=== PATIENT | male | born 1940 | race Caucasian/White ===

== ENCOUNTER → 2017-06-22 | Outpatient (CLI) | payer MEDICARE ==
[~2017-06-22] MED LIST: DOBUTamine DRIP for NUC MED 500 MG in DEXTROSE/WATER 1 250ML.BAG IV ONE
--- NOTE | 2017-06-22 09:22 | XR ---
EXAMINATION TYPE: XR chest 2V DATE OF EXAM: 06/22/2017 COMPARISON: 06/12/2016 HISTORY: Chest pain and history of bypass TECHNIQUE: Frontal and lateral views of the chest are obtained. FINDINGS: Postsurgical changes are seen of the chest with mediastinal clips and intact midline hamilton otomy wires. No focal consolidation, pleural effusion, or pneumothorax. Cardiomediastinal silhouette is stable. Degenerative changes are also again appreciated of the thoracic spine with exaggerated tho racic kyphosis and no visualized compression fracture. Cholecystectomy clips are seen within the righ t upper quadrant on the lateral image as well as calcific atheromatous changes of the abdominal aorta . IMPRESSION: No acute cardiopulmonary process.
--- NOTE | 2017-06-25 17:57 | ECHOS ---
Referral Reason:I25.84 coronary atherosclerosis MEASUREMENTS -------- HEIGHT: 175.3 cm WEIGHT: 90.7 kg BP: 110/62 WallScoring: string WallScoring: string WallScoring: string WallScoring: string FINDINGS -------- The patient received intravenous dobutamine beginning at 10 mcg/kg/min, increasing to 20 mcg/kg/min and 30 mcg/kg/min in 3 minute stages plus 0 mg atropine. Max Heart Rate: 128 % of Max Predicted Heart Rate: 91% Rest Heart Rate: 84 Rest BP: 110/62 Max BP: 216/130 Mets Achieved: N/A The test was stopped because the target heart rate was achieved. Sinus rhythm. In response to stress, the ECG showed no diagnostic ST-T wave changes (see exercise report for details). LV size, wall thickness and systolic function are normal, with an EF of 60%. At recovery dobutamine stress there was appropriate augmentation of systolic function of all segments with decrease in cavity size. CONCLUSIONS -------- 1. Sinus rhythm. 2. In response to stress, the ECG showed no diagnostic ST-T wave changes (see exercise report for details). 3. LV size, wall thickness and systolic function are normal, with an EF of 60%. 4. At recovery dobutamine stress there was appropriate augmentation of systolic function of all segments with decrease in cavity size. 5. No 2D echocardiographic evidence of inducible ischemia to achieved workload. PIPELINES LABORER: Oren Jose RDCS
--- NOTE | 2017-06-26 07:38 | EST ---
Referral Reason:I25.84 coronary atherosclerosis MEASUREMENTS -------- HEIGHT: 175.3 cm WEIGHT: 90.7 kg BP: 110/62 FINDINGS -------- The patient received intravenous dobutamine beginning at 10 mcg/kg/min, increasing to 20 mcg/kg/min and 30 mcg/kg/min in 3 minute stages plus 0 mg atropine. Max Heart Rate: 128 % of Max Predicted Heart Rate: 91% Rest Heart Rate: 84 Rest BP: 110/62 Max BP: 216/130 Mets Achieved: N/A The test was stopped because the target heart rate was achieved. Sinus rhythm. In response to stress, the ECG showed no diagnostic ST-T wave changes (see exercise report for details). LV size, wall thickness and systolic function are normal, with an EF of 60%. At recovery dobutamine stress there was appropriate augmentation of systolic function of all segments with decrease in cavity size. CONCLUSIONS -------- 1. Sinus rhythm. 2. In response to stress, the ECG showed no diagnostic ST-T wave changes (see exercise report for details). 3. LV size, wall thickness and systolic function are normal, with an EF of 60%. 4. At recovery dobutamine stress there was appropriate augmentation of systolic function of all segments with decrease in cavity size. 5. No 2D echocardiographic evidence of inducible ischemia to achieved workload. MATTRESS RENOVATOR: Oren Jose RDCS MTDD
== END | disposition home or self-care (01) ==
LOC: RADNMMAIN 08:41
PROVIDERS: ATTEND Internal Medicine Geriatric Medicine
DX: R06.02 Shortness of breath (principal); I25.84 Coronary atherosclerosis due to calcified coronary lesion
CPT/HCPCS: 93017; 71020; C8928; J1250; Q9957; 93350

== ENCOUNTER → 2018-10-18 | Outpatient (CLI) | payer MEDICARE ==
--- NOTE | 2018-10-18 18:56 | ECHOF ---
Referral Reason:I35.0 Non-rheumatic aortic valve stenosis MEASUREMENTS -------- HEIGHT: 175.3 cm WEIGHT: 83.5 kg BP: IVSd: 1.4 cm (0.6 - 1.1) LVIDd: 3.0 cm (3.9 - 5.3) LVPWd: 1.4 cm (0.6 - 1.1) IVSs: 2.1 cm LVIDs: 1.8 cm LVPWs: 1.7 cm Ao Diam: 3.1 cm (2.0 - 3.7) AV Cusp: 2.0 cm (1.5 - 2.6) LA Diam: 2.2 cm (2.7 - 3.8) MV EXCURSION: 13.189 mm (> 18.000) MV EF SLOPE: 59 mm/s (70 - 150) EPSS: 1.9 cm MV E Robbi: 0.82 m/s MV DecT: 290 ms MV A Robbi: 0.94 m/s MV E/A Ratio: 0.87 RAP: 5.00 mmHg RVSP: 25.48 mmHg FINDINGS -------- Sinus rhythm. This was a technically good study. The left ventricular size is normal. There is moderate concentric left ventricular hypertrophy. O verall left ventricular systolic function is normal with, an EF between 55 - 60 %. The right ventricle is normal in size and function. The left atrial size is normal. The right atrium is normal in size. Aortic valve is trileaflet and is mildly thickened. There is no evidence of aortic stenosis. The mitral valve leaflets are mildly thickened. Mild mitral regurgitation is present. Mild tricuspid regurgitation present. Right ventricular systolic pressure is normal at < 35 mmHg. The right ventricular systolic pressure, as measured by Doppler, is 25.48mmHg. Trace/mild (physiologic) pulmonic regurgitation. The aortic root size is normal. Normal inferior vena cava with normal inspiratory collapse consistent with estimated right atrial pre ssure of 5 mmHg. There is no pericardial effusion. CONCLUSIONS -------- 1. Sinus rhythm. 2. This was a technically good study. 3. The left ventricular size is normal. 4. There is moderate concentric left ventricular hypertrophy. 5. Overall left ventricular systolic function is normal with, an EF between 55 - 60 %. 6. The left atrial size is normal. 7. Aortic valve is trileaflet and is mildly thickened. 8. The mitral valve leaflets are mildly thickened. 9. Mild mitral regurgitation is present. 10. Mild tricuspid regurgitation present. 11. Right ventricular systolic pressure is normal at < 35 mmHg. 12. Trace/mild (physiologic) pulmonic regurgitation. 13. The aortic root size is normal. 14. Normal inferior vena cava with normal inspiratory collapse consistent with estimated right atrial pressure of 5 mmHg. 15. There is no pericardial effusion. EQUAL OPPORTUNITY COUNSELOR: Agnes Villalta RDCS
== END | disposition home or self-care (01) ==
LOC: RADECHMAIN 12:53
PROVIDERS: ATTEND Internal Medicine Geriatric Medicine
DX: I08.1 Rheumatic disorders of both mitral and tricuspid valves (principal)
CPT/HCPCS: 93306

== ENCOUNTER → 2018-10-30 | Outpatient (CLI) | payer MEDICARE ==
--- NOTE | 2018-10-30 12:10 | FL ---
EXAMINATION TYPE: FL barium swallow w video DATE OF EXAM: 10/30/2018 MODIFIED SWALLOW / DEGLUTITION STUDY CLINICAL HISTORY: Coughing and burning chest pain at night. TECHNIQUE: Deglutition study is performed utilizing thin liquid barium, barium thick applesauce, and barium coated cracker. 32 seconds of fluoroscopy time was utilized with 0 images saved as the exam w as video recorded. COMPARISON: None. FINDINGS: The oral and pharyngeal phases show satisfactory initiation and propagation with all modali ties tested. Normal mastication is seen with solid modalities tested. There is no evidence of penet ration or aspiration with any modality tested. No significant pharyngeal residue was appreciated. IMPRESSION: Unremarkable deglutition study. Please refer to speech therapist notes for further detai ls if necessary.
== END ==
LOC: RADFLMAIN 10:43
PROVIDERS: ATTEND Internal Medicine Geriatric Medicine
DX: Q40.1 Congenital hiatus hernia (principal)
CPT/HCPCS: 74230

== ENCOUNTER 2018-12-05 11:05 | Day surgery (SDC) | payer MEDICARE ==
[2018-12-03 10:10] VITALS: BMI 27.4
[~2018-12-05 11:05] MED LIST changes: -DOBUTamine DRIP for NUC MED 500 MG in DEXTROSE/WATER 1 250ML.BAG IV ONE; +LACTATED RINGERS 1,000 ML IV SCH; +LIDOCAINE 1% 20 ML VIAL (10MG/ML) FOR IV START INTRADERMA PRN
[2018-12-05 11:30] LABS: Glucose,Whole Blood 152 mg/dL (75-99)
[2018-12-05 11:34] VITALS: TEMP 97.3
[2018-12-05] MEDS ORDERED: LIDOCAINE 1% INJ 10MG/ML (20 ML MDV) ONE (11:48)
[2018-12-05] MEDS ORDERED: PROPOFOL 10 MG/ML 20 ML VIAL IV ONE (11:48)
--- NOTE | 2018-12-05 12:16 | P.OP ---
Date of Procedure: 12/05/18 Preoperative Diagnosis: Screening Postoperative Diagnosis: Transverse Colon Polyp Procedure(s) Performed: Colonoscopy with snare polypectomy Surgeon: Cathleen Olson Pathology: other (Transverse colon polyp) Condition: stable Disposition: same day Indications for Procedure: 78-year-old male presents for a screening colonoscopy. Risks, benefits and alternatives were provided to the patient. The patient did provide consent prior to attending the endoscopy suite. Operative Findings: Transverse colon polyp Description of Procedure: The patient was brought into the endoscopy suite and placed in left lateral decubitus position. Adequate sedation was achieved using conscious sedation. A digital rectal exam was performed and mild internal hemorrhages were palpated. An endoscope was then placed in the rectum and advanced to the cecum as identified by landmarks including the appendiceal orifice and ileocecal valve. The prep was good. The colon scope was then slowly withdrawn, examining for any mucosal abnormalities. The cecum, ascending, transverse, descending and sigmoid colon were visualized adequately. There was a notable polyp in the transverse colon. Heated Snare polypectomy was used to remove this polyp in its entirety. Hemostasis was maintained. There is also notable diverticulosis within the descending and sigmoid colon. Retroflexion was performed in the rectum and internal hemorrhoids were visible. Excess air was removed and the colonoscope was withdrawn and the procedure terminated. The patient was then transferred to the postanesthesia recovery unit in stable condition. Repeat colonoscopy should be performed based on symptoms due to the patient's age.
[2018-12-05 12:42] VITALS: BP 144/85; PULSE 73; RESP 16
== END 2018-12-05 12:55 | disposition home or self-care (01) ==
LOC: ORWHC2ENDO 11:05
PROVIDERS: ATTEND Surgery
DX: Z12.11 Encounter for screening for malignant neoplasm of colon (principal); K63.5 Polyp of colon; K64.8 Other hemorrhoids; M19.90 Unspecified osteoarthritis, unspecified site; I25.10 Atherosclerotic heart disease of native coronary artery without angina pectoris; E11.9 Type 2 diabetes mellitus without complications; I10 Essential (primary) hypertension; E78.00 Pure hypercholesterolemia, unspecified; G47.30 Sleep apnea, unspecified; E78.5 Hyperlipidemia, unspecified; K21.9 Gastro-esophageal reflux disease without esophagitis; Z95.1 Presence of aortocoronary bypass graft; Z79.84 Long term (current) use of oral hypoglycemic drugs; Z79.1 Long term (current) use of non-steroidal anti-inflammatories (NSAID); Z79.82 Long term (current) use of aspirin; Z79.899 Other long term (current) drug therapy; Z90.79 Acquired absence of other genital organ(s); Z85.46 Personal history of malignant neoplasm of prostate; Z85.89 Personal history of malignant neoplasm of other organs and systems; Z85.828 Personal history of other malignant neoplasm of skin
CPT/HCPCS: 88305; 45385; J2001; J2704

== ENCOUNTER → 2019-08-15 | Outpatient (CLI) | payer MEDICARE ==
--- NOTE | 2019-08-15 12:31 | XR ---
EXAMINATION TYPE: XR shoulder complete LT DATE OF EXAM: 08/15/2019 COMPARISON: NONE HISTORY: Pain TECHNIQUE: Three views are submitted. FINDINGS: The osseous structures are intact. There is no acute fracture or dislocation. The AC joint is mildl y narrowed. No significant spur formation. IMPRESSION: 1. Mild AC joint arthropathy.
== END | disposition home or self-care (01) ==
LOC: RADXRMAIN 12:06
PROVIDERS: ATTEND Internal Medicine Geriatric Medicine
DX: M12.812 Other specific arthropathies, not elsewhere classified, left shoulder (principal)

== ENCOUNTER → 2020-03-31 | Outpatient (CLI) | payer MEDICARE ==
--- NOTE | 2020-03-31 15:50 | XR ---
EXAMINATION TYPE: XR lumbar spine 2 or 3V DATE OF EXAM: 03/31/2020 COMPARISON: None HISTORY: Back pain radiating to right hip TECHNIQUE: Three-view lumbar spine FINDINGS: There 5 lumbar-type vertebral bodies. Pedicles are intact. Disc space narrowing is present L4-5. Vacuum disc phenomenon is present L5-S1 L4-5 L3-4 and T12-L1. There is narrowing of the T12-L1 disc space. Note is made of vascular calcification within the aorta. IMPRESSION: 1. Degenerative disc changes and scoliosis.
== END | disposition home or self-care (01) ==
LOC: RADXRMAIN 14:37
PROVIDERS: ATTEND Internal Medicine Geriatric Medicine
DX: M51.36 Other intervertebral disc degeneration, lumbar region (principal); M41.86 Other forms of scoliosis, lumbar region
CPT/HCPCS: 72100

== ENCOUNTER → 2020-05-04 | Outpatient (CLI) | payer MEDICARE ==
--- NOTE | 2020-05-04 14:24 | MR ---
EXAMINATION TYPE: MR lumbar spine wo con DATE OF EXAM: 05/04/2020 COMPARISON: Plain film dated 03/31/2020 HISTORY: Spinal stenosis lumbar region TECHNIQUE: Multiplanar, multisequence images of the lumbar spine were acquired. T12-L1: Posterior extension endplate disc complex contacts the anterior thecal sac. No significant ce ntral stenosis or foraminal encroachment. Minimal retrolisthesis grade 1 T12-L1. L1-L2: Some loss of signal is consistent with disc desiccation. No herniation, protrusion or disc bu lging. No canal stenosis is present. Foramina are patent bilaterally. L2-L3: Mild loss of signal consistent with disc desiccation. No herniation, protrusion or disc bulgi ng. No canal stenosis is present. Foramina are patent bilaterally. L3-L4: Minimal posterior disc bulge causes only slight anterior mass effect on the thecal sac. No sig nificant foraminal encroachment or central stenosis. L4-L5: Posterior extension endplate disc complex causes some anterior mass effect on the thecal sac. Facet arthropathy with hypertrophy ligamentum flavum causes some posterior lateral mass effect on the thecal sac. Circumferential extension endplate disc complex results in some right-sided foraminal en croachment. L5-S1: Circumferential posterior broad-based disc bulge contacts anterior thecal sac, lateral extensi on endplate disc complex encroaches on the neural foramina greater on the left than on the right. The re is no significant central stenosis. Facet arthropathy changes are present. Hypertrophic facet reeves ges extending to the lateral recess greater on the left. Lumbar segments are intact. No paraspinal masses are identified. Conus medullaris has a normal appe arance. There is a S-shaped dressing lumbar scoliosis. Lumbar vertebral bodies show preserved height. There is multilevel spondylosis with endplate discogenic marrow signal change. Loss of disc height a nd signal is present in the interval vertebral levels especially L3-4, L4-5 and L5-S1, T12-L1 consist ent with disc desiccation and degenerative disc disease. Vacuum disc phenomenon present L3-4, L4-5, L 5-S1 and to lesser extent L1-2. 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 The abdominal aorta me asures approximately 3.4 cm in transverse dimension in the super renal location and tapers more dista lly. There is a left adrenal mass measuring 2 cm which is incompletely evaluated. IMPRESSION: Scoliosis, degenerative disc disease, facet arthropathy and foraminal encroachment. Left adrenal mass . Abdominal aortic aneurysm.
== END | disposition home or self-care (01) ==
LOC: RADMRIMAIN 08:20
PROVIDERS: ATTEND Internal Medicine Geriatric Medicine
DX: M51.37 Other intervertebral disc degeneration, lumbosacral region (principal); M47.816 Spondylosis without myelopathy or radiculopathy, lumbar region; M47.817 Spondylosis without myelopathy or radiculopathy, lumbosacral region; M41.86 Other forms of scoliosis, lumbar region
CPT/HCPCS: 72148

== ENCOUNTER → 2020-06-07 | Outpatient (CLI) | payer MEDICARE ==
--- NOTE | 2020-06-07 12:46 | ECHOF ---
Referral Reason:I34.0 Nonrheumatic mitral (valve) insufficiency MEASUREMENTS -------- HEIGHT: 175.3 cm WEIGHT: 88.0 kg BP: 131/67 RVIDd: 3.6 cm (< 3.3) IVSd: 1.3 cm (0.6 - 1.1) LVIDd: 3.4 cm (3.9 - 5.3) LVPWd: 1.4 cm (0.6 - 1.1) IVSs: 1.7 cm LVIDs: 2.6 cm LVPWs: 1.6 cm LA Diam: 3.2 cm (2.7 - 3.8) Ao Diam: 3.4 cm (2.0 - 3.7) AV Cusp: 2.2 cm (1.5 - 2.6) MV EXCURSION: 18.221 mm (> 18.000) MV EF SLOPE: 110 mm/s (70 - 150) EPSS: 0.6 cm MV E Robbi: 0.89 m/s MV DecT: 100 ms MV A Robbi: 1.05 m/s MV E/A Ratio: 0.84 RAP: 5.00 mmHg RVSP: 23.73 mmHg FINDINGS -------- Sinus rhythm. This was a technically adequate study. The left ventricular size is normal. There is moderate concentric left ventricular hypertrophy. O verall left ventricular systolic function is normal with, an EF between 60 - 65 %. The right ventricle is mildly enlarged. The left atrial size is normal. The right atrium is normal in size. Aortic valve is trileaflet and is mildly thickened. Mild mitral annular calcification present. Mild tricuspid regurgitation present. Right ventricular systolic pressure is normal at < 35 mmHg. Moderate pulmonic regurgitation. The aortic root size is normal. IVC Not well visulized. There is no pericardial effusion. CONCLUSIONS -------- 1. Sinus rhythm. 2. This was a technically adequate study. 3. The left ventricular size is normal. 4. There is moderate concentric left ventricular hypertrophy. 5. Overall left ventricular systolic function is normal with, an EF between 60 - 65 %. 6. The right ventricle is mildly enlarged. 7. The left atrial size is normal. 8. Aortic valve is trileaflet and is mildly thickened. 9. Mild mitral annular calcification present. 10. Mild tricuspid regurgitation present. 11. Moderate pulmonic regurgitation. 12. The aortic root size is normal. 13. There is no pericardial effusion. PLASTIC MIXER: Minerva Banegas RDCS
== END | disposition home or self-care (01) ==
LOC: RADECHMAIN 11:05
PROVIDERS: ATTEND Internal Medicine Geriatric Medicine
DX: I07.1 Rheumatic tricuspid insufficiency (principal); I37.1 Nonrheumatic pulmonary valve insufficiency
CPT/HCPCS: 93306

== ENCOUNTER → 2020-08-17 | Outpatient (CLI) | payer MEDICARE ==
[2020-08-18 12:09] LABS: HLA B27 NEGATIVE
== END | disposition home or self-care (01) ==
LOC: LABWHC1 14:58
PROVIDERS: ATTEND Internal Medicine Geriatric Medicine
DX: M35.3 Polymyalgia rheumatica (principal); I25.10 Atherosclerotic heart disease of native coronary artery without angina pectoris; E03.9 Hypothyroidism, unspecified; E11.65 Type 2 diabetes mellitus with hyperglycemia
CPT/HCPCS: 36415; 86812

== ENCOUNTER → 2020-11-04 | Outpatient (CLI) | payer MEDICARE ==
[~2020-11-04] MED LIST changes: -LACTATED RINGERS 1,000 ML IV SCH; -LIDOCAINE 1% 20 ML VIAL (10MG/ML) FOR IV START INTRADERMA PRN; +REGADENOSON 0.4 MG/5 ML SYRINGE IV ONE
--- NOTE | 2020-11-04 09:31 | ECHOF ---
Referral Reason:Unstable Angina I20.0... MEASUREMENTS -------- HEIGHT: 175.3 cm WEIGHT: 86.2 kg BP: RVIDd: 3.0 cm (< 3.3) IVSd: 0.9 cm (0.6 - 1.1) LVIDd: 3.2 cm (3.9 - 5.3) LVPWd: 0.9 cm (0.6 - 1.1) IVSs: 1.4 cm LVIDs: 2.1 cm LVPWs: 1.6 cm Ao Diam: 2.7 cm (2.0 - 3.7) AV Cusp: 1.9 cm (1.5 - 2.6) LA Diam: 2.0 cm (2.7 - 3.8) MV EXCURSION: 13.883 mm (> 18.000) MV EF SLOPE: 48 mm/s (70 - 150) EPSS: 0.5 cm MV E Robbi: 0.74 m/s MV DecT: 164 ms MV A Robbi: 1.03 m/s MV E/A Ratio: 0.72 RAP: 5.00 mmHg RVSP: 8.99 mmHg FINDINGS -------- This was a technically difficult study with suboptimal views. The left ventricular size is normal. Left ventricular wall thickness is normal. Overall left vent ricular systolic function is low-normal with, an EF between 50 - 55 %. There is paradoxical/dysyner gic septal motion consistent with post-operative status. The right ventricle is normal in size. The left atrial size is normal. The right atrial size is normal. The aortic valve is trileaflet and appears structurally normal. The mitral valve is normal. There is trace mitral regurgitation. The tricuspid valve appears structurally normal. Trace tricuspid regurgitation present. Right alfredito tricular systolic pressure is normal at < 35 mmHg. Trace/mild (physiologic) pulmonic regurgitation. The aortic root size is normal. IVC Not well visulized. There is no pericardial effusion. CONCLUSIONS -------- 1. The left ventricular size is normal. 2. Left ventricular wall thickness is normal. 3. Overall left ventricular systolic function is low-normal with, an EF between 50 - 55 %. 4. There is paradoxical/dysynergic septal motion consistent with post-operative status. 5. There is trace mitral regurgitation. 6. Trace tricuspid regurgitation present. 7. Trace/mild (physiologic) pulmonic regurgitation. 8. There is no pericardial effusion. MEDICAL DOSIMETRIST: Agnes Villalta RDCS
--- NOTE | 2020-11-04 10:03 | P.STRESS ---
- Stress Test Note Stress Test Results/Findings: Exam Performed: NM stress lexiscan cardiolite Exam Date: 11/04/20 Reason for Exam: SHORTNESS OF BREATH Height: 5 ft 9 in Weight: 86.4 kg Protocol: LEXISCAN Stage: N/A Duration of Exercise: 6 MINUTES Resting Heart Rate: 75 Resting Blood Pressure: 148/74 Maximum Achieved Heart Rate: 97 Maximum Achieved Blood Pressure: 148/74 85% PMHR: 117 100% PMHR: 138 METS: N/A Technologist Comment: Stress Test Results/Findings: At baseline EKG showed normal sinus rhythm, normal axis, no significant ST or T wave abnormalities. Patient recieved IV infusion of Lexiscan 0.4mg and at peak infusion EKG showed nonspecific 0.[address] depressions in 3 and aVF. Conclusions: 1. Normal EKG response to Lexiscan infusion 2. Nuclear imaging to be reported separately.
--- NOTE | 2020-11-04 10:37 | NM ---
EXAMINATION TYPE: NM stress lexiscan cardiolite DATE OF EXAM: 11/04/2020 COMPARISON: 04/26/2016 HISTORY: Chest pain TECHNIQUE: After the intravenous administration of 9.12 mCi Tc 99m Sestamibi - Cardiolite resting SP ECT images acquired 45 minutes post injection. The patient received 0.4mg Lexiscan, 26.9 mCi Tc 99m Sestamibi - Stress images obtained [address] injection FINDINGS: Review of stress and rest SPECT images demonstrates reduced uptake involving the inferior wall the my ocardium on both stress and rest images as well as the anterior septal portion could be artifactual. Gated analysis shows normal wall motion with an estimated left ventricular ejection fraction of 59 %. IMPRESSION: 1 no diagnostic evidence of stress-induced reversible ischemia. Fixed defects as discusse d above could be artifactual correlate with EKG.
== END | disposition home or self-care (01) ==
LOC: RADNMMAIN 07:49
PROVIDERS: ATTEND Internal Medicine Geriatric Medicine
DX: I37.1 Nonrheumatic pulmonary valve insufficiency (principal); I20.0 Unstable angina
CPT/HCPCS: 93017; 78452; C8929; A9500; J2785; Q9950; 93306

== ENCOUNTER 2020-11-28 16:46 | Observation (INO) | payer MEDICARE ==
[2020-11-28 17:39] LABS: Glucose,Whole Blood 206 mg/dL (75-99)
[2020-11-28 18:01] LABS: Anisocytosis Slight; Basophils # (A) 0.1 k/uL (0-0.2); Basophils % (A) 1 %; Eosinophils # (A) 0.4 k/uL (0-0.7); Eosinophils % (A) 6 %; HCT 33.3 % (39.0-53.0); HGB 9.9 gm/dL (13.0-17.5); Hypochromasia Marked; Lymphocytes # (A) 1.5 k/uL (1.0-4.8); Lymphocytes % (A) 23 %; MCH 22.2 pg (25.0-35.0); MCHC 29.7 g/dL (31.0-37.0); MCV 74.9 fL (80.0-100.0); Mean Platelet Volume 7.6; Microcytosis Slight; Monocytes # (A) 0.5 k/uL (0-1.0); Monocytes % (A) 8 %; Neutrophils # (A) 3.9 k/uL (1.3-7.7); Neutrophils % (A) 60 %; Platelet Count 329 k/uL (150-450); RBC 4.44 m/uL (4.30-5.90); RDW 16.2 % (11.5-15.5); WBC 6.5 k/uL (3.8-10.6)
[2020-11-28 18:07] LABS: Albumin 3.7 g/dL (3.5-5.0); Calcium 9.6 mg/dL (8.4-10.2); Magnesium 1.9 mg/dL (1.6-2.3); Potassium 4.1 mmol/L (3.5-5.1); Total Bilirubin 0.3 mg/dL (0.2-1.3); Total Protein 6.4 g/dL (6.3-8.2)
--- NOTE | 2020-11-28 18:11 | CT ---
EXAMINATION TYPE: CT brain wo con DATE OF EXAM: 11/28/2020 COMPARISON: None HISTORY: Leg weakness CT DLP: 1178.4 mGycm Automated exposure control for dose reduction was used. Exam performed without contrast. There is cerebral cortical atrophy. There is no mass effect nor midline shift. There is no sign of in tracranial hemorrhage. Calvarium is intact. The skull base is intact. IMPRESSION: Cerebral cortical atrophy. No acute intracranial abnormality.
--- NOTE | 2020-11-28 18:11 | ED ---
Weakness HPI - General Chief complaint: Weakness Stated complaint: Weak Source: patient Mode of arrival: ambulatory Limitations: no limitations - History of Present Illness Initial comments: 80-year-old male with past history of diabetes, hypertension, heart disease status post bypass presents emergency room with bilateral lower extremity weakness. Patient reports that he has had one year of bilateral lower extremity pain and has been following with Dr. Nunez. States he's had significant workup without a diagnosis. Normally ambulates unassisted. Patient states he will s top today and was attempting to get up out of bed. Reports that he couldn't stand up at bedside without any assistance. He did use a walker to ambulate to the bathroom. He reports that his symptoms did not get better over the course of today. He denies that he has any back or lower extremity pain. Has a bladder incontinence at baseline due to his history of prostate cancer however denies any new incontinence or retention. No fevers or chills. Patient denies any abdominal pain. No numbness or tingling in his lower trunk. No other alleviating, precipitating modifying factors - Related Data Home Medications Medication Instructions Recorded Confirmed Aspirin EC [Ecotrin Low Dose] 81 mg PO DAILY 12/03/18 11/28/20 Fluticasone Nasal [place] [Flonase 1 spray EA NOSTRIL DAILY PRN 12/03/18 11/28/20 Nasal [place]] Glimepiride [Amaryl] 4 mg PO BID 12/03/18 11/28/20 Metoprolol Tartrate [Lopressor] 25 mg PO HS 12/03/18 11/28/20 Mometasone/Formoterol [Dulera 200 2 puff INHALATION RT-HS PRN 12/03/18 11/28/20 Mcg-5 Mcg Inhaler] Tolterodine Tartrate [Detrol LA] 2 mg PO BID 12/03/18 11/28/20 lisinopriL [Prinivil] 5 mg PO DAILY 12/03/18 11/28/20 Albuterol Inhaler [Ventolin Hfa 2 puff INHALATION RT-QID PRN 11/28/20 11/28/20 Inhaler] Baclofen [Lioresal] 5 mg PO BID 11/28/20 11/28/20 Calcium Carbonate [Tums] 500 mg PO TID PRN 11/28/20 11/28/20 Celecoxib [CeleBREX] 200 mg PO DAILY PRN 11/28/20 11/28/20 Cyanocobalamin (Vitamin B-12) 1,000 mcg PO DAILY 11/28/20 11/28/20 [Vitamin B-12] Furosemide [Lasix] 40 mg PO DAILY 11/28/20 11/28/20 Insulin Degludec [Tresiba 30 units SQ DAILY 11/28/20 11/28/20 Flextouch U-200] Nitroglycerin Sl Tabs [Nitrostat] 0.4 mg SUBLINGUAL Q5M PRN 11/28/20 11/28/20 Omeprazole [PriLOSEC] 20 mg PO AC-BID PRN 11/28/20 11/28/20 Pantoprazole Sodium 40 mg PO BID 11/28/20 11/28/20 Rosuvastatin Calcium [Crestor] 10 mg PO HS 11/28/20 11/28/20 metFORMIN HCL 500 mg PO BID 11/28/20 11/28/20 Allergies Allergy/AdvReac Type Severity Reaction Status Date / Time No Known Allergies Allergy Verified 11/28/20 18:32 Review of Systems ROS Statement: Those systems with pertinent positive or pertinent negative responses have been documented in the HPI. ROS Other: All systems not noted in ROS Statement are negative. Past Medical History Past Medical History: Diabetes Mellitus, Hypertension, Myocardial Infarction (ID) History of Any Multi-Drug Resistant Organisms: None Reported Past Surgical History: Cholecystectomy, Coronary Bypass/CABG Additional Past Surgical History / Comment(s): rt leg tumor removed Past Psychological History: No Psychological Hx Reported Smoking Status: Former smoker Past Alcohol Use History: Occasional Past Drug Use History: None Reported General Exam Limitations: no limitations Course Vital Signs 11/28/20 16:50 Temperature 97.9 F Pulse Rate 74 Respiratory 18 Rate Blood Pressure 182/83 O2 Sat by Pulse 98 Oximetry EKG Findings - EKG Comments: EKG Findings:: EKG demonstrates normal sinus rhythm with a ventricular rate of 72. ME interval 98. QRS 104. QTc 427. No acute ST segment elevation or depressions concerning for ischemic changes Medical Decision Making - Medical Decision Making Upon arrival patient is placed into room 4. Thorough history and physical exam was performed. That is established. Laboratory studies were conducted. Patient went over for a CT of his lumbar spine as well as a CT of his brain. Results are reviewed. CT of the brain demonstrates remote cortical atrophy with no acute intracranial process. CT of the patient's lumbar spine demonstrates multilevel spondylitic changes. L4-5 bony spinal stenosis. The patient does not have any appreciable weakness in his lower extremities upon testing however when asked to stand up the patient does have difficulties placing weight on his lower extremities. states that she has no capability of taking care of the patient's. Because of this I did call discuss case with Dr. Pablo. Did agree to admit the patient. Requesting steroids, TSH, B12 levels. Consult be placed to Dr. Carpenter. This is discussed the patient who agreed to treatment plan. He is currently awaiting a bed on the floor - Lab Data Result diagrams: 11/28/20 17:46 11/28/20 17:46 Lab Results 11/28/20 11/28/20 11/28/20 Range/Units 17:38 17:46 17:46 WBC 6.5 (3.8-10.6) k/uL RBC 4.44 (4.30-5.90) m/uL Hgb 9.9 L (13.0-17.5) gm/dL Hct 33.3 L (39.0-53.0) % MCV 74.9 L (80.0-100.0) fL MCH 22.2 L (25.0-35.0) pg MCHC 29.7 L (31.0-37.0) g/dL RDW 16.2 H (11.5-15.5) % Plt Count 329 (150-450) k/uL MPV 7.6 Neutrophils % 60 % Lymphocytes % 23 % Monocytes % 8 % Eosinophils % 6 % Basophils % 1 % Neutrophils # 3.9 (1.3-7.7) k/uL Lymphocytes # 1.5 (1.0-4.8) k/uL Monocytes # 0.5 (0-1.0) k/uL Eosinophils # 0.4 (0-0.7) k/uL Basophils # 0.1 (0-0.2) k/uL Hypochromasia Marked Anisocytosis Slight Microcytosis Slight PT 10.0 (9.0-12.0) sec INR 0.9 (<1.2) APTT 21.1 L (22.0-30.0) sec Sodium (137-145) mmol/L Potassium (3.5-5.1) mmol/L Chloride (98-107) mmol/L Carbon Dioxide (22-30) mmol/L Anion Gap mmol/L BUN (9-20) mg/dL Creatinine (0.66-1.25) mg/dL Est GFR (CKD-EPI)AfAm (>60 ml/min/1.73 sqM) Est GFR (CKD-EPI)NonAf (>60 ml/min/1.73 sqM) Glucose (74-99) mg/dL POC Glucose (mg/dL) 206 H (75-99) mg/dL POC Glu [employer] ID Gordy, Ali Plasma Lactic Acid Oli (0.7-2.0) mmol/L Calcium (8.4-10.2) mg/dL Magnesium (1.6-2.3) mg/dL Total Bilirubin (0.2-1.3) mg/dL AST (17-59) U/L ALT (4-49) U/L Alkaline Phosphatase (38-126) U/L Creatine Kinase (55-170) U/L Troponin I (0.000-0.034) ng/mL Total Protein (6.3-8.2) g/dL Albumin (3.5-5.0) g/dL Urine Color Urine Appearance (Clear) Urine pH (5.0-8.0) Ur Specific [place] (1.001-1.035) Urine Protein (Negative) Urine Glucose (UA) (Negative) Urine Ketones (Negative) Urine Blood (Negative) Urine Nitrite (Negative) Urine Bilirubin (Negative) Urine Urobilinogen (<2.0) mg/dL Ur Leukocyte Esterase (Negative) 11/28/20 11/28/20 11/28/20 Range/Units 17:46 17:46 17:46 WBC (3.8-10.6) k/uL RBC (4.30-5.90) m/uL Hgb (13.0-17.5) gm/dL Hct (39.0-53.0) % MCV (80.0-100.0) fL MCH (25.0-35.0) pg MCHC (31.0-37.0) g/dL RDW (11.5-15.5) % Plt Count (150-450) k/uL MPV Neutrophils % % Lymphocytes % % Monocytes % % Eosinophils % % Basophils % % Neutrophils # (1.3-7.7) k/uL Lymphocytes # (1.0-4.8) k/uL Monocytes # (0-1.0) k/uL Eosinophils # (0-0.7) k/uL Basophils # (0-0.2) k/uL Hypochromasia Anisocytosis Microcytosis PT (9.0-12.0) sec INR (<1.2) APTT (22.0-30.0) sec Sodium 141 (137-145) mmol/L Potassium 4.1 (3.5-5.1) mmol/L Chloride 110 H (98-107) mmol/L Carbon Dioxide 24 (22-30) mmol/L Anion Gap 7 mmol/L BUN 22 H (9-20) mg/dL Creatinine 1.04 (0.66-1.25) mg/dL Est GFR (CKD-EPI)AfAm 77 (>60 ml/min/1.73 sqM) Est GFR (CKD-EPI)NonAf 67 (>60 ml/min/1.73 sqM) Glucose 214 H (74-99) mg/dL POC Glucose (mg/dL) (75-99) mg/dL POC Glu [employer] ID Plasma Lactic Acid Oli 1.3 (0.7-2.0) mmol/L Calcium 9.6 (8.4-10.2) mg/dL Magnesium 1.9 (1.6-2.3) mg/dL Total Bilirubin 0.3 (0.2-1.3) mg/dL AST 16 L (17-59) U/L ALT 10 (4-49) U/L Alkaline Phosphatase 75 (38-126) U/L Creatine Kinase 54 L (55-170) U/L Troponin I <0.012 (0.000-0.034) ng/mL Total Protein 6.4 (6.3-8.2) g/dL Albumin 3.7 (3.5-5.0) g/dL Urine Color Urine Appearance (Clear) Urine pH (5.0-8.0) Ur Specific [place] (1.001-1.035) Urine Protein (Negative) Urine Glucose (UA) (Negative) Urine Ketones (Negative) Urine Blood (Negative) Urine Nitrite (Negative) Urine Bilirubin (Negative) Urine Urobilinogen (<2.0) mg/dL Ur Leukocyte Esterase (Negative) 11/28/20 Range/Units 18:31 WBC (3.8-10.6) k/uL RBC (4.30-5.90) m/uL Hgb (13.0-17.5) gm/dL Hct (39.0-53.0) % MCV (80.0-100.0) fL MCH (25.0-35.0) pg MCHC (31.0-37.0) g/dL RDW (11.5-15.5) % Plt Count (150-450) k/uL MPV Neutrophils % % Lymphocytes % % Monocytes % % Eosinophils % % Basophils % % Neutrophils # (1.3-7.7) k/uL Lymphocytes # (1.0-4.8) k/uL Monocytes # (0-1.0) k/uL Eosinophils # (0-0.7) k/uL Basophils # (0-0.2) k/uL Hypochromasia Anisocytosis Microcytosis PT (9.0-12.0) sec INR (<1.2) APTT (22.0-30.0) sec Sodium (137-145) mmol/L Potassium (3.5-5.1) mmol/L Chloride (98-107) mmol/L Carbon Dioxide (22-30) mmol/L Anion Gap mmol/L BUN (9-20) mg/dL Creatinine (0.66-1.25) mg/dL Est GFR (CKD-EPI)AfAm (>60 ml/min/1.73 sqM) Est GFR (CKD-EPI)NonAf (>60 ml/min/1.73 sqM) Glucose (74-99) mg/dL POC Glucose (mg/dL) (75-99) mg/dL POC Glu [employer] ID Plasma Lactic Acid Oli (0.7-2.0) mmol/L Calcium (8.4-10.2) mg/dL Magnesium (1.6-2.3) mg/dL Total Bilirubin (0.2-1.3) mg/dL AST (17-59) U/L ALT (4-49) U/L Alkaline Phosphatase (38-126) U/L Creatine Kinase (55-170) U/L Troponin I (0.000-0.034) ng/mL Total Protein (6.3-8.2) g/dL Albumin (3.5-5.0) g/dL Urine Color Yellow Urine Appearance Clear (Clear) Urine pH 6.0 (5.0-8.0) Ur Specific [place] 1.026 (1.001-1.035) Urine Protein Negative (Negative) Urine Glucose (UA) 4+ H (Negative) Urine Ketones Negative (Negative) Urine Blood Negative (Negative) Urine Nitrite Negative (Negative) Urine Bilirubin Negative (Negative) Urine Urobilinogen <2.0 (<2.0) mg/dL Ur Leukocyte Esterase Negative (Negative) Disposition Clinical Impression: Lower extremity weakness, Inability to walk Disposition: ADMITTED IP TO THIS [facility] Condition: Stable Is patient prescribed a controlled substance at d/c from ED?: No Decision to Admit Reason: Admit from EC Decision Date: 11/28/20 Decision Time: 19:41
[2020-11-28 18:13] LABS: INR 0.9 (<1.2)
[2020-11-28 18:21] LABS: Partial Thromboplastin Time 21.1 sec (22.0-30.0)
--- NOTE | 2020-11-28 18:22 | CT ---
EXAMINATION TYPE: CT lumbar spine wo con DATE OF EXAM: 11/28/2020 COMPARISON: None HISTORY: Leg weakness CT DLP: 1263.6 mGycm Automated exposure control for dose reduction was used. The lumbar vertebra have fairly normal alignment. There is multilevel mild vacuum disc phenomenon. Th ere is no compression fracture. There is mild lumbar levoscoliosis. The posterior elements are intact . There is no compression fracture. There is no evidence of lumbar paraspinal mass. Abdominal aorta i s atheromatous. Sacroiliac joints are intact. There is ligamentum flavum thickening and minimal disc bulging with spinal stenosis at L4-5. IMPRESSION: Multilevel spondylotic changes. L4-5 bony spinal stenosis. No fracture.
[2020-11-28 18:36] LABS: Appearance,Urine Clear (Clear); Bilirubin,Urine Negative (Negative); Blood,Urine Negative (Negative); Color,Urine Yellow; Glucose,Urine (UA) 4+ (Negative); Ketones,Urine Negative (Negative); Leukocyte Esterase,Urine Negative (Negative); Nitrite,Urine Negative (Negative); Protein,Urine Negative (Negative); Specific Gravity,Urine 1.026 (1.001-1.035); Urobilinogen,Urine <2.0 mg/dL (<2.0)
[2020-11-28] MEDS ORDERED: NALOXONE 0.4 MG/ML 1 ML VIAL IV PRN (19:44)
[2020-11-28] MEDS: methylPREDNISolone SOD SUCCI 125 MG/2 ML VIAL IV SCH (22:33)
[2020-11-28] MEDS ORDERED: NITROGLYCERIN SL TABS 0.4 MG TAB SUBLINGUAL PRN (23:00)
[2020-11-28] MEDS ORDERED: ALBUTEROL HFA INHALER INHALATION PRN (23:00)
[2020-11-28] MEDS ORDERED: CALCIUM CARBONATE 500 MG CHEWABLE PO PRN (23:00)
[2020-11-28] MEDS: METOPROLOL TARTRATE 25 MG TAB PO SCH (23:50)
[2020-11-28] MEDS: PANTOPRAZOLE 40 MG TABLET PO SCH (23:50)
[2020-11-28] MEDS: BACLOFEN 10 MG TAB PO SCH (23:50)
[2020-11-28] MEDS: metFORMIN 500 MG TAB PO SCH (23:50)
[2020-11-28] MEDS: GLIMEPIRIDE 4 MG TAB PO SCH (23:50)
[2020-11-28 23:53] LABS: Glucose,Whole Blood 248 mg/dL (75-99)
[2020-11-29] MEDS: methylPREDNISolone SOD SUCCI 125 MG/2 ML VIAL IV SCH ×3 (04:00→19:20)
[2020-11-29 06:13] LABS: Anisocytosis Slight; Basophils % (A) 0 %; Eosinophils % (A) 0 %; HCT 35.3 % (39.0-53.0); HGB 11.1 gm/dL (13.0-17.5); Hypochromasia Marked; Lymphocytes # (A) 1.1 k/uL (1.0-4.8); Lymphocytes % (A) 13 %; MCH 23.6 pg (25.0-35.0); MCHC 31.4 g/dL (31.0-37.0); MCV 75.1 fL (80.0-100.0); Mean Platelet Volume 7.3; Microcytosis Slight; Monocytes # (A) 0.1 k/uL (0-1.0); Monocytes % (A) 2 %; Neutrophils # (A) 6.8 k/uL (1.3-7.7); Neutrophils % (A) 84 %; Platelet Count 330 k/uL (150-450); RDW 16.1 % (11.5-15.5); WBC 8.1 k/uL (3.8-10.6)
[2020-11-29 06:54] LABS: Glucose,Whole Blood 301 mg/dL (75-99)
[2020-11-29] MEDS: ASPIRIN 81 MG PO SCH (07:20)
[2020-11-29] MEDS: FUROSEMIDE 40 MG TAB PO SCH (07:21)
[2020-11-29] MEDS: PANTOPRAZOLE 40 MG TABLET PO SCH ×2 (07:21→19:21)
[2020-11-29] MEDS: lisinopriL 5 MG TAB PO SCH (07:21)
[2020-11-29] MEDS: GLIMEPIRIDE 4 MG TAB PO SCH ×2 (07:21→19:21)
[2020-11-29] MEDS: metFORMIN 500 MG TAB PO SCH ×2 (07:21→19:21)
[2020-11-29] MEDS: BACLOFEN 10 MG TAB PO SCH ×2 (07:21→19:21)
[2020-11-29] MEDS: CYANOCOBALAMIN 500 MCG TAB PO SCH (07:21)
[2020-11-29] MEDS: INSULIN ASPART (NovoLOG) 100 UNIT/ML VIAL SQ SCH ×4 (07:22→20:38)
[2020-11-29] MEDS: INSULIN DETEMIR (LEVEMIR) 100 UNIT/ML SYR SQ SCH (07:22)
[2020-11-29] MEDS ORDERED: FLUTICASONE 50MCG/SPRAY NASAL 16GM EA NOSTRIL PRN (09:00)
[2020-11-29] MEDS ORDERED: MELOXICAM 7.5 MG TAB PO PRN (09:00)
[2020-11-29] MEDS: IOPAMIDOL CONTRAST (ORAL USE) VIAL PO PRN ×2 (09:01→10:01)
[2020-11-29 09:13] LABS: African American GFR (CKD) 64.9 (60.0-200.0); Anion Gap 9.5 mmol/L (4.00-12.00); BUN/Creat Ratio 18.33 Ratio (12.00-20.00); Calcium 9.6 mg/dL (8.7-10.3); Carbon Dioxide 23.5 mmol/L (21.6-31.8); Potassium 4.8 mmol/L (3.5-5.5)
[2020-11-29 11:30] LABS: Glucose,Whole Blood 329 mg/dL (75-99)
--- NOTE | 2020-11-29 11:36 | CT ---
EXAMINATION TYPE: CT abdomen pelvis wo/w con DATE OF EXAM: 11/29/2020 COMPARISON: CT lumbar spine from yesterday HISTORY: Adrenal mass, recent abnormal CT CT DLP: 2405 mGycm, Automated Exposure Control for Dose Reduction was Utilized. CONTRAST: CT scan of the abdomen and pelvis is performed with oral and without and with IV Contrast, patient in jected with 100 mL of Isovue 300. Adrenal mass protocol. FINDINGS: LUNG BASES: Overlying sternal wires. LIVER/GB: With a cystectomy clips. PANCREAS: No significant abnormality is seen. SPLEEN: No significant abnormality is seen. ADRENALS: There is 1.7 x 1.6 cm left adrenal mass axial image 17 series 3, [place] units average 9 on noncontrast images with 1 minute postcontrast enhancement to 35 and and 15 minute washout to 16 H [place] units. Imaging characteristics consistent with benign lipid rich adenoma. There is 1.8 x 1. 5 cm right adrenal mass axial image 18. [place]oun[place] units average just over 10 on noncontrast images w ith enhancement up to 41 on 1 minute postcontrast images and washout to 16 knee 15 minute delayed pha se images. Findings consistent with benign lipid rich adenoma given greater than 50% washout. KIDNEYS: No renal stones or hydronephrosis. Symmetric cortical medullary uptake and excretion withou t concerning solid or cystic renal mass bilaterally. Small bladder diverticulum suspected axial image 76 posterior right aspect. BOWEL: Moderate size hiatal hernia. Oral contrast reaches level of cecum. No suspicious small or larg e bowel dilatation. Diverticulosis of the sigmoid colon is present and to lesser degree distal aspect of the left colon. No CT evidence for acute diverticulitis. PROSTATE/SEMINAL VESICLES: Prostate gland is surgically absent with bilateral pelvic calcifications. LYMPH NODES: No greater than 1cm abdominal or pelvic lymph nodes are appreciated. OSSEOUS STRUCTURES: Underlying scoliotic curvature with multilevel spurring. There is multilevel vacu um disc phenomenon in the mid to lower lumbar spine. Multilevel disc space narrowing and vacuum disc phenomenon in the mid to lower thoracic spine. OTHER: Moderate to severe calcified plaque of the aorta extends into branch vessels.. 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
--- NOTE | 2020-11-29 12:28 | P.CNOR ---
History of Present Illness - [facility] Consult date: 11/29/20 Requesting physician: Kitty Townsend Consult reason: other (Acute bilateral lower extremity weakness) History of present illness: Patient is a pleasant 80-year-old male who is seen and examined at the bedside for further evaluation for bilateral lower extremity weakness. Patient states yesterday morning he tried to get out of bed but had weakness with his legs bilaterally. He states he did not have the strength ambulate. He was brought to the emergency department for further evaluation. CT imaging was taken at that time. He also has a previous lumbar MRI from April 2021. He is a patient of Dr. Levi Nunez. Patient has been following with his primary care provider ov er the past year for further evaluation. Initially patient was experiencing generalized full body weakness. He did undergo extensive workup. Patient states over the past year he has had increased leg pain of the bilateral lower extremities over the entire leg during ambulation but has been able to ambulate without the assistance of a walker. He states yesterday he had more difficulty with ambulation. He states he has mild low back pain. He states over the past couple days he has not experienced any lower extremity pain just weakness. At the bedside he is able to get out of bed and is able to ambulate to the restroom with the assistance of a walker. He states prior to yesterday he was not using a walker to ambulate. He states he has been able to ambulate to the restroom 7 times since yesterday with the assistance of a walker. He states he was previously given a prescription for physical therapy but did not attend due to the Covid-19 pandemic. Patient denies any recent injuries. Patient's past medical history includes diabetes mellitus, hypertension, and history of myocardial infarction with coronary bypass. Medicine states they're planning for further evaluation of a left adrenal mass previously seen on lumbar MRI imaging. Past Medical History Past Medical History: Diabetes Mellitus, Hypertension, Myocardial Infarction ([place]) Additional Past Medical History / Comment(s): Prostate CA [address] Barlow for it, Skin CA 1983 Last Myocardial Infarction Date:: 10/22/84 History of Any Multi-Drug Resistant Organisms: None Reported Past Surgical History: Cholecystectomy, Coronary Bypass/CABG Additional Past Surgical History / Comment(s): rt leg tumor removed Past Psychological History: No Psychological Hx Reported Smoking Status: Former smoker Past Alcohol Use History: Occasional Past Drug Use History: None Reported Medications and Allergies Home Medications Medication Instructions Recorded Confirmed Type Aspirin EC [Ecotrin Low Dose] 81 mg PO DAILY 12/03/18 11/28/20 History Fluticasone Nasal [place] [Flonase 1 spray EA NOSTRIL DAILY PRN 12/03/18 11/28/20 History Nasal [place]] Glimepiride [Amaryl] 4 mg PO BID 12/03/18 11/28/20 History Metoprolol Tartrate [Lopressor] 25 mg PO HS 12/03/18 11/28/20 History Mometasone/Formoterol [Dulera 200 2 puff INHALATION RT-HS PRN 12/03/18 11/28/20 History Mcg-5 Mcg Inhaler] Tolterodine Tartrate [Detrol LA] 2 mg PO BID 12/03/18 11/28/20 History lisinopriL [Prinivil] 5 mg PO DAILY 12/03/18 11/28/20 History Albuterol Inhaler [Ventolin Hfa 2 puff INHALATION RT-QID PRN 11/28/20 11/28/20 History Inhaler] Baclofen [Lioresal] 5 mg PO BID 11/28/20 11/28/20 History Calcium Carbonate [Tums] 500 mg PO TID PRN 11/28/20 11/28/20 History Celecoxib [CeleBREX] 200 mg PO DAILY PRN 11/28/20 11/28/20 History Cyanocobalamin (Vitamin B-12) 1,000 mcg PO DAILY 11/28/20 11/28/20 History [Vitamin B-12] Furosemide [Lasix] 40 mg PO DAILY 11/28/20 11/28/20 History Insulin Degludec [Tresiba 30 units SQ DAILY 11/28/20 11/28/20 History Flextouch U-200] Nitroglycerin Sl Tabs [Nitrostat] 0.4 mg SUBLINGUAL Q5M PRN 11/28/20 11/28/20 History Omeprazole [PriLOSEC] 20 mg PO AC-BID PRN 11/28/20 11/28/20 History Pantoprazole Sodium 40 mg PO BID 11/28/20 11/28/20 History Rosuvastatin Calcium [Crestor] 10 mg PO HS 11/28/20 11/28/20 History metFORMIN HCL 500 mg PO BID 11/28/20 11/28/20 History Allergies Allergy/AdvReac Type Severity Reaction Status Date / Time No Known Allergies Allergy Verified 11/28/20 18:32 Physical Examination Physical exam: Patient is awake, alert, and oriented 3 Vital signs stable Good chest excursion with deep inspiration and expiration Examination of lumbar spine reveals skin is intact with no abrasions, lacerations, or bruises; no erythema, purulence or signs of infection Visible and palpable scoliosis of his thoracolumbar spine Dorsiflexion, plantarflexion, and extensor hallucis longus positive sustained bilaterally Patient is able to lift legs off the bed independently and perform active range of motion bilateral lower extremities without significant difficulty No lower extremity hyperreflexia bilaterally Straight leg test negative bilateral lower extremities Negative Lasegue's test bilaterally No signs or symptoms of DVT; no calf pain No pain with internal and external rotation of the hips bilaterally Neurovascularly intact Patient is able to ambulate to the restroom the assistance of a walker Patient is able to stand on toes and heels at the bedside Results Pertinent studies: CT of the lumbar spine taken on 11/28/2020: Overall alignment is fairly well maintained; L3-4, L4-5, and L5-S1 mild vacuum disc phenomenon; L3-4 and L4-5 asymmetric degenerative disc disease; no evidence of vertebral body compression fracture; mild lumbar scoliosis; multilevel spondylosis; L4-5 degenerative disc disease, facet arthrosis, and disc protrusion resulting in spinal stenosis MRI of the lumbar spine taken on 05/04/2020: L3-4 degenerative disc disease and mild facet arthropathy; L4-5 degenerative disc disease, disc desiccation, herniated nucleus pulposus, and facet arthropathy resulting in spinal canal stenosis and left neural foraminal stenosis; L5-S1 disc desiccation, left paracentral herniated nucleus pulposus and facet arthropathy resulting in left neural foraminal stenosis; degenerative scoliosis; left adrenal mass which is incompletely evaluated X-rays of lumbosacral spine taken on 03/31/2020: L3-4 significant asymmetric degenerative disc disease, L4-5 significant degenerative disc disease and slight lateral listhesis; L5-S1 significant degenerative disc disease; degenerative scoliosis; no evidence of vertebral body compression fracture - Labs Labs: Abnormal Lab Results - Last 24 Hours (Table) 11/28/20 11/28/20 11/28/20 Range/Units 17:38 17:46 17:46 Hgb 9.9 L (13.0-17.5) gm/dL Hct 33.3 L (39.0-53.0) % MCV 74.9 L (80.0-100.0) fL MCH 22.2 L (25.0-35.0) pg MCHC 29.7 L (31.0-37.0) g/dL RDW 16.2 H (11.5-15.5) % APTT 21.1 L (22.0-30.0) sec Chloride (98-107) mmol/L BUN (9-20) mg/dL Glucose (74-99) mg/dL POC Glucose (mg/dL) 206 H (75-99) mg/dL AST (17-59) U/L Creatine Kinase (55-170) U/L Urine Glucose (UA) (Negative) 11/28/20 11/28/20 11/28/20 Range/Units 17:46 18:31 23:49 Hgb (13.0-17.5) gm/dL Hct (39.0-53.0) % MCV (80.0-100.0) fL MCH (25.0-35.0) pg MCHC (31.0-37.0) g/dL RDW (11.5-15.5) % APTT (22.0-30.0) sec Chloride 110 H (98-107) mmol/L BUN 22 H (9-20) mg/dL Glucose 214 H (74-99) mg/dL POC Glucose (mg/dL) 248 H (75-99) mg/dL AST 16 L (17-59) U/L Creatine Kinase 54 L (55-170) U/L Urine Glucose (UA) 4+ H (Negative) 11/29/20 11/29/20 Range/Units 05:38 06:53 Hgb 11.1 L (13.0-17.5) gm/dL Hct 35.3 L (39.0-53.0) % MCV 75.1 L (80.0-100.0) fL MCH 23.6 L (25.0-35.0) pg MCHC (31.0-37.0) g/dL RDW 16.1 H (11.5-15.5) % APTT (22.0-30.0) sec Chloride (98-107) mmol/L BUN (9-20) mg/dL Glucose (74-99) mg/dL POC Glucose (mg/dL) 301 H (75-99) mg/dL AST (17-59) U/L Creatine Kinase (55-170) U/L Urine Glucose (UA) (Negative) H & H 11/28/20 11/29/20 Range/Units 17:46 05:38 Hgb 9.9 L 11.1 L (13.0-17.5) gm/dL Hct 33.3 L 35.3 L (39.0-53.0) % Coagulation 11/28/20 Range/Units 17:46 INR 0.9 (<1.2) Result Diagrams: 11/29/20 05:38 11/29/20 05:38 Assessment and Plan Assessment: Assessment: Acute bilateral lower extremity weakness Difficulty with ambulation Mild low back pain L4-5 spinal stenosis Scoliosis Lumbar degenerative disc disease Lumbar facet spondylosis Left adrenal mass Diabetes mellitus Hypertension History of myocardial infarction with coronary bypass (1) Difficulty in walking Current Visit: Yes Status: Acute Code(s): R26.2 - DIFFICULTY IN WALKING, NOT ELSEWHERE CLASSIFIED SNOMED Code(s): 352296172 (2) Spinal stenosis at L4-L5 level Current Visit: Yes Status: Acute Code(s): M48.061 - SPINAL STENOSIS, LUMBAR REGION WITHOUT NEUROGENIC SRAVAN SNOMED Code(s): 18126359 (3) Low back pain Current Visit: Yes Status: Acute Code(s): M54.5 - LOW BACK PAIN SNOMED Cod e(s): 335244549 (4) Neurogenic claudication due to lumbar spinal stenosis Current Visit: Yes Status: Acute Code(s): M48.062 - SPINAL STENOSIS, LUMBAR REGION WITH NEUROGENIC CLAUDICATION SNOMED Code(s): 334932759 (5) Lumbar degenerative disc disease Current Visit: Yes Status: Acute Code(s): M51.36 - OTHER INTERVERTEBRAL DISC DEGENERATION, LUMBAR REGION SNOMED Code(s): 48065458 (6) Lumbar disc herniation Current Visit: Yes Status: Acute Code(s): M51.26 - OTHER INTERVERTEBRAL DISC DISPLACEMENT, LUMBAR REGION SNOMED Code(s): 815787761 (7) Lumbar facet arthropathy Current Visit: Yes Status: Acute Code(s): M47.816 - SPONDYLOSIS W/O MYELOPATHY OR RADICULOPATHY, LUMBAR REGION SNOMED Code(s): 536025145 (8) Lumbar scoliosis Current Visit: Yes Status: Acute Code(s): M41.9 - SCOLIOSIS, UNSPECIFIED SNOMED Code(s): 369001899 (9) Left adrenal mass Current Visit: Yes Status: Acute Code(s): E27.8 - OTHER SPECIFIED DISORDERS OF ADRENAL GLAND SNOMED Code(s): 339257566 (10) Hypertension Current Visit: Yes Status: Acute Code(s): I10 - ESSENTIAL (PRIMARY) HYPERTENSION SNOMED Code(s): 82109980 (11) Diabetes mellitus Current Visit: Yes Status: Acute Code(s): E11.9 - TYPE 2 DIABETES MELLITUS WITHOUT COMPLICATIONS SNOMED Code(s): 13486486 (12) History of myocardial infarction Current Visit: Yes Status: Acute Code(s): I25.2 - OLD MYOCARDIAL INFARCTION SNOMED Code(s): 749281865 (13) History of coronary artery bypass graft Current Visit: Yes Status: Acute Code(s): Z95.1 - PRESENCE OF AORTOCORONARY BYPASS GRAFT SNOMED Code(s): 602388164 (14) Lower extremity weakness Current Visit: Yes Status: Acute Code(s): R29.898 - [facility] SYMPTOMS AND SIGNS INVOLVING THE MUSCULOSKELETAL SYSTEM SNOMED Code(s): 195711834 Plan: Plan: 1. Patient will be discussed in detail with Dr. Laz Rahman. Patient has also been discussed with his primary care provider, Dr. Levi Nunez. Imaging has been reviewed including lumbar CT and MRI imaging. Patient does have evidence of spinal stenosis at L4-5. He has been experiencing bilateral lower extremity pain during ambulation over the past year which he describes going down the entire bilateral lower extremities. He does not experience much pain at rest. He has some mild low back pain. He does not experience any specific weakness while lying down. Yesterday he had increased difficulty with ambulation in the morning and required a walker to aid in ambulation. Since his admission to the hospital he has been able to ambulate to the restroom multiple times independently with the assistance of a walker. Given the patient's acute onset weakness of approximately for one day and his ability to increase mobility and ambulation in the room along with his chronic degenerative changes, we would plan to have him work to conservative treatment prior to discussing further invasive treatment. Patient states he does not wish to have any surgical intervention at his lumbar spine. He would like to exhaust all conservative treatment options. He was previously given a prescription for physical therapy but did not work through therapy due to Covid -19 pandemic. He would be willing to work through more physical therapy. Medicine also states neurology has been consulted and they will discuss the possibility of further testing including t he possibility of EMG testing. Patient is also currently on Solu-Medrol 60 mg IV every 8 hours. We did discuss this medication may help improve his symptoms. He may continue his medication as prescribed and may be discontinued by medicine at their discretion. We did discuss that the patient is able to improve, he will be cleared for discharge home with plans to have him follow-up in the outpatient setting in approximately 2-3 weeks for further evaluation. Patient does feel this is a good plan of care. Time with Patient: Greater than 30 (Including obtaining history, physical examination, reviewing of imaging, and dictation.)
--- NOTE | 2020-11-29 15:44 | CONS ---
CONSULTATION PULMONARY/CRITICAL CARE CONSULTATION: DATE OF SERVICE: 11/29/2020 This is an 80-year-old male whom I am asked to see for shortness of breath. He apparently came into the hospital with weakness. The patient has a history of diabetes, hypertension, heart disease, status post bypass grafting, and lower extremity weakness. He has had this lower extremity weakness and pain for quite some time, being evaluated by Dr. Nunez. He states that he has been evaluated, and the etiology of the weakness and some of the numbness that he has experienced as well has not been figured out. Anyway, I was asked to see him because from time to time he developed shortness of breath. The shortness of breath if never at rest. It is always on exertion. He states he will climb up and down the stairs or he will do something outdoors and he becomes short of breath. He starts to "serrano and puff," as he says. Anyway, the patient does interestingly have a history of previous tobacco use. He smoked about 27 years at 1-1/2 packs a day. He quit when he was about 40 years of age. He worked also at [employer] for many years, and he worked at the [employer] as well. He has no known history of any lung disease, nor has he ever seen a lung doctor in the past. Currently he is not complaining of any shortness of breath. HOME MEDICATIONS: His home medications include aspirin, Flonase nasal spray, Amaryl, metoprolol, Dulera, Detrol LA, lisinopril, albuterol, baclofen, Tums, Celebrex, B12, Lasix, Tresiba, Nitrostat, Prilosec, Protonix, Crestor and metformin. ALLERGIES: DENIED. MEDICAL HISTORY: His medical history is positive for diabetes, hypertension, myocardial infarction, hyperlipidemia, gastroesophageal reflux disease, and possibly underlying COPD, although he has never had a pulmonary function test. SURGICAL HISTORY: His surgical history includes bypass grafting and cholecystectomy as well as a tumor removal on his right leg. SOCIAL HISTORY: Positive for previous tobacco use. Again, he smoked about 27 years or so. He smoked about a pack a day, maybe a pack and a half. He denies a prior diagnosis of chronic lung disease. He drinks alcohol occasionally. He denies any illicit drugs. FAMILY HISTORY: Noncontributory. I do notice that he is on some breathing medications given to him by his primary care provider. REVIEW OF SYSTEMS: CONSTITUTIONAL: Negative. NEUROLOGIC: Lower extremity weakness and numbness. HEENT: Negative. CARDIOVASCULAR: Negative. PULMONARY: Shortness of breath on exertion. GI: Negative. : Negative. RHEUMATOLOGIC: Negative. IMMUNOLOGIC: Negative. ENDOCRINOLOGIC: Negative. DERMATOLOGIC: Negative. PHYSICAL EXAMINATION: VITAL SIGNS: Current vital signs are reviewed. Temperature is 97.9, heart rate 69, respiratory rate 16, blood pressure 159/80, mean 106, room-air saturation 96%. GENERAL APPEARANCE: He appears in no acute distress. No conversational dyspnea, use of accessory muscles or audible wheezing. HEENT: Examination is grossly unremarkable. No supplemental oxygen. NECK: Supple. Full range of motion. No adenopathy. Neck veins are flat. CARDIOVASCULAR: Examination reveals regular rhythm and rate. S1, S2 normal. No S3, S4 or murmur. LUNGS: Lungs reveal clear breath sounds. No wheezes, rhonchi or crackles. There is no prolongation on forced maneuver. ABDOMEN: Soft. Bowel sounds are heard. EXTREMITIES: Intact. No cyanosis, clubbing or edema. SKIN: Without rash. NEUROLOGIC: Neurologic examination is nonfocal. LABORATORY DATA/IMAGING: Laboratory data include a white count 8.1, hemoglobin 11.1, hematocrit 35.3, platelet count 330,000. Sodium, potassium, chloride, CO2 all normal. Anion gap is normal. BUN and creatinine were normal. Urine was negative. TSH was normal. The patient had a brain CT that was showing cerebral cortical atrophy, but no acute intracranial abnormality. Lumbar CT was also done. It showed some multilevel spondylitic changes at L4, L5. No fracture noted. The patient also had a CT scan of the abdomen and pelvis which showed bilateral lipid-rich adrenal adenomas. EKG showed normal sinus rhythm. MEDICATIONS: Medications are reviewed. The patient is on albuterol inhaler, aspirin, baclofen, Tums, vitamin B12, Flonase nasal spray, Lasix, Amaryl, insulin, lisinopril, meloxicam, metformin, Solu-Medrol, metoprolol, Narcan, nitroglycerin and Protonix. ASSESSMENT: 1. Rule out underlying chronic obstructive pulmonary disease as an explanation for the patient's dyspnea on exertion. 2. History of diabetes mellitus. 3. History of hypertension. 4. History of hyperlipidemia. 5. Prior history of myocardial infarction. 6. Status post bypass grafting. 7. Gastroesophageal reflux disease. 8. 27 year history of tobacco use. PLAN: The patient will need to see me in the office post discharge. He will need a full 6- minute walk distance and a complete pulmonary function test. That way we will be able to determine whether or not there are any abnormalities explaining the patient's shortness of breath. The shortness of breath on exertion could in fact be lung disease and/or cardiac disease. It is not clear. Seeing him in the office and either ruling in or ruling out lung disease would be helpful in the evaluation. He said he would be willing to come see me in the office. No additional recommendations are made. Will follow as needed. JAYLENE / JOVANNY: [id number] / MTDD
--- NOTE | 2020-11-29 15:47 | P.HPIM ---
History of Present Illness H&P Date: 11/29/20 Chief Complaint: Leg weakness HISTORY OF PRESENT ILLNESS This is an 80-year-old male patient of Dr. Nunez with past medical history of hypertension, hyperlipidemia, diabetes mellitus type 2 insulin requiring, coronary artery disease with previous CABG, remote history of tobacco use, prostate cancer followed with Dr. Cabrera, chronic back pain. Patient was complaining of low back pain for most of last year. MRI of the lumbar spine completed April 2020 revealed scoliosis, degenerative disc disease, facet arthropathy and foraminal encroachment. Left adrenal mass. Abdominal aortic aneurysm measuring 3.4 cm. He was subsequently sent to Dr. Rahman for evaluation of the office. Patient has also had chest pain shortness of breath for the last 2 months and underwent stress test Lexiscan Cardiolite on November 04 which revealed no stress-induced reversible ischemia. There are fixed defects. He also had echocardiogram at that time which revealed EF of 60-65% with moderate concentric left ventricular hypertrophy, mild tricuspid regurgitation, moderate pulmonary regurgitation. Patient continued to have shortness of breath and was then set up with appointment with Dr. Quiroz in the office which is in the near future. Patient states that yesterday he woke up at 7 AM and went into the bathroom. He developed significant back pain and was unable to stand head hanging onto the bed and dress her to get to the bathroom. Patient was returning to bed and was in the doorway and his legs gave out on him. His was able to help him into bed. He laid there for a while and thought he would feel better if he had breakfast which he did. He also slept but by afternoon he could not stand. Patient came into [facility] emergency center for evaluation. He was afebrile, pulse ox 90% on room air. Blood pressure 182/83, heart rate 74. EKG was a sinus rhythm with no acute ST changes. Hemoglobin 9.9, WBC 6.5, platelet count 329. Sodium 141, potassium 4.1, chloride 110, CO2 24, BUN 22 and creatinine 1.04. Blood sugar 214. Lactic acid 1.9. Magnesium 1.9. Liver function tests normal. CK 54. Troponin negative. Urinalysis clear with nitrate and leukoesterase negative. CAT scan of the brain shows cerebral cortical atrophy. No acute intracranial abnormality. CAT scan of the lumbar spine revealed multilevel spondylitic changes L4-5 bony spinal stenosis. No fracture. Patient was admitted to the [facility]. Subsequent underwent a CAT scan of the abdomen and pelvis with contrast revealed confirmation of bilateral benign lipid rich adenomas. REVIEW OF SYSTEMS Constitutional: No fever, no chills, no night sweats. No weight change. No weakness, fatigue or lethargy. No daytime sleepiness. EENT: No headache. No blurred vision or double vision, no loss of vision. No loss of Hearing, no ringing in the ears, no dizziness. No nasal drainage or congestion. No epistaxis. No sore throat. Lungs: No shortness of breath, cough, no sputum production. No wheezing. Cardiovascular: No chest pain, no lower extremity edema. No palpitations. No paroxysmal nocturnal dyspnea. No orthopnea. No lightheadedness or dizziness. No syncopal episodes. Abdominal: No abdominal pain. No nausea, vomiting. No diarrhea. No constipation. No bloody or tarry stools.. No loss of appetite. Genitourinary: No dysuria, increased frequency, urgency. No urinary retention. Musculoskeletal: No myalgias. Ports bilateral lower extremity muscle weakness, reports gait dysfunction, no frequent falls. Reports lumbar back pain. No neck pain. Integumentary: No wounds, no lesions. No rash or pruritus. No unusual bruising. No change in hair or nails. Neurologic: No aphasia. No facial droop. No change in mentation. No head injury. No headache. No paralysis. No paresthesia. Psychiatric: No depression. No anxiety. No mood swings. Endocrine: No abnormal blood sugars. No weight change. No excessive sweating or thirst. No cold intolerance. SOCIAL HISTORY Patient was smoker of 3 packs per day for 20 years and quit in 1979. He drinks a beer occasionally. 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 He lives at home with his . FAMILY HISTORY Mom in her 70s from coronary artery disease. Father in his 70s from coronary artery disease and diabetes, occasions. Patient was an only child. He has 3 children with no major medical problems. PHYSICAL EXAMINATION Gen: This is an 80-year-old male. He is resting in bed and appears to be comfortable and in no acute distress. HEENT: Head is atraumatic, normocephalic. Pupils equal, round. Sclerae is anicteric. NECK: Supple. No JVD. No lymphadenopathy. No thyromegaly. LUNGS: Clear to auscultation. No wheezes or rhonchi. No intercostal retractions. HEART: Regular rate and rhythm. No murmur. ABDOMEN: Soft. Bowel sounds are present. No masses. No tenderness. EXTREMITIES: No pedal edema. No calf tenderness. NEUROLOGICAL: Patient is awake, alert and oriented x3. Cranial nerves 2 through 12 are grossly intact. ASSESSMENT AND PLAN 1. Acute bilateral lower extremity edema and difficulty with ambulation possibly secondary to L4 5 spinal stenosis. Orthopedic consult appreciated. Patient is to have follow-up in the office in 2-3 weeks and recommended o utpatient physical therapy treatment. Consult with neurology and patient may require EMG. Continue Solu-Medrol 60 mg IV every 8 hours, baclofen 5 mg twice daily. PT and OT evaluations. 2. Left adrenal gland mass. Benign finding on CAT scan. 3. Diabetes mellitus type 2, insulin requiring. Continue NovoLog scale before meals and at bedtime, Levemir 30 units daily, glimepiride 4 mg twice daily metformin 500 mg twice daily. 4. History of coronary artery disease with previous stenting. Continue aspirin, Crestor, Lopressor 25 mg at bedtime. 5. Remote history of tobacco use. 6. Gastroesophageal reflux disease and GI prophylaxis. Continue Protonix. 7. Hypertension. Continue lisinopril 5 mg daily, Lopressor. 8. Hyperlipidemia. Continue statin. 9. History of prostate cancer under the care of Dr. Cabrera. 10. DVT prophylaxis. Heparin subcu. Patient will be admitted to the hospital for a minimum of 2 night stay. DISCHARGE PLAN Home on Sunday. Impression and plan of care have been directed as dictated by the signing physician. Janae Boogie nurse practitioner acting as scribe for signing physician. Past Medical History Past Medical History: Diabetes Mellitus, Hypertension, Myocardial Infarction ([place]) Additional Past Medical History / Comment(s): Prostate CA [address] Barlow for it, Skin CA 1983 Last Myocardial Infarction Date:: 10/22/84 History of Any Multi-Drug Resistant Organisms: None Reported Past Surgical History: Cholecystectomy, Coronary Bypass/CABG Additional Past Surgical History / Comment(s): rt leg tumor removed Past Psychological History: No Psychological Hx Reported Smoking Status: Former smoker Past Alcohol Use History: Occasional Past Drug Use History: None Reported Medications and Allergies Home Medications Medication Instructions Recorded Confirmed Type Aspirin EC [Ecotrin Low Dose] 81 mg PO DAILY 12/03/18 11/28/20 History Fluticasone Nasal [place] [Flonase 1 spray EA NOSTRIL DAILY PRN 12/03/18 11/28/20 History Nasal [place]] Glimepiride [Amaryl] 4 mg PO BID 12/03/18 11/28/20 History Metoprolol Tartrate [Lopressor] 25 mg PO HS 12/03/18 11/28/20 History Mometasone/Formoterol [Dulera 200 2 puff INHALATION RT-HS PRN 12/03/18 11/28/20 History Mcg-5 Mcg Inhaler] Tolterodine Tartrate [Detrol LA] 2 mg PO BID 12/03/18 11/28/20 History lisinopriL [Prinivil] 5 mg PO DAILY 12/03/18 11/28/20 History Albuterol Inhaler [Ventolin Hfa 2 puff INHALATION RT-QID PRN 11/28/20 11/28/20 History Inhaler] Baclofen [Lioresal] 5 mg PO BID 11/28/20 11/28/20 History Calcium Carbonate [Tums] 500 mg PO TID PRN 11/28/20 11/28/20 History Celecoxib [CeleBREX] 200 mg PO DAILY PRN 11/28/20 11/28/20 History Cyanocobalamin (Vitamin B-12) 1,000 mcg PO DAILY 11/28/20 11/28/20 History [Vitamin B-12] Furosemide [Lasix] 40 mg PO DAILY 11/28/20 11/28/20 History Insulin Degludec [Tresiba 30 units SQ DAILY 11/28/20 11/28/20 History Flextouch U-200] Nitroglycerin Sl Tabs [Nitrostat] 0.4 mg SUBLINGUAL Q5M PRN 11/28/20 11/28/20 History Omeprazole [PriLOSEC] 20 mg PO AC-BID PRN 11/28/20 11/28/20 History Pantoprazole Sodium 40 mg PO BID 11/28/20 11/28/20 History Rosuvastatin Calcium [Crestor] 10 mg PO HS 11/28/20 11/28/20 History metFORMIN HCL 500 mg PO BID 11/28/20 11/28/20 History Allergies Allergy/AdvReac Type Severity Reaction Status Date / Time No Known Allergies Allergy Verified 11/28/20 18:32 Physical Exam Vitals: Vital Signs Temp Pulse Pulse Resp BP BP Pulse Ox 11/29/20 07:45 97.9 F 69 16 159/80 95 11/29/20 01:30 97.5 F L 17 159/70 96 11/28/20 20:59 97.6 F 72 18 175/74 96 11/28/20 20:40 97.5 F L 76 18 172/78 97 11/28/20 16:50 97.9 F 74 18 182/83 98 Intake and Output 11/28/20 11/29/20 11/29/20 22:59 06:59 14:59 Other: # Voids 1 Weight 86.183 kg Results CBC & Chem 7: 11/29/20 05:38 11/29/20 05:38 Labs: Abnormal Lab Results - Last 24 Hours (Table) 11/28/20 11/28/20 11/28/20 Range/Units 17:38 17:46 17:46 Hgb 9.9 L (13.0-17.5) gm/dL Hct 33.3 L (39.0-53.0) % MCV 74.9 L (80.0-100.0) fL MCH 22.2 L (25.0-35.0) pg MCHC 29.7 L (31.0-37.0) g/dL RDW 16.2 H (11.5-15.5) % APTT 21.1 L (22.0-30.0) sec Chloride (98-107) mmol/L BUN (9-20) mg/dL Glucose (74-99) mg/dL POC Glucose (mg/dL) 206 H (75-99) mg/dL AST (17-59) U/L Creatine Kinase (55-170) U/L Urine Glucose (UA) (Negative) 11/28/20 11/28/20 11/28/20 Range/Units 17:46 18:31 23:49 Hgb (13.0-17.5) gm/dL Hct (39.0-53.0) % MCV (80.0-100.0) fL MCH (25.0-35.0) pg MCHC (31.0-37.0) g/dL RDW (11.5-15.5) % APTT (22.0-30.0) sec Chloride 110 H (98-107) mmol/L BUN 22 H (9-20) mg/dL Glucose 214 H (74-99) mg/dL POC Glucose (mg/dL) 248 H (75-99) mg/dL AST 16 L (17-59) U/L Creatine Kinase 54 L (55-170) U/L Urine Glucose (UA) 4+ H (Negative) 11/29/20 11/29/20 Range/Units 05:38 06:53 Hgb 11.1 L (13.0-17.5) gm/dL Hct 35.3 L (39.0-53.0) % MCV 75.1 L (80.0-100.0) fL MCH 23.6 L (25.0-35.0) pg MCHC (31.0-37.0) g/dL RDW 16.1 H (11.5-15.5) % APTT (22.0-30.0) sec Chloride (98-107) mmol/L BUN (9-20) mg/dL Glucose (74-99) mg/dL POC Glucose (mg/dL) 301 H (75-99) mg/dL AST (17-59) U/L Creatine Kinase (55-170) U/L Urine Glucose (UA) (Negative) Thrombosis Risk Factor Assmnt - Choose All That Apply Any of the Below Risk Factors Present?: Yes Each Factor Represents 1 point: Obesity (BMI >25) Other Risk Factors: Yes Each Risk Factor Represents 3 Points: Age 75 years or older Other congenital or acquired thrombophilia - If yes, enter type in comment: No Thrombosis Risk Factor Assessment Total Risk Factor Score: 4 Thrombosis Risk Factor Assessment Level: Moderate Risk
[2020-11-29 17:28] LABS: Glucose,Whole Blood 335 mg/dL (75-99)
[2020-11-29] MEDS: METOPROLOL TARTRATE 25 MG TAB PO SCH (19:21)
--- NOTE | 2020-11-29 19:28 | XR ---
EXAMINATION TYPE: XR chest 2V DATE OF EXAM: 11/29/2020 COMPARISON: 06/22/2017. HISTORY: Shortness of breath. TECHNIQUE: Frontal and lateral views of the chest are obtained. FINDINGS: There is mild bibasilar streaky opacities. No pleural effusion, or pneumothorax seen. The cardiac silhouette size is mildly enlarged. Stable median sternotomy. The osseous structures are ot herwise intact. IMPRESSION: Mild bibasilar opacities, favor atelectasis.
[2020-11-29 20:28] LABS: Glucose,Whole Blood 424 mg/dL (75-99)
--- NOTE | 2020-11-29 23:27 | P.CNNES ---
History of Present Illness Consult date: 11/29/20 Requesting physician: Levi Nunez Reason for Consult: Spinal stenosis History of Present Illness: Patient is a 80-year-old male came to the hospital yesterday at 4:46 PM for bilateral leg pain and weakness. Patient has history of diabetes for last 5 years, which is not very well controlled. Patient states that in January 2020 he started noticing that he was staggering, could hardly walk in the hallway. He went to [place] on 01/18/2020 thinking warm weather will help, but while he was there, he continued to feel bouncing off the love therefore came back within a week. Patient states that when he takes garbage out, and comes back, he feels weakness in the legs, and also gets shortness of breath, almost like when he was having heart issues which required quadruple bypass surgery 5 years ago. Lately his both legs were hurting bad, starting from hips radiating down to the feet. Patient also has tingling sensation of bilateral feet since he was diagnosed with diabetes 5 years ago. It involves from toes up to the ankles bilaterally. Patient states that when he wakes up in the morning, has soreness in the back. He bought a new mattress but did not help. When he is walking, feels he has ran for a mile. Denies any bowel or bladder issues. Patient's vitals on arrival blood pressure 182/83, pulse rate [address] head showed cerebral cortical atrophy. No acute intracranial abnormality. EKG shows sinus rhythm, incomplete right bundle branch block. CT of the lumbar spine showed multilevel spondylotic change. L4 5 bony spinal stenosis. No fracture. CT of abdomen and pelvis showed confirmation of bilateral benign lipid Rich adenomas. Chest x-ray showed mild bibasilar opacities, fevers atelectasis. Blood workup shows normal WBC hemoglobin 11.1, platelets 3:30, normal Chem-7. Calcium 9.6. Last hemoglobin A1c 8.8 on 08/12/2020. B12 358, TSH is normal. Total cholesterol 154, LDL 72, HDL 44 and triglycerides 188. Serum protein electrophoresis showed no monoclonal parapro tein. BRITTANY negative, rheumatoid factor negative. Patient had an MRI of lumbar spine on 05/04/2020, which revealed scoliosis, degenerative disc disease, facet arthropathy and foraminal encroachment. On my review, there is at least moderate spinal stenosis at L4 5 level due to combination of thickened ligamentum flavum, epidural lipomatosis and facet arthropathy. Left adrenal mass. Abdominal aortic aneurysm. No significant spinal canal stenosis. Patient has been seen by orthopedic surgery, and patient is not a candidate for surgical treatment. Patient had requested maximal medical treatment. Physical therapy was recommended including outpatient EMG testing. Patient is currently on Solu-Medrol 60 mg IV every 8 hours. Since he arrived to the hospital, his leg pains have mostly resolved. He still has some soreness in the back. Patient has history of smoking 2 packs per day for 25 years, quit in 1979. Denies any alcohol. Review of Systems Patient is hard of hearing. Also complete his of some shortness of breath, heavy feeling but no chest pain. Denies abdominal pain nausea vomiting diarrhea. Denies any bowel or bladder control. Patient denies headache, double vision, loss of vision, hoarseness, sore throat or dysphagia. Patient is arthritis, low back pain. Some joint stiffness. All other review of systems unremarkable. Denies anxiety depression. Past Medical History Past Medical History: Diabetes Mellitus, Hypertension, Myocardial Infarction ([place]) Additional Past Medical History / Comment(s): Prostate CA [address] Barlow for it, Skin CA 1983 Last Myocardial Infarction Date:: 10/22/84 History of Any Multi-Drug Resistant Organisms: None Reported Past Surgical History: Cholecystectomy, Coronary Bypass/CABG Additional Past Surgical History / Comment(s): rt leg tumor removed Past Psychological History: No Psychological Hx Reported Smoking Status: Former smoker Past Alcohol Use History: Occasional Past Drug Use History: None Reported Medications and Allergies Home Medications Medication Instructions Recorded Confirmed Type Aspirin EC [Ecotrin Low Dose] 81 mg PO DAILY 12/03/18 11/28/20 History Fluticasone Nasal [place] [Flonase 1 spray EA NOSTRIL DAILY PRN 12/03/18 11/28/20 History Nasal [place]] Glimepiride [Amaryl] 4 mg PO BID 12/03/18 11/28/20 History Metoprolol Tartrate [Lopressor] 25 mg PO HS 12/03/18 11/28/20 History Mometasone/Formoterol [Dulera 200 2 puff INHALATION RT-HS PRN 12/03/18 11/28/20 History Mcg-5 Mcg Inhaler] Tolterodine Tartrate [Detrol LA] 2 mg PO BID 12/03/18 11/28/20 History lisinopriL [Prinivil] 5 mg PO DAILY 12/03/18 11/28/20 History Albuterol Inhaler [Ventolin Hfa 2 puff INHALATION RT-QID PRN 11/28/20 11/28/20 History Inhaler] Baclofen [Lioresal] 5 mg PO BID 11/28/20 11/28/20 History Calcium Carbonate [Tums] 500 mg PO TID PRN 11/28/20 11/28/20 History Celecoxib [CeleBREX] 200 mg PO DAILY PRN 11/28/20 11/28/20 History Cyanocobalamin (Vitamin B-12) 1,000 mcg PO DAILY 11/28/20 11/28/20 History [Vitamin B-12] Furosemide [Lasix] 40 mg PO DAILY 11/28/20 11/28/20 History Insulin Degludec [Tresiba 30 units SQ DAILY 11/28/20 11/28/20 History Flextouch U-200] Nitroglycerin Sl Tabs [Nitrostat] 0.4 mg SUBLINGUAL Q5M PRN 11/28/20 11/28/20 History Omeprazole [PriLOSEC] 20 mg PO AC-BID PRN 11/28/20 11/28/20 History Pantoprazole Sodium 40 mg PO BID 11/28/20 11/28/20 History Rosuvastatin Calcium [Crestor] 10 mg PO HS 11/28/20 11/28/20 History metFORMIN HCL 500 mg PO BID 11/28/20 11/28/20 History Dexamethasone [Decadron] 4 mg PO BID #15 tablet 11/30/20 Rx INSULIN ASPART (NovoLOG) [NovoLOG 0 unit SQ ACHS #1 vial 11/30/20 Rx (formulary)] Insulin Aspart [NovoLOG Flexpen] 5 units SQ AC-TID #1 pen 11/30/20 Rx Allergies Allergy/AdvReac Type Severity Reaction Status Date / Time No Known Allergies Allergy Verified 11/28/20 18:32 Physical Examination - Vital Signs Vital Signs: Vital Signs Temp Pulse Pulse Resp BP BP Pulse Ox 11/29/20 14:00 97.6 F 68 16 129/77 96 11/29/20 07:45 97.9 F 69 16 159/80 95 11/29/20 01:30 97.5 F L 17 159/70 96 11/28/20 20:59 97.6 F 72 18 175/74 96 11/28/20 20:40 97.5 F L 76 18 172/78 97 Intake and Output 11/29/20 11/29/20 11/29/20 06:59 14:59 22:59 Intake Total 236 Balance 236 Intake: Oral 236 Other: Voiding Method Toilet # Voids 1 5 On examination patient is an elderly male, very pleasant in no acute distress. Patient is alert awake oriented to time place and person. Speech and language functions are normal. Attention, concentration and fund of knowledge is adequate. On cranial nerve examination pupils are round and reacting to light, visual mckenna are full on confrontation, extraocular muscles are intact with no nystagmus. Face is symmetric, tongue protrudes to the midline. Palatal elevation and sensation normal, hearing is mildly decreased, shoulder shrug normal, facial sensation is normal. On muscle strength testing there is no pronator drift and the strength is completely normal in the arms and legs d istally and proximally. Complete normal strength in the lower limbs. Reflexes are 2 in the upper limbs, 2 at the knees, trace to absent in the ankles. Plantars are flat. Sensory touch is equal. No ataxia for [id number] testing, tone and bulk of muscles normal. Patient able able to get up by himself. He walks with a walker. On general examination there is no obvious bruit, S1 and S2 audible, abdomen soft nontender, chest is clear. Peripheral pulses present. No edema. Results - Laboratory Findings CBC and BMP: 11/29/20 05:38 11/29/20 05:38 Abnormal Lab Findings: Abnormal Labs 11/28/20 11/28/20 11/28/20 17:38 17:46 17:46 Hgb 9.9 L Hct 33.3 L MCV 74.9 L MCH 22.2 L MCHC 29.7 L RDW 16.2 H APTT 21.1 L Chloride BUN Est GFR (CKD-EPI)NonAf Glucose POC Glucose (mg/dL) 206 H AST Creatine Kinase Urine Glucose (UA) 11/28/20 11/28/20 11/28/20 17:46 18:31 23:49 Hgb Hct MCV MCH MCHC RDW APTT Chloride 110 H BUN 22 H Est GFR (CKD-EPI)NonAf Glucose 214 H POC Glucose (mg/dL) 248 H AST 16 L Creatine Kinase 54 L Urine Glucose (UA) 4+ H 11/29/20 11/29/20 11/29/20 05:38 05:38 06:53 Hgb 11.1 L Hct 35.3 L MCV 75.1 L MCH 23.6 L MCHC RDW 16.1 H APTT Chloride BUN Est GFR (CKD-EPI)NonAf 56.0 L Glucose 310 H POC Glucose (mg/dL) 301 H AST Creatine Kinase Urine Glucose (UA) 11/29/20 11/29/20 11:29 17:27 Hgb Hct MCV MCH MCHC RDW APTT Chloride BUN Est GFR (CKD-EPI)NonAf Glucose POC Glucose (mg/dL) 329 H 335 H AST Creatine Kinase Urine Glucose (UA) Assessment and Plan Assessment: * Bilateral leg pain, possible due to lumbar spinal stenosis, at least moderate degree at L4 5 level. * Possible underlying diabetic peripheral neuropathy. * Diabetes, poorly controlled with A1c 8.8 * Lumbar spondylosis * X tobacco use Plan: * Patient's symptoms have improved since being in the hospital, perhaps related to the use of corticosteroids. * Agree with starting physical therapy for lumbar spondylosis/moderate spinal stenosis. * Continue meloxicam 7.5 mg for spondylosis * Optimize control of diabetes to target A1c <7.0. * Suggest follow-up with neurologist as an outpatient for EMG and nerve conductions of bilateral lower extremities to evaluate for peripheral neuropathy, versus lumbar radiculopathy. * If neuropathic pain recurs, would recommend gabapentin. At present he has no pain. * Neurologically clear for discharge.
[2020-11-30 02:17] VITALS: RESP 16
[2020-11-30] MEDS: methylPREDNISolone SOD SUCCI 125 MG/2 ML VIAL IV SCH (03:02)
[2020-11-30 07:24] LABS: Glucose,Whole Blood 292 mg/dL (75-99)
[2020-11-30 07:47] VITALS: BP 145/73; PULSE 55; TEMP 97.4
[2020-11-30] MEDS ORDERED: methylPREDNISolone SOD SUCCI 40 MG/ML 1 ML VIAL IV SCH (08:00)
[2020-11-30] MEDS: INSULIN ASPART (NovoLOG) 100 UNIT/ML VIAL SQ SCH ×4 (08:16→11:55)
[2020-11-30] MEDS: INSULIN DETEMIR (LEVEMIR) 100 UNIT/ML SYR SQ SCH (08:17)
[2020-11-30] MEDS: ASPIRIN 81 MG PO SCH (08:18)
[2020-11-30] MEDS: metFORMIN 500 MG TAB PO SCH (08:18)
[2020-11-30] MEDS: lisinopriL 5 MG TAB PO SCH (08:18)
[2020-11-30] MEDS: BACLOFEN 10 MG TAB PO SCH (08:18)
[2020-11-30] MEDS: GLIMEPIRIDE 4 MG TAB PO SCH (08:18)
[2020-11-30] MEDS: FUROSEMIDE 40 MG TAB PO SCH (08:18)
[2020-11-30] MEDS: CYANOCOBALAMIN 500 MCG TAB PO SCH (08:19)
[2020-11-30] MEDS: PANTOPRAZOLE 40 MG TABLET PO SCH (08:19)
[2020-11-30] MEDS ORDERED: ENOXAPARIN 40 MG/0.4 ML SYRINGE SQ SCH (09:00)
[2020-11-30 11:29] LABS: Glucose,Whole Blood 325 mg/dL (75-99)
--- NOTE | 2020-11-30 14:14 | P.DS ---
Providers Date of admission: 11/28/20 19:44 Expected date of discharge: 11/30/20 Attending physician: Jocelyne Pablo Consults: 11/28/20 19:42 Consult Physician Stat Consulting Provider: Lexi Rahman Consult Reason/Comments: inability to ambulate Do you want consulting provider notified?: Yes 11/28/20 23:22 Consult Physician Routine Consulting Provider: Raymond Boyd Consult Reason/Comments: Spinal stenosis Do you want consulting provider notified?: Yes 11/29/20 08:47 Consult Physician Routine Consulting Provider: Ghazala Henderson Consult Reason/Comments: KIN,chronic, worse today, appt in office Do you want consulting provider notified?: Yes Primary care physician: [facility] Course: HISTORY OF PRESENT ILLNESS This is an 80-year-old male patient of Dr. Nunez with past medical history of hypertension, hyperlipidemia, diabetes mellitus type 2 insulin requiring, coronary artery disease with previous CABG, remote history of tobacco use, prostate cancer followed with Dr. Cabrera, chronic back pain. Patient was complaining of low back pain for most of last year. MRI of the lumbar spine completed April 2020 revealed scoliosis, degenerative disc disease, facet arthropathy and foraminal encroachment. Left adrenal mass. Abdominal aortic aneurysm measuring 3.4 cm. He was subsequently sent to Dr. Rahman for evaluation of the office. Patient has also had chest pain shortness of breath for the last 2 months and underwent stress test Lexiscan Cardiolite on November 04 which revealed no stress-induced reversible ischemia. There are fixed defects. He also had echocardiogram at that time which revealed EF of 60-65% with moderate concentric left ventricular hypertrophy, mild tricuspid regurgitation, moderate pulmonary regurgitation. Patient continued to have shortness of breath and was then set up with appointment with Dr. Quiroz in the office which is in the near future. Patient states that yesterday he woke up at 7 AM and went into the bathroom. He developed significant back pain and was unable to stand head hanging onto the bed and dress her to get to the bathroom. Patient was returning to bed and was in the doorway and his legs gave out on him. His was able to help him into bed. He laid there for a while and thought he would feel better if he had breakfast which he did. He also slept but by afternoon he could not stand. Patient came into [facility] emergency center for evaluation. He was afebrile, pulse ox 90% on room air. Blood pressure 182/83, heart rate 74. EKG was a sinus rhythm with no acute ST changes. Hemoglobin 9.9, WBC 6.5, platelet count 329. Sodium 141, potassium 4.1, chloride 110, CO2 24, BUN 22 and creatinine 1.04. Blood sugar 214. Lactic acid 1.9. Magnesium 1.9. Liver function tests normal. CK 54. Troponin negative. Urinalysis clear with nitrate and leukoesterase negative. CAT scan of the brain shows cerebral cortical atrophy. No acute intracranial abnormality. CAT scan of the lumbar spine revealed multilevel spondylitic changes L4-5 bony spinal stenosis. No fracture. Patient was admitted to the [facility] floor. Subsequent underwent a CAT scan of the abdomen and pelvis with contrast revealed confirmation of bilateral benign lipid rich adenomas. 11/30: Patient has been seen by neurology with recommendations for outpatient EMG which will be arranged. Patient is on high-dose Solu-Medrol and blood sugars have been elevated. This will be decreased and transitioned to oral dexamethasone for discharge. Patient has been seen by Dr. Boyd for possible COPD. Overall patient states he is feeling better and is ambulating is improved. He is afebrile, heart rate 55, blood pressure 145/73, pulse ox 97% on room air. Blood sugars are running in the 300s up to 424. Patient will be sent home with prescription for NovoLog scale while he is on steroids. Patient will be discharged home today in stable condition. ASSESSMENT AND PLAN 1. Acute bilateral lower extremity edema and difficulty with ambulation possibly secondary to L4 5 spinal stenosis. 2. Left adrenal gland mass, benign. 3. Diabetes mellitus type 2, insulin requiring. 4. History of coronary artery disease with previous stenting. 5. Remote history of tobacco use. 6. Gastroesophageal reflux disease. 7. Hypertension. 8. Hyperlipidemia. 9. History of prostate cancer under the care of Dr. Cabrera. DISCHARGE PLAN Home with [facility] care Impression and plan of care have been directed as dictated by the signing physician. Janae Boogie nurse practitioner acting as scribe for signing physician. Patient Condition at Discharge: Good Plan - Discharge Summary Discharge Rx Participant: No New Discharge Prescriptions: New INSULIN ASPART (NovoLOG) [NovoLOG (formulary)] 0 unit SQ ACHS #1 vial Insulin Aspart [NovoLOG Flexpen] 5 units SQ AC-TID #1 pen Dexamethasone [Decadron] 4 mg PO BID #15 tablet Continue Mometasone/Formoterol [Dulera 200 Mcg-5 Mcg Inhaler] 2 puff INHALATION RT-HS PRN PRN Reason: Shortness Of Breath Fluticasone Nasal Raeford [Flonase Nasal Raeford] 1 spray EA NOSTRIL DAILY PRN PRN Reason: Allergy Symptoms Aspirin EC [Ecotrin Low Dose] 81 mg PO DAILY Metoprolol Tartrate [Lopressor] 25 mg PO HS Tolterodine Tartrate [Detrol LA] 2 mg PO BID Glimepiride [Amaryl] 4 mg PO BID lisinopriL [Prinivil] 5 mg PO DAILY Baclofen [Lioresal] 5 mg PO BID Calcium Carbonate [Tums] 500 mg PO TID PRN PRN Reason: Gi Upset Celecoxib [CeleBREX] 200 mg PO DAILY PRN PRN Reason: Pain Cyanocobalamin (Vitamin B-12) [Vitamin B-12] 1,000 mcg PO DAILY Furosemide [Lasix] 40 mg PO DAILY metFORMIN HCL 500 mg PO BID Nitroglycerin Sl Tabs [Nitrostat] 0.4 mg SUBLINGUAL Q5M PRN PRN Reason: Chest Pain Pantoprazole Sodium 40 mg PO BID Omeprazole [PriLOSEC] 20 mg PO AC-BID PRN PRN Reason: Gi Upset Rosuvastatin Calcium [Crestor] 10 mg PO HS Albuterol Inhaler [Ventolin Hfa Inhaler] 2 puff INHALATION RT-QID PRN PRN Reason: Shortness Of Breath Insulin Degludec [Tresiba Flextouch U-200] 30 units SQ DAILY Discharge Medication List Aspirin EC [Ecotrin Low Dose] 81 mg PO DAILY 12/03/18 [History] Fluticasone Nasal Raeford [Flonase Nasal Raeford] 1 spray EA NOSTRIL DAILY PRN 12/03/18 [History] Glimepiride [Amaryl] 4 mg PO BID 12/03/18 [History] Metoprolol Tartrate [Lopressor] 25 mg PO HS 12/03/18 [History] Mometasone/Formoterol [Dulera 200 Mcg-5 Mcg Inhaler] 2 puff INHALATION RT-HS PRN 12/03/18 [History] Tolterodine Tartrate [Detrol LA] 2 mg PO BID 12/03/18 [History] lisinopriL [Prinivil] 5 mg PO DAILY 12/03/18 [History] Albuterol Inhaler [Ventolin Hfa Inhaler] 2 puff INHALATION RT-QID PRN 11/28/20 [History] Baclofen [Lioresal] 5 mg PO BID 11/28/20 [History] Calcium Carbonate [Tums] 500 mg PO TID PRN 11/28/20 [History] Celecoxib [CeleBREX] 200 mg PO DAILY PRN 11/28/20 [History] Cyanocobalamin (Vitamin B-12) [Vitamin B-12] 1,000 mcg PO DAILY 11/28/20 [History] Furosemide [Lasix] 40 mg PO DAILY 11/28/20 [History] Insulin Degludec [Tresiba Flextouch U-200] 30 units SQ DAILY 11/28/20 [History] Nitroglycerin Sl Tabs [Nitrostat] 0.4 mg SUBLINGUAL Q5M PRN 11/28/20 [History] Omeprazole [PriLOSEC] 20 mg PO AC-BID PRN 11/28/20 [History] Pantoprazole Sodium 40 mg PO BID 11/28/20 [History] Rosuvastatin Calcium [Crestor] 10 mg PO HS 11/28/20 [History] metFORMIN HCL 500 mg PO BID 11/28/20 [History] Dexamethasone [Decadron] 4 mg PO BID #15 tablet 11/30/20 [Rx] INSULIN ASPART (NovoLOG) [NovoLOG (formulary)] 0 unit SQ ACHS #1 vial 11/30/20 [Rx] Insulin Aspart [NovoLOG Flexpen] 5 units SQ AC-TID #1 pen 11/30/20 [Rx] Follow up Appointment(s)/Referral(s): Levi Nunez MD [Primary Care Provider] - 12/03/20 2:30 pm Jose Miguel Rasheed PAC [PHYSICIAN DAIRY AND FOOD LABORATORY ASSISTANT] - 12/24/20 8:00 am (The office will send out new patient paperwork in the mail before this appointment Please wear a face mask in the office Also please bring your photo ID and insurance card) Sudeep Boyd DO [Doctor of Osteopathic Medicine] - 01/03/21 10:30 am (pulmonary function testing ) [facility], [NON-STAFF] - 1-2 Days Elvis Lunsford DO [STAFF PHYSICIAN] - 1 Week (neurologist followup, for recommended EMG ) Patient Instructions/Handouts: Lumbar Spinal Stenosis (DC) Activity/Diet/Wound Care/Special Instructions: insulin SCALE activity as tolerated consistent carb diet Discharge Disposition: HOME WITH HOME HEALTH SERVICES
--- NOTE | 2020-11-30 15:02 | P.PN ---
Subjective Progress Note Date: 11/30/20 Principal diagnosis: Shortness of breath on exertion. 80-year-old male who I saw in consultation yesterday. The patient complained of shortness of breath on exertion. He has a history of diabetes, hypertension, heart disease, bypass grafting, and lower extremity weakness. His primary care physician is Dr. Nunez. The patient does have a history of tobacco use. He may have some underlying COPD. He smoked for 27 years at 1-1-1/2 packs a day. I told the patient that I would see him and follow up in my office. At that time, he will have a 6 minute walk distance, and a complete pulmonary function test. The patient is otherwise stable for discharge in my opinion. Again, the workup for shortness of breath on exertion can be done as an outpatient. I'm not sure if he is going to be discharged today. Clinically he stable. He was not requiring any oxygen therapy. He only gets short of breath on exertion. Objective - Vital Signs Vital signs: Vital Signs Temp 97.4 F L 11/30/20 07:44 Pulse 55 L 11/30/20 07:44 Resp 16 11/30/20 07:44 BP 145/73 11/30/20 07:44 Pulse Ox 97 11/30/20 07:44 Intake & Output 11/29/20 11/30/20 11/30/20 18:59 06:59 18:59 Intake Total 236 236 Balance 236 236 Intake: Oral 236 236 Other: Voiding Method Toilet Toilet # Voids 5 4 - Exam No acute distress, oriented 3. HEENT examination is grossly unremarkable. Mucous membranes are moist. No oral lesions. Neck supple. Full range of motion. No adenopathy thyromegaly or neck vein distention. Cardiovascular examination reveals regular rhythm rate. S1-S2 normal. No S3 or S4. No discernible murmur noted. Lungs reveal clear breath sounds. Her sounds are equal bilaterally. No adventitious lung sounds including wheezes rhonchi or crackles. Abdomen soft bowel sounds are heard. No masses or tenderness. Extremities are intact. No cyanosis clubbing or edema. Skin is without rash or lesion. Neurologic examination is brief but nonfocal. - Labs CBC & Chem 7: 11/29/20 05:38 11/29/20 05:38 Labs: Abnormal Lab Results - Last 24 Hours (Table) 11/29/20 11/29/20 11/30/20 Range/Units 17:27 20:24 07:22 POC Glucose (mg/dL) 335 H 424 H 292 H (75-99) mg/dL 11/30/20 Range/Units 11:28 POC Glucose (mg/dL) 325 H (75-99) mg/dL Assessment and Plan Assessment: Shortness of breath on exertion, which may relate to underlying COPD. History of previous chronic tobacco use. Diabetes mellitus. History of hypertension. History of hyperlipidemia. Prior history of myocardial infarction. History of CABG. Gastroesophageal reflux disease. Plan: Plan dated 11/30/2020. Currently, the patient's doing well. He only gets short of breath when he exerts himself. I explained to him that I would see him in the office post kathi morales. The patient will need a 6 minute walk distance, and also a pulmonary function test. This will determine whether or not the patient has any underlying COPD. Additional recommendations are forthcoming. Prognosis is good. He may be discharged home today. Time with Patient: Less than 30
== END 2020-11-30 13:14 | disposition home health service (06) ==
LOC: EC 16:46 → 5NMEDONC 19:44
PROVIDERS: ADMIT Family Medicine; ATTEND Family Medicine
DX: R60.0 Localized edema (principal); R53.1 Weakness; R26.2 Difficulty in walking, not elsewhere classified; R06.02 Shortness of breath; M47.896 Other spondylosis, lumbar region; M48.061 Spinal stenosis, lumbar region without neurogenic claudication; M51.36 Other intervertebral disc degeneration, lumbar region; M41.86 Other forms of scoliosis, lumbar region; M51.26 Other intervertebral disc displacement, lumbar region; D35.02 Benign neoplasm of left adrenal gland; D35.01 Benign neoplasm of right adrenal gland; E11.65 Type 2 diabetes mellitus with hyperglycemia; I25.10 Atherosclerotic heart disease of native coronary artery without angina pectoris; K21.9 Gastro-esophageal reflux disease without esophagitis; I10 Essential (primary) hypertension; E78.5 Hyperlipidemia, unspecified; M79.662 Pain in left lower leg; M79.661 Pain in right lower leg; R32 Unspecified urinary incontinence; G31.9 Degenerative disease of nervous system, unspecified; F02.80 Dementia in other diseases classified elsewhere, unspecified severity, without behavioral disturbance, psychotic disturbance, mood disturbance, and anxiety; E66.9 Obesity, unspecified; H91.90 Unspecified hearing loss, unspecified ear; R20.2 Paresthesia of skin; Z87.891 Personal history of nicotine dependence; Z85.46 Personal history of malignant neoplasm of prostate; Z79.82 Long term (current) use of aspirin; Z79.899 Other long term (current) drug therapy; Z79.4 Long term (current) use of insulin; I25.2 Old myocardial infarction; Z90.49 Acquired absence of other specified parts of digestive tract; Z95.1 Presence of aortocoronary bypass graft; Z86.018 Personal history of other benign neoplasm; Z98.890 Other specified postprocedural states; Z85.828 Personal history of other malignant neoplasm of skin; G89.29 Other chronic pain; Z79.1 Long term (current) use of non-steroidal anti-inflammatories (NSAID); Z68.28 Body mass index [BMI] 28.0-28.9, adult; Z82.49 Family history of ischemic heart disease and other diseases of the circulatory system; Z83.3 Family history of diabetes mellitus
CPT/HCPCS: 96376 ×2; 96374; 99285; 36415; 93005; 97530; 97162; 97166; 80053; 80048; 84443; 82607; 82550; 83605; 83735; 84484; 85025 ×2; 85610; 85730; 81003; 71046; 72131; 70450; 74178; G0378 ×3; J2920; J2930 ×3; Q9967

== ENCOUNTER → 2021-01-06 | Outpatient (CLI) | payer MEDICARE ==
--- NOTE | 2021-01-06 10:25 | CT ---
EXAMINATION TYPE: CT chest wo con DATE OF EXAM: 01/06/2021 COMPARISON: 11/29/2020 HISTORY: Pulmonary Fibrosis CT DLP: 940.4 mGycm. Automated Exposure Control for Dose Reduction was Utilized. TECHNIQUE: CT scan of the thorax is performed without IV contrast. FINDINGS: LUNGS: There is interlobular septal thickening involving the lungs compatible with chronic interstiti al pulmonary fibrosis. There is no evidence of consolidation or pleural effusion. No pneumothorax. Ce ntral and basilar bronchiectasis noted. There are multiple subpleural less than 5 mm nodules too smal l to characterize.. MEDIASTINUM: Lack of IV contrast is noted to limit evaluation for mediastinal and especially hilar ad enopathy. There are no definitive greater than 1 cm hilar or mediastinal lymph nodes. Coronary artery calcification noted.. OTHER: Sternotomy wires are seen and there is degenerative changes of the spine and evidence of previ ous cholecystectomy. Moderate-sized hiatal hernia.. Thyroid gland is heterogeneous with portion exten ds below the level of the clavicle and could be correlated with ultrasound. Findings suggestive of gy necomastia IMPRESSION: 1. Findings suggest mild to moderate pulmonary fibrosis with central and basilar bronchiectasis. 2. Correlate for COPD 3. Coronary artery atherosclerotic changes. 4 moderate sized hiatal hernia. 5. Approximately 1 cm bilateral adrenal nodules indeterminate but stable from previous CT scan 021
== END | disposition home or self-care (01) ==
LOC: RADCTMAIN 09:43
PROVIDERS: ATTEND Internal Medicine Critical Care Medicine
DX: I25.10 Atherosclerotic heart disease of native coronary artery without angina pectoris (principal)
CPT/HCPCS: 71250

== ENCOUNTER → 2021-01-26 | Outpatient (CLI) | payer MEDICARE ==
--- NOTE | 2021-01-26 15:24 | NM ---
EXAMINATION TYPE: NM bone scan whole body DATE OF EXAM: 01/26/2021 COMPARISON: CT lumbar spine 11/28/2020, CT abdomen pelvis 11/29/2020 HISTORY: Prostate carcinoma, C 61 Delayed whole-body scanning was performed following the injection of 21.6 mCi Tc 99m MDP. Images acq uired 3 hours post injection. FINDINGS: Soft tissue uptake is normal. Bandlike areas of uptake are present in the lower thoracic spine with c orresponding degenerative changes on CT, there is uptake in the lower lumbar spine which is thought l ikely to be due to degenerative changes, there is an underlying scoliotic curvature. Uptake in the ma xilla may be due to periodontal disease. Uptake within the feet, knees, hands, wrists, shoulders is t hought likely to be degenerative. Anterior rib uptake on the left at the sixth rib may be posttraumat ic. IMPRESSION: Findings may be due to degenerative disc disease, posttraumatic change of the anterior rib on the lef t. MRI could be . Erformed of the thoracic spine as indicated
== END | disposition home or self-care (01) ==
LOC: RADNMMAIN 11:19
PROVIDERS: ATTEND Urology
DX: C61 Malignant neoplasm of prostate (principal)
CPT/HCPCS: 78306; A9503

== ENCOUNTER 2021-03-23 12:13 | Day surgery (SDC) | payer MEDICARE ==
[2021-03-21 09:37] VITALS: BMI 28.0
[~2021-03-23 12:13] MED LIST changes: +LACTATED RINGERS 1,000 ML IV SCH; +LIDOCAINE 1% (10MG/ML) FOR IV START INTRADERMA PRN; -REGADENOSON 0.4 MG/5 ML SYRINGE IV ONE; +TETRACAINE 0.5% OPHTH (PF) DROPS 4 ML BTL OP PRN
[2021-03-23 12:58] VITALS: TEMP 979
[2021-03-23 13:07] LABS: Glucose,Whole Blood 119 mg/dL (75-99)
[2021-03-23] MEDS: CYCLOPENTOLATE 1% OPHTH SOLN 2 ML BTL OP PRN ×3 (13:07→13:18)
[2021-03-23] MEDS: PHENYLEPHRINE 2.5% OPHTH DRP 2ML OP PRN ×3 (13:10→13:21)
[2021-03-23] MEDS ORDERED: fentaNYL (PF) 50 MCG/ML 2 ML AMP ONE (13:50)
[2021-03-23] MEDS ORDERED: MIDAZOLAM 2 MG/2 ML VIAL ONE (13:50)
[2021-03-23] MEDS ORDERED: LIDOCAINE 1% (PF) 10MG/ML VIAL MISCELLANE ONE (13:55)
[2021-03-23] MEDS ORDERED: HYALURONATE SODIUM INTRAOCULAR 1 EACH SYRINGE (12MG/ML) INTRAOCULA ONE (13:55)
[2021-03-23] MEDS ORDERED: BALANCED SALT IRRIG SOLN COMB2 15 ML IRRIG.SOLN IRRIGATION ONE (13:55)
[2021-03-23] MEDS ORDERED: EPINEPHrine (PF) 0.3 ML in BALANCED SALT IRRIG SOLN COMB2 500 ML IRRIGATION ONE (14:08)
[2021-03-23] MEDS: MOXIFLOXACIN HCL 0.5% DROPS 3 ML BTL OP PRN ×2 (14:13→14:19)
[2021-03-23] MEDS: TIMOLOL 0.5% OPHTH DROPS 5 ML BTL OP PRN ×2 (14:13→14:19)
--- NOTE | 2021-03-23 14:21 | P.OP ---
Date of Procedure: 03/23/21 Preoperative Diagnosis: Ns & CS Postoperative Diagnosis: same Procedure(s) Performed: PIOL< OS Implants: [id number] 22.00 Anesthesia: MAC Surgeon: Dewayne Carl Pathology: none sent Condition: stable Disposition: same day Indications for Procedure: blurry vision Operative Findings: no complications
[2021-03-23 14:34] VITALS: RESP 16
[2021-03-23 15:08] VITALS: BP 125/75; PULSE 77
--- NOTE | 2021-03-23 21:05 | OP ---
OPERATIVE REPORT DATE OF SURGERY: 03/23/2021 PROCEDURE: Phacoemulsification of cataract and intraocular lens implant of the left eye. PREOPERATIVE DIAGNOSIS: Nuclear sclerosis, cortical sclerosis. POSTOPERATIVE DIAGNOSIS: Nuclear sclerosis, cortical sclerosis. ESTIMATED BLOOD LOSS: Zero. SPECIMEN TAKEN: None. NARRATIVE: After obtaining the appropriate consent, the patient was brought to the operating room, where the patient was placed under cardiac monitoring and prepped and draped in the usual sterile manner. At the 5 o'clock position a 15-degree super sharp blade was used to create a paracentesis followed by instillation of 1% Xylocaine MPF 50:50 mix with BSS into the anterior chamber. This was followed by Amvisc to stabilize the anterior chamber. At the 3 o'clock position a self-sealing corneal flap incision was created using 2.8 mm radha keratome. A cystotome was used to initiate a continuous tear capsulorrhexis which was completed with the Utrata forceps. A Binkhorst cannula was used to hydrodissect the lens nucleus followed by hydrodelineation. Phacoemulsification of the lens was performed utilizing phacochop in 13.09 seconds at 14% power. The remaining cortical material was removed using the irrigation aspiration mode followed by additional 1% Xylocaine MPF into the anterior chamber followed by viscoelastic to stabilize the capsular bag. A Bausch and Lomb MX60E 22.0 diopters posterior chamber lens was placed into the capsular bag without difficulty. The remaining viscoelastic material was removed from the anterior chamber with the irrigation/aspiration. Balanced salt solution was used to normalize the intraocular pressure. The incision was checked for watertight integrity. The patient then received two drops of 0.5% timolol followed by two drops Vigamox, was lightly patched and shielded in the usual manner. There were no complications from the procedure. The patient tolerated the procedure well and was returned to Recovery in good condition. MMODL / IJN: [id number] /
== END 2021-03-23 15:09 | disposition home or self-care (01) ==
LOC: OR 12:13
PROVIDERS: ATTEND Ophthalmology
DX: E11.36 Type 2 diabetes mellitus with diabetic cataract (principal); H25.13 Age-related nuclear cataract, bilateral; H00.023 Hordeolum internum right eye, unspecified eyelid; H00.026 Hordeolum internum left eye, unspecified eyelid; H52.223 Regular astigmatism, bilateral; H52.4 Presbyopia; H52.03 Hypermetropia, bilateral; I51.9 Heart disease, unspecified; I25.10 Atherosclerotic heart disease of native coronary artery without angina pectoris; I25.2 Old myocardial infarction; J44.9 Chronic obstructive pulmonary disease, unspecified; K21.9 Gastro-esophageal reflux disease without esophagitis; Z90.49 Acquired absence of other specified parts of digestive tract; Z95.1 Presence of aortocoronary bypass graft; Z80.8 Family history of malignant neoplasm of other organs or systems; Z85.46 Personal history of malignant neoplasm of prostate; J84.10 Pulmonary fibrosis, unspecified; Z79.1 Long term (current) use of non-steroidal anti-inflammatories (NSAID); Z79.82 Long term (current) use of aspirin; Z79.4 Long term (current) use of insulin; Z79.891 Long term (current) use of opiate analgesic; Z79.899 Other long term (current) drug therapy
CPT/HCPCS: 66984; C1780; J2250; J0171; J3010; J2001

== ENCOUNTER 2021-04-13 07:17 | Day surgery (SDC) | payer MEDICARE ==
[2021-04-12 11:33] VITALS: BMI 27.7
[~2021-04-13 07:17] MED LIST changes: +MOXIFLOXACIN HCL 0.5% DROPS 3 ML BTL OP PRN; +ONDANSETRON 4 MG/2 ML VIAL IVP PRN; +TIMOLOL 0.5% OPHTH DROPS 5 ML BTL OP PRN
[2021-04-13 08:11] VITALS: TEMP 97.3
[2021-04-13] MEDS: CYCLOPENTOLATE 1% OPHTH SOLN 2 ML BTL OP PRN ×3 (08:15→08:27)
[2021-04-13] MEDS: PHENYLEPHRINE 2.5% OPHTH DRP 2ML OP PRN ×3 (08:18→08:30)
[2021-04-13 08:28] LABS: Glucose,Whole Blood 181 mg/dL (75-99)
[2021-04-13] MEDS ORDERED: fentaNYL (PF) 50 MCG/ML 2 ML AMP ONE (08:40)
[2021-04-13] MEDS ORDERED: BALANCED SALT IRRIG SOLN COMB2 15 ML IRRIG.SOLN INTRAOCULA ONE (08:49)
[2021-04-13] MEDS ORDERED: LIDOCAINE 1% (PF) 10MG/ML VIAL SQ ONE (08:49)
[2021-04-13] MEDS ORDERED: HYALURONATE SODIUM INTRAOCULAR 1 EACH SYRINGE (12MG/ML) INTRAOCULA ONE (08:49)
[2021-04-13] MEDS ORDERED: EPINEPHrine (PF) 0.3 ML in BALANCED SALT IRRIG SOLN COMB2 500 ML IRRIGATION ONE (08:50)
--- NOTE | 2021-04-13 09:02 | P.OP ---
Date of Procedure: 04/13/21 Preoperative Diagnosis: NS & CS Postoperative Diagnosis: same Procedure(s) Performed: PIOL< OD Implants: MX60 22.50 Anesthesia: MAC Surgeon: Dewayne Carl Pathology: none sent Condition: stable Disposition: same day Indications for Procedure: blurry vision Operative Findings: no complications
[2021-04-13 09:11] VITALS: RESP 16
[2021-04-13 09:28] VITALS: BP 144/79; PULSE 63
--- NOTE | 2021-04-14 09:39 | OP ---
OPERATIVE REPORT DATE OF SURGERY: April 13, 2021. SURGEON: Dr. Dewayne Carl PREOPERATIVE DIAGNOSIS: Nuclear sclerosis and cortical sclerosis. POSTOPERATIVE DIAGNOSIS: Nuclear sclerosis and cortical sclerosis. OPERATION: Phacoemulsification of cataract and intraocular lens implant of the right eye. ESTIMATED BLOOD LOSS: Zero. SPECIMEN TAKEN: None. NARRATIVE: After obtaining the appropriate consent, the patient was brought to the operating room where the patient was placed under cardiac monitoring and prepped and draped in the usual sterile manner. At the 11 o'clock position a 15 degree super sharp blade was used to create a paracentesis followed by instillation of 1% Xylocaine MPF 50:50 mix with BSS into the anterior chamber. This was followed by Amvisc to stabilize the anterior chamber. At the 9 o'clock position a self-sealing corneal flap incision was created using 2.8 mm radha keratome. A cystotome was used to initiate a continuous tear capsulorrhexis which was completed with the Utrata forceps. A Binkhorst cannula was used to hydrodissect the lens nucleus followed by hydrodelineation. Phacoemulsification of the lens was performed utilizing phaco chop in 20.31 seconds at 12% power. The remaining cortical material was removed using the irrigation aspiration mode followed by additional 1% Xylocaine MPF into the anterior chamber followed by viscoelastic to stabilize the capsular bag. A Bausch and Lomb MX60E 22.5 diopters posterior chamber lens was placed into the capsular bag without difficulty. The remaining viscoelastic material was removed from the anterior chamber with the irrigation/aspiration. Balanced salt solution was used to normalize the intraocular pressure. The incision was checked for watertight integrity. The patient then received two drops of 0.5% timolol followed by two drops Vigamox, was lightly patched and shielded in the usual manner. There were no complications from the procedure. The patient tolerated the procedure well and was returned to recovery in good condition. MMODL / IJN: [id number] /
== END 2021-04-13 09:40 | disposition home or self-care (01) ==
LOC: OR 07:17
PROVIDERS: ATTEND Ophthalmology
DX: E11.36 Type 2 diabetes mellitus with diabetic cataract (principal); H25.11 Age-related nuclear cataract, right eye; H00.026 Hordeolum internum left eye, unspecified eyelid; H00.023 Hordeolum internum right eye, unspecified eyelid; H52.223 Regular astigmatism, bilateral; H52.4 Presbyopia; H52.03 Hypermetropia, bilateral; I51.9 Heart disease, unspecified; Z87.891 Personal history of nicotine dependence; Z98.42 Cataract extraction status, left eye; Z95.1 Presence of aortocoronary bypass graft; Z96.1 Presence of intraocular lens; Z90.79 Acquired absence of other genital organ(s); Z98.890 Other specified postprocedural states; Z80.42 Family history of malignant neoplasm of prostate; J84.10 Pulmonary fibrosis, unspecified; Z83.518 Family history of other specified eye disorder; Z82.61 Family history of arthritis; Z80.9 Family history of malignant neoplasm, unspecified; Z83.3 Family history of diabetes mellitus; Z82.49 Family history of ischemic heart disease and other diseases of the circulatory system; Z79.891 Long term (current) use of opiate analgesic; Z79.1 Long term (current) use of non-steroidal anti-inflammatories (NSAID); Z79.811 Long term (current) use of aromatase inhibitors; Z79.82 Long term (current) use of aspirin; Z79.4 Long term (current) use of insulin; Z79.899 Other long term (current) drug therapy
CPT/HCPCS: 66984; C1780; J0171; J3010; J2001

== ENCOUNTER → 2021-04-19 | Outpatient (CLI) | payer MEDICARE ==
[2021-04-19 21:48] LABS: Prostate Specific Antigen 0.2 ng/mL (0.0-6.5); Testosterone <7.00 ng/dL (86.98-780.10)
== END | disposition home or self-care (01) ==
LOC: LABWHC1 11:10
PROVIDERS: ATTEND Urology
DX: C61 Malignant neoplasm of prostate (principal)
CPT/HCPCS: 36415; 84153; 84403

== ENCOUNTER → 2021-06-24 | Outpatient (CLI) | payer MEDICARE ==
[2021-06-24 12:56] LABS: Calcium 10.3 mg/dL (8.4-10.2); Potassium 5.4 mmol/L (3.5-5.1)
--- NOTE | 2021-06-26 20:35 | CT ---
EXAMINATION TYPE: CT adrenal glands wo/w con DATE OF EXAM: 06/24/2021 COMPARISON: 11/29/2020 HISTORY: 81-year-old male E27.8, adrenal mass TECHNIQUE: Contiguous axial scanning of the abdomen and pelvis performed without and with IV Contr ast, patient injected with 80cc mL of Isovue 300. Long delayed images were also obtained per renal ma ss protocol. Coronal/sagittal reconstructions performed. CT DLP: 2646 mGycm Automated exposure control for dose reduction was used. FINDINGS: Heart upper limits of normal in size without pericardial effusion. Median sternotomy wires are presen t. Moderate bilateral gynecomastia. Mild aneurysm visualized ascending aorta at 4.0 cm. Dense mitral annular calcifications. Some paraseptal emphysema within the lower lungs. No pleural effusion. Moderate sized hiatal hernia involving approximately a third of the stomach. Liver normal size. A 9 mm hypodensity anterior left liver lobe minimally larger from prior still sugg estive of a benign cyst. Portal venous system is patent. No biliary ductal dilatation. Cholecystectomy clips. 1.6 cm hypodense lesion anterior upper pole right kidney, unchanged. There is intermediate attenuatio n suggesting a complicated cyst. Left kidney, spleen, and pancreas within normal limits. Right-sided adrenal nodule measuring 1.7 cm and on the left, 2 nodules measuring 2.0 cm and 1.1 cm. A ll of these nodules are stable in size and a noncontrast CT, show low attenuation less than 10 Hounsf ield units. No dilated small bowel, free fluid, or free air. No mesenteric or retroperitoneal lymphadenopathy. Moderate atherosclerotic calcifications abdominal aorta and common iliac arteries. Multiple moderate stool burden. Left-sided clonic diverticulosis, greatest in the sigmoid colon. No p ericolonic inflammatory change. Mild circumferential bladder wall thickening with some trabeculations along the left lateral wall not ed.. Numerous pelvic phlebolith. Some surgical material also suggested in the pelvis. No abnormal flu id collection the pelvis or pelvic lymphadenopathy. Severe atherosclerotic calcifications distal left [employer] and also severe at the right [employer] bifurcation. Bones: Moderate to advanced degenerative disc disease throughout the lumbar spine. Baastrup's disease . Grade 1 retrolisthesis T12-L1 and L1-L2. IMPRESSION: 1. REDEMONSTRATED BILATERAL LIPID RICH ADRENAL ADENOMAS, ONE ON THE RIGHT MEASURING 1.7 CM AND TWO ON THE LEFT MEASURING 2.0 CM AND 1.1 CM, UNCHANGED. 2. MODERATE-SIZED HIATAL HERNIA. 3. INCIDENTAL BENIGN 1.6 CM MILDLY COMPLICATED CYST ANTERIOR UPPER POLE RIGHT KIDNEY, ALSO STABLE. 4. LEFT-SIDED COLONIC DIVERTICULOSIS GREATEST IN THE SIGMOID COLON. 5. INCIDENTAL SEVERE ATHEROSCLEROTIC STENOSES AT THE LEFT GREATER THAN RIGHT DISTAL [employer]'S. CONSIDER V ASCULAR SURGERY EVALUATION.
== END | disposition home or self-care (01) ==
LOC: RADCTMAIN 12:19
PROVIDERS: ATTEND Internal Medicine
DX: D35.01 Benign neoplasm of right adrenal gland (principal); D35.02 Benign neoplasm of left adrenal gland; K44.9 Diaphragmatic hernia without obstruction or gangrene; N28.1 Cyst of kidney, acquired; K57.30 Diverticulosis of large intestine without perforation or abscess without bleeding; I70.203 Unspecified atherosclerosis of native arteries of extremities, bilateral legs
CPT/HCPCS: 80048; 36415; 74170; Q9967

== ENCOUNTER 2021-08-04 10:07 | Day surgery (SDC) | payer MEDICARE ==
[2021-08-02 09:08] VITALS: BMI 27.3
[~2021-08-04 10:07] MED LIST changes: +FAMOTIDINE 20 MG/2 ML VIAL IV PRN; -LIDOCAINE 1% (10MG/ML) FOR IV START INTRADERMA PRN; -MOXIFLOXACIN HCL 0.5% DROPS 3 ML BTL OP PRN; +ONDANSETRON 4 MG/2 ML VIAL IVP ONE; -TETRACAINE 0.5% OPHTH (PF) DROPS 4 ML BTL OP PRN; -TIMOLOL 0.5% OPHTH DROPS 5 ML BTL OP PRN; +fentaNYL (PF) 50 MCG/ML 2 ML AMP IV PRN
[2021-08-04 10:59] LABS: Glucose,Whole Blood 88 mg/dL (75-99)
[2021-08-04] MEDS ORDERED: LIDOCAINE 1% (10MG/ML) FOR IV START INTRADERMA ONE (10:59)
[2021-08-04] MEDS ORDERED: DEXAMETHASONE SOD PHOSPHATE 4 MG/ML 1 ML VIAL IV ONE (11:00)
[2021-08-04] MEDS ORDERED: ePHEDrine SULFATE/0.9% NACL/PF 50 MG/5 ML SYRINGE IV ONE (13:41)
[2021-08-04] MEDS ORDERED: LIDOCAINE 1% INJ 10MG/ML (20 ML MDV) ONE (13:41)
[2021-08-04] MEDS ORDERED: SUCCINYLCHOLINE CHLORIDE 100 MG/5 ML SYR IV ONE (13:41)
[2021-08-04] MEDS ORDERED: PHENYLEPHRINE-0.9% NACL SYG 1,000 MCG/10 ML SYRINGE ONE (13:41)
[2021-08-04] MEDS ORDERED: fentaNYL (PF) 50 MCG/ML 2 ML AMP ONE (13:41)
[2021-08-04] MEDS ORDERED: PROPOFOL 10 MG/ML 20 ML VIAL IV ONE (13:41)
[2021-08-04] MEDS ORDERED: BUPIVACAINE (PF) 0.5% 30 ML VIAL SQ ONE ×2 (14:20)
[2021-08-04] MEDS ORDERED: LIDOCAINE 2%-EPI 1:100,000 20 ML VIAL SQ ONE ×2 (14:20)
[2021-08-04] MEDS ORDERED: LACTATED RINGERS 1,000 ML IV ONE (16:00)
[2021-08-04] MEDS ORDERED: BACITRACIN ZINC 500 UNIT/GM OINT 28.4 GM TUBE TOPICAL ONE (16:20)
[2021-08-04] MEDS ORDERED: FERRIC SUBSULFATE (MONSELS) JAR TOPICAL ONE (16:20)
[2021-08-04 16:50] LABS: Glucose,Whole Blood 142 mg/dL (75-99)
[2021-08-04 16:57] VITALS: TEMP 96.9
[2021-08-04 17:31] VITALS: RESP 20
--- NOTE | 2021-08-04 18:33 | OP ---
OPERATIVE REPORT DATE OF SERVICE: 08/04/2021. SURGEON: Donte Lizarraga D.O. PREOPERATIVE DIAGNOSIS: 1. A 7 x 4 cm left chest lesion. 2. A 6 x 3 cm left cheek lesion. 3. A 3.1 x 2 cm right brow lesion. 4. A 1.6 x 1.6 cm right earlobe lesion. 5. A 2.6 x 1.6 cm right lower antihelix lesion. 6. A 1.6 cm right antihelix lesion upper. 7. A 2.1 cm right upper helix lesion. POSTOPERATIVE DIAGNOSIS: 1. A 7 x 4 cm left chest lesion. 2. A 6 x 3 cm left cheek lesion. 3. A 3.1 x 2 cm right brow lesion. 4. A 1.6 x 1.6 cm right earlobe lesion. 5. A 2.6 x 1.6 cm right lower antihelix lesion. 6. A 1.6 cm right antihelix lesion upper. 7. A 2.1 cm right upper helix lesion. OPERATIVE PROCEDURE: 1. Excision of a 7 x 4 cm left chest lesion with use of bilateral advancement flap closure and reconstruction with a secondary defect measuring 14 x 8 cm. 2. Excision of a 6 x 3 cm left cheek lesion with use of bilateral advancement flap closure with a secondary defect measuring 12 x 3 cm. 3. Excision of a right brow lesion measuring 3.1 x 2 cm with a secondary defect measuring 6.2 x 4 cm. 4. Excision of a 1.6 x 1.6 cm right earlobe lesion with a secondary defect measuring 3.2 x 3.2 cm. 5. Excision of a 2.6 x 1.6 cm right lower antihelix lesion with a secondary defect measuring 5.2 x 3.2 cm. 6. Shave excision of a right upper antihelix lesion measuring 1.6 cm. 7. Shave excision of a 2.1 cm right upper helix lesion. ANESTHESIA: General. BLOOD LOSS: Minimal. SPECIMENS REMOVED: As above. COMPLICATIONS: None. CONSENT: All risks, benefits, alternative therapies and complications were discussed. Consent was obtained. All questions were answered. OPERATIVE NOTE: This patient was taken to the operative room, placed in the supine position. A general inhalation anesthetic was administered to the patient by mask and subsequently intubated with a cuffed endotracheal tube by the Department of Anesthesia. With a functioning IV line in place, the patient was monitored throughout the entire case by the Department of Anesthesia, and frozen sections were performed on many of these lesions. The left chest lesion, after appropriate anesthetization, was excised. It measured 7 x 4 cm. We did extensive undermining in all directions, raised bilateral advancement flaps with a secondary defect measuring 14 x 8 cm. Rotated the flaps into position with removal of Gretta's triangles and closed this area deeply with the use of a 4-0 Monocryl, 3-0 PDS, and the skin was closed with a 4-0 Vicryl Rapide in a running locking fashion. The exact same procedure was performed on the left cheek lesion, which measured 6 x 3 cm. Advancement flaps were developed measuring 12 x 3 cm, closed in the same fashion, with wide undermining and the use of Monocryl PDS and 5-0 Vicryl Rapide. We did the same thing on the right brow lesion, which measures 3.1 x 2 cm. Secondary defect measured 6.2 x 4 cm. Bilateral advancement flap was rotated into position and again closed with 4-0 Monocryl and a 5-0 Vicryl Rapide. The right lower antihelix lesion was also removed in the same fashion, which measured 2.6 x 1.6 cm. Bilateral advancement flaps were developed with a secondary defect measuring 5.2 x 3.2 cm and closed in a similar fashion with rotational flap and wide undermining. Shave excisions were performed on the right upper antihelix lesion and right upper helix lesion. They were both done with shave excisions. The patient tolerated this well, and followup will be with me in the office in one week. The patient is to contact me if any problems should arise in the interim. MMODL / IJN: [id number] /
[2021-08-04 19:35] VITALS: BP 120/76; PULSE 72
== END 2021-08-04 19:00 | disposition home or self-care (01) ==
LOC: OR 10:07
PROVIDERS: ATTEND Otolaryngology
DX: C44.219 Basal cell carcinoma of skin of left ear and external auricular canal (principal); C44.319 Basal cell carcinoma of skin of other parts of face; C44.519 Basal cell carcinoma of skin of other part of trunk; K21.9 Gastro-esophageal reflux disease without esophagitis; M19.90 Unspecified osteoarthritis, unspecified site; E11.9 Type 2 diabetes mellitus without complications; I10 Essential (primary) hypertension; E78.00 Pure hypercholesterolemia, unspecified; L57.0 Actinic keratosis
CPT/HCPCS: 88305; 88331; 11606; 11646; J1100; J2405; J2001; J3010; J2370; J0330; J2704

== ENCOUNTER → 2022-06-22 | Outpatient (CLI) | payer MEDICARE ==
--- NOTE | 2022-06-22 14:15 | NM ---
EXAMINATION TYPE: NM bone scan whole body DATE OF EXAM: 06/22/2022 COMPARISON: Prior bone scan 01/26/2021 HISTORY: Prostate cancer Delayed whole-body scanning was performed following the injection of 24.4 mCi Tc 99m MDP. Images acq uired 3 hours post injection. FINDINGS: Exam shows a near stable appearance. Mild increased uptake noted along the right anterior fifth rib a ppears somewhat more well-defined, some mild uptake along the left anterior sixth rib shows a similar appearance, somewhat less conspicuous. Uptake within the spine, spinal curvature is stable. Soft tis jose uptake is within normal limits. Uptake noted within the feet, ankles, knees, hands and wrists, el bows, shoulders, sternoclavicular joints is likely degenerative IMPRESSION: Metastatic disease to bone is not felt likely to be present.
== END | disposition home or self-care (01) ==
LOC: RADNMMAIN 09:43
PROVIDERS: ATTEND Urology
DX: C61 Malignant neoplasm of prostate (principal)
CPT/HCPCS: 78306; A9503

== ENCOUNTER → 2022-11-08 | Outpatient (CLI) | payer MEDICARE ==
[2022-11-08 23:39] LABS: HCT 36.9 % (39.6-50.0); HGB 11.2 g/dL (13.0-17.0); MCH 22.3 pg (27.0-32.0); MCHC 30.4 g/dL (32.0-37.0); MCV 73.4 fL (80.0-97.0); Mean Platelet Volume 9.5 fL (9.5-12.2); NRBC Per 100 WBC 0 /100 WBCS (0.0-0.0); Platelet Count 438 X 10*3/uL (140-440); RBC 5.03 X 10*6/uL (4.40-5.60); RDW 22.2 % (11.5-14.5); WBC 10.26 X 10*3/uL (4.50-10.00)
[2022-11-09 03:13] LABS: Chloride 105 mmol/L (96-109); Glucose 135 mg/dL (70-110); Potassium 4.4 mmol/L (3.5-5.5); Sodium 141 mmol/L (135-145)
[2022-11-09 03:14] LABS: ALT 13 U/L (10-49); AST 14 U/L (14-35); African American GFR (CKD) 53.1 (60.0-200.0); Albumin 4.2 g/dL (3.8-4.9); Albumin/Globulin Ratio 1.75 (1.60-3.17); Alkaline Phosphatase 87 U/L (41-126); BUN/Creat Ratio 20.36 Ratio (12.00-20.00); Blood Urea Nitrogen 28.5 mg/dL (9.0-27.0); Globulin 2.4 g/dL (1.6-3.3); Non-African American GFR(CKD) 45.8 (60.0-200.0); Total Bilirubin <0.15 mg/dL (0.30-1.20); Total Protein 6.6 g/dL (6.2-8.2)
== END | disposition home or self-care (01) ==
LOC: LABWHC1 16:20
PROVIDERS: ATTEND Internal Medicine Interventional Cardiology
DX: R06.02 Shortness of breath (principal); R00.0 Tachycardia, unspecified
CPT/HCPCS: 36415; 80053; 83880; 84443; 85027

== ENCOUNTER → 2023-03-01 | Outpatient (CLI) | payer MEDICARE ==
[2023-03-02 01:14] LABS: Testosterone <2.50 ng/mL (86.98-780.10)
== END | disposition home or self-care (01) ==
LOC: LABWHC1 12:02
PROVIDERS: ATTEND Urology
DX: C61 Malignant neoplasm of prostate (principal)
CPT/HCPCS: 36415; 84153; 84403

== ENCOUNTER 2023-03-05 15:17 | Observation (INO) | payer MEDICARE ==
--- NOTE | 2023-03-05 15:37 | ED ---
Chest Pain HPI <Neil York - Last Filed: 03/05/23 15:37> - History of Present Illness MD Complaint: chest pain Onset/Timin -: week(s) <Rozina Valiente - Last Filed: 03/06/23 02:06> - General Chief Complaint: Chest Pain Stated Complaint: Chest Pain/sob Time Seen by Provider: 03/05/23 15:37 - History of Present Illness Initial Comments: patient is an 82-year-old male presenting with chief complaint of chest pain. Pain has been worsening for the last 3 weeks. He does admit to shortness of b reath and cough, pain is worse with coughing. (Neil York) When I went to evaluate the patient, he states that he had problems with coughing for 1-2 months prior to developing this chest pain. States that it started out as left sided and is now a substernal sharp pain. The pain is worse when he coughs. Denies any increase in coughing or chest pain when lying down v ersus sitting up. He does have a substantial cardiac history including a CABG several years ago. He reports mild associated shortness of breath. Denies any leg swelling. Denies any fevers, chills, sore throat, palpitations, abdominal pain, nausea, vomiting, diarrhea, back pain, or headaches. (Rozina Valiente) - Related Data Home Medications Medication Instructions Recorded Confirmed Aspirin EC [Ecotrin Low Dose] 81 mg PO DAILY 12/03/18 03/05/23 Metoprolol Tartrate [Lopressor] 25 mg PO HS 12/03/18 03/05/23 lisinopriL [Prinivil] 5 mg PO DAILY 12/03/18 03/05/23 Baclofen [Lioresal] 5 mg PO BID PRN 11/28/20 03/05/23 Celecoxib [CeleBREX] 200 mg PO DAILY PRN 11/28/20 03/05/23 Furosemide [Lasix] 40 mg PO DAILY 11/28/20 03/05/23 Nitroglycerin Sl Tabs [Nitrostat] 0.4 mg SUBLINGUAL Q5M PRN 11/28/20 03/05/23 Pantoprazole Sodium 40 mg PO BID 11/28/20 03/05/23 Rosuvastatin Calcium [Crestor] 10 mg PO DAILY 11/28/20 03/05/23 Umeclidinium Brm/Vilanterol Tr 1 puff INHALATION RT-DAILY 03/21/21 03/05/23 [Anoro Ellipta 62.5-25 Mcg INH] Glimepiride [Amaryl] 2 mg PO DIRECTED PRN 08/02/21 03/05/23 Albuterol Inhaler [Ventolin Hfa 1 - 2 puff INHALATION RT-Q6H PRN 03/05/23 03/05/23 Inhaler] Dapagliflozin Propanediol [Farxiga] 10 mg PO DAILY 03/05/23 03/05/23 Insulin Degludec [Tresiba 45 units SQ DIRECTED 03/05/23 03/05/23 Flextouch U-200 Pen] Isosorbide Mononitrate ER [Imdur] 30 mg PO DAILY 03/05/23 03/05/23 Loperamide [Imodium] 2 mg PO QID PRN 03/05/23 03/05/23 Multivitamins, Thera [Multivitamin 1 tab PO DAILY 03/05/23 03/05/23 (formulary)] cilostazoL [Pletal] 100 mg PO BID 03/05/23 03/05/23 Allergies Allergy/AdvReac Type Severity Reaction Status Date / Time No Known Allergies Allergy Verified 03/05/23 21:16 Review of Systems ROS Other: All systems not noted in ROS Statement are negative. <Neil York - Last Filed: 03/05/23 15:37> ROS Other: All systems not noted in ROS Statement are negative. <Rozina Valiente - Last Filed: 03/06/23 02:06> ROS Statement: Those systems with pertinent positive or pertinent negative responses have been documented in the HPI. Past Medical History Past Medical History: Coronary Artery Disease (CAD), Cancer, Diabetes Mellitus, GERD/Reflux, Hypertension, Myocardial Infarction ([place]) Additional Past Medical History / Comment(s): Prostate CA [address] Cabrera for it, Skin CA 1983. lung problems r/t asbestos and smoking wears Oxygen 2L NC @ hs. lower back pain Last Myocardial Infarction Date:: unknown History of Any Multi-Drug Resistant Organisms: None Reported Past Surgical History: Cholecystectomy, Coronary Bypass/CABG, Prostate Surgery Additional Past Surgical History / Comment(s): rt leg-tumor removed Past Anesthesia/Blood Transfusion Reactions: No Reported Reaction Past Alcohol Use History: Occasional Additional Past Alcohol Use History / Comment(s): quit 1979 - Past Family History Mother Family Medical History: No Reported History <Neil York - Last Filed: 03/05/23 15:37> General Exam <Neil York - Last Filed: 03/05/23 15:37> Limitations: no limitations General appearance: alert, in no apparent distress Head exam: Present: atraumatic, normocephalic, normal inspection Respiratory exam: Present: decreased breath sounds, prolonged expiratory. Absent: respiratory distress, wheezes, rales, rhonchi, stridor Cardiovascular Exam: Present: regular rate, normal rhythm, normal heart sounds. Absent: systolic murmur, diastolic murmur, rubs, gallop, clicks Neurological exam: Present: alert, oriented X3, CN II-XII intact Psychiatric exam: Present: normal affect, normal mood Skin exam: Present: warm, dry, intact, normal color. Absent: rash <Rozina Valiente - Last Filed: 03/06/23 02:06> - General Exam Comments Initial Comments: Visual Physical Exam Vital signs reviewed General: Well-appearing, nontoxic, no acute distress. Head: Normocephalic, atraumatic Eyes: PERRLA, EOMI ENT: Airway patent Chest: Nonlabored breathing Skin: No visual rash, normal skin tone Neuro: Alert and oriented 3 Musculoskeletal: No gross abnormalities (Neil York) Course Vital Signs 03/05/23 03/05/23 03/05/23 15:35 19:05 19:10 Temperature 97.7 F Pulse Rate 98 109 H Respiratory 18 24 24 Rate Blood Pressure 125/71 O2 Sat by Pulse 94 L Oximetry 03/05/23 03/05/23 03/05/23 19:20 19:30 19:40 Temperature Pulse Rate 108 H 113 H Respiratory 29 H 24 25 H Rate Blood Pressure O2 Sat by Pulse Oximetry 03/05/23 03/05/23 03/05/23 19:52 20:00 20:10 Temperature Pulse Rate 114 H 120 H 112 H Respiratory 25 H 20 19 Rate Blood Pressure O2 Sat by Pulse Oximetry 03/05/23 03/05/23 03/05/23 20:20 20:30 20:40 Temperature Pulse Rate 115 H 115 H 116 H Respiratory 30 H 31 H 32 H Rate Blood Pressure 130/84 130/84 127/75 O2 Sat by Pulse Oximetry 03/05/23 03/05/23 03/05/23 20:50 21:00 21:10 Temperature Pulse Rate 114 H 117 H Respiratory 31 H 51 H Rate Blood Pressure 127/75 127/75 127/75 O2 Sat by Pulse 89 L Oximetry 03/05/23 03/05/23 03/05/23 21:20 21:30 21:40 Temperature Pulse Rate 115 H 112 H 112 H Respiratory 19 27 H 28 H Rate Blood Pressure 127/75 127/75 O2 Sat by Pulse Oximetry 03/05/23 03/05/23 03/05/23 21:50 22:00 22:10 Temperature Pulse Rate 110 H 109 H 105 H Respiratory 20 19 26 H Rate Blood Pressure 130/77 O2 Sat by Pulse 91 L Oximetry 03/05/23 03/05/23 03/06/23 22:20 22:30 00:05 Temperature 97.7 F Pulse Rate 104 H 103 H 64 Respiratory 19 21 17 Rate Blood Pressure 130/77 130/77 124/64 O2 Sat by Pulse 91 L 90 L 91 L Oximetry Chest Pain MDM <Rozina Valiente - Last Filed: 03/06/23 02:06> - MDM This is an 82-year-old male who presents to the emergency department for chest pain. Was pt. sent in by a medical professional or institution? @ -No Did you speak to anyone other than the patient for history? @ -No Did you review nursing and triage notes? @ -Yes, and I agree, it is accurate with regards to the patient's symptoms. Were old charts reviewed? @ -No Differential Diagnosis? @ -Differential Chest Pain: Stable Angina, Unstable Angina, STEMI, NSTEMI Aortic Dissection, Pneumothorax, Musculoskeletal, Esophageal Spasm GERD, Cholecystitis, Pancreatitis, Zoster, this is not meant to be an all-inclusive list. EKG interpreted by me (3pts min.)? @ -Sinus rhythm. Ventricular rate 97 bpm, HI interval 199 ms, QRS duration 88 ms, QTC 378 ms. X-rays interpreted by me (1pt min.)? @ -Chest x-ray obtained, my interpretation identifies no localized consolidations or infiltrates. What testing was considered but not performed? (CT, X-rays, U/S, labs)? Why? @ -None What meds were considered but not given? Why? @ -None Did you discuss the management of the patient with other professionals? @ -Yes, Phi Palomino with [facility], who accepts the patient for admission. Did you reconcile home meds? @ -No Was smoking cessation discussed for >3mins.? @ -No Was critical care preformed (if so, how long)? @ -No Were there social determinants of health that impacted care today? How? (Homelessness, low income, unemployed, alcoholism, drug addiction, transportation, low edu. Level, literacy, decrease access to med. care, correction, rehab)? @ -No Was there de-escalation of care discussed even if they declined? (Discuss DNR or withdrawal of care, Hospice)? @ -No What co-morbidities impacted this encounter? (DM, HTN, Smoking, COPD, CAD, Cancer, CVA, Hep., AIDS, mental health diagnosis, sleep apnea, morbid obesity)? @ -CAD, DM, morbid obesity, HTN. Was patient admitted / discharged? @ -Admitted. Lab work obtained revealing leukocytosis and elevated inflammatory markers. Chest x-ray reveals no acute process. Discussed with the patient that we do not have a clear cause for his symptoms at this time. We discussed admission versus discharge home. Given his risk factors and the duration of symptoms, patient requests admission. Heart score is 5. Patient admitted to medicine for chest pain and evaluation by cardiology. Serial troponins ordered as well. He was given Tessalon Perles and Mucinex for his cough. Undiagnosed new problem with uncertain prognosis? @ -None Drug Therapy requiring intensive monitoring for toxicity (Heparin, Nitro, Insulin, Cardizem)? @ -None Were any procedures done? @ -None Diagnosis/symptom? @ -Chest pain, cough Acute, or Chronic, or Acute on Chronic? @ -Acute Uncomplicated (without systemic symptoms) or Complicated (systemic symptoms)? @ -Complicated Side effects of treatment? @ -None Exacerbation, Progression, or Severe Exacerbation] @ -Not applicable Poses a threat to life or bodily function? @ -Yes Diagnosis/symptom? @ -CAD Acute, or Chronic, or Acute on Chronic? @ -Chronic Uncomplicated (without systemic symptoms) or Complicated (systemic symptoms)? @ -Uncomplicated Side effects of treatment? @ -None Exacerbation, Progression, or Severe Exacerbation] @ -Unclear Poses a threat to life or bodily function? @ -Yes This case was discussed in detail with the attending ED physician, Dr. Caruso. Presentation, findings, and treatment plan discussed in detail as well. (Rozina Valiente) Disposition <Neil York - Last Filed: 03/05/23 15:37> <Rozina Valiente - Last Filed: 03/06/23 02:06> Clinical Impression: Chest pain, CAD (coronary artery disease), Cough Disposition: ADMITTED IP TO THIS HOSP
[2023-03-05 16:32] LABS: Anisocytosis Slight; Basophils % (A) 0 %; Eosinophils # (A) 0.2 k/uL (0-0.7); Eosinophils % (A) 2 %; HCT 36.6 % (39.0-53.0); HGB 11.5 gm/dL (13.0-17.5); Hypochromasia Slight; Lymphocytes # (A) 1.6 k/uL (1.0-4.8); Lymphocytes % (A) 13 %; MCH 23.4 pg (25.0-35.0); MCHC 31.4 g/dL (31.0-37.0); MCV 74.4 fL (80.0-100.0); Mean Platelet Volume 6.7; Microcytosis Moderate; Monocytes # (A) 0.7 k/uL (0-1.0); Monocytes % (A) 5 %; Neutrophils # (A) 9.5 k/uL (1.3-7.7); Neutrophils % (A) 77 %; Platelet Count 538 k/uL (150-450); RBC 4.92 m/uL (4.30-5.90); RDW 18.6 % (11.5-15.5); WBC 12.3 k/uL (3.8-10.6)
--- NOTE | 2023-03-05 16:53 | XR ---
EXAMINATION TYPE: XR chest 2V DATE OF EXAM: 03/05/2023 4:45 PM COMPARISON: Chest radiographs from 11/29/2020 CT chest 01/06/2021 TECHNIQUE: XR chest 2V Frontal and lateral views of the chest. CLINICAL INDICATION:Male, 82 years old with history of Chest Pain; FINDINGS: Lungs/Pleura: Both apices are obscured by the patient's head which limits evaluation. There is no alexa dence of pleural effusion, focal consolidation, or pneumothorax. Chronic interstitial parenchymal ch anges consistent with known pulmonary fibrosis. Pulmonary vascularity: Unremarkable. Heart/mediastinum: Cardiomediastinal silhouette is enlarged and stable. Atherosclerotic calcificatio ns are seen in the aorta. Musculoskeletal: Multiple level degenerative disc disease changes seen throughout the spine. No acute osseous abnormality. IMPRESSION: Chronic changes without evidence for acute process.
[2023-03-05 16:58] LABS: Albumin 3.9 g/dL (3.5-5.0); Calcium 9.6 mg/dL (8.4-10.2); Magnesium 2.5 mg/dL (1.6-2.3); Potassium 4.2 mmol/L (3.5-5.1); Total Bilirubin 0.5 mg/dL (0.2-1.3); Total Protein 7.1 g/dL (6.3-8.2)
[2023-03-05 16:59] LABS: Partial Thromboplastin Time 22.2 sec (22.0-30.0); Prothrombin Time 10.5 sec (9.0-12.0)
[2023-03-05] MEDS ORDERED: BENZONATATE 100 MG CAP PO STA (19:31)
[2023-03-05] MEDS ORDERED: guaiFENesin 600 MG TABLET.ER PO ONE (19:31)
[2023-03-05] MEDS ORDERED: KETOROLAC 15 MG/ML 1 ML VIAL IVP STA (19:45)
[2023-03-05] MEDS ORDERED: ONDANSETRON 4 MG/2 ML VIAL IVP PRN (20:14)
[2023-03-05] MEDS ORDERED: ACETAMINOPHEN TAB 325 MG TAB PO PRN (20:14)
[2023-03-05] MEDS ORDERED: NALOXONE 0.4 MG/ML 1 ML VIAL IV PRN (20:14)
[2023-03-06 00:09] LABS: Glucose,Whole Blood 250 mg/dL (70-110)
[2023-03-06] MEDS: HYDROcodone/APAP 5-325MG 1 EACH TAB PO PRN ×2 (08:48→15:32)
[2023-03-06] MEDS ORDERED: BACLOFEN 10 MG TAB PO PRN (09:43)
[2023-03-06] MEDS ORDERED: DEXTROSE 50% SYRINGE 50 ML IVP PRN ×2 (09:45)
[2023-03-06 10:12] LABS: Glucose,Whole Blood 277 mg/dL (70-110)
[2023-03-06 12:03] LABS: Glucose,Whole Blood 199 mg/dL (70-110)
--- NOTE | 2023-03-06 12:48 | P.HPIM ---
History of Present Illness H&P Date: 03/06/23 History of present illness patient is a 82-year-old gentleman with past medical history significant for hypertension, coronary disease, COPD the ER because of chest pain and shortness of breath. Patient stated that he has been having chest pain for the last 3 weeks, it is intermittent, started as left-sided but now substernal in location, no aggravating or relieving factors associated with this chest pain, states he does get short of breath. Patient also had been having cough for the last couple of months. Patient stated that 3 months ago he got over some viral infection and ever since that he has been having shortness of breath and cough. Denies any fever or chills. Because of chest pain, patient came to the ER of [facility] Initial workup done in the ER showed white count of 8.3, hemoglobin 11.5, platelet count 538, sodium was 9, potassium 4.2, BUN 28, creatinine 1.15 Chest x-ray showed chronic changes without evidence of any acute process REVIEW OF SYSTEMS: CONSTITUTIONAL: No fever, no malaise, no fatigue. HEENT: No recent visual problems or hearing problems. Denied any sore throat. CARDIOVASCULAR: No orthopnea, PND, no palpitations, no syncope. PULMONARY: No hemoptysis. GASTROINTESTINAL: No diarrhea, no nausea, no vomiting, no abdominal pain. NEUROLOGICAL: No headaches, no weakness, no numbness. HEMATOLOGICAL: Denies any bleeding or petechiae. GENITOURINARY: Denies any burning micturition, frequency, or urgency. MUSCULOSKELETAL/RHEUMATOLOGICAL: Denies any joint pain, swelling, or any muscle pain. ENDOCRINE: Denies any polyuria or polydipsia. The rest of the 14-point review of systems is negative. PHYSICAL EXAMINATION: GENERAL: The patient is alert and oriented x3, not in any acute distress. Well developed, well nourished. HEENT: Pupils are round and equally reacting to light. EOMI. No scleral icterus. No conjunctival pallor. Normocephalic, atraumatic. No pharyngeal erythema. No thyromegaly. CARDIOVASCULAR: S1 and S2 present. No murmurs, rubs, or gallops. PULMONARY: Chest is clear to auscultation, no wheezing or crackles. ABDOMEN: Soft, nontender, nondistended, normoactive bowel sounds. No palpable organomegaly. MUSCULOSKELETAL: No joint swelling or deformity. EXTREMITIES: No cyanosis, clubbing, or pedal edema. NEUROLOGICAL: Gross neurological examination did not reveal any focal deficits. SKIN: No rashes. Assessment and plan Chest pain COPD Hypertension Insulin-dependent diabetes mellitus Plan; Monitor CBC Monitor CMP Continue telemetry monitoring Trend troponins. Ordered d-dimer, d-dimer elevated at 4.85, ordred CT angios chest with contrast to rule out PE Ordered ultrasound of lower extremities Consult cardiology Hold oral hypoglycemics Start Lantus 10 units twice a day and sliding scale insulin. Resume home meds DVT prophylaxis: Past Medical History Past Medical History: Coronary Artery Disease (CAD), Cancer, Diabetes Mellitus, GERD/Reflux, Hypertension, Myocardial Infarction ([place]) Additional Past Medical History / Comment(s): Prostate CA [address] Cabrera for it, Skin CA 1983. lung problems r/t asbestos and smoking wears Oxygen 2L NC @ hs. lower back pain Last Myocardial Infarction Date:: unknown History of Any Multi-Drug Resistant Organisms: None Reported Past Surgical History: Cholecystectomy, Coronary Bypass/CABG, Prostate Surgery Additional Past Surgical History / Comment(s): rt leg-tumor removed Past Anesthesia/Blood Transfusion Reactions: No Reported Reaction Past Alcohol Use History: Occasional Additional Past Alcohol Use History / Comment(s): quit 1979 - Past Family History Mother Family Medical History: No Reported History Medications and Allergies Home Medications Medication Instructions Recorded Confirmed Type Aspirin EC [Ecotrin Low Dose] 81 mg PO DAILY 12/03/18 03/05/23 History Metoprolol Tartrate [Lopressor] 25 mg PO HS 12/03/18 03/05/23 History lisinopriL [Prinivil] 5 mg PO DAILY 12/03/18 03/05/23 History Baclofen [Lioresal] 5 mg PO BID PRN 11/28/20 03/05/23 History Celecoxib [CeleBREX] 200 mg PO DAILY PRN 11/28/20 03/05/23 History Furosemide [Lasix] 40 mg PO DAILY 11/28/20 03/05/23 History Nitroglycerin Sl Tabs [Nitrostat] 0.4 mg SUBLINGUAL Q5M PRN 11/28/20 03/05/23 History Pantoprazole Sodium 40 mg PO BID 11/28/20 03/05/23 History Rosuvastatin Calcium [Crestor] 10 mg PO DAILY 11/28/20 03/05/23 History Umeclidinium Brm/Vilanterol Tr 1 puff INHALATION RT-DAILY 03/21/21 03/05/23 History [Anoro Ellipta 62.5-25 Mcg INH] Glimepiride [Amaryl] 2 mg PO DAILY PRN 08/02/21 03/06/23 History Albuterol Inhaler [Ventolin Hfa 1 - 2 puff INHALATION RT-Q6H PRN 03/05/23 03/05/23 History Inhaler] Dapagliflozin Propanediol [Farxiga] 10 mg PO DAILY 03/05/23 03/05/23 History Insulin Degludec [Tresiba 45 units SQ DAILY 03/05/23 03/06/23 History Flextouch U-200 Pen] Isosorbide Mononitrate ER [Imdur] 30 mg PO DAILY 03/05/23 03/05/23 History Loperamide [Imodium] 2 mg PO QID PRN 03/05/23 03/05/23 History Multivitamins, Thera [Multivitamin 1 tab PO DAILY 03/05/23 03/05/23 History (formulary)] cilostazoL [Pletal] 100 mg PO BID 03/05/23 03/05/23 History Allergies Allergy/AdvReac Type Severity Reaction Status Date / Time No Known Allergies Allergy Verified 03/05/23 21:16 Physical Exam Vitals: Vital Signs Temp Pulse Resp BP Pulse Ox 03/06/23 08:47 101 H 18 149/79 94 L 03/06/23 06:00 87 17 132/70 91 L 03/06/23 04:00 98.8 F 82 16 149/79 93 L 03/06/23 00:05 97.7 F 64 17 124/64 91 L 03/05/23 22:30 103 H 21 130/77 90 L 03/05/23 22:20 104 H 19 130/77 91 L 03/05/23 22:10 105 H 26 H 130/77 91 L 03/05/23 22:00 109 H 19 03/05/23 21:50 110 H 20 03/05/23 21:40 112 H 28 H 03/05/23 21:30 112 H 27 H 127/75 03/05/23 21:20 115 H 19 127/75 03/05/23 21:10 117 H 51 H 127/75 03/05/23 21:00 127/75 03/05/23 20:50 114 H 31 H 127/75 89 L 03/05/23 20:40 116 H 32 H 127/75 03/05/23 20:30 115 H 31 H 130/84 03/05/23 20:20 115 H 30 H 130/84 03/05/23 20:10 112 H 19 03/05/23 20:00 120 H 20 03/05/23 19:52 114 H 25 H 03/05/23 19:40 113 H 25 H 03/05/23 19:30 108 H 24 03/05/23 19:20 29 H 03/05/23 19:10 109 H 24 03/05/23 19:05 24 03/05/23 15:35 97.7 F 98 18 125/71 94 L Intake and Output 03/05/23 03/06/23 03/06/23 22:59 06:59 14:59 Output Total 150 Balance -150 Output: Urine 150 Other: Weight 81.647 kg Results CBC & Chem 7: 03/05/23 16:05 03/05/23 16:05 Labs: Abnormal Lab Results - Last 24 Hours (Table) 03/05/23 03/05/23 03/05/23 Range/Units 16:05 16:05 20:10 WBC 12.3 H (3.8-10.6) k/uL Hgb 11.5 L (13.0-17.5) gm/dL Hct 36.6 L (39.0-53.0) % MCV 74.4 L (80.0-100.0) fL MCH 23.4 L (25.0-35.0) pg RDW 18.6 H (11.5-15.5) % Plt Count 538 H (150-450) k/uL Neutrophils # 9.5 H (1.3-7.7) k/uL BUN 28 H (9-20) mg/dL Glucose 135 H (74-99) mg/dL POC Glucose (mg/dL) (70-110) mg/dL Magnesium 2.5 H (1.6-2.3) mg/dL Alkaline Phosphatase 131 H (38-126) U/L C-Reactive Protein 7.7 H (<1.0) mg/dL Procalcitonin (0.02-0.09) ng/mL 03/05/23 03/06/23 Range/Units 20:10 00:03 WBC (3.8-10.6) k/uL Hgb (13.0-17.5) gm/dL Hct (39.0-53.0) % MCV (80.0-100.0) fL MCH (25.0-35.0) pg RDW (11.5-15.5) % Plt Count (150-450) k/uL Neutrophils # (1.3-7.7) k/uL BUN (9-20) mg/dL Glucose (74-99) mg/dL POC Glucose (mg/dL) 250 H (70-110) mg/dL Magnesium (1.6-2.3) mg/dL Alkaline Phosphatase (38-126) U/L C-Reactive Protein (<1.0) mg/dL Procalcitonin 0.13 H (0.02-0.09) ng/mL
--- NOTE | 2023-03-06 14:47 | US ---
EXAMINATION TYPE: US venous doppler duplex LE BI DATE OF EXAM: 03/06/2023 2:00 PM COMPARISON: NONE CLINICAL INDICATION: Male, 82 years old with history of Elevated d-dimer, swelling of feet; Elevated d dimer. SIDE PERFORMED: Bilateral TECHNIQUE: The lower extremity deep venous system is examined utilizing real time linear array sonog radhika with graded compression, doppler sonography and color-flow sonography. VESSELS IMAGED: Common Femoral Vein Deep Femoral Vein Greater Saphenous Vein * Femoral Vein Popliteal Vein Small Saphenous Vein * Proximal Calf Veins (* superficial vessels) Right Leg: Negative for DVT Left Leg: Negative for DVT Grayscale, color doppler, spectral doppler imaging performed of the deep veins of the bilateral lower extremities. There is normal flow, compressibility, vascular waveforms. IMPRESSION: No ultrasound evidence for acute DVT in either lower extremity.
--- NOTE | 2023-03-06 15:00 | CT ---
CT CHEST FOR PULMONARY EMBOLISM. EXAMINATION TYPE: CT chest angio for PE DATE OF EXAM: 03/06/2023 INDICATION: chest pain and SOB CT DLP: 457.6 mGycm, Automated exposure control for dose reduction was used. CONTRAST: Patient injected with 60 mL of Isovue 370. COMPARISON: None TECHNIQUE: CT of the chest is performed on a spiral scan at 2 mm thick sections. Study is performed with intravenous contrast timed for evaluation for pulmonary embolism. This will limit additional po rtions of the evaluation. 3-D MIP images reconstructed by the technologist are reviewed on the compu ter in the coronal and sagittal planes. FINDINGS: No persistent filling defects are evident to suggest an acute pulmonary embolism. No mediastinal or hilar adenopathy enlarged by CT criteria is evident. Some shotty lymphadenopathy w ithin the mediastinum is present. The ascending aorta diameter at the level of the main pulmonary art krista is 3.7 cm. The main pulmonary artery diameter at the bifurcation is 3.4 cm. Coronary artery calc ifications present. There is a 5.1 x 4.2 cm mass adjacent to the posterior aortic arch. Workup for neoplasm is recommende d. Limited CT section through the upper abdomen. Some minimal ascites may be adjacent to the liver. Ther e is diffuse thickening of the bilateral adrenal glands measuring 2.3 cm on the right and 2.2 cm on t he left. Moderate-sized hiatal hernia is present. IMPRESSIONS: 1. No acute pulmonary emboli. 2. Posterior left aortic arch level mass. Workup for neoplasm is recommended. 3. Thickening of the bilateral adrenal glands metastases are not excluded. 4. Minimal ascites suspected adjacent to the liver. A Yellow level critical message alert has been initiated for Bryce Segundo MD via the [employer] Critical Results System on 03/06/2023 2:58 PM. This message alert has been sent to Bryce Segundo MD via the preferences provided by the clinician for the receipt of Radiology Critical Findings. Message ID [id number].
[2023-03-06 15:17] LABS: Glucose,Whole Blood 285 mg/dL (70-110)
[2023-03-06] MEDS: INSULIN ASPART (NovoLOG) 100 UNIT/ML VIAL SQ SCH ×3 (15:19→20:44)
[2023-03-06 16:08] LABS: Glucose,Whole Blood 289 mg/dL (70-110)
[2023-03-06] MEDS: PANTOPRAZOLE 40 MG TABLET PO SCH (18:42)
[2023-03-06 20:02] LABS: Glucose,Whole Blood 201 mg/dL (70-110)
[2023-03-06] MEDS: cilostazoL 100 MG TAB PO SCH (20:44)
[2023-03-06] MEDS: INSULIN DETEMIR (LEVEMIR) 100 UNIT/ML SYR SQ SCH (20:44)
[2023-03-06] MEDS: METOPROLOL TARTRATE 25 MG TAB PO SCH (20:44)
--- NOTE | 2023-03-06 23:28 | CONS ---
CONSULTATION CHIEF COMPLAINT: Chest pain. HISTORY OF PRESENT ILLNESS: Antonio is an 82-year-old gentleman with history of coronary artery disease status post CABG, hypertension, diabetes, dyslipidemia, who presented to hospital complaining of chest pain. His chest discomfort is sharp, precordial, mild to moderate intensity, primarily comes on with cough. It gets worse with cough and movement and the patient has been having progressively worsening cough for the last 1-2 months which he caught following the respiratory illness that he had. His chest discomfort clearly seems musculoskeletal. EKG revealed sinus rhythm with evidence of prior inferior wall myocardial infarction and nonspecific ST-T wave changes. Three sets of troponins have been done and they are unremarkable. Hemoglobin is 11.5, creatinine is 1.15. I will obtain a 2D echo and when patient is stable from a medical standpoint, may be discharged home. He will follow up with Dr. Jimenez who sees him regularly in the office and if necessary we may consider doing a Lexiscan. PAST MEDICAL HISTORY: Significant for wai-ahbdvad-vrkslzxud diabetes, hypertension, diabetes, dyslipidemia, coronary artery disease status post CABG in the 80s. MEDICATIONS: 1. Amaryl. 2. Imodium. 3. Imdur. 4. Lopressor. 5. Prinivil. 6. Pletal. 7. Lasix. 8. Farxiga. 9. Aspirin. 10.Crestor. ALLERGIES: No known drug allergies. FAMILY HISTORY: Negative for premature coronary artery disease. SOCIAL HISTORY: Negative for smoking, EtOH abuse, or drug abuse. REVIEW OF SYSTEMS: HEENT: Unremarkable. CARDIAC: As described above. RESPIRATORY: As described above. GI: Negative. GENITOURINARY: Negative. ALLERGY/IMMUNOLOGY: Negative. SKIN: Negative. MUSCULOSKELETAL: Negative. ENDOCRINE: Negative. DERM: Negative. CONSTITUTIONAL: Negative. ONCOLOGICAL: Negative. Rest of the system review is not relevant. PHYSICAL EXAMINATION: GENERAL: Comfortable at rest. VITAL SIGNS: Stable. NECK: There is no jugular venous distention. Carotid upstroke is diminished. There is no bruit. CHEST: Reveals good air entry bilaterally. HEART: Reveals first and second heart sounds, ejection systolic murmur in the aortic area. ABDOMEN: Soft. EXTREMITIES: Did not reveal any edema. Peripheral pulses are felt. LABORATORY DATA: As described above. ASSESSMENT: 1. Precordial chest pain. 2. CAD status post CABG. 3. Hypertension. 4. Diabetes. 5. Dyslipidemia. PLAN: The patient's chest discomfort is musculoskeletal. WA is ruled out. Please obtain an echocardiogram and when stable discharge him home and arrange followup with Cardiology. JAYLENE / JOVANNY: [phone] /
[2023-03-07 06:02] LABS: Glucose,Whole Blood 145 mg/dL (70-110)
[2023-03-07] MEDS: INSULIN ASPART (NovoLOG) 100 UNIT/ML VIAL SQ SCH ×4 (06:14→20:30)
[2023-03-07] MEDS: PANTOPRAZOLE 40 MG TABLET PO SCH ×2 (06:22→18:09)
[2023-03-07] MEDS: INSULIN DETEMIR (LEVEMIR) 100 UNIT/ML SYR SQ SCH (06:22)
[2023-03-07] MEDS: cilostazoL 100 MG TAB PO SCH ×2 (08:19→20:30)
[2023-03-07] MEDS: ASPIRIN 81 MG PO SCH (08:19)
[2023-03-07] MEDS: lisinopriL 5 MG TAB PO SCH (08:19)
[2023-03-07] MEDS: ISOSORBIDE MONONITRATE ER 30 MG TAB.ER.24H PO SCH (08:19)
[2023-03-07] MEDS: ATORVASTATIN 20 MG TAB PO SCH (08:19)
[2023-03-07] MEDS: FORMOTEROL FUMARATE 20 MCG/2 ML NEBU INHALATION SCH ×2 (09:16→18:33)
[2023-03-07] MEDS: IPRATROPIUM 0.5 MG/2.5 ML NEBU INHALATION SCH ×4 (09:16→18:33)
--- NOTE | 2023-03-07 09:50 | P.PN ---
Subjective Progress Note Date: 03/07/23 History of present illness: This is an 82-year-old male with past medical history of coronary artery disease status post CABG, hypertension, diabetes, dyslipidemia. Patient presented with chest pain that was sharp, precordial mild to moderate intensity and primarily comes with coughing. Pain is worse with cough and movement and gradually worsening after the last one to 2 months where he recently had a viral illness with RSV. EKG was a sinus rhythm with prior inferior wall myocardial infarction and nonspecific ST changes. Troponins were unremarkable. Patient normally follows with Dr. Jimenez. Patient is seen today in follow-up. Echocardiogram reveals normal LV systolic function, mild mitral and tricuspid regurgitation. CAT scan unfortunately revealed a mass adjacent to the posterior aortic arch and consults are in for cardiothoracic surgery and oncology. Physical examination: Gen: This is an 82-year-old male. He is resting in bed appears to be comfortable and in no acute distress VS: reviewed HEENT: Head is atraumatic, normocephalic. Pupils equal, round. Sclerae is anicteric. LUNGS: Clear to auscultation. No wheezes or rhonchi. No intercostal retractions. HEART: First and second heart sounds, ejection systolic murmur in the aortic area. EXTREMITIES: No pedal edema. No calf tenderness. NEUROLOGICAL: Patient is awake, alert and oriented x3. Assessment: Precordial chest pain, acute coronary syndrome ruled out most likely musculoskeletal from coughing Coronary artery disease status post CABG Hypertension Dyslipidemia Diabetes 5.1 x 4.2 cm mass adjacent to the posterior aortic arch. Plan: Patient is cleared for discharge from cardiology may follow up with Dr. Jimenez in 1-2 weeks. Nurse practitioner note has been reviewed, I agree with documented findings and plan of care. Patient was seen and examined. Objective - Vital Signs Vital signs: Vital Signs Temp 99.1 F 03/07/23 07:05 Pulse 108 H 03/07/23 07:05 Resp 16 03/07/23 07:05 BP 117/77 03/07/23 07:05 Pulse Ox 93 L 03/07/23 07:05 FiO2 Intake & Output 03/06/23 03/07/23 03/07/23 18:59 06:59 18:59 Intake Total 76 Output Total 900 700 Balance -824 -700 Weight 81.647 kg Intake: Oral 76 Output: Urine 900 700 Other: Voiding Method External Catheter External Catheter # Bowel Movements 0 - Labs CBC & Chem 7: 03/05/23 16:05 03/07/23 12:48 Labs: Abnormal Lab Results - Last 24 Hours (Table) 03/06/23 03/06/23 03/06/23 Range/Units 09:53 10:10 12:01 D-Dimer 4.85 H (<0.60) mg/L FEU POC Glucose (mg/dL) 277 H 199 H (70-110) mg/dL 03/06/23 03/06/23 03/06/23 Range/Units 15:15 16:06 20:00 D-Dimer (<0.60) mg/L FEU POC Glucose (mg/dL) 285 H 289 H 201 H (70-110) mg/dL 03/07/23 Range/Units 06:01 D-Dimer (<0.60) mg/L FEU POC Glucose (mg/dL) 145 H (70-110) mg/dL
--- NOTE | 2023-03-07 10:49 | P.GSCN ---
History of Present Illness Consult date: 03/07/23 Reason for Consult: Left upper lobe lung mass on computed tomography scan Requesting physician: Lisa Ellington History of present illness: This is an 82-year-old gentleman who follows outpatient with Dr. Nunez for [facility]. He is a previous medical history of coronary artery disease with previous myocardial infarction status post CABG in the , hypertension, diabetes, previous tobacco dependence, COPD with bedtime home oxygen use, asbestosis exposure, and prostate cancer in 2019. The patient has reported intermittent chest pain for the last 3 months made worse with coughing. It was bad enough that he reported to the emergency room [facility] for evaluation and treatment. He was worked up by cardiology and found to have no acute coronary syndrome as his EKG demonstrated no ischemic changes and his troponins were negative. To rule out pulmonary embolism A CTA of the chest was completed which did not result in pulmonary embolism, however there was found to be a left upper lobe lung mass with possible mediastinal invasion and mediastinal adenopathy which was read by radiology as posterior left aortic arch level mass. Due to this finding consultation was placed oncology as well as cardiothoracic surgery. Review of Systems Review of systems was completed and was negative except as noted - Cardiovascular Reports chest pain - Respiratory Reports cough Past Medical History Past Medical History: Coronary Artery Disease (CAD), Cancer, Diabetes Mellitus, GERD/Reflux, Hypertension, Myocardial Infarction ([place]) Additional Past Medical History / Comment(s): Prostate CA [address] Cabrera for it, Skin CA 1983. lung problems r/t asbestos and smoking wears Oxygen 2L NC @ hs. lower back pain Last Myocardial Infarction Date:: unknown History of Any Multi-Drug Resistant Organisms: None Reported Past Surgical History: Cholecystectomy, Coronary Bypass/CABG, Prostate Surgery Additional Past Surgical History / Comment(s): rt leg-tumor removed Past Anesthesia/Blood Transfusion Reactions: No Reported Reaction Past Psychological History: No Psychological Hx Reported Smoking Status: Former smoker Past Alcohol Use History: Occasional Additional Past Alcohol Use History / Comment(s): quit 1979 Past Drug Use History: None Reported - Past Family History Mother Family Medical History: No Reported History Medications and Allergies Home Medications Medication Instructions Recorded Confirmed Type Aspirin EC [Ecotrin Low Dose] 81 mg PO DAILY 12/03/18 03/05/23 History Metoprolol Tartrate [Lopressor] 25 mg PO HS 12/03/18 03/05/23 History lisinopriL [Prinivil] 5 mg PO DAILY 12/03/18 03/05/23 History Baclofen [Lioresal] 5 mg PO BID PRN 11/28/20 03/05/23 History Furosemide [Lasix] 40 mg PO DAILY 11/28/20 03/05/23 History Nitroglycerin Sl Tabs [Nitrostat] 0.4 mg SUBLINGUAL Q5M PRN 11/28/20 03/05/23 History Pantoprazole Sodium 40 mg PO BID 11/28/20 03/05/23 History Rosuvastatin Calcium [Crestor] 10 mg PO DAILY 11/28/20 03/05/23 History Umeclidinium Brm/Vilanterol Tr 1 puff INHALATION RT-DAILY 03/21/21 03/05/23 History [Anoro Ellipta 62.5-25 Mcg INH] Glimepiride [Amaryl] 2 mg PO DAILY PRN 08/02/21 03/06/23 History Albuterol Inhaler [Ventolin Hfa 1 - 2 puff INHALATION RT-Q6H PRN 03/05/23 03/05/23 History Inhaler] Dapagliflozin Propanediol [Farxiga] 10 mg PO DAILY 03/05/23 03/05/23 History Insulin Degludec [Tresiba 45 units SQ DAILY 03/05/23 03/06/23 History Flextouch U-200 Pen] Isosorbide Mononitrate ER [Imdur] 30 mg PO DAILY 03/05/23 03/05/23 History Loperamide [Imodium] 2 mg PO QID PRN 03/05/23 03/05/23 History Multivitamins, Thera [Multivitamin 1 tab PO DAILY 03/05/23 03/05/23 History (formulary)] cilostazoL [Pletal] 100 mg PO BID 03/05/23 03/05/23 History Acetaminophen Tab [Tylenol] 650 mg PO Q6HR PRN tab 03/07/23 Rx Amoxic-Pot Clav 500-125 mg 1 each PO BID 5 Days #9 tab 03/07/23 Rx [Augmentin 500-125 mg] Allergies Allergy/AdvReac Type Severity Reaction Status Date / Time No Known Allergies Allergy Verified 03/05/23 21:16 Surgical - Exam Vital Signs Temp Pulse Resp BP Pulse Ox 97.7 F 98 18 125/71 94 L 03/05/23 15:35 03/05/23 15:35 03/05/23 15:35 03/05/23 15:35 03/05/23 15:35 CONSTITUTIONAL: Awake and alert, appears comfortable, cooperative, well- developed, well-nourished, no pain, no acute distress EYES: Pupils equal, round, reactive to light, normal ocular movement ENT: Moist mucous membranes without oral lesions present NECK: No masses, no bruits, trachea midline RESPIRATORY: Lungs sounds clear to auscultation bilaterally. Respirations even, nonlabored. Currently on room air with oxygen saturation 93%. Strong cough CARDIOVASCULAR: S1, S2 present. Regular rate and rhythm, sinus rhythm on telemetry. Sternum stable. Palpable peripheral pulses bilaterally. No edema present. No calf pain or tenderness noted. GASTROINTESTINAL: Abdomen soft, nontender, nondistended without masses or organomegaly noted. There is no rebound or guarding present. Active bowel sounds present 4 quadrants. GENITOURINARY: Deferred INTEGUMENTARY: Skin is warm and dry with evidence of good perfusion. NEUROLOGIC: Cranial nerves II through XII intact, normal coordination, no obvious motor or sensory deficits, speech is normal MUSKULOSKELETAL: Able to move all extremities, strength equal bilaterally, normal posture PSYCHIATRIC: Alert and oriented to person place and time, appropriate affect, intact judgment and insight Results - Labs 03/05/23 16:05 03/07/23 12:48 Abnormal Lab Results - Last 24 Hours (Table) 03/06/23 03/06/23 03/06/23 Range/Units 09:53 12:01 15:15 D-Dimer 4.85 H (<0.60) mg/L FEU POC Glucose (mg/dL) 199 H 285 H (70-110) mg/dL 03/06/23 03/06/23 03/07/23 Range/Units 16:06 20:00 06:01 D-Dimer (<0.60) mg/L FEU POC Glucose (mg/dL) 289 H 201 H 145 H (70-110) mg/dL - Imaging Chest x-ray: report reviewed, image reviewed CT scan - chest: report reviewed, image reviewed EKG: image reviewed Assessment and Plan Assessment: Left upper lobe lung mass with possible mediastinal invasion, mediastinal adenopathy on CTA of the chest Chest pain due to coughing History of coronary artery disease with previous myocardial infarction status post CABG in the 1980s Hypertension Diabetes Previous tobacco dependence COPD with bedtime home oxygen use Asbestosis exposure Prostate cancer in 2020 Plan: The patient was seen and examined at the bedside with Dr. Spangler. Chart/diagnostics reviewed. The CAT scan was reviewed with Dr. Fenton, Dr. Spangler, and Dr. Quiroz. All are in agreement that this patient has a left upper lobe mass with mediastinal adenopathy, not surgically resectable. The patient will need outpatient PET scan and follow-up with pulmonology for EBUS. Findings on the CT scan as well as our recommendations were discussed with the patient by Dr. Spangler. Patient cleared for discharge from our standpoint. This was discussed with primary team. Please call us with any further questions. I have personally seen and examined the patient, performed the documentation and the assessment and plan as written. Number of minutes spent on the visit: 30. ARI Dawkins I have personally seen and examined, agree with assessment and plan as dictated by the nurse practitioner. Number of minutes spent on the visit: 45. Aniket Fenton MD
[2023-03-07] MEDS: AMOXIC-POT CLAV 500-125 MG 1 EACH TAB PO SCH ×2 (11:33→20:31)
[2023-03-07 12:10] LABS: Glucose,Whole Blood 405 mg/dL (70-110)
[2023-03-07] MEDS ORDERED: IOPAMIDOL CONTRAST (ORAL USE) VIAL PO PRN (12:48)
[2023-03-07] MEDS ORDERED: INSULIN DETEMIR (LEVEMIR) 100 UNIT/ML SYR SQ ONE (13:00)
[2023-03-07 13:08] LABS: ALT 13 U/L (4-49); AST 23 U/L (17-59); African American GFR (CKD) 81 (>60 ml/min/1.73 sqM); Albumin 3.4 g/dL (3.5-5.0); Albumin/Globulin Ratio 1.1; Alkaline Phosphatase 124 U/L (38-126); Anion Gap 7 mmol/L; Blood Urea Nitrogen 25 mg/dL (9-20); Calcium 9.4 mg/dL (8.4-10.2); Carbon Dioxide 26 mmol/L (22-30); Chloride 105 mmol/L (98-107); Glucose 141 mg/dL (74-99); Non-African American GFR(CKD) 70 (>60 ml/min/1.73 sqM); Potassium 4.9 mmol/L (3.5-5.1); Sodium 138 mmol/L (137-145); Total Bilirubin 0.5 mg/dL (0.2-1.3); Total Protein 6.4 g/dL (6.3-8.2)
[2023-03-07 14:47] LABS: Glucose,Whole Blood 237 mg/dL (70-110)
--- NOTE | 2023-03-07 15:22 | P.CONS ---
History of Present Illness - Reason for Consult Consult date: 03/07/23 aortic mass Requesting physician: Lisa Ellington - Chief Complaint chest pain and SOB - History of Present Illness Patient is a 82-year-old male with past medical history significant for hypertension, CAD, and COPD. Patient presented to the ER c/o chest pain and shortness of breath that has been persisting over the last 3 weeks. Pt states pain is left sided. No aggravating or relieving factors associated with this chest pain, but reports mild associated SOB. He also reports a cough for the last couple of months. Denies any fever or chills. Patient denies any s ignificant unintentional weight loss. Denies dysphagia and hoarse voice. He reports a history of prostate cancer 20 years ago that is in remission. Patient was a former smoker but quit 40 years ago. He reports exposure to his asbestos in the past. Chest x-ray showed chronic changes without evidence for acute process. CTA chest revealed no acute pulmonary embolism. Posterior left aortic arch level mass measuring 5.1 x 4.2 cm. Thickening of the bilateral adrenal glands metastases are not excluded. Minimal ascites suspected adjacent to the liver. Review of Systems 10 point ROS is negative except as stated in the HPI Past Medical History Past Medical History: Coronary Artery Disease (CAD), Cancer, Diabetes Mellitus, GERD/Reflux, Hypertension, Myocardial Infarction ([place]) Additional Past Medical History / Comment(s): Prostate CA [address] Cabrera for it, Skin CA 1983. lung problems r/t asbestos and smoking wears Oxygen 2L NC @ hs. lower back pain Last Myocardial Infarction Date:: unknown History of Any Multi-Drug Resistant Organisms: None Reported Past Surgical History: Cholecystectomy, Coronary Bypass/CABG, Prostate Surgery Additional Past Surgical History / Comment(s): rt leg-tumor removed Past Anesthesia/Blood Transfusion Reactions: No Reported Reaction Past Psychological History: No Psychological Hx Reported Smoking Status: Former smoker Past Alcohol Use History: Occasional Additional Past Alcohol Use History / Comment(s): quit 1979 Past Drug Use History: None Reported - Past Family History Mother Family Medical History: No Reported History Medications and Allergies Home Medications Medication Instructions Recorded Confirmed Type Aspirin EC [Ecotrin Low Dose] 81 mg PO DAILY 12/03/18 03/05/23 History Metoprolol Tartrate [Lopressor] 25 mg PO HS 12/03/18 03/05/23 History lisinopriL [Prinivil] 5 mg PO DAILY 12/03/18 03/05/23 History Baclofen [Lioresal] 5 mg PO BID PRN 11/28/20 03/05/23 History Furosemide [Lasix] 40 mg PO DAILY 11/28/20 03/05/23 History Nitroglycerin Sl Tabs [Nitrostat] 0.4 mg SUBLINGUAL Q5M PRN 11/28/20 03/05/23 History Pantoprazole Sodium 40 mg PO BID 11/28/20 03/05/23 History Rosuvastatin Calcium [Crestor] 10 mg PO DAILY 11/28/20 03/05/23 History Umeclidinium Brm/Vilanterol Tr 1 puff INHALATION RT-DAILY 03/21/21 03/05/23 History [Anoro Ellipta 62.5-25 Mcg INH] Glimepiride [Amaryl] 2 mg PO DAILY PRN 08/02/21 03/06/23 History Albuterol Inhaler [Ventolin Hfa 1 - 2 puff INHALATION RT-Q6H PRN 03/05/23 03/05/23 History Inhaler] Dapagliflozin Propanediol [Farxiga] 10 mg PO DAILY 03/05/23 03/05/23 History Insulin Degludec [Tresiba 45 units SQ DAILY 03/05/23 03/06/23 History Flextouch U-200 Pen] Isosorbide Mononitrate ER [Imdur] 30 mg PO DAILY 03/05/23 03/05/23 History Loperamide [Imodium] 2 mg PO QID PRN 03/05/23 03/05/23 History Multivitamins, Thera [Multivitamin 1 tab PO DAILY 03/05/23 03/05/23 History (formulary)] cilostazoL [Pletal] 100 mg PO BID 03/05/23 03/05/23 History Acetaminophen Tab [Tylenol] 650 mg PO Q6HR PRN tab 03/07/23 Rx Amoxic-Pot Clav 500-125 mg 1 each PO BID 5 Days #9 tab 03/07/23 Rx [Augmentin 500-125 mg] Allergies Allergy/AdvReac Type Severity Reaction Status Date / Time No Known Allergies Allergy Verified 03/05/23 21:16 Physical Exam Vitals: Vital Signs Temp Pulse Pulse Resp BP BP Pulse Ox 03/07/23 12:43 116 H 03/07/23 12:32 120 H 03/07/23 09:46 112 H 03/07/23 09:31 112 H 03/07/23 09:30 112 H 03/07/23 09:16 116 H 03/07/23 07:05 99.1 F 108 H 16 117/77 93 L 03/07/23 01:55 99.8 F H 101 H 18 119/74 92 L 03/06/23 18:57 98.7 F 72 16 148/75 94 L 03/06/23 15:20 90 18 148/80 94 L Intake and Output 03/06/23 03/07/23 03/07/23 22:59 06:59 14:59 Intake Total 76 240 Output Total 500 700 Balance -424 -700 240 Intake: Oral 76 240 Output: Urine 500 700 Other: Voiding Method External Catheter External Catheter External Catheter # Bowel Movements 0 Weight 81.647 kg - Constitutional General appearance: average body habitus, no acute distress - EENT Eyes: anicteric sclerae, EOMI ENT: hearing grossly normal - Neck Neck: no lymphadenopathy - Respiratory Respiratory: bilateral: CTA - Cardiovascular Rhythm: regular Heart sounds: normal: S1, S2 Abnormal Heart Sounds: no systolic murmur, no diastolic murmur, no rub, no S3 Gallop, no S4 Gallop, no click, no other - Gastrointestinal General gastrointestinal: soft, no tenderness - Integumentary Integumentary: normal - Neurologic Neurologic: CNII-XII intact - Musculoskeletal Musculoskeletal: strength equal bilaterally - Psychiatric Psychiatric: A&O x's 3, appropriate affect, intact judgment & insight Results CBC & Chem 7: 03/05/23 16:05 03/07/23 12:48 Labs: Abnormal Lab Results - Last 24 Hours (Table) 03/06/23 03/06/23 03/06/23 Range/Units 15:15 16:06 20:00 BUN (9-20) mg/dL Glucose (74-99) mg/dL POC Glucose (mg/dL) 285 H 289 H 201 H (70-110) mg/dL Hemoglobin A1c (0.0-6.0) % Albumin (3.5-5.0) g/dL 03/07/23 03/07/23 03/07/23 Range/Units 06:01 06:17 12:09 BUN (9-20) mg/dL Glucose (74-99) mg/dL POC Glucose (mg/dL) 145 H 405 H (70-110) mg/dL Hemoglobin A1c 8.6 H (0.0-6.0) % Albumin (3.5-5.0) g/dL 03/07/23 03/07/23 Range/Units 12:48 14:45 BUN 25 H (9-20) mg/dL Glucose 141 H (74-99) mg/dL POC Glucose (mg/dL) 237 H (70-110) mg/dL Hemoglobin A1c (0.0-6.0) % Albumin 3.4 L (3.5-5.0) g/dL Chest x-ray: report reviewed CT scan - chest: report reviewed Assessment and Plan (1) Mass of aorta Current Visit: Yes Status: Acute Code(s): I77.89 - OTHER SPECIFIED DISORDERS OF ARTERIES AND ARTERIOLES SNOMED Code(s): 226489556 Plan: Aortic mass/ r/o malignancy: -CTA chest revealed no acute pulmonary embolism. Posterior left aortic arch level mass measuring 5.1 x 4.2 cm. Thickening of the bilateral adrenal glands metastases are not excluded. Minimal ascites suspected adjacent to the liver. -Pulmonology consulted for evaluation for biopsy. Ok to schedule biopsy outpatient. Awaiting recommendations -CT abd/pelvis ordered for staging, however, pt is requesting to do scan outpatient and wants to be discharged. Spoke with RN, pt has f/u with pulmonology next week. Will schedule PET scan outpatient and have clinic f/u once biopsy/imaging is obtained. Will call patient with f/u and appt times. Pt is agreeable with POC Patient is cleared from hem/onc standpoint, once cleared by IM and other consulted medical specialties attests: I have performed H&P and developed impression and plan of care for patient, discussed with dictator. I agree with dictated note, documented as a scribe
[2023-03-07 17:44] LABS: Glucose,Whole Blood 129 mg/dL (70-110)
--- NOTE | 2023-03-07 18:10 | CA ---
Transthoracic Echo Report Name: Antonio Charles Age: 82 Gender: M : 1940 Exam Date: 03/07/2023 13:15 Exam Location: [facility] Ht (in): 69 Wt (lb): 178 Ordering Physician: Janae Boogie Attending/Referring Phys: [id number], Keagan [employer] Worker Leonardo Velásquez RDCS Procedure CPT: Indications: LVF Technical Quality: Technically difficult study Contrast 1: Lumason Total Dose (mL): 4 Contrast 2: Total Dose (mL): MEASUREMENTS (Male / Female) Normal Values 2D ECHO LV Diastolic Diameter PLAX 6.0 cm 4.2 - 5.9 / 3.9 - 5.3 cm LV Systolic Diameter PLAX 3.8 cm LV Fractional Shortening PLAX 36.4 % IVS Diastolic Thickness 0.9 cm 0.6 - 1.0 / 0.6 - 0.9 cm IVS Systolic Thickness 1.6 cm LVPW Diastolic Thickness 1.2 cm 0.6 - 1.0 / 0.6 - 0.9 cm LVPW Systolic Thickness 1.7 cm LV Relative Wall Thickness 0.3 RV Internal Dim ED PLAX 2.2 cm LVOT Diameter 2.2 cm LA Systolic Diameter LX 3.7 cm 3.0 - 4.0 / 2.7 - 3.8 cm LV Diastolic Volume MOD BP 67.0 cm??? 67 - 155 / 56 - 104 cm??? LV Systolic Volume MOD BP 22.9 cm??? 22 - 58 / 19 - 49 cm??? LV Ejection Fraction MOD BP 65.9 % >= 55 % LV Stroke Volume MOD BP 44.1 cm??? LV Diastolic Volume MOD 4C 49.9 cm??? LV Systolic Volume MOD 4C 17.9 cm??? LV Ejection Fraction MOD 4C 64.1 % LV Stroke Volume MOD 4C 32.0 cm??? LV Diastolic Length 4C 6.6 cm LV Systolic Length 4C 6.2 cm LV Diastolic Volume MOD 2C 62.0 cm??? LV Systolic Volume MOD 2C 19.1 cm??? LV Ejection Fraction MOD 2C 69.2 % LV Stroke Volume MOD 2C 42.9 cm??? LV Diastolic Length 2C 6.9 cm LV Systolic Length 2C 5.3 cm Ascending Aorta Diameter 3.3 cm M-MODE Aortic Root Diameter MM 3.5 cm LA Systolic Diameter MM 4.0 cm LA Ao Ratio MM 1.1 MV E Point Septal Separation 1.4 cm AV Cusp Separation MM 1.2 cm DOPPLER AV Peak Velocity 173.1 cm/s AV Peak Gradient 12.0 mmHg MV Deceleration Carson 1015.5 cm/s??? MR Peak Velocity 319.0 cm/s MR Peak Gradient 40.7 mmHg Mitral E Point Velocity 103.2 cm/s Mitral A Point Velocity 41.9 cm/s Mitral E to A Ratio 2.5 MV Deceleration Time 101.6 ms MV E' Velocity 7.4 cm/s Mitral E to MV E' Ratio 14.0 TR Peak Velocity 241.3 cm/s TR Peak Gradient 23.3 mmHg Right Ventricular Systolic Press 33.3 mmHg PV Peak Velocity 109.4 cm/s PV Peak Gradient 4.8 mmHg FINDINGS Left Ventricle Left ventricular ejection fraction is estimated at 50-55 %. Moderate concentric left ventricular hypertrophy. Grade 2 diastolic dysfunction. Hyperdynamic left ventricular systolic function. Right Ventricle Right Atrium Normal right atrial size. Left Atrium Normal left atrial size. Mitral Valve Mitral valve thickened. Trace to mild mitral regurgitation. Aortic Valve Trileaflet aortic valve. Tricuspid Valve [id number] tricuspid regurgitation. Pulmonic Valve Pulmonic valve not well visualized. Pericardium Normal pericardium. No pericardial effusion. Aorta Mild aortic dilatation at the level of the sinuses of valsalva (root). CONCLUSIONS Normal LV systolic function Mild mitral and tricuspid regurgitation Previewed by: Dr. Haroldo Singh MD (Electronically Signed) Final Date: 07 March 2023 18:09
--- NOTE | 2023-03-07 20:14 | P.CNPUL ---
History of Present Illness Consult date: 03/07/23 Reason for consult: lung mass History of present illness: 82-year-old male patient, known history of COPD, ex-smoker, along with previous history of asbestos exposure, presented to the emergency department because of shortness of breath and episodic chest pain. The pain was on the left side of the chest without any known aggravating or relieving factors. The patient shortness of breath was mild. He had a chronic cough. No fever. No chills. No hemoptysis. social symptoms. no weight loss. he is former smoker and quit smoking 40 years ago. his chest x-ray showed no acute abnormalities. a ct antigram of the chest was done and there was a 5.1 x 4.2 cm mass in the left upper lobe posterior today left aortic arch with some limited lymphadenopathy within the mediastinum and lymph nodes are essentially small nonpathologic. The findings are highly suspicious for neoplasm. There was also diffuse thickening of the bilateral adrenal glands measuring up to 2.3 cm on the right and 2. on the left with a moderate-sized hiatal hernia. Minimal ascites adjacent to the liver was also suspected. In terms of blood work, the white cell count is at 12.3 with a hemoglobin of 11.5 and a platelet count of 74. Sodium was 139, BUN was 28 with a creatinine of 1.1, bicarb is 22, troponin was negative, BNP level was 99. LFTs are normal. Covid 19 testing, influenza screen and RSV screen were negative. Echocardiogram was done and the patient has normal left ventricular ejection fraction of 50-55%. The patient has moderate degree of left ventricular hypertrophy. The patient has grade 2 diastolic heart failure. Review of Systems CONSTITUTIONAL: No fever, no malaise, no fatigue. HEENT: No recent visual problems or hearing problems. Denied any sore throat. CARDIOVASCULAR: No orthopnea, PND, no palpitations, no syncope. PULMONARY: No hemoptysis. GASTROINTESTINAL: No diarrhea, no nausea, no vomiting, no abdominal pain. NEUROLOGICAL: No headaches, no weakness, no numbness. HEMATOLOGICAL: Denies any bleeding or petechiae. GENITOURINARY: Denies any burning micturition, frequency, or urgency. MUSCULOSKELETAL/RHEUMATOLOGICAL: Denies any joint pain, swelling, or any muscle pain. ENDOCRINE: Denies any polyuria or polydipsia. Past Medical History Past Medical History: Coronary Artery Disease (CAD), Cancer, Diabetes Mellitus, GERD/Reflux, Hypertension, Myocardial Infarction (MO) Additional Past Medical History / Comment(s): Prostate CA [address] Cabrera for it, Skin CA 1983. lung problems r/t asbestos and smoking wears Oxygen 2L NC @ hs. lower back pain Last Myocardial Infarction Date:: unknown History of Any Multi-Drug Resistant Organisms: None Reported Past Surgical History: Cholecystectomy, Coronary Bypass/CABG, Prostate Surgery Additional Past Surgical History / Comment(s): rt leg-tumor removed Past Anesthesia/Blood Transfusion Reactions: No Reported Reaction Past Psychological History: No Psychological Hx Reported Smoking Status: Former smoker Past Alcohol Use History: Occasional Additional Past Alcohol Use History / Comment(s): quit 1979 Past Drug Use History: None Reported - Past Family History Mother Family Medical History: No Reported History Medications and Allergies Home Medications Medication Instructions Recorded Confirmed Type Aspirin EC [Ecotrin Low Dose] 81 mg PO DAILY 12/03/18 03/05/23 History Metoprolol Tartrate [Lopressor] 25 mg PO HS 12/03/18 03/05/23 History lisinopriL [Prinivil] 5 mg PO DAILY 12/03/18 03/05/23 History Baclofen [Lioresal] 5 mg PO BID PRN 11/28/20 03/05/23 History Furosemide [Lasix] 40 mg PO DAILY 11/28/20 03/05/23 History Nitroglycerin Sl Tabs [Nitrostat] 0.4 mg SUBLINGUAL Q5M PRN 11/28/20 03/05/23 History Pantoprazole Sodium 40 mg PO BID 11/28/20 03/05/23 History Rosuvastatin Calcium [Crestor] 10 mg PO DAILY 11/28/20 03/05/23 History Umeclidinium Brm/Vilanterol Tr 1 puff INHALATION RT-DAILY 03/21/21 03/05/23 History [Anoro Ellipta 62.5-25 Mcg INH] Glimepiride [Amaryl] 2 mg PO DAILY PRN 08/02/21 03/06/23 History Albuterol Inhaler [Ventolin Hfa 1 - 2 puff INHALATION RT-Q6H PRN 03/05/23 03/05/23 History Inhaler] Dapagliflozin Propanediol [Farxiga] 10 mg PO DAILY 03/05/23 03/05/23 History Insulin Degludec [Tresiba 45 units SQ DAILY 03/05/23 03/06/23 History Flextouch U-200 Pen] Isosorbide Mononitrate ER [Imdur] 30 mg PO DAILY 03/05/23 03/05/23 History Loperamide [Imodium] 2 mg PO QID PRN 03/05/23 03/05/23 History Multivitamins, Thera [Multivitamin 1 tab PO DAILY 03/05/23 03/05/23 History (formulary)] cilostazoL [Pletal] 100 mg PO BID 03/05/23 03/05/23 History Acetaminophen Tab [Tylenol] 650 mg PO Q6HR PRN tab 03/07/23 Rx Amoxic-Pot Clav 500-125 mg 1 each PO BID 5 Days #9 tab 03/07/23 Rx [Augmentin 500-125 mg] Allergies Allergy/AdvReac Type Severity Reaction Status Date / Time No Known Allergies Allergy Verified 03/05/23 21:16 Physical Exam Vitals: Vital Signs Temp Pulse Pulse Resp BP Pulse Ox 03/07/23 18:59 116 H 03/07/23 18:45 116 H 03/07/23 18:44 116 H 03/07/23 18:35 120 H 03/07/23 15:55 112 H 03/07/23 15:44 112 H 03/07/23 15:00 97.6 F 119 H 16 102/63 96 03/07/23 14:00 116 H 03/07/23 12:43 116 H 03/07/23 12:32 120 H 03/07/23 09:46 112 H 03/07/23 09:31 112 H 03/07/23 09:30 112 H 03/07/23 09:16 116 H 03/07/23 07:05 99.1 F 108 H 16 117/77 93 L 03/07/23 01:55 99.8 F H 101 H 18 119/74 92 L Intake and Output 03/07/23 03/07/23 03/07/23 06:59 14:59 22:59 Intake Total 358 240 Output Total 700 Balance -700 358 240 Intake: Oral 358 240 Output: Urine 700 Other: Voiding Method External Catheter Toilet # Voids 2 Results - Laboratory Findings CBC and BMP: 03/05/23 16:05 03/07/23 12:48 PT/INR, D-dimer PT 10.5 sec (9.0-12.0) 03/05/23 16:05 INR 1.0 (<1.2) 03/05/23 16:05 D-Dimer 4.85 mg/L FEU (<0.60) H 03/06/23 09:53 Abnormal lab findings: Abnormal Labs 03/05/23 03/05/23 03/05/23 16:05 16:05 20:10 WBC 12.3 H Hgb 11.5 L Hct 36.6 L MCV 74.4 L MCH 23.4 L RDW 18.6 H Plt Count 538 H Neutrophils # 9.5 H D-Dimer BUN 28 H Glucose 135 H POC Glucose (mg/dL) Hemoglobin A1c Magnesium 2.5 H Alkaline Phosphatase 131 H C-Reactive Protein 7.7 H Albumin Procalcitonin 03/05/23 03/06/23 03/06/23 20:10 00:03 09:53 WBC Hgb Hct MCV MCH RDW Plt Count Neutrophils # D-Dimer 4.85 H BUN Glucose POC Glucose (mg/dL) 250 H Hemoglobin A1c Magnesium Alkaline Phosphatase C-Reactive Protein Albumin Procalcitonin 0.13 H 03/06/23 03/06/23 03/06/23 10:10 12:01 15:15 WBC Hgb Hct MCV MCH RDW Plt Count Neutrophils # D-Dimer BUN Glucose POC Glucose (mg/dL) 277 H 199 H 285 H Hemoglobin A1c Magnesium Alkaline Phosphatase C-Reactive Protein Albumin Procalcitonin 03/06/23 03/06/23 03/07/23 16:06 20:00 06:01 WBC Hgb Hct MCV MCH RDW Plt Count Neutrophils # D-Dimer BUN Glucose POC Glucose (mg/dL) 289 H 201 H 145 H Hemoglobin A1c Magnesium Alkaline Phosphatase C-Reactive Protein Albumin Procalcitonin 03/07/23 03/07/23 03/07/23 06:17 12:09 12:48 WBC Hgb Hct MCV MCH RDW Plt Count Neutrophils # D-Dimer BUN 25 H Glucose 141 H POC Glucose (mg/dL) 405 H Hemoglobin A1c 8.6 H Magnesium Alkaline Phosphatase C-Reactive Protein Albumin 3.4 L Procalcitonin 03/07/23 03/07/23 14:45 17:42 WBC Hgb Hct MCV MCH RDW Plt Count Neutrophils # D-Dimer BUN Glucose POC Glucose (mg/dL) 237 H 129 H Hemoglobin A1c Magnesium Alkaline Phosphatase C-Reactive Protein Albumin Procalcitonin Assessment and Plan Plan: Left upper lobe mass, measuring 5.1 x 4.2 cm, adjacent to the posterior aortic arch, and new finding compared to the previous CAT scan from 2020. Findings are suspicious for malignancy. No significant hilar or mediastinal lymphadenopathy although there is some shotty lymph nodes within the mediastinum. There is also some bilateral adrenal gland diffuse thickening without any localized mass. COPD, maintain on Anoro Ellipta on outpatient basis, based on FEV1 is 72% of predicted, diffusion capacity is 27% of predicted Chronic hypoxic respiratory failure and the patient wears oxygen 2 L/m nasal cannula Coronary artery disease with previous MO Previous coronary artery bypass surgery History of prostate cancer diagnosed in 2019 and the patient has undergone prostatectomy Diabetes mellitus type 2, maintain on a combination of Tresiba, farxiga and Amaryl on outpatient basis Hypertension History of skin cancer, 1984 History of asbestos exposure. History of chronic back pain Ex-smoker quit more than 40 years ago Plan Cardiology evaluation regarding the chest pain. I will suggest pain is not related to the lung mass. Awaiting final recommendation from cardiology. The pain itself may be atypical in nature. Nevertheless the patient is known to have CAD and previous bypass surgery. Regarding her left upper lobe mass, this needs to be further worked up on outpatient basis. Will need a outpatient PET/CT to assess the metabolic activity of the left upper lobe mass with a high suspicion for underlying malignancy Will need an outpatient updated PFT The patient subsequently may need bronchoscopy and endobronchial ultrasound to evaluate the mediastinum Various other consultants are also involved in the case including medical oncology and cardiothoracic surgery. We'll continue to follow make further recommendations. Most of the workup can be done outpatient basis.
[2023-03-07 20:29] LABS: Glucose,Whole Blood 283 mg/dL (70-110)
[2023-03-07] MEDS: METOPROLOL TARTRATE 25 MG TAB PO SCH (20:30)
--- NOTE | 2023-03-07 20:55 | P.PN ---
Subjective This is a pleasant 82 years old male with multiple medical problems presents with chest pain, cardiac workup showing elevated d-dimer however CT of the chest was negative for pulmonary embolism at the same time showing left upper lung mass abutting the aortic arch measuring 5.14.2 cm also patient has bilateral thickened 100 mg 2.3 cm on the right and 2.2 cm on the left, these lesions are suspicious for malignancy, patient informed about these tumors and masses and the need to exclude malignancy and he verbalized understanding and acceptance however he wants to pursue workup as an outpatient and also per recommendation of consult once. Patient has history of smoking for 12 years but quit in 1979. Patient reports chest pain with coughing only, etc. once bothering him and request for cough medicine which is a provided. Patient was evaluated by CONSULT IS OCCLUDING CARDIOLOGY, ONCOLOGY, PULMONARY AND CARDIOTHORACIC SURGERY CONSULTANTS CLEARED THE PATIENT FOR DISCHARGE WITH RECOMMENDATION FOR OUTPATIENT WORKUP INCLUDING PET/CAT SCAN AND PULMONARY FUNCTION TEST WITH POSSIBLE BRONCHOSCOPY. PATIENT INFORMED AND AGREED HOWEVER HIS SUGAR WAS CONTROLLED MORE THAN 400 AND HE WAS TAKEN 14TH OF LEVEMIR AT HOME COMPARED TO 20 UNITS STARTED TO THE HOSPITAL. ALSO PATIENT HAS UNCONTROLLED TACHYCARDIA WITH HER TODAY 124 EVERY GOING TO MONITOR HIM FOR 24 HOURS AND IF HE REMAINS STABLE PATIENT MAY BE DISCHARGED IN 24-48 HOURS WITH RECOMMENDATION FOR OUTPATIENT WORKUP Patient also started on Augmentin for possible pulmonary function and pneumonia since he has mild leukocytosis of 12.3, mild fever of 99.8 and with respiratory symptoms Objective - Vital Signs Vital signs: Vital Signs Temp 99.1 F 03/07/23 07:05 Pulse 116 H 03/07/23 12:43 Resp 16 03/07/23 07:05 BP 117/77 03/07/23 07:05 Pulse Ox 93 L 03/07/23 07:05 FiO2 Intake & Output 03/06/23 03/07/23 03/07/23 18:59 06:59 18:59 Intake Total 76 240 Output Total 900 700 Balance -824 -700 240 Weight 81.647 kg Intake: Oral 76 240 Output: Urine 900 700 Other: Voiding Method External Catheter External Catheter External Catheter # Bowel Movements 0 - Exam GENERAL: The patient is alert and oriented x3, not in any acute distress. Well developed, well nourished. HEENT: Pupils are round and equally reacting to light. EOMI. No scleral icterus. No conjunctival pallor. Normocephalic, atraumatic. No pharyngeal erythema. No thyromegaly. CARDIOVASCULAR: S1 and S2 present. No murmurs, rubs, or gallops. PULMONARY: Chest is clear to auscultation, no wheezing or crackles. ABDOMEN: Soft, nontender, nondistended, normoactive bowel sounds. No palpable organomegaly. MUSCULOSKELETAL: No joint swelling or deformity. EXTREMITIES: No cyanosis, clubbing, or pedal edema. NEUROLOGICAL: Gross neurological examination did not reveal any focal deficits. SKIN: No rashes. no petechiae. - Labs CBC & Chem 7: 03/05/23 16:05 03/07/23 12:48 Labs: Abnormal Lab Results - Last 24 Hours (Table) 03/06/23 03/06/23 03/07/23 Range/Units 16:06 20:00 06:01 BUN (9-20) mg/dL Glucose (74-99) mg/dL POC Glucose (mg/dL) 289 H 201 H 145 H (70-110) mg/dL Hemoglobin A1c (0.0-6.0) % Albumin (3.5-5.0) g/dL 03/07/23 03/07/23 03/07/23 Range/Units 06:17 12:09 12:48 BUN 25 H (9-20) mg/dL Glucose 141 H (74-99) mg/dL POC Glucose (mg/dL) 405 H (70-110) mg/dL Hemoglobin A1c 8.6 H (0.0-6.0) % Albumin 3.4 L (3.5-5.0) g/dL 03/07/23 Range/Units 14:45 BUN (9-20) mg/dL Glucose (74-99) mg/dL POC Glucose (mg/dL) 237 H (70-110) mg/dL Hemoglobin A1c (0.0-6.0) % Albumin (3.5-5.0) g/dL Assessment and Plan Assessment: 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, cannot rule out malignancy Bilateral adrenal thickening 2.3 cm on the right and 2.2 cm on the left Possible acute tracheobronchitis versus early pneumonia with mild sepsis with mild leukocytosis and fever Diabetes mellitus with hyperglycemia Coronary artery disease status post CABG Hypertension Dyslipidemia Plan: Continue with Augmentin continue with Levemir 40 units and increased NovoLog 10 units with meals CONSULTANTS HAVE SEEN AND CLEARED THE PATIENT FOR DISCHARGE INCLUDING PULMONARY, CARDIOLOGY, CARDIOTHORACIC SURGEONS ONCOLOGY Patient wants to spend the night in the hospital discharge in the morning Central Robitussin DM Patient is aware about his lung mass and bilateral adrenal mass and possibility for malignancy and the need for outpatient follow-up Labs and medication were reviewed.. Continue same treatment. Continue with symptomatic treatment. Resume home medication. Monitor labs and vitals. DVT and GI prophylaxis. Further recommendations as per clinical course of the patient DVT prophylaxis: Subcutaneous heparin GI Prophylaxis: Ppi Prognosis is guarded
[2023-03-07] MEDS: guaiFENesin-DM 100-10MG/5ML 10 ML CUP PO SCH (21:19)
[2023-03-07] MEDS: HEPARIN SODIUM,PORCINE/PF 5,000 UNIT/0.5 ML SYRINGE SQ SCH (21:19)
[2023-03-08] MEDS: guaiFENesin-DM 100-10MG/5ML 10 ML CUP PO SCH ×2 (02:53→08:37)
[2023-03-08 06:02] LABS: Glucose,Whole Blood 128 mg/dL (70-110)
[2023-03-08] MEDS: INSULIN ASPART (NovoLOG) 100 UNIT/ML VIAL SQ SCH (06:02)
[2023-03-08] MEDS: PANTOPRAZOLE 40 MG TABLET PO SCH (06:18)
[2023-03-08 06:39] VITALS: BP 105/67; RESP 20; TEMP 98.9
[2023-03-08] MEDS ORDERED: INSULIN DETEMIR (LEVEMIR) 100 UNIT/ML SYR SQ SCH (07:00)
[2023-03-08] MEDS: IPRATROPIUM 0.5 MG/2.5 ML NEBU INHALATION SCH (08:33)
[2023-03-08] MEDS: FORMOTEROL FUMARATE 20 MCG/2 ML NEBU INHALATION SCH (08:33)
[2023-03-08] MEDS: HEPARIN SODIUM,PORCINE/PF 5,000 UNIT/0.5 ML SYRINGE SQ SCH (08:36)
[2023-03-08] MEDS: ISOSORBIDE MONONITRATE ER 30 MG TAB.ER.24H PO SCH (08:37)
[2023-03-08] MEDS: cilostazoL 100 MG TAB PO SCH (08:37)
[2023-03-08] MEDS: ASPIRIN 81 MG PO SCH (08:37)
[2023-03-08] MEDS: lisinopriL 5 MG TAB PO SCH (08:37)
[2023-03-08] MEDS: ATORVASTATIN 20 MG TAB PO SCH (08:37)
[2023-03-08 08:53] VITALS: PULSE 116
[2023-03-08] MEDS: AMOXIC-POT CLAV 500-125 MG 1 EACH TAB PO SCH (10:36)
[2023-03-08] MEDS ORDERED: INSULIN DETEMIR (LEVEMIR) 100 UNIT/ML SYR SQ ONE (12:47)
--- NOTE | 2023-03-08 13:11 | P.PN ---
Subjective Progress Note Date: 03/08/23 History of present illness: This is an 82-year-old male with past medical history of coronary artery disease status post CABG, hypertension, diabetes, dyslipidemia. Patient presented with chest pain that was sharp, precordial mild to moderate intensity and primarily comes with coughing. Pain is worse with cough and movement and gradually worsening after the last one to 2 months where he recently had a viral illness with RSV. EKG was a sinus rhythm with prior inferior wall myocardial infarction and nonspecific ST changes. Troponins were unremarkable. Patient normally follows with Dr. Jimenez. Patient is seen today in follow-up. Echocardiogram pending. CAT scan unfortunately revealed a mass adjacent to the posterior aortic arch and consults are in for cardiothoracic surgery and oncology. 03/08 Patient is seen today in follow-up. Echocardiogram results reviewed with the patient. Echocardiogram revealed normal LV systolic function. Mild mitral and tricuspid regurgitation. Physical examination: Gen: This is an 82-year-old male. He is resting in bed appears to be comfortable and in no acute distress VS: reviewed HEENT: Head is atraumatic, normocephalic. Pupils equal, round. Sclerae is anicteric. LUNGS: Clear to auscultation. No wheezes or rhonchi. No intercostal retrac tions. HEART: First and second heart sounds, ejection systolic murmur in the aortic area. EXTREMITIES: No pedal edema. NEUROLOGICAL: Patient is awake, alert and oriented x3. Assessment: Precordial chest pain, acute coronary syndrome ruled out most likely musculoskeletal from coughing Coronary artery disease status post CABG Hypertension Dyslipidemia Diabetes 5.1 x 4.2 cm mass adjacent to the posterior aortic arch. Plan: Patient is cleared for discharge from cardiology may follow up with Dr. Jimenez in 1-2 weeks. Nurse practitioner note has been reviewed, I agree with documented findings and plan of care. Patient was seen and examined. Objective - Vital Signs Vital signs: Vital Signs Temp 98.9 F 03/08/23 06:38 Pulse 116 H 03/08/23 09:00 Resp 20 03/08/23 06:38 BP 105/67 03/08/23 06:38 Pulse Ox 94 L 03/08/23 02:21 FiO2 Intake & Output 03/07/23 03/08/23 03/08/23 18:59 06:59 18:59 Intake Total 598 Balance 598 Intake: Oral 598 Other: Voiding Method Toilet Toilet # Voids 2 2 - Labs CBC & Chem 7: 03/05/23 16:05 03/07/23 12:48 Labs: Abnormal Lab Results - Last 24 Hours (Table) 03/07/23 03/07/23 03/07/23 Range/Units 12:48 14:45 17:42 BUN 25 H (9-20) mg/dL Glucose 141 H (74-99) mg/dL POC Glucose (mg/dL) 237 H 129 H (70-110) mg/dL Albumin 3.4 L (3.5-5.0) g/dL 03/07/23 03/08/23 Range/Units 20:28 06:01 BUN (9-20) mg/dL Glucose (74-99) mg/dL POC Glucose (mg/dL) 283 H 128 H (70-110) mg/dL Albumin (3.5-5.0) g/dL
--- NOTE | 2023-03-09 07:04 | P.DS ---
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 Do you want consulting provider notified?: Yes 03/06/23 15:04 Consult Physician Routine Consulting Provider: Raymond Marrero Consult Reason/Comments: aortic arch mass r/o neoplasm Do you want consulting provider notified?: Yes 03/07/23 10:35 Consult Physician Routine Consulting Provider: Marie Quiroz Consult Reason/Comments: lung mass Do you want consulting provider notified?: Yes Primary care physician: [facility] Course: Diagnoses: 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, cannot rule out malignancy Bilateral adrenal thickening 2.3 cm on the right and 2.2 cm on the left Possible acute tracheobronchitis versus early pneumonia with mild sepsis with mild leukocytosis and fever Diabetes mellitus with hyperglycemia Coronary artery disease status post CABG Hypertension Dyslipidemia Hospital course: This is a pleasant 82 years old male with multiple medical problems presents with chest pain, cardiac workup showing elevated d-dimer however CT of the chest was negative for pulmonary embolism at the same time showing left upper lung mass abutting the aortic arch measuring 5.14.2 cm also patient has bilateral thickened 100 mg 2.3 cm on the right and 2.2 cm on the left, these lesions are suspicious for malignancy, patient informed about these tumors and masses and the need to exclude malignancy and he verbalized understanding and acceptance however he wants to pursue workup as an outpatient and also per recommendation of consultants. Patient has history of smoking for 12 years but quit in 1979. Patient reports chest pain with coughing only,which bothering him , it is improved with cough medicine which is a provided. and symptomatic treatment. Patient had marked leukocytosis 12.3 k and mild fever of 99.8 and he was placed on Augmentin. Patient was evaluated by CONSULT IS OCCLUDING CARDIOLOGY, ONCOLOGY, PULMONARY AND CARDIOTHORACIC SURGERY CONSULTANTS CLEARED THE PATIENT FOR DISCHARGE WITH RECOMMENDATION FOR OUTPATIENT WORKUP INCLUDING PET/CAT SCAN AND PULMONARY FUNCTION TEST WITH POSSIBLE BRONCHOSCOPY. PATIENT INFORMED AND AGREED HOWEVER HIS SUGAR also is better controlled now. Patient today was sitting in chair and was asking to be discharged since his heart cleared him. Patient feels better and he denies dyspnea or chest pain. Coughing is better. No more fever. He is saturating well on room air, he is saturating 94% on room air. Is markedly obstructed mostly secondary to his infection. Patient is aware about lung mass and Bilateral adrenal thickening and swelling and is willing to follow up as an outpatient. Patient also was aware about the risk of malignancy. Problems and management plan were discussed with the patient and he verbalized understanding and acceptance. Family was at bedside. Patient was found stable and can be discharged home in guarded prognosis however he needs follow-up as an outpatient. Patient was instructed to follow up with PCP Dr. Nunez within one week and patient agrees with the appointments made for him on 03/12 Patient also aware about his appointment with it solutions sales consultant Dr. Boyd on 03/[address] Jimenez on 03/16. Also patient was instructed to follow up with oncologist Dr. Braga in 1-2 weeks after discharge and he agrees to call and make his own appointment Physical exam Gen: patient is a AAOx3, no distress CVS: S1-S2, RRR, no murmur Lungs: B/L CTA, no wheezing Abdomen: soft, no distention, no tenderness, positive bowel sounds Extremity: no leg edema or induration Time spent more than 35 minutes Plan - Discharge Summary Discharge Rx Participant: No New Discharge Prescriptions: New Acetaminophen Tab [Tylenol] 650 mg PO Q6HR PRN tab PRN Reason: Mild Pain Or Fever > 100.5 Amoxic-Pot Clav 500-125 mg [Augmentin 500-125 mg] 1 each PO BID 5 Days #9 tab Continue Aspirin EC [Ecotrin Low Dose] 81 mg PO DAILY Metoprolol Tartrate [Lopressor] 25 mg PO HS lisinopriL [Prinivil] 5 mg PO DAILY Baclofen [Lioresal] 5 mg PO BID PRN PRN Reason: Muscle Pain Furosemide [Lasix] 40 mg PO DAILY Nitroglycerin Sl Tabs [Nitrostat] 0.4 mg SUBLINGUAL Q5M PRN PRN Reason: Chest Pain Pantoprazole Sodium 40 mg PO BID Rosuvastatin Calcium [Crestor] 10 mg PO DAILY Albuterol Inhaler [Ventolin Hfa Inhaler] 1 - 2 puff INHALATION RT-Q6H PRN PRN Reason: Shortness Of Breath cilostazoL [Pletal] 100 mg PO BID Insulin Degludec [Tresiba Flextouch U-200 Pen] 45 units SQ DAILY Isosorbide Mononitrate ER [Imdur] 30 mg PO DAILY Loperamide [Imodium] 2 mg PO QID PRN PRN Reason: Diarrhea Umeclidinium Brm/Vilanterol Tr [Anoro Ellipta 62.5-25 Mcg INH] 1 puff INHALATION RT-DAILY Glimepiride [Amaryl] 2 mg PO DAILY PRN PRN Reason: Blood Sugar - High Multivitamins, Thera [Multivitamin (formulary)] 1 tab PO DAILY Dapagliflozin Propanediol [Farxiga] 10 mg PO DAILY Discontinued Celecoxib [CeleBREX] 200 mg PO DAILY PRN PRN Reason: Pain Discharge Medication List Aspirin EC [Ecotrin Low Dose] 81 mg PO DAILY 12/03/18 [History] Metoprolol Tartrate [Lopressor] 25 mg PO HS 12/03/18 [History] lisinopriL [Prinivil] 5 mg PO DAILY 12/03/18 [History] Baclofen [Lioresal] 5 mg PO BID PRN 11/28/20 [History] Furosemide [Lasix] 40 mg PO DAILY 11/28/20 [History] Nitroglycerin Sl Tabs [Nitrostat] 0.4 mg SUBLINGUAL Q5M PRN 11/28/20 [History] Pantoprazole Sodium 40 mg PO BID 11/28/20 [History] Rosuvastatin Calcium [Crestor] 10 mg PO DAILY 11/28/20 [History] Umeclidinium Brm/Vilanterol Tr [Anoro Ellipta 62.5-25 Mcg INH] 1 puff INHALATION RT-DAILY 03/21/21 [History] Glimepiride [Amaryl] 2 mg PO DAILY PRN 08/02/21 [History] Albuterol Inhaler [Ventolin Hfa Inhaler] 1 - 2 puff INHALATION RT-Q6H PRN 03/05/23 [History] Dapagliflozin Propanediol [Farxiga] 10 mg PO DAILY 03/05/23 [History] Insulin Degludec [Tresiba Flextouch U-200 Pen] 45 units SQ DAILY 03/05/23 [History] Isosorbide Mononitrate ER [Imdur] 30 mg PO DAILY 03/05/23 [History] Loperamide [Imodium] 2 mg PO QID PRN 03/05/23 [History] Multivitamins, Thera [Multivitamin (formulary)] 1 tab PO DAILY 03/05/23 [History ] cilostazoL [Pletal] 100 mg PO BID 03/05/23 [History] Acetaminophen Tab [Tylenol] 650 mg PO Q6HR PRN tab 03/07/23 [Rx] Amoxic-Pot Clav 500-125 mg [Augmentin 500-125 mg] 1 each PO BID 5 Days #9 tab 0 03/07/23 [Rx] Follow up Appointment(s)/Referral(s): Luca Turner MD [STAFF PHYSICIAN] - 1 Week (Office will call patient to schedule an appointment.) Mila Jimenez MD [Family Provider] - 03/16/23 3:15 pm (Keep previous appointment made for March 16 @ 3:15pm) Levi Nunez MD [Primary Care Provider] - 03/12/23 9:30 am () Sudeep Boyd DO [Doctor of Osteopathic Medicine] - 03/12/23 1:30 pm Patient Instructions/Handouts: Chest Pain (DC) Activity/Diet/Wound Care/Special Instructions: Heart healthy diet activity is restricted till you see your doctor Check your glucose 4 times a day before each meal and at bedtime, keep the results in a log book and bring it to your doctor on your appointment date If you have glucose less than 70 or more than 400 and call 911 and come to emergency room Discharge Disposition: HOME SELF-CARE
== END 2023-03-08 11:28 | disposition home or self-care (01) ==
LOC: EC 15:17 → 6NMEDSUR 22:40 → OBSVTOIN 03-07 15:25 → INTOOBSV 03-07 15:25 → UNDODISIN 03-08 11:28
PROVIDERS: ADMIT Hospitalist; ATTEND Hospitalist
DX: R07.89 Other chest pain (principal); I11.0 Hypertensive heart disease with heart failure; I25.10 Atherosclerotic heart disease of native coronary artery without angina pectoris; R91.8 Other nonspecific abnormal finding of lung field; K21.9 Gastro-esophageal reflux disease without esophagitis; I70.0 Atherosclerosis of aorta; I77.89 Other specified disorders of arteries and arterioles; I25.2 Old myocardial infarction; J84.10 Pulmonary fibrosis, unspecified; K44.9 Diaphragmatic hernia without obstruction or gangrene; M54.9 Dorsalgia, unspecified; G89.29 Other chronic pain; I50.30 Unspecified diastolic (congestive) heart failure; E11.65 Type 2 diabetes mellitus with hyperglycemia; E78.5 Hyperlipidemia, unspecified; J96.11 Chronic respiratory failure with hypoxia; I08.1 Rheumatic disorders of both mitral and tricuspid valves; Z95.1 Presence of aortocoronary bypass graft; Z79.82 Long term (current) use of aspirin; Z79.899 Other long term (current) drug therapy; Z99.81 Dependence on supplemental oxygen; Z85.46 Personal history of malignant neoplasm of prostate; Z85.828 Personal history of other malignant neoplasm of skin; Z90.49 Acquired absence of other specified parts of digestive tract; Z79.4 Long term (current) use of insulin; Z87.891 Personal history of nicotine dependence; Z77.090 Contact with and (suspected) exposure to asbestos; Z20.822 Contact with and (suspected) exposure to COVID-19
CPT/HCPCS: 96372 ×2; 96374; 99285; 36415; 94640 ×4; 93005; 85379; 83880; 80053 ×2; 83605; 83735; 84484; 85025; 85610; 85730; 86140; 83036; 84145; 87636; 71046; 93970; 71275; G0378 ×4; C8929; J1885; Q9950; Q9967; J1644 ×2; 93306

== ENCOUNTER 2023-03-15 10:33 | Inpatient (IN) | payer MEDICARE ==
[2023-03-15] MEDS ORDERED: SODIUM CHLORIDE 0.9% 500 ML 500 ML IV ONE (10:54)
[2023-03-15] MEDS ORDERED: IPRATROPIUM-ALBUTEROL 3 ML NEB INHALATION STA (11:10)
[2023-03-15] MEDS ORDERED: ALBUTEROL NEBULIZED 2.5 MG/3 ML INHALATION STA (11:10)
--- NOTE | 2023-03-15 11:35 | ED ---
General Adult HPI - General Chief complaint: Altered Mental Status Stated complaint: Altered Mental Status Time Seen by Provider: 03/15/23 10:35 Source: EMS, RN notes reviewed, old records reviewed Mode of arrival: EMS Limitations: altered mental status - History of Present Illness Initial comments: 83-year-old presents with altered mental status. Patient was recently discharged from the hospital. 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 He was started on Xanax and Danube during this admission. He has had increased lethargy, poor appetite and increased confusion. His states he has been sleeping a lot. No vomiting. No fever. No focal numbness or weakness. He has persistent chest discomfort which was present on previous admission and is unchanged. - Related Data Home Medications Medication Instructions Recorded Confirmed Aspirin EC [Ecotrin Low Dose] 81 mg PO DAILY 12/03/18 03/15/23 Metoprolol Tartrate [Lopressor] 25 mg PO HS 12/03/18 03/15/23 lisinopriL [Prinivil] 5 mg PO DAILY 12/03/18 03/15/23 Baclofen [Lioresal] 5 mg PO BID PRN 11/28/20 03/15/23 Furosemide [Lasix] 40 mg PO DAILY 11/28/20 03/15/23 Nitroglycerin Sl Tabs [Nitrostat] 0.4 mg SUBLINGUAL Q5M PRN 11/28/20 03/15/23 Pantoprazole Sodium 40 mg PO BID 11/28/20 03/15/23 Rosuvastatin Calcium [Crestor] 10 mg PO DAILY 11/28/20 03/15/23 Umeclidinium Brm/Vilanterol Tr 1 puff INHALATION RT-DAILY 03/21/21 03/15/23 [Anoro Ellipta 62.5-25 Mcg INH] Glimepiride [Amaryl] 4 mg PO DAILY 08/02/21 03/15/23 Albuterol Inhaler [Ventolin Hfa 1 - 2 puff INHALATION RT-Q6H PRN 03/05/23 03/15/23 Inhaler] Dapagliflozin Propanediol [Farxiga] 10 mg PO DAILY 03/05/23 03/15/23 Insulin Degludec [Tresiba 45 units SQ DAILY 03/05/23 03/15/23 Flextouch U-200 Pen] Isosorbide Mononitrate ER [Imdur] 30 mg PO DAILY 03/05/23 03/15/23 Loperamide [Imodium] 2 mg PO QID PRN 03/05/23 03/15/23 Multivitamins, Thera [Multivitamin 1 tab PO DAILY 03/05/23 03/15/23 (formulary)] cilostazoL [Pletal] 100 mg PO BID 03/05/23 03/15/23 ALPRAZolam [Xanax] 0.5 mg PO BID 03/15/23 03/15/23 Glimepiride [Amaryl] 2 mg PO HS 03/15/23 03/15/23 HYDROcodone/APAP 7.5-325MG [Danube 1 tab PO Q6HR PRN 03/15/23 03/15/23 7.5-325] Naloxone HCl [Narcan] 4 mg NASAL DIRECTED PRN 03/15/23 03/15/23 predniSONE See Taper PO DIRECTED 03/15/23 03/15/23 Previous Rx's Medication Instructions Recorded Acetaminophen Tab [Tylenol] 650 mg PO Q6HR PRN tab 03/07/23 Allergies Allergy/AdvReac Type Severity Reaction Status Date / Time No Known Allergies Allergy Verified 03/15/23 11:02 Review of Systems ROS Statement: Those systems with pertinent positive or pertinent negative responses have been documented in the HPI. ROS Other: All systems not noted in ROS Statement are negative. Past Medical History Past Medical History: Coronary Artery Disease (CAD), Cancer, Diabetes Mellitus, GERD/Reflux, Hypertension, Myocardial Infarction (AK) Additional Past Medical History / Comment(s): Prostate CA [address] Cabrera for it, Skin CA 1983. lung problems r/t asbestos and smoking wears Oxygen 2L NC @ hs. lower back pain Last Myocardial Infarction Date:: unknown History of Any Multi-Drug Resistant Organisms: None Reported Past Surgical History: Cholecystectomy, Coronary Bypass/CABG, Prostate Surgery Additional Past Surgical History / Comment(s): rt leg-tumor removed Past Anesthesia/Blood Transfusion Reactions: No Reported Reaction Past Psychological History: No Psychological Hx Reported Smoking Status: Former smoker Past Alcohol Use History: Occasional Past Drug Use History: None Reported - Past Family History Mother Family Medical History: No Reported History General Exam Limitations: altered mental status General appearance: in no apparent distress, lethargic Head exam: Present: atraumatic, normocephalic Eye exam: Present: normal appearance, PERRL Neck exam: Present: normal inspection Respiratory exam: Present: wheezes, decreased breath sounds. Absent: respiratory distress Cardiovascular Exam: Present: regular rate, normal rhythm GI/Abdominal exam: Present: soft. Absent: distended, tenderness Extremities exam: Present: normal inspection Neurological exam: Present: alert, CN II-XII intact. Absent: oriented X3, motor sensory deficit Psychiatric exam: Present: normal affect, normal mood Skin exam: Present: warm, dry, intact. Absent: cyanosis, diaphoretic Course Vital Signs 03/15/23 03/15/23 03/15/23 10:35 10:53 11:43 Temperature 98.4 F Pulse Rate 85 100 101 H Respiratory 18 18 Rate Blood Pressure 111/58 O2 Sat by Pulse 92 L Oximetry 03/15/23 03/15/23 03/15/23 11:51 12:15 12:45 Temperature Pulse Rate 103 H 109 H 110 H Respiratory 18 16 Rate Blood Pressure 93/60 116/72 O2 Sat by Pulse 91 L 96 Oximetry EKG Findings - EKG Comments: EKG Findings:: Sinus tachycardia rate of 100, MN interval 172, QRS duration 107, QTC [address] segment elevation Medical Decision Making - Medical Decision Making Was pt. sent in by a medical professional or institution (RODRICK Almanzar, STOCK SPECULATOR, urgent care, hospital, or halfway...) When possible be specific @ -No Did you speak to anyone other than the patient for history (EMS, parent, family, police, friend...)? What history was obtained from this source @ -Patient's and daughter Did you review nursing and triage notes (agree or disagree)? Why? @ -I reviewed and agree with nursing and triage notes Were old charts reviewed (outside hosp., previous admission, EMS record, old EKG, old radiological studies, urgent care reports/EKG's, halfway records)? Report findings @ -No old charts were reviewed Differential Diagnosis (chest pain, altered mental status, abdominal pain women, abdominal pain men, vaginal bleeding, weakness, fever, dyspnea, syncope, headache, dizziness, GI bleed, back pain, seizure, CVA, palpatations, mental health, musculoskeletal)? @ -Differential Altered Mental Status: Hypoglycemia, DKA, hypercapnia, ETOH, overdose, CO poisoning, trauma, myxedema coma, HTN encephalopathy, infection, encephalitis, psychosis, intercranial hemorrhage, hepatic encephalopathy, meningitis, CVA, this is not meant to be an all-inclusive list EKG interpreted by me (3pts min.). @ -As above X-rays interpreted by me (1pt min.). @ -Chest x-ray performed, negative for acute process CT interpreted by me (1pt min.). @ -None done U/S interpreted by me (1pt. min.). @ -None done What testing was considered but not performed or refused? (CT, X-rays, U/S, labs)? Why? @ -None What meds were considered but not given or refused? Why? @ -None Did you discuss the management of the patient with other professionals (professionals i.e. , PA, STOCK SPECULATOR, lab, RT, psych nurse, social work administrator, teacher elementary school, teacher, bank compliance officer, major case detective)? Give summary @ -Dr Sheet Was smoking cessation discussed for >3mins.? @ -No Was critical care preformed (if so, how long)? @ -No Were there social determinants of health that impacted care today? How? (Homelessness, low income, unemployed, alcoholism, drug addiction, transportation, low edu. Level, literacy, decrease access to med. care, halfway, rehab)? @ -No Was there de-escalation of care discussed even if they declined (Discuss DNR or withdrawal of care, Hospice)? DNR status @ -No What co-morbidities impacted this encounter? (DM, HTN, Smoking, COPD, CAD, Cancer, CVA, ARF, Chemo, Hep., AIDS, mental health diagnosis, sleep apnea, morbid obesity)? @ -DM, mediastinal mass Was patient admitted / discharged? Hospital course, mention meds given and route, prescriptions, significant lab abnormalities, going to OR and other pertinent info. @ -83-year-old male with increased lethargy and confusion likely medication effect. Patient is sleeping more than usual and is able to be aroused and will answer simple questions. He has a nonfocal neurologic exam. Vital signs are stable. He has a mild anemia, normal white blood cell count, normal venous blood gas. He will require an observation period to allow these medications to leave his system and to be reevaluated. He does require some supplemental oxygen which I suspect is predominantly from poor respiratory effort his oxygen saturation is maintained on nasal cannula. Undiagnosed new problem with uncertain prognosis? @ -No Drug Therapy requiring intensive monitoring for toxicity (Heparin, Nitro, Insulin, Cardizem)? @ -No Were any procedures done? @ -No Diagnosis/symptom? @Lethargy, hypoxia secondary to medication effect Acute, or Chronic, or Acute on Chronic? @Acute Uncomplicated (without systemic symptoms) or Complicated (systemic symptoms)? @Complicated Side effects of treatment? @ -No Exacerbation, Progression, or Severe Exacerbation? @ -No Poses a threat to life or bodily function? How? (Chest pain, [place], [place], pneumonia, PE, COPD, DKA, ARF, appy, cholecystitis, CVA, Diverticulitis, Homicidal, Suicidal, threat to staff... and all critical care pts) @ -No - Lab Data Result diagrams: 03/15/23 11:08 03/15/23 11:08 Lab Results 03/15/23 03/15/23 03/15/23 Range/Units 11:08 11:08 11:08 WBC 10.2 (3.8-10.6) k/uL RBC 4.36 (4.30-5.90) m/uL Hgb 10.0 L D (13.0-17.5) gm/dL Hct 32.9 L (39.0-53.0) % MCV 75.3 L (80.0-100.0) fL MCH 22.8 L (25.0-35.0) pg MCHC 30.3 L (31.0-37.0) g/dL RDW 18.9 H (11.5-15.5) % Plt Count 519 H (150-450) k/uL MPV 7.1 Neutrophils % 88 % Lymphocytes % 7 % Monocytes % 4 % Eosinophils % 0 % Basophils % 0 % Neutrophils # 9.1 H (1.3-7.7) k/uL Lymphocytes # 0.7 L (1.0-4.8) k/uL Monocytes # 0.4 (0-1.0) k/uL Eosinophils # 0.0 (0-0.7) k/uL Basophils # 0.0 (0-0.2) k/uL Hypochromasia Moderate Anisocytosis Slight Microcytosis Moderate PT 10.4 (9.0-12.0) sec INR 1.0 (<1.2) APTT 22.6 (22.0-30.0) sec VBG pH (7.31-7.41) VBG pCO2 (37-51) mmHg VBG HCO3 (24-28) mmol/L Sodium (137-145) mmol/L Potassium (3.5-5.1) mmol/L Chloride (98-107) mmol/L Carbon Dioxide (22-30) mmol/L Anion Gap mmol/L BUN (9-20) mg/dL Creatinine (0.66-1.25) mg/dL Est GFR (CKD-EPI)AfAm (>60 ml/min/1.73 sqM) Est GFR (CKD-EPI)NonAf (>60 ml/min/1.73 sqM) Glucose (74-99) mg/dL POC Glucose (mg/dL) (70-110) mg/dL POC Glu Paleologist ID Calcium (8.4-10.2) mg/dL Total Bilirubin (0.2-1.3) mg/dL AST (17-59) U/L ALT (4-49) U/L Alkaline Phosphatase (38-126) U/L Total Protein (6.3-8.2) g/dL Albumin (3.5-5.0) g/dL Urine Color Light Yellow Urine Appearance Clear (Clear) Urine pH 5.0 (5.0-8.0) Ur Specific [place] 1.017 (1.001-1.035) Urine Protein Negative (Negative) Urine Glucose (UA) 4+ H (Negative) Urine Ketones Negative (Negative) Urine Blood Negative (Negative) Urine Nitrite Negative (Negative) Urine Bilirubin Negative (Negative) Urine Urobilinogen <2.0 (<2.0) mg/dL Ur Leukocyte Esterase Negative (Negative) 03/15/23 03/15/23 03/15/23 Range/Units 11:08 11:08 12:22 WBC (3.8-10.6) k/uL RBC (4.30-5.90) m/uL Hgb (13.0-17.5) gm/dL Hct (39.0-53.0) % MCV (80.0-100.0) fL MCH (25.0-35.0) pg MCHC (31.0-37.0) g/dL RDW (11.5-15.5) % Plt Count (150-450) k/uL MPV Neutrophils % % Lymphocytes % % Monocytes % % Eosinophils % % Basophils % % Neutrophils # (1.3-7.7) k/uL Lymphocytes # (1.0-4.8) k/uL Monocytes # (0-1.0) k/uL Eosinophils # (0-0.7) k/uL Basophils # (0-0.2) k/uL Hypochromasia Anisocytosis Microcytosis PT (9.0-12.0) sec INR (<1.2) APTT (22.0-30.0) sec VBG pH 7.33 (7.31-7.41) VBG pCO2 48 (37-51) mmHg VBG HCO3 25 (24-28) mmol/L Sodium 135 L (137-145) mmol/L Potassium 5.1 (3.5-5.1) mmol/L Chloride 101 (98-107) mmol/L Carbon Dioxide 23 (22-30) mmol/L Anion Gap 11 mmol/L BUN 43 H (9-20) mg/dL Creatinine 1.14 (0.66-1.25) mg/dL Est GFR (CKD-EPI)AfAm 68 (>60 ml/min/1.73 sqM) Est GFR (CKD-EPI)NonAf 59 (>60 ml/min/1.73 sqM) Glucose 333 H (74-99) mg/dL POC Glucose (mg/dL) 383 H (70-110) mg/dL POC Glu Paleologist ID Deidra, Viviane Calcium 9.2 (8.4-10.2) mg/dL Total Bilirubin 0.5 (0.2-1.3) mg/dL AST 19 (17-59) U/L ALT 18 (4-49) U/L Alkaline Phosphatase 156 H (38-126) U/L Total Protein 5.9 L (6.3-8.2) g/dL Albumin 3.3 L (3.5-5.0) g/dL Urine Color Urine Appearance (Clear) Urine pH (5.0-8.0) Ur Specific [place] (1.001-1.035) Urine Protein (Negative) Urine Glucose (UA) (Negative) Urine Ketones (Negative) Urine Blood (Negative) Urine Nitrite (Negative) Urine Bilirubin (Negative) Urine Urobilinogen (<2.0) mg/dL Ur Leukocyte Esterase (Negative) Disposition Clinical Impression: Diabetes mellitus, Altered mental status Disposition: ADMITTED IP TO THIS HOSP Condition: Stable Is patient prescribed a controlled substance at d/c from ED?: No Referrals: Levi Nunez MD [Primary Care Provider] - 1-2 days Time of Disposition: 13:17
--- NOTE | 2023-03-15 11:46 | XR ---
EXAMINATION TYPE: XR chest 2V DATE OF EXAM: 03/15/2023 COMPARISON: 03/05/2023 HISTORY: Shortness of breath TECHNIQUE: Frontal and lateral views of the chest are obtained. FINDINGS: Scattered senescent parenchymal changes noted. Hyperinflation compatible with COPD. No evidence for infiltrate. No evidence for atelectasis. Heart size is stable. Mediastinal structures are stable and grossly unremarkable. No evidence for hilar prominence. Degenerative changes dorsal spine. IMPRESSION: 1. No evidence for acute pulmonary disease.
[2023-03-15 11:49] LABS: Anisocytosis Slight; Basophils % (A) 0 %; Eosinophils % (A) 0 %; HCT 32.9 % (39.0-53.0); Hypochromasia Moderate; Lymphocytes # (A) 0.7 k/uL (1.0-4.8); Lymphocytes % (A) 7 %; MCH 22.8 pg (25.0-35.0); MCHC 30.3 g/dL (31.0-37.0); MCV 75.3 fL (80.0-100.0); Mean Platelet Volume 7.1; Microcytosis Moderate; Monocytes # (A) 0.4 k/uL (0-1.0); Monocytes % (A) 4 %; Neutrophils # (A) 9.1 k/uL (1.3-7.7); Neutrophils % (A) 88 %; Platelet Count 519 k/uL (150-450); RBC 4.36 m/uL (4.30-5.90); RDW 18.9 % (11.5-15.5); WBC 10.2 k/uL (3.8-10.6)
[2023-03-15 12:13] LABS: Partial Thromboplastin Time 22.6 sec (22.0-30.0); Prothrombin Time 10.4 sec (9.0-12.0)
[2023-03-15 12:15] LABS: Albumin 3.3 g/dL (3.5-5.0); Calcium 9.2 mg/dL (8.4-10.2); Potassium 5.1 mmol/L (3.5-5.1); Total Bilirubin 0.5 mg/dL (0.2-1.3); Total Protein 5.9 g/dL (6.3-8.2)
[2023-03-15 12:20] LABS: VBG PH 7.33 (7.31-7.41)
[2023-03-15 12:24] LABS: Glucose,Whole Blood 383 mg/dL (70-110)
[2023-03-15 12:46] LABS: Appearance,Urine Clear (Clear); Bilirubin,Urine Negative (Negative); Blood,Urine Negative (Negative); Color,Urine Light Yellow; Glucose,Urine (UA) 4+ (Negative); Ketones,Urine Negative (Negative); Leukocyte Esterase,Urine Negative (Negative); Nitrite,Urine Negative (Negative); Protein,Urine Negative (Negative); Specific Gravity,Urine 1.017 (1.001-1.035); Urobilinogen,Urine <2.0 mg/dL (<2.0)
[2023-03-15] MEDS ORDERED: KETOROLAC 15 MG/ML 1 ML VIAL IVP STA (12:51)
[2023-03-15] MEDS: SODIUM CHLORIDE 0.9% 1,000 ML IV SCH (12:57)
[2023-03-15] MEDS ORDERED: NALOXONE 0.4 MG/ML 1 ML VIAL IV PRN (13:02)
[2023-03-15 13:13] LABS: Amphetamine Screen,Urine Not Detected (NotDetected); Barbiturate Screen,Urine Not Detected (NotDetected); Benzodiazepines Screen,Urine Detected (NotDetected); Cocaine Screen,Urine Not Detected (NotDetected); Methadone Screen, Urine Not Detected (NotDetected); Opiate Screen,Urine Detected (NotDetected); Oxycodone Screen, Urine Not Detected (NotDetected); Phencyclidine Screen,Urine Not Detected (NotDetected); Tricyclic Antidepressant,Urine Not Detected (NotDetected); Urn Cannabinoid Scrn Not Detected (NotDetected)
[2023-03-15 16:30] LABS: Glucose,Whole Blood 407 mg/dL (70-110)
[2023-03-15] MEDS: ACETAMINOPHEN TAB 325 MG TAB PO PRN (17:06)
[2023-03-15] MEDS ORDERED: LOPERAMIDE 2 MG CAP PO PRN (17:13)
[2023-03-15] MEDS ORDERED: NON FORMULARY DRUG (Naloxone Hcl [Narcan] 4 MG Each) NASAL PRN (17:13)
[2023-03-15] MEDS ORDERED: BACLOFEN 10 MG TAB PO PRN (17:13)
[2023-03-15] MEDS ORDERED: NITROGLYCERIN SL TABS 0.4 MG TAB SUBLINGUAL PRN (17:13)
[2023-03-15] MEDS ORDERED: HYDROcodone/APAP 7.5-325MG 1 EACH TAB PO PRN (17:13)
[2023-03-15] MEDS ORDERED: IPRATROPIUM-ALBUTEROL 3 ML NEB INHALATION PRN (17:15)
[2023-03-15] MEDS ORDERED: DEXTROSE 50% SYRINGE 50 ML IVP PRN ×2 (17:16)
[2023-03-15] MEDS ORDERED: INSULIN ASPART (NovoLOG) 100 UNIT/ML VIAL SQ ONE (17:45)
[2023-03-15] MEDS: PANTOPRAZOLE 40 MG TABLET PO SCH (17:50)
[2023-03-15] MEDS: methylPREDNISolone SOD SUCCI 125 MG/2 ML VIAL IV SCH (17:50)
[2023-03-15] MEDS: INSULIN ASPART (NovoLOG) 100 UNIT/ML VIAL SQ SCH ×2 (17:51→21:58)
[2023-03-15] MEDS: INSULIN DETEMIR (LEVEMIR) 100 UNIT/ML SYR SQ SCH (17:52)
[2023-03-15] MEDS: FUROSEMIDE 40 MG TAB PO SCH (17:54)
[2023-03-15] MEDS: IPRATROPIUM-ALBUTEROL 3 ML NEB INHALATION SCH (19:47)
[2023-03-15 21:06] LABS: Glucose,Whole Blood 432 mg/dL (70-110)
[2023-03-15] MEDS: GLIMEPIRIDE 2 MG TAB PO SCH (21:58)
[2023-03-15] MEDS: cilostazoL 100 MG TAB PO SCH (21:58)
[2023-03-15] MEDS: METOPROLOL TARTRATE 25 MG TAB PO SCH (21:58)
[2023-03-15] MEDS: ALPRAZolam 0.5 MG TAB PO SCH (21:58)
[2023-03-16] MEDS: methylPREDNISolone SOD SUCCI 125 MG/2 ML VIAL IV SCH ×4 (00:21→18:57)
--- NOTE | 2023-03-16 03:28 | HP ---
HISTORY AND PHYSICAL CHIEF COMPLAINT: Change in mental status. HISTORY OF PRESENT ILLNESS: This is an 83-year-old gentleman with a past medical history of multiple medical problems including CAD, diabetes mellitus type 2, being followed by Dr. Nunez as an outpatient, was recently admitted with left upper lung mass and associated tracheobronchitis. Outpatient workup with PET scan and other followup is being arranged at this time. Currently, the patient was found to have hypoxia. The patient is also noted to have hyperglycemia with sugars in 300 and the patient was taken to [facility] for further evaluation and treatment. The patient also had some confusion. Apparently, the patient is also taking Xanax also. There is no history of any fever, rigors, or chills. The patient also had some abnormal movements of both hands once according to the family. PAST MEDICAL HISTORY: History of recent mass lesion, prostate cancer, diabetes mellitus type 2. Rest of the history and rest of the chart are also reviewed. HOME MEDICATIONS: Reviewed include Prinivil. Doses and rest of medications reviewed. ALLERGIES: None. FAMILY HISTORY: No history of heart disease or strokes in the family. SOCIAL HISTORY: Occasional alcohol intake. Previous history of smoking. REVIEW OF SYSTEMS: A 14-point review is negative except as mentioned earlier. PHYSICAL EXAMINATION: VITAL SIGNS: Pulse is 101, blood pressure 130/60, respirations 16, temperature 97.5. HEENT: Conjunctivae normal. NECK: No jugular venous distention. CARDIOVASCULAR: S1, S2 muffled. RESPIRATIONS: Breath sounds diminished at the bases. A few scattered rhonchi. ABDOMEN: Soft, nontender. LEGS: No edema. No swelling. NERVOUS SYSTEM: No focal deficits. SKIN: No ulcer, rash, bleeding. JOINTS: No active deforming arthropathy. LABORATORY DATA: Labs are noted. ASSESSMENT: 1. Change in mental status, multifactorial. 2. Chronic obstructive pulmonary disease acute exacerbation with acute hypoxic respiratory hypoxia. 3. Possible acute transient ischemic attack. 4. History of coronary artery disease. 5. Diabetes mellitus, type 2. 6. Hypertension. 7. History of prostate cancer. RECOMMENDATIONS: This is an 83-year-old gentleman who presented with multiple complex medical issues, we will monitor the patient closely. I would recommend intensive bronchodilator treatment, Pulmonary consultation. We also recommend a Neurology consultation to rule out the possibility of acute stroke. Otherwise, home medications will be continued once they are reconciled and repeat labs. Prognosis guarded because of multiple complex medical issues and further recommendations to follow. See orders for details. I would also recommend a full neurovascular workup as well. For the diabetes, I will start some insulin. I would increase the dose of insulin and then continue to monitor. Further recommendations to follow. MMELIOTL / JASMINN: [id number] /
--- NOTE | 2023-03-16 06:26 | US ---
EXAMINATION TYPE: US carotid duplex BILAT DATE OF EXAM: 03/15/2023 COMPARISON: NONE CLINICAL INDICATION: Male, 83 years old with history of stroke; stroke TECHNIQUE: Carotid duplex ultrasound examination. Indirect Doppler criteria was utilized. FINDINGS: EXAM MEASUREMENTS: RIGHT: Peak Systolic Velocity (PSV) cm/sec ----- Right CCA: 45.0 ----- Right ICA: 64.5 ----- Right ECA: 80.1 ICA/CCA ratio: 1.4 RIGHT: End Diastole cm/sec ----- Right CCA: 8.7 ----- Right ICA: 14.7 ----- Right ECA: 0.0 LEFT: Peak Systolic Velocity (PSV) cm/sec ----- Left CCA: 61.5 ----- Left ICA: 87.9 ----- Left ECA: 81.4 ICA/CCA ratio: 1.4 LEFT: End Diastole cm/sec ----- Left CCA: 4.3 ----- Left ICA: 19.3 ----- Left ECA: 0.0 VERTEBRALS (direction of flow): Right Vertebral: Antegrade Left Vertebral: Antegrade Rhythm: Normal [employer] NOTES: Plaque seen in bilateral bulbs. Moderate amount of plaque seen in left mid/distal CCA, bulb, and prox ICA IMPRESSION: No hemodynamically significant stenosis in either internal carotid artery Criteria for Assigning % of Stenosis / Diameter reduction (Estimation based on the indirect measurements of the internal carotid artery velocities (ICA PSV). 1. Normal (no stenosis)=ICA PSV < 125 cm/s: ratio < 2.0: ICA EDV<40 cm/s. 2. Less than 50% stenosis=ICA PSV < 125 cm/s: ratio < 2.0: ICA EDV<40 cm/s. 3. 50 to 69% stenosis=ICA PSV of 125 to 230 cm/s: ration 2.0 ? 4.0: ICA EDV 40-100 cm/s. 4. Greater than 70% stenosis to near occlusion= ICA PSV > 230 cm/s: ratio > 4.0: ICA EDV > 100 cm/s. 5. Near occlusion= ICA PSV velocities may be low or undetectable: variable ratio and ICA EDV. 6. Total occlusion=unable to detect flow.
[2023-03-16] MEDS: SODIUM CHLORIDE 0.9% 1,000 ML IV SCH ×2 (06:33→12:48)
[2023-03-16 07:46] LABS: Glucose,Whole Blood 196 mg/dL (70-110)
[2023-03-16] MEDS: MULTIVITAMINS, THERA 1 EACH TAB PO SCH (08:38)
[2023-03-16] MEDS: GLIMEPIRIDE 4 MG TAB PO SCH (08:38)
[2023-03-16] MEDS: FUROSEMIDE 40 MG TAB PO SCH (08:38)
[2023-03-16] MEDS: ASPIRIN 81 MG PO SCH (08:38)
[2023-03-16] MEDS: ISOSORBIDE MONONITRATE ER 30 MG TAB.ER.24H PO SCH (08:38)
[2023-03-16] MEDS: ALPRAZolam 0.5 MG TAB PO SCH ×2 (08:38→21:46)
[2023-03-16] MEDS: ATORVASTATIN 20 MG TAB PO SCH (08:38)
[2023-03-16] MEDS: DAPAGLIFLOZIN PROPANEDIOL 10 MG TABLET PO SCH (08:39)
[2023-03-16] MEDS: INSULIN DETEMIR (LEVEMIR) 100 UNIT/ML SYR SQ SCH ×2 (08:39→21:46)
[2023-03-16] MEDS: cilostazoL 100 MG TAB PO SCH ×2 (08:39→21:47)
[2023-03-16] MEDS: INSULIN ASPART (NovoLOG) 100 UNIT/ML VIAL SQ SCH ×4 (08:43→21:46)
[2023-03-16] MEDS: lisinopriL 5 MG TAB PO SCH (08:43)
[2023-03-16] MEDS: PANTOPRAZOLE 40 MG TABLET PO SCH ×2 (08:43→17:48)
[2023-03-16] MEDS: IPRATROPIUM-ALBUTEROL 3 ML NEB INHALATION SCH ×4 (09:27→20:03)
--- NOTE | 2023-03-16 10:58 | P.CNNES ---
History of Present Illness Consult date: 03/16/23 Requesting physician: Bryce Segundo Reason for Consult: change in mentation History of Present Illness: This is an 83-year-old gentleman with history of mediastinal mass is currently undergoing outpatient workup, COPD, asbestos exposure, diabetes mellitus remote tobacco use who presented emergency department because altered mental status. Some of the history is obtained from medical record since patient was is unable to provide that. Currently patient states that he's doing well and denies of any headache any nausea any vomiting. He feels like he is having generalized weakness. Denies any numbness or visual disturbance. But is seems the records the ED noted the patient the was started on Xanax and [place] and has been having increased lethargy and poor appetite and increased confusion and has a been sleeping a lot that was noted by the . Patient states that he has chronic lower back pain and he uses a walker at home. I personally reviewed Dr. Quiroz's note on 03/07/2023 and he mentions that the patient has left upper lobe mass measuring 5.14.2 cm adjacent to the posterior aortic arch and that's a new finding compared to the previous CAT scan from 2020. And is felt suspicious for malignancy. There is also some bilateral adrenal gland diffuse thickening without any localized mass. Some of the workup during his hospital visit consisted of: Initial pulse ox is 92% on 3 L of nasal cannula and it went down to 91%. She is afebrile. Patient's hemoglobin is 10.0 MCV is 75.3 platelets 519. Glucose is 333, sodium is 135 otherwise the calcium before meals ALTs within normal limits. Urine drug screen is positive for benzo and opiates. Carotid duplex was reported as no hemodynamic significant stenosis in either internal carotid artery. Review of Systems Review of system: The 12 point system was reviewed and apparent positive and negative per HPI. Past Medical History Past Medical History: Coronary Artery Disease (CAD), Cancer, Diabetes Mellitus, GERD/Reflux, Hypertension, Myocardial Infarction (LA) Additional Past Medical History / Comment(s): Prostate CA [address] Cabrera for it, Skin CA 1983. lung problems r/t asbestos and smoking wears Oxygen 2L NC @ hs. lower back pain Last Myocardial Infarction Date:: unknown History of Any Multi-Drug Resistant Organisms: None Reported Past Surgical History: Cholecystectomy, Coronary Bypass/CABG, Prostate Surgery Additional Past Surgical History / Comment(s): rt leg-tumor removed Past Anesthesia/Blood Transfusion Reactions: No Reported Reaction Past Psychological History: No Psychological Hx Reported Smoking Status: Former smoker Past Alcohol Use History: Occasional Additional Past Alcohol Use History / Comment(s): quit 1979 Past Drug Use History: None Reported - Past Family History Mother Family Medical History: No Reported History Medications and Allergies Home Medications Medication Instructions Recorded Confirmed Type Aspirin EC [Ecotrin Low Dose] 81 mg PO DAILY 12/03/18 03/15/23 History Metoprolol Tartrate [Lopressor] 25 mg PO HS 12/03/18 03/15/23 History lisinopriL [Prinivil] 5 mg PO DAILY 12/03/18 03/15/23 History Baclofen [Lioresal] 5 mg PO BID PRN 11/28/20 03/15/23 History Furosemide [Lasix] 40 mg PO DAILY 11/28/20 03/15/23 History Nitroglycerin Sl Tabs [Nitrostat] 0.4 mg SUBLINGUAL Q5M PRN 11/28/20 03/15/23 History Pantoprazole Sodium 40 mg PO BID 11/28/20 03/15/23 History Rosuvastatin Calcium [Crestor] 10 mg PO DAILY 11/28/20 03/15/23 History Umeclidinium Brm/Vilanterol Tr 1 puff INHALATION RT-DAILY 03/21/21 03/15/23 History [Anoro Ellipta 62.5-25 Mcg INH] Glimepiride [Amaryl] 4 mg PO DAILY 08/02/21 03/15/23 History Albuterol Inhaler [Ventolin Hfa 1 - 2 puff INHALATION RT-Q6H PRN 03/05/23 03/15/23 History Inhaler] Dapagliflozin Propanediol [Farxiga] 10 mg PO DAILY 03/05/23 03/15/23 History Insulin Degludec [Tresiba 45 units SQ DAILY 03/05/23 03/15/23 History Flextouch U-200 Pen] Isosorbide Mononitrate ER [Imdur] 30 mg PO DAILY 03/05/23 03/15/23 History Loperamide [Imodium] 2 mg PO QID PRN 03/05/23 03/15/23 History Multivitamins, Thera [Multivitamin 1 tab PO DAILY 03/05/23 03/15/23 History (formulary)] cilostazoL [Pletal] 100 mg PO BID 03/05/23 03/15/23 History Acetaminophen Tab [Tylenol] 650 mg PO Q6HR PRN tab 03/07/23 03/15/23 Rx ALPRAZolam [Xanax] 0.5 mg PO BID 03/15/23 03/15/23 History Glimepiride [Amaryl] 2 mg PO HS 03/15/23 03/15/23 History HYDROcodone/APAP 7.5-325MG [[place] 1 tab PO Q6HR PRN 03/15/23 03/15/23 History 7.5-325] Naloxone HCl [Narcan] 4 mg NASAL DIRECTED PRN 03/15/23 03/15/23 History predniSONE See Taper PO DIRECTED 03/15/23 03/15/23 History Allergies Allergy/AdvReac Type Severity Reaction Status Date / Time No Known Allergies Allergy Verified 03/15/23 11:02 Physical Examination - Vital Signs Vital Signs: Vital Signs Temp Pulse Pulse Resp BP BP Pulse Ox 03/16/23 09:40 100 03/16/23 09:28 97 93 L 03/16/23 09:27 16 03/16/23 07:40 97.4 F L 87 16 136/76 93 L 03/16/23 03:02 97.4 F L 73 18 133/71 96 03/15/23 20:00 97.9 F 100 64 18 107/56 96 03/15/23 19:49 101 H 03/15/23 16:13 97.5 F L 101 H 16 113/68 94 L 03/15/23 15:53 102 H 18 93/60 94 L 03/15/23 15:00 69 18 92/53 98 03/15/23 14:00 102 H 18 99/69 98 03/15/23 12:45 110 H 16 116/72 96 03/15/23 12:15 109 H 18 93/60 91 L 03/15/23 11:51 103 H 03/15/23 11:43 101 H 03/15/23 10:53 100 18 92 L Intake and Output 03/15/23 03/16/23 03/16/23 22:59 06:59 14:59 Intake Total 118 118 Output Total 600 800 Balance -482 -800 118 Intake: Oral 118 118 Output: Urine 600 800 Other: Voiding Method External Catheter External Catheter Weight 79.379 kg GENERAL: The patient is lying in bed and is not in acute distress. CHEST: The heart rate is regular rate rhythm. No murmurs to auscultation. LUNG: Clear to auscultation bilaterally no wheezing noted throughout. Not labored breathing. ABDOMEN/GI: Bowel sounds present in all 4 quadrants. No tenderness to palpation throughout. NEUROLOGICAL: Higher mental function: The patient is awake, alert, oriented to self, place. He correctly stated current month but stated the year is 2031. Patient is able to name objects (watch and pen). Patient is following simple commands. No aphasia and no neglect. Cranial nerves: The pupils are round, equal and reactive to light. Visual mckenna are full to confrontation throughout. Extraocular movement is intact no nystagmus is noted. Facial sensation is normal to touch throughout. The facial strength is normal throughout. Hearing is moderately decreased bilaterally to hand rub. Tongue is midline and moved [id number] without any difficulty. No dysarthria is noted. Shoulder shrug is normal bilaterally. Motor: The strength is 5 over 5 throughout uppers. Lowers limited since had chronic low back pain but was able to lift above gravity and appears 3-4. Normal tone and bulk. Cerebellum: Normal finger to nose bilaterally. Sensation: Sensation is normal to touch throughout. Reflexes (right/left): 2+ in uppers while lowers are 1+. Plantars are mute bilaterally. Results - Laboratory Findings CBC and BMP: 03/15/23 11:08 03/15/23 11:08 Abnormal Lab Findings: Abnormal Labs 03/15/23 03/15/23 03/15/23 11:08 11:08 11:08 Hgb 10.0 L D Hct 32.9 L MCV 75.3 L MCH 22.8 L MCHC 30.3 L RDW 18.9 H Plt Count 519 H Neutrophils # 9.1 H Lymphocytes # 0.7 L D-Dimer Sodium 135 L BUN 43 H Glucose 333 H POC Glucose (mg/dL) Alkaline Phosphatase 156 H Total Protein 5.9 L Albumin 3.3 L Urine Glucose (UA) 4+ H Urine Opiates Screen Detected H U Benzodiazepines Scrn Detected H 03/15/23 03/15/23 03/15/23 12:22 16:27 17:57 Hgb Hct MCV MCH MCHC RDW Plt Count Neutrophils # Lymphocytes # D-Dimer 3.29 H Sodium BUN Glucose POC Glucose (mg/dL) 383 H 407 H Alkaline Phosphatase Total Protein Albumin Urine Glucose (UA) Urine Opiates Screen U Benzodiazepines Scrn 03/15/23 03/16/23 21:02 07:45 Hgb Hct MCV MCH MCHC RDW Plt Count Neutrophils # Lymphocytes # D-Dimer Sodium BUN Glucose POC Glucose (mg/dL) 432 H 196 H Alkaline Phosphatase Total Protein Albumin Urine Glucose (UA) Urine Opiates Screen U Benzodiazepines Scrn Assessment and Plan Assessment: This is an 83-year-old gentleman with history of newly diagnosed left upper lobe mass who presented because of altered mental status, fatigue and generalized weakness. Seems that the patient was started on Xanax and [place] recently. Altered mental status seems due to multifactorial: Predominantly medication effect ([place] and Xanax (both started new and Baclofen especially in elderly patient), hypoxic encephalopathy, uncontrolled diabetes. Rule out brain mets. Newly Diagnosis left upper lung mass Diabetes mellitus. His latest hemoglobin A1c is 8.6 and that was on in 03/07/2023 Chronic hypoxic respiratory failure on home oxygen History of coronary artery disease with previous LA Chronic lower back pain History of asbestos exposure History of skin cancer History of coronary artery disease status post bypass surgery History of COPD Remote ex-smoker Plan: I ordered MRI of the brain with and without to rule out any brain metastases Ordered routine EEG to rule out any seizures or discharges. Ordered vitamin B12, folate, TSH level. Recommend if possible avoiding Xanax and opiates since there are both newly started and can be the culprit of patient's confusion. Pulmonary team is on board Oncology team is on board We'll defer the rest of the medical management to primary team The plan was discussed with the patient and his nurse. Thank you for the consultation Time with Patient: Greater than 30
[2023-03-16 11:04] LABS: Basophils # (A) 0 X 10*3/uL (0.00-0.10); Basophils % (A) 0 %; Eosinophils # (A) 0.01 X 10*3/uL (0.04-0.35); Eosinophils % (A) 0.1 %; HCT 33.2 % (39.6-50.0); HGB 9.6 g/dL (13.0-17.0); Immature Grans, Automated 0.8 %; Lymphocytes # (A) 0.94 X 10*3/uL (0.90-5.00); Lymphocytes % (A) 7.9 %; MCH 22.9 pg (27.0-32.0); MCHC 28.9 g/dL (32.0-37.0); Mean Platelet Volume 9.5 fL (9.5-12.2); Monocytes # (A) 0.29 X 10*3/uL (0.20-1.00); Monocytes % (A) 2.5 %; NRBC Per 100 WBC 0.3 /100 WBCS (0.0-0.0); Neutrophils % (A) 88.7 %; Platelet Count 491 X 10*3/uL (140-440); WBC 11.83 X 10*3/uL (4.50-10.00)
--- NOTE | 2023-03-16 11:27 | P.PN ---
Subjective Progress Note Date: 03/16/23 This is a very pleasant 83-year-old male patient with a known history of hyperlipidemia, diabetes mellitus, gastroesophageal reflux disease, hypertension, spinal stenosis, prostate cancer, chronic obstructive pulmonary disease, former smoker. He was also recently found to have a large 5 x 4 cm mass in the left upper lobe with mediastinal invasion. He is to be scheduled for a PET scan. He follows with Dr. Boyd in our office. He was seen earlier this week and treated for COPD exacerbation. He was brought into the emergency room yesterday with altered mental status, lethargy, poor appetite and in creasing confusion. His has stated he was sleeping quite a bit. He was recently started on Xanax and [place] during his previous hospitalization here earlier this month. He also had complaints of shortness of breath, cough and congestion. Chest x-ray reveals no acute pulmonary process. Carotid Dopplers revealed no hemodynamically significant stenosis bilaterally. White count 11.8. Hemoglobin 9.6. Platelets 491. D-dimer 3.29. Glucose 201. Sodium 135. Potassium 5.1. Bicarb 23. BUN 43. Creatinine 1.14. Urine drug screen was positive for opiates and benzodiazepines. He is seen today in consultation on the regular medical floor. He is sitting up in bed. Awake and alert. Oriented 3. Maintaining O2 saturations in the 90s on 5 L/m per nasal cannula. He is afebrile. Hemodynamically stable. He's been initiated on DuoNeb inhalations Pulmicort and Perforomist inhalations, IV Solu-Medrol. Normal saline at 75 ML's per hour. MRI of the brain and EEG are pending. Objective - Vital Signs Vital signs: Vital Signs Temp 97.4 F L 03/16/23 07:40 Pulse 100 03/16/23 09:40 Resp 16 03/16/23 09:27 BP 136/76 03/16/23 07:40 Pulse Ox 93 L 03/16/23 09:28 FiO2 Intake & Output 03/15/23 03/16/23 03/16/23 18:59 06:59 18:59 Intake Total 118 118 Output Total 1400 Balance 118 -1400 118 Weight 79.379 kg Intake: Oral 118 118 Output: Urine 1400 Other: Voiding Method External Catheter External Catheter - Exam GENERAL EXAM: Alert, pleasant 83-year-old gentleman, on 5 L nasal cannula, fairly comfortable in no apparent distress. HEAD: Normocephalic. EYES: Normal reaction of pupils, equal size. NOSE: Clear with pink turbinates. THROAT: No erythema or exudates. NECK: No masses, no JVD. CHEST: No chest wall deformity. LUNGS: Equal air entry with bilateral end expiratory wheeze, few scattered rhonchi. CVS: S1 and S2 normal with no audible murmur, regular rhythm. ABDOMEN: No hepatosplenomegaly, normal bowel sounds, no guarding or rigidity. SPINE: No scoliosis or deformity SKIN: No rashes CENTRAL NERVOUS SYSTEM: No focal deficits, tone is normal in all 4 extremities. EXTREMITIES: There is no peripheral edema. No clubbing, no cyanosis. Peripheral pulses are intact. - Labs CBC & Chem 7: 03/16/23 05:53 03/15/23 11:08 Labs: Abnormal Lab Results - Last 24 Hours (Table) 03/15/23 03/15/23 03/15/23 Range/Units 11:08 11:08 11:08 WBC (4.50-10.00) X 10*3/uL RBC (4.40-5.60) X 10*6/uL Hgb 10.0 L D (13.0-17.5) gm/dL Hct 32.9 L (39.0-53.0) % MCV 75.3 L (80.0-100.0) fL MCH 22.8 L (25.0-35.0) pg MCHC 30.3 L (31.0-37.0) g/dL RDW 18.9 H (11.5-15.5) % Plt Count 519 H (150-450) k/uL Absolute Nucleated RBC (0.00-0.00) X 10*3/uL Immature Gran # (0.00-0.04) X 10*3/uL Neutrophils # 9.1 H (1.3-7.7) k/uL Lymphocytes # 0.7 L (1.0-4.8) k/uL Eosinophils # (0.04-0.35) X 10*3/uL NRBC/100 WBC Diff (0.0-0.0) /100 WBCS D-Dimer (<0.60) mg/L FEU Sodium 135 L (137-145) mmol/L BUN 43 H (9-20) mg/dL Glucose 333 H (74-99) mg/dL POC Glucose (mg/dL) (70-110) mg/dL Alkaline Phosphatase 156 H (38-126) U/L Total Protein 5.9 L (6.3-8.2) g/dL Albumin 3.3 L (3.5-5.0) g/dL Urine Glucose (UA) 4+ H (Negative) Urine Opiates Screen Detected H (NotDetected) U Benzodiazepines Scrn Detected H (NotDetected) 03/15/23 03/15/23 03/15/23 Range/Units 12:22 16:27 17:57 WBC (4.50-10.00) X 10*3/uL RBC (4.40-5.60) X 10*6/uL Hgb (13.0-17.5) gm/dL Hct (39.0-53.0) % MCV (80.0-100.0) fL MCH (25.0-35.0) pg MCHC (31.0-37.0) g/dL RDW (11.5-15.5) % Plt Count (150-450) k/uL Absolute Nucleated RBC (0.00-0.00) X 10*3/uL Immature Gran # (0.00-0.04) X 10*3/uL Neutrophils # (1.3-7.7) k/uL Lymphocytes # (1.0-4.8) k/uL Eosinophils # (0.04-0.35) X 10*3/uL NRBC/100 WBC Diff (0.0-0.0) /100 WBCS D-Dimer 3.29 H (<0.60) mg/L FEU Sodium (137-145) mmol/L BUN (9-20) mg/dL Glucose (74-99) mg/dL POC Glucose (mg/dL) 383 H 407 H (70-110) mg/dL Alkaline Phosphatase (38-126) U/L Total Protein (6.3-8.2) g/dL Albumin (3.5-5.0) g/dL Urine Glucose (UA) (Negative) Urine Opiates Screen (NotDetected) U Benzodiazepines Scrn (NotDetected) 03/15/23 03/16/2323 Range/Units 21:02 05:53 07:45 WBC 11.83 H (4.50-10.00) X 10*3/uL RBC 4.20 L (4.40-5.60) X 10*6/uL Hgb 9.6 L (13.0-17.5) gm/dL Hct 33.2 L (39.0-53.0) % MCV 79.0 L (80.0-100.0) fL MCH 22.9 L (25.0-35.0) pg MCHC 28.9 L (31.0-37.0) g/dL RDW 21.0 H (11.5-15.5) % Plt Count 491 H (150-450) k/uL Absolute Nucleated RBC 0.03 H (0.00-0.00) X 10*3/uL Immature Gran # 0.09 H (0.00-0.04) X 10*3/uL Neutrophils # 10.50 H (1.3-7.7) k/uL Lymphocytes # (1.0-4.8) k/uL Eosinophils # 0.01 L (0.04-0.35) X 10*3/uL NRBC/100 WBC Diff 0.3 H (0.0-0.0) /100 WBCS D-Dimer (<0.60) mg/L FEU Sodium (137-145) mmol/L BUN (9-20) mg/dL Glucose (74-99) mg/dL POC Glucose (mg/dL) 432 H 196 H (70-110) mg/dL Alkaline Phosphatase (38-126) U/L Total Protein (6.3-8.2) g/dL Albumin (3.5-5.0) g/dL Urine Glucose (UA) (Negative) Urine Opiates Screen (NotDetected) U Benzodiazepines Scrn (NotDetected) Assessment and Plan Assessment: Altered mental status of unclear etiology. Possible opiate, benzodiazepine effect which were recently prescribed for the patient. Rule out metastatic disease. MRI of the brain and EEG are pending Recent diagnosis with a large left upper lobe lung mass, measuring 5 x 4 cm, with mediastinal invasion. Scheduled for an outpatient PET scan 03/23/2023 Acute exacerbation of chronic obstructive pulmonary disease. FEV1 value 1.27 L which is 50% of predicted Former smoker Hypertension Gastroesophageal reflux disease Hyperlipidemia Diabetes mellitus, type II History of prostate cancer Plan: The patient was seen and evaluated Chest x-ray, labs and medications reviewed MRI of the brain has been ordered EEG is pending Initiated and DuoNeb inhalations, Pulmicort and Perforomist inhalations Initiated on IV Solu-Medrol Pro calcitonin pending Outpatient PET scan 03/23/2023 We will continue to follow and make further recommendations based on his clinical status I have personally seen and examined the patient, performed the documentation and the assessment and plan as written. Number of minutes spent on the visit: 20.
[2023-03-16 12:07] LABS: African American GFR (CKD) 59.3 (60.0-200.0); Anion Gap 13.4 mmol/L (10.00-18.00); BUN/Creat Ratio 31.81 Ratio (12.00-20.00); Blood Urea Nitrogen 40.4 mg/dL (9.0-27.0); Calcium 9.4 mg/dL (8.7-10.3); Carbon Dioxide 21.5 mmol/L (20.0-27.5); Non-African American GFR(CKD) 51.2 (60.0-200.0)
[2023-03-16 12:09] LABS: Glucose,Whole Blood 301 mg/dL (70-110)
--- NOTE | 2023-03-16 12:40 | CT ---
EXAMINATION TYPE: CT angio chest DATE OF EXAM: 03/16/2023 COMPARISON: 01/06/2021 HISTORY: 83-year-old male shortness of breath, elevated d-dimer. TECHNIQUE: Contiguous axial scanning of the chest performed with IV Contrast, patient injected with 1 20 mL of Isovue 370. Coronal/sagittal MIP reconstructions performed. The patient had to be reinjected due to initial suboptimal enhancement. CT DLP: 756.30 mGycm Automated exposure control for dose reduction was used. FINDINGS: Median sternotomy wires are present with post-CABG changes. Heart borderline enlarged without pericardial effusion. Dense mitral annular calcifications. Ectatic aortic root at 3.6 cm. 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 Ectatic upper descending thoracic aorta 3.5 cm. Scattered mild atherosclerotic calcifications. Variant direct takeoff of the left vertebral artery directly from the aortic arch. After the second injection, there is satisfactory enhancement of the pulmonary arterial system. 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 Diffuse breathing motion artifact. No definite pulmonary embolus. New lower left paratracheal node measuring 1.1 cm. New left hilar nodes measuring up to 1.7 cm. There is contiguous abnormal opacity medial left upper lobe extending from the hilum measuring 4.7 x 4.1 c m. There is collapse of the basilar segments of the left lower lobe. Some patchy and nodular density posterior right upper lobe, axial and 33 is nonspecific and should be reassessed at follow-up. Prominent dependent atelectasis. Underlying emphysematous change and scatte red interstitial scarring. Redemonstrated moderate to large hiatal hernia involving a third to half of the stomach in the lower chest. Adjacent lower and periaortic nodes measuring up to 1.8 cm. Bilateral adrenal nodules measuring up to 2.9 cm concerning for possible collision lesions as smaller nodules were present on 06/24/2021. Hypodense splenic lesion measuring 2.3 cm appears new from 06/24/2021. Mild perihepatic ascites causes some scalloping of the right hepatic dome liver contour possibly refl ecting complicated ascites fluid. Cholecystectomy clips. A couple hypodensities left liver lobe measu ring up to 1.3 cm are nonspecific but favored to represent cysts. Cholecystectomy clips. Bones: Moderate to advanced degenerative disc disease at the lower lumbar spine. There is a lytic lesion involving the posterior T6 vertebral body IMPRESSION: 1. RECOMMEND MONITORING THE PATIENT'S KIDNEY FUNCTION. THE PATIENT HAD TO BE INJECTED WITH IV CONTRAS T TWICE DUE TO INITIAL SUBOPTIMAL ENHANCEMENT. 2. NO DEFINITE PULMONARY EMBOLISM allowing for mild motion artifact. 3. Metastatic disease: * Medial left upper lobe mass extending from the left suprahilar region measuring up to 4.7 cm. * Left hilar adenopathy. 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 * Suspect complicated perihepatic ascites given scalloping of the liver contour. * A couple large lower right paraesophageal lymph nodes could be reactive or could represent additio nal metastatic disease. * Lytic osseous metastasis posterior T6 vertebral body. * Suspect a splenic metastatic lesion as well. 4. Moderate-sized hiatal hernia redemonstrated.
[2023-03-16] MEDS: ACETAMINOPHEN TAB 325 MG TAB PO PRN (17:00)
[2023-03-16 17:22] LABS: Glucose,Whole Blood 447 mg/dL (70-110)
[2023-03-16] MEDS ORDERED: DEXTROSE 50% SYRINGE 50 ML IVP PRN ×2 (18:05)
--- NOTE | 2023-03-16 18:23 | P.CONS ---
History of Present Illness - Reason for Consult Consult date: 03/16/23 aortic mass Requesting physician: Bryce Segundo - Chief Complaint altered mental status - History of Present Illness Patient is a 82-year-old male with past medical history significant for hypertension, CAD, and COPD. Patient is new to us, and were consulted during his admission last week for posterior left aortic arch level mass measuring 5.1 x 4.2 cm, and thickening of the bilateral adrenal glands metastases are not excluded. Pt was evaluated by pulmonology for biopsy, and was scheduled outpatient for further evaluation. Patient had follow-up with Dr. Boyd, and biopsy is planned after PET/CT on 03/24. Patient has follow-up scheduled with Dr. Boyd on 03/26. And follow-up with Dr. Turner on 04/02 to discuss path findings and treatment options. patient presented to the emergency room with complaints of chest pain, confusion generalized weakness and feeling shaky. Of note patient was taking Xanax and [place] at home, however, states that she does not believe patient was taking any extra of the medication other than as prescribed. Patient reports feeling improved today. Denies chest pain shortness of breath and dizziness. Denies abdominal pain, blood in stool, melena, nausea, vomiting, and diarrhea. Patient is alert and oriented x 4 and is answering questions appropriately. Chest x-ray showed no evidence for acute pulmonary disease. Carotid doppler showed no significant stenosis in either internal carotid artery. CTA chest revealed no definite pulmonary embolism. 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 Suspected complicated perihepatic ascites giving scalloping of the liver contour, couple large lower right paraesophageal lymph nodes could be reactive or could represent additional metastatic disease. 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 Neuro consulted, EEG planned for today. Hemoglobin 10, hematocrit 32.9, MCV 75, platelets 519,000. Review of Systems 10 point ROS is negative except as stated in the HPI Past Medical History Past Medical History: Coronary Artery Disease (CAD), Cancer, Diabetes Mellitus, GERD/Reflux, Hypertension, Myocardial Infarction ([place]) Additional Past Medical History / Comment(s): Prostate CA [address] Carbera for it, Skin CA 1983. lung problems r/t asbestos and smoking wears Oxygen 2L NC @ hs. lower back pain Last Myocardial Infarction Date:: unknown History of Any Multi-Drug Resistant Organisms: None Reported Past Surgical History: Cholecystectomy, Coronary Bypass/CABG, Prostate Surgery Additional Past Surgical History / Comment(s): rt leg-tumor removed Past Anesthesia/Blood Transfusion Reactions: No Reported Reaction Past Psychological History: No Psychological Hx Reported Smoking Status: Former smoker Past Alcohol Use History: Occasional Additional Past Alcohol Use History / Comment(s): quit 1979 Past Drug Use History: None Reported - Past Family History Mother Family Medical History: No Reported History Medications and Allergies Home Medications Medication Instructions Recorded Confirmed Type Aspirin EC [Ecotrin Low Dose] 81 mg PO DAILY 12/03/18 03/15/23 History Metoprolol Tartrate [Lopressor] 25 mg PO HS 12/03/18 03/15/23 History lisinopriL [Prinivil] 5 mg PO DAILY 12/03/18 03/15/23 History Baclofen [Lioresal] 5 mg PO BID PRN 11/28/20 03/15/23 History Furosemide [Lasix] 40 mg PO DAILY 11/28/20 03/15/23 History Nitroglycerin Sl Tabs [Nitrostat] 0.4 mg SUBLINGUAL Q5M PRN 11/28/20 03/15/23 History Pantoprazole Sodium 40 mg PO BID 11/28/20 03/15/23 History Rosuvastatin Calcium [Crestor] 10 mg PO DAILY 11/28/20 03/15/23 History Umeclidinium Brm/Vilanterol Tr 1 puff INHALATION RT-DAILY 03/21/21 03/15/23 History [Anoro Ellipta 62.5-25 Mcg INH] Glimepiride [Amaryl] 4 mg PO DAILY 08/02/21 03/15/23 History Albuterol Inhaler [Ventolin Hfa 1 - 2 puff INHALATION RT-Q6H PRN 03/05/23 03/15/23 History Inhaler] Dapagliflozin Propanediol [Farxiga] 10 mg PO DAILY 03/05/23 03/15/23 History Insulin Degludec [Tresiba 45 units SQ DAILY 03/05/23 03/15/23 History Flextouch U-200 Pen] Isosorbide Mononitrate ER [Imdur] 30 mg PO DAILY 03/05/23 03/15/23 History Loperamide [Imodium] 2 mg PO QID PRN 03/05/23 03/15/23 History Multivitamins, Thera [Multivitamin 1 tab PO DAILY 03/05/23 03/15/23 History (formulary)] cilostazoL [Pletal] 100 mg PO BID 03/05/23 03/15/23 History Acetaminophen Tab [Tylenol] 650 mg PO Q6HR PRN tab 03/07/23 03/15/23 Rx ALPRAZolam [Xanax] 0.5 mg PO BID 03/15/23 03/15/23 History Glimepiride [Amaryl] 2 mg PO HS 03/15/23 03/15/23 History HYDROcodone/APAP 7.5-325MG [[place] 1 tab PO Q6HR PRN 03/15/23 03/15/23 History 7.5-325] Naloxone HCl [Narcan] 4 mg NASAL DIRECTED PRN 03/15/23 03/15/23 History predniSONE See Taper PO DIRECTED 03/15/23 03/15/23 History Allergies Allergy/AdvReac Type Severity Reaction Status Date / Time No Known Allergies Allergy Verified 03/15/23 11:02 Physical Exam Vitals: Vital Signs Temp Pulse Pulse Resp BP BP Pulse Ox 03/16/23 09:40 100 03/16/23 09:28 97 93 L 03/16/23 09:27 16 03/16/23 07:40 97.4 F L 87 16 136/76 93 L 03/16/23 03:02 97.4 F L 73 18 133/71 96 03/15/23 20:00 97.9 F 100 64 18 107/56 96 03/15/23 19:49 101 H 03/15/23 16:13 97.5 F L 101 H 16 113/68 94 L 03/15/23 15:53 102 H 18 93/60 94 L 03/15/23 15:00 69 18 92/53 98 03/15/23 14:00 102 H 18 99/69 98 03/15/23 12:45 110 H 16 116/72 96 03/15/23 12:15 109 H 18 93/60 91 L 03/15/23 11:51 103 H 03/15/23 11:43 101 H 03/15/23 10:53 100 18 92 L 03/15/23 10:35 98.4 F 85 18 111/58 Intake and Output 03/15/23 03/16/23 03/16/23 22:59 06:59 14:59 Intake Total 118 118 Output Total 600 800 Balance -482 -800 118 Intake: Oral 118 118 Output: Urine 600 800 Other: Voiding Method External Catheter External Catheter Weight 79.379 kg - Constitutional General appearance: average body habitus, no acute distress - EENT Eyes: anicteric sclerae, EOMI ENT: hearing grossly normal - Respiratory breathing mildly labored Respiratory: bilateral: CTA - Cardiovascular tachycardia Rhythm: regular Heart sounds: normal: S1, S2 Abnormal Heart Sounds: no systolic murmur, no diastolic murmur, no rub, no S3 Gallop, no S4 Gallop, no click, no other - Gastrointestinal General gastrointestinal: soft, no tenderness - Integumentary Integumentary: pale - Neurologic grossly intact - Musculoskeletal Musculoskeletal: generalized weakness - Psychiatric Psychiatric: A&O x's 3, appropriate affect, intact judgment & insight Results CBC & Chem 7: 03/16/23 05:53 03/16/23 05:53 Labs: Abnormal Lab Results - Last 24 Hours (Table) 03/15/23 03/15/23 03/15/23 Range/Units 11:08 11:08 11:08 Hgb 10.0 L D (13.0-17.5) gm/dL Hct 32.9 L (39.0-53.0) % MCV 75.3 L (80.0-100.0) fL MCH 22.8 L (25.0-35.0) pg MCHC 30.3 L (31.0-37.0) g/dL RDW 18.9 H (11.5-15.5) % Plt Count 519 H (150-450) k/uL Neutrophils # 9.1 H (1.3-7.7) k/uL Lymphocytes # 0.7 L (1.0-4.8) k/uL D-Dimer (<0.60) mg/L FEU Sodium 135 L (137-145) mmol/L BUN 43 H (9-20) mg/dL Glucose 333 H (74-99) mg/dL POC Glucose (mg/dL) (70-110) mg/dL Alkaline Phosphatase 156 H (38-126) U/L Total Protein 5.9 L (6.3-8.2) g/dL Albumin 3.3 L (3.5-5.0) g/dL Urine Glucose (UA) 4+ H (Negative) Urine Opiates Screen Detected H (NotDetected) U Benzodiazepines Scrn Detected H (NotDetected) 03/15/23 03/15/23 03/15/23 Range/Units 12:22 16:27 17:57 Hgb (13.0-17.5) gm/dL Hct (39.0-53.0) % MCV (80.0-100.0) fL MCH (25.0-35.0) pg MCHC (31.0-37.0) g/dL RDW (11.5-15.5) % Plt Count (150-450) k/uL Neutrophils # (1.3-7.7) k/uL Lymphocytes # (1.0-4.8) k/uL D-Dimer 3.29 H (<0.60) mg/L FEU Sodium (137-145) mmol/L BUN (9-20) mg/dL Glucose (74-99) mg/dL POC Glucose (mg/dL) 383 H 407 H (70-110) mg/dL Alkaline Phosphatase (38-126) U/L Total Protein (6.3-8.2) g/dL Albumin (3.5-5.0) g/dL Urine Glucose (UA) (Negative) Urine Opiates Screen (NotDetected) U Benzodiazepines Scrn (NotDetected) 03/15/23 03/16/23 Range/Units 21:02 07:45 Hgb (13.0-17.5) gm/dL Hct (39.0-53.0) % MCV (80.0-100.0) fL MCH (25.0-35.0) pg MCHC (31.0-37.0) g/dL RDW (11.5-15.5) % Plt Count (150-450) k/uL Neutrophils # (1.3-7.7) k/uL Lymphocytes # (1.0-4.8) k/uL D-Dimer (<0.60) mg/L FEU Sodium (137-145) mmol/L BUN (9-20) mg/dL Glucose (74-99) mg/dL POC Glucose (mg/dL) 432 H 196 H (70-110) mg/dL Alkaline Phosphatase (38-126) U/L Total Protein (6.3-8.2) g/dL Albumin (3.5-5.0) g/dL Urine Glucose (UA) (Negative) Urine Opiates Screen (NotDetected) U Benzodiazepines Scrn (NotDetected) Comments: carotid ultrasound reviewed Chest x-ray: report reviewed CT scan - chest: report reviewed Assessment and Plan (1) Mass of aorta Current Visit: Yes Status: Acute Priority: Medium Code(s): I77.89 - OTHER SPECIFIED DISORDERS OF ARTERIES AND ARTERIOLES SNOMED Code(s): 203650188 Plan: Aortic mass/ r/o malignancy: -CTA chest from previous admission revealed posterior left aortic arch level mass measuring 5.1 x 4.2 cm. Thickening of the bilateral adrenal glands metastases are not excluded, at which time we were consulted. He is being evaluated by pulmonology outpatient. Once patient receives PET scan on 03/24, he will undergo biopsy with Dr. Boyd, with follow-up with Dr. Turner on 04/02 to discuss path findings and treatment options. -Repeat CTA revealed no definite pulmonary embolism. 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 Suspected complicated perihepatic ascites giving scalloping of the liver contour, couple large lower right paraesophageal lymph nodes could be reactive or could represent additional metastatic disease. 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 -Will continue workup in the outpatient setting Anemia: -Hemoglobin 10, hematocrit 32.9, MCV 75, platelets 519,000, consistent with microcytic hypochromic anemia. After trending labs patient has been noted to have hemoglobin that typically runs in the 11 range -Patient denies blood in stool or melena. -Anemia workup ordered -Will continue to monitor counts. Please transfuse for hemoglobin less than 7 or if symptomatic Confusion: -Neuro consulted, EEG planned for today -Carotid doppler showed no significant stenosis in either internal carotid artery -Defer management to IM/neuro team attests: I have performed H&P and developed impression and plan of care for patient, discussed with dictator. I reviewed dictated note, documented as a scribe
[2023-03-16] MEDS: BUDESONIDE 1 MG/2 ML NEBU INHALATION SCH (20:03)
[2023-03-16] MEDS: FORMOTEROL FUMARATE 20 MCG/2 ML NEBU INHALATION SCH (20:04)
[2023-03-16 20:55] LABS: Glucose,Whole Blood 392 mg/dL (70-110)
[2023-03-16] MEDS: METOPROLOL TARTRATE 25 MG TAB PO SCH (21:47)
[2023-03-16] MEDS: GLIMEPIRIDE 2 MG TAB PO SCH (21:47)
[2023-03-17] MEDS: methylPREDNISolone SOD SUCCI 125 MG/2 ML VIAL IV SCH ×5 (00:41→23:52)
--- NOTE | 2023-03-17 01:25 | EEG ---
ELECTROENCEPHALOGRAM REPORT CLINICAL HISTORY: This is an 83-year-old gentleman who presented because of altered mental status. The video EEG is obtained to evaluate for seizure epileptiform activity. RELEVANT MEDICATIONS: Xanax, Standard and baclofen. EEG TYPE: A routine 21 channel EEG is performed with video using the 10/20 electrode placement system. DESCRIPTION: Wakefulness is only obtained. During awake state, the posterior-dominant rhythm consists of low to moderate voltage of 7 to 7.5 hertz activity that is well modulated, well sustained. There is no physiological sleep architecture. There is no focal slowing. Interictal and ictal is none. ACTIVATION PROCEDURE: Photic stimulation did not evoke a posterior driving response. There is no abnormality during the photic stimulation. Hyperventilation is not performed. CLINICAL INTERPRETATION: This is an abnormal routine EEG. The background slowing is suggestive of mild encephalopathy and one of the possibility, is due to medication effect. Otherwise, there is no focal slowing, epileptiform discharge or seizure on the EEG. Clinical correlation is recommended. MMGILA / JASMINN: [id number] / SRI
[2023-03-17 02:52] LABS: % Iron Saturation 8.3 (15.00-50.00)
[2023-03-17 06:20] LABS: Glucose,Whole Blood 97 mg/dL (70-110)
[2023-03-17] MEDS: PANTOPRAZOLE 40 MG TABLET PO SCH ×2 (06:33→18:18)
[2023-03-17] MEDS: GLIMEPIRIDE 4 MG TAB PO SCH (06:33)
[2023-03-17] MEDS: INSULIN DETEMIR (LEVEMIR) 100 UNIT/ML SYR SQ SCH ×2 (06:34→21:54)
[2023-03-17] MEDS: INSULIN ASPART (NovoLOG) 100 UNIT/ML VIAL SQ SCH ×7 (06:35→21:54)
[2023-03-17] MEDS: SODIUM CHLORIDE 0.9% 1,000 ML IV SCH ×2 (06:36→18:22)
--- NOTE | 2023-03-17 07:28 | PN ---
PROGRESS NOTE DATE OF SERVICE: 03/16/2023 SUBJECTIVE: This is an 83-year-old gentleman, who was admitted with change in mental status and multiple medical problems including uncontrolled diabetes mellitus, possibly medication effect. EEG is being planned by Neurology. D-dimer is elevated at 3.54 and carotid Doppler showed no hemodynamically significant stenosis PAST MEDICAL HISTORY: Reviewed. REVIEW OF SYSTEMS: A 14-point review is negative as mentioned earlier. MEDICATIONS: Current medications reviewed include DuoNeb. Doses and rest of the medications noted. OBJECTIVE: VITAL SIGNS: Pulse is 87, blood pressure 130/70, and respirations 16. HEENT: Conjunctivae are normal. NECK: . RESPIRATIONS: Bilateral scattered rhonchi and crackles. ABDOMEN: Soft and nontender. LEGS: diffusely weak. LABORATORY DATA: Reviewed. ASSESSMENT: 1. Change in mental status, multifactorial. 2. Chronic obstructive pulmonary disease acute exacerbation with acute hypoxic respiratory failure with hypoxia. 3. Possible acute transient ischemic attack. 4. Elevated D-dimer, rule out pulmonary embolism. 5. History of coronary artery disease. 6. Diabetes mellitus, type 2. 7. Hypertension. 8. History of prostate cancer. RECOMMENDATIONS: Recommend to continue current medications, symptomatic treatment. Otherwise, CT angio and EEG. Follow closely with Neurology. Follow closely with Pulmonary. Monitor blood sugars closely. Increase the dose of Lantus empirically to 40 b.i.d. and continue to monitor. The sugars seems to be improving significantly at this time and further recommendations to follow. MMELIOTL / IJN: [id number] /
[2023-03-17] MEDS: DAPAGLIFLOZIN PROPANEDIOL 10 MG TABLET PO SCH (08:12)
[2023-03-17] MEDS: FUROSEMIDE 40 MG TAB PO SCH (08:12)
[2023-03-17] MEDS: cilostazoL 100 MG TAB PO SCH ×2 (08:12→21:55)
[2023-03-17] MEDS: ASPIRIN 81 MG PO SCH (08:12)
[2023-03-17] MEDS: lisinopriL 5 MG TAB PO SCH (08:12)
[2023-03-17] MEDS: MULTIVITAMINS, THERA 1 EACH TAB PO SCH (08:12)
[2023-03-17] MEDS: ISOSORBIDE MONONITRATE ER 30 MG TAB.ER.24H PO SCH (08:12)
[2023-03-17] MEDS: ALPRAZolam 0.5 MG TAB PO SCH ×2 (08:12→21:55)
[2023-03-17] MEDS: ATORVASTATIN 20 MG TAB PO SCH (08:13)
[2023-03-17] MEDS: IPRATROPIUM-ALBUTEROL 3 ML NEB INHALATION SCH ×4 (08:56→21:00)
[2023-03-17] MEDS: BUDESONIDE 1 MG/2 ML NEBU INHALATION SCH ×2 (08:56→21:00)
[2023-03-17] MEDS: FORMOTEROL FUMARATE 20 MCG/2 ML NEBU INHALATION SCH ×2 (09:11→20:59)
[2023-03-17 10:28] LABS: Anisocytosis Slight; Basophils % (A) 0 %; Eosinophils % (A) 0 %; HCT 33.8 % (39.0-53.0); HGB 9.8 gm/dL (13.0-17.5); Hypochromasia Marked; Lymphocytes # (A) 0.9 k/uL (1.0-4.8); Lymphocytes % (A) 5 %; MCH 22.4 pg (25.0-35.0); MCHC 29.1 g/dL (31.0-37.0); MCV 77.2 fL (80.0-100.0); Mean Platelet Volume 7.1; Microcytosis Slight; Monocytes # (A) 0.6 k/uL (0-1.0); Monocytes % (A) 3 %; Neutrophils # (A) 16.5 k/uL (1.3-7.7); Neutrophils % (A) 91 %; Platelet Count 471 k/uL (150-450); RBC 4.37 m/uL (4.30-5.90); RDW 19.2 % (11.5-15.5); WBC 18.2 k/uL (3.8-10.6)
[2023-03-17 10:40] LABS: ALT 16 U/L (4-49); AST 23 U/L (17-59); African American GFR (CKD) 87 (>60 ml/min/1.73 sqM); Albumin/Globulin Ratio 1.2; Alkaline Phosphatase 140 U/L (38-126); Anion Gap 10 mmol/L; Blood Urea Nitrogen 32 mg/dL (9-20); Carbon Dioxide 21 mmol/L (22-30); Chloride 106 mmol/L (98-107); Globulin 2.6 g/dL; Glucose 151 mg/dL (74-99); Non-African American GFR(CKD) 75 (>60 ml/min/1.73 sqM); Potassium 4.5 mmol/L (3.5-5.1); Sodium 137 mmol/L (137-145); Total Bilirubin 0.2 mg/dL (0.2-1.3); Total Protein 5.6 g/dL (6.3-8.2)
--- NOTE | 2023-03-17 11:27 | P.PN ---
Subjective Progress Note Date: 03/17/23 This is a very pleasant 83-year-old male patient with a known history of hyperlipidemia, diabetes mellitus, gastroesophageal reflux disease, hypertension, spinal stenosis, prostate cancer, chronic obstructive pulmonary disease, former smoker. He was also recently found to have a large 5 x 4 cm mass in the left upper lobe with mediastinal invasion. He is to be scheduled for a PET scan. He follows with Dr. Boyd in our office. He was seen earlier this week and treated for COPD exacerbation. He was brought into the emergency room yesterday with altered mental status, lethargy, poor appetite and in creasing confusion. His has stated he was sleeping quite a bit. He was recently started on Xanax and [place] during his previous hospitalization here earlier this month. He also had complaints of shortness of breath, cough and congestion. Chest x-ray reveals no acute pulmonary process. Carotid Dopplers revealed no hemodynamically significant stenosis bilaterally. White count 11.8. Hemoglobin 9.6. Platelets 491. D-dimer 3.29. Glucose 201. Sodium 135. Potassium 5.1. Bicarb 23. BUN 43. Creatinine 1.14. Urine drug screen was positive for opiates and benzodiazepines. He is seen today in consultation on the regular medical floor. He is sitting up in bed. Awake and alert. Oriented 3. Maintaining O2 saturations in the 90s on 5 L/m per nasal cannula. He is afebrile. Hemodynamically stable. He's been initiated on DuoNeb inhalations Pulmicort and Perforomist inhalations, IV Solu-Medrol. Normal saline at 75 ML's per hour. MRI of the brain and EEG are pending. The patient is seen today 03/17/2023 in follow-up on the regular medical floor. He is currently resting comfortably in bed. Requiring 5 L nasal cannula currently to maintain O2 saturations in the 90s. He is still somewhat bronchospastic and wheezing. CT angiogram ruled out pulmonary embolism. Again evidence of metastatic disease with the medial left upper lobe mass extending from the left suprahilar region measuring up to 4.7 cm. Left hilar adenopathy. 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 Suspect complicated. Hepatic ascites. Large lower right paraesophageal lymph nodes could be reactive or represent additional metastatic disease. There is lytic osseous metastasis posterior T6 vertebral body. Suspected splenic metastatic lesion as well. Moderate size hiatal hernia redemonstrated. EEG revealed mild encephalopathy possibly secondary to medication effect. No focal slowing, epileptiform discharge or seizure. MRI of the brain is pending. White count 18.2. Hemoglobin 9.8. Platelets 471. Sodium 137. Potassium 4.5. Bicarb 21. BUN 32. Creatinine 0.93. He is continued on DuoNeb inhalations, Pulmicort and Perforomist inhalations, IV Solu- Medrol. Normal saline at 75 ML's per hour. Objective - Vital Signs Vital signs: Vital Signs Temp 97.5 F L 03/17/23 08:00 Pulse 114 H 03/17/23 09:19 Resp 20 03/17/23 08:00 BP 142/78 03/17/23 08:00 Pulse Ox 95 03/17/23 08:00 FiO2 Intake & Output 03/16/23 03/17/23 03/17/23 18:59 06:59 18:59 Intake Total 358 118 Output Total 1100 1200 Balance -742 -1200 118 Intake: Oral 358 118 Output: Urine 1100 1200 Other: Voiding Method External Catheter External Catheter - Exam GENERAL EXAM: Alert, pleasant 83-year-old gentleman, on 5 L nasal cannula, fairly comfortable in no apparent distress. HEAD: Normocephalic. EYES: Normal reaction of pupils, equal size. NOSE: Clear with pink turbinates. THROAT: No erythema or exudates. NECK: No masses, no JVD. CHEST: No chest wall deformity. LUNGS: Equal air entry with bilateral end expiratory wheeze, few scattered rhonchi. CVS: S1 and S2 normal with no audible murmur, regular rhythm. ABDOMEN: No hepatosplenomegaly, normal bowel sounds, no guarding or rigidity. SPINE: No scoliosis or deformity SKIN: No rashes CENTRAL NERVOUS SYSTEM: No focal deficits, tone is normal in all 4 extremities. EXTREMITIES: There is no peripheral edema. No clubbing, no cyanosis. Peripheral pulses are intact. - Labs CBC & Chem 7: 03/17/23 09:24 03/17/23 09:24 Labs: Abnormal Lab Results - Last 24 Hours (Table) 03/16/23 03/16/23 03/16/23 Range/Units 05:53 05:53 12:03 WBC (3.8-10.6) k/uL Hgb (13.0-17.5) gm/dL Hct (39.0-53.0) % MCV (80.0-100.0) fL MCH (25.0-35.0) pg MCHC (31.0-37.0) g/dL RDW (11.5-15.5) % Plt Count (150-450) k/uL Neutrophils # (1.3-7.7) k/uL Lymphocytes # (1.0-4.8) k/uL Carbon Dioxide (22-30) mmol/L BUN 40.4 H (9.0-27.0) mg/dL Est GFR (CKD-EPI)AfAm 59.3 L (60.0-200.0) Est GFR (CKD-EPI)NonAf 51.2 L (60.0-200.0) BUN/Creatinine Ratio 31.81 H (12.00-20.00) Ratio Glucose 183 H (70-110) mg/dL POC Glucose (mg/dL) (70-110) mg/dL Hemoglobin A1c 8.6 H (0.0-6.0) % Iron (65-175) ug/dL % Saturation (15.00-50.00) Alkaline Phosphatase (38-126) U/L Total Protein (6.3-8.2) g/dL Albumin (3.5-5.0) g/dL Vitamin B12 1526.0 H (200.0-944.0) pg/mL Procalcitonin (0.02-0.09) ng/mL TSH 0.292 L (0.350-5.500) uIU/mL 03/16/23 03/16/23 03/16/23 Range/Units 12:03 12:08 13:22 WBC (3.8-10.6) k/uL Hgb (13.0-17.5) gm/dL Hct (39.0-53.0) % MCV (80.0-100.0) fL MCH (25.0-35.0) pg MCHC (31.0-37.0) g/dL RDW (11.5-15.5) % Plt Count (150-450) k/uL Neutrophils # (1.3-7.7) k/uL Lymphocytes # (1.0-4.8) k/uL Carbon Dioxide (22-30) mmol/L BUN (9.0-27.0) mg/dL Est GFR (CKD-EPI)AfAm (60.0-200.0) Est GFR (CKD-EPI)NonAf (60.0-200.0) BUN/Creatinine Ratio (12.00-20.00) Ratio Glucose (70-110) mg/dL POC Glucose (mg/dL) 301 H (70-110) mg/dL Hemoglobin A1c (0.0-6.0) % Iron 28 L (65-175) ug/dL % Saturation 8.30 L (15.00-50.00) Alkaline Phosphatase (38-126) U/L Total Protein (6.3-8.2) g/dL Albumin (3.5-5.0) g/dL Vitamin B12 (200.0-944.0) pg/mL Procalcitonin 0.10 H (0.02-0.09) ng/mL TSH (0.350-5.500) uIU/mL 03/16/23 03/16/23 03/17/23 Range/Units 17:21 20:54 09:24 WBC 18.2 H (3.8-10.6) k/uL Hgb 9.8 L (13.0-17.5) gm/dL Hct 33.8 L (39.0-53.0) % MCV 77.2 L (80.0-100.0) fL MCH 22.4 L (25.0-35.0) pg MCHC 29.1 L (31.0-37.0) g/dL RDW 19.2 H (11.5-15.5) % Plt Count 471 H (150-450) k/uL Neutrophils # 16.5 H (1.3-7.7) k/uL Lymphocytes # 0.9 L (1.0-4.8) k/uL Carbon Dioxide (22-30) mmol/L BUN (9.0-27.0) mg/dL Est GFR (CKD-EPI)AfAm (60.0-200.0) Est GFR (CKD-EPI)NonAf (60.0-200.0) BUN/Creatinine Ratio (12.00-20.00) Ratio Glucose (70-110) mg/dL POC Glucose (mg/dL) 447 H 392 H (70-110) mg/dL Hemoglobin A1c (0.0-6.0) % Iron (65-175) ug/dL % Saturation (15.00-50.00) Alkaline Phosphatase (38-126) U/L Total Protein (6.3-8.2) g/dL Albumin (3.5-5.0) g/dL Vitamin B12 (200.0-944.0) pg/mL Procalcitonin (0.02-0.09) ng/mL TSH (0.350-5.500) uIU/mL 03/17/23 Range/Units 09:24 WBC (3.8-10.6) k/uL Hgb (13.0-17.5) gm/dL Hct (39.0-53.0) % MCV (80.0-100.0) fL MCH (25.0-35.0) pg MCHC (31.0-37.0) g/dL RDW (11.5-15.5) % Plt Count (150-450) k/uL Neutrophils # (1.3-7.7) k/uL Lymphocytes # (1.0-4.8) k/uL Carbon Dioxide 21 L (22-30) mmol/L BUN 32 H (9.0-27.0) mg/dL Est GFR (CKD-EPI)AfAm (60.0-200.0) Est GFR (CKD-EPI)NonAf (60.0-200.0) BUN/Creatinine Ratio (12.00-20.00) Ratio Glucose 151 H (70-110) mg/dL POC Glucose (mg/dL) (70-110) mg/dL Hemoglobin A1c (0.0-6.0) % Iron (65-175) ug/dL % Saturation (15.00-50.00) Alkaline Phosphatase 140 H (38-126) U/L Total Protein 5.6 L (6.3-8.2) g/dL Albumin 3.0 L (3.5-5.0) g/dL Vitamin B12 (200.0-944.0) pg/mL Procalcitonin (0.02-0.09) ng/mL TSH (0.350-5.500) uIU/mL Assessment and Plan Assessment: Altered mental status of unclear etiology. Possible opiate, benzodiazepine effect which were recently prescribed for the patient. Rule out metastatic disease. MRI of the brain pending. EEG revealed mild encephalopathy possibly medication effect. No seizure activity. The patient is awake and alert today. Recent diagnosis with a large left upper lobe lung mass, measuring 5 x 4 cm, with mediastinal invasion. Scheduled for an outpatient PET scan 03/23/2023. CT angiogram ruled out pulmonary embolism. Again evidence of metastatic disease with the medial left upper lobe mass extending from the left suprahilar region measuring up to 4.7 cm. Left hilar adenopathy. 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 Suspect complicated perihepatic ascites. Large lower right paraesophageal lymph nodes could be reactive or represent additional metastatic disease. There is lytic osseous metastasis posterior T6 vertebral body. Suspected splenic meta static lesion as well. Acute exacerbation of chronic obstructive pulmonary disease. FEV1 value 1.27 L which is 50% of predicted Moderate size hiatal hernia Former smoker Hypertension Gastroesophageal reflux disease Hyperlipidemia Diabetes mellitus, type II History of prostate cancer Plan: The patient was seen and evaluated CAT scan, EEG, labs and medications reviewed MRI of the brain pending CAT scan reveals significant metastatic disease Continue DuoNeb inhalations, Pulmicort and Perforomist inhalations Continue IV Solu-Medrol Pro calcitonin 0.11, initiated doxycycline Titrate the FiO2 as tolerated Overall prognosis is guarded We will continue to follow I have personally seen and examined the patient, performed the documentation and the assessment and plan as written. Number of minutes spent on the visit: 10.
[2023-03-17 13:10] LABS: Glucose,Whole Blood 236 mg/dL (70-110)
--- NOTE | 2023-03-17 15:04 | MR ---
EXAMINATION TYPE: MR brain wo/w con DATE OF EXAM: 03/17/2023 1:55 PM CLINICAL INDICATION:Male, 83 years old with history of confusion. has lung mass. r/o mets; Lung ca, confusion COMPARISON: None TECHNIQUE: Multi planar, multi sequence imaging was performed through the brain including: T1, T2, In version recovery, susceptibility weighted imaging and gradient echo imaging and Diffusion weighted im aging. The patient was then given intravenous contrast and multi planar, T1 fat-saturation images wer e obtained. IV Contrast: 7.5 cc Gadavist FINDINGS: Generalized Atrophy with proportional dilation to the ventricular system. The alvarado-white junctions, v entricular system, basal cisterns appear unremarkable. Diffusion-weighted imaging shows no evidence o f restricted diffusion to suggest acute/subacute infarct. Intracranial arterial flow voids are mainta ined. Midline structures show no abnormality. Scattered foci of high T2 signal intensity are seen wit hin the periventricular white matter. The susceptibility weighted images do not reveal any evidence f or micro-hemorrhage. After administration of gadolinium, no abnormal enhancement is seen. The bone marrow signal is within normal limits. Paranasal sinuses and mastoid air cells: No significant paranasal sinus disease. Visualized orbits: Bilateral aphakia IMPRESSION: 1. No evidence of intracranial mass, acute/subacute infarct, or abnormal enhancement. 2. Nonspecific white matter changes, likely related to small vessel ischemic disease 3. Generalized atrophy changes with proportional dilation of ventricular system.
[2023-03-17 18:01] LABS: Glucose,Whole Blood 262 mg/dL (70-110)
[2023-03-17] MEDS: METOPROLOL TARTRATE 25 MG TAB PO SCH (21:55)
[2023-03-17] MEDS: GLIMEPIRIDE 2 MG TAB PO SCH (21:55)
[2023-03-17] MEDS: DOXYCYCLINE 100 MG CAP PO SCH (21:55)
[2023-03-17 21:56] LABS: Glucose,Whole Blood 200 mg/dL (70-110)
--- NOTE | 2023-03-17 22:34 | P.PN ---
Subjective This is a pleasant 82 years old male with multiple medical problems presents with chest pain, was recently discharged from is a known case of lung mass with bilateral adrenal gland thickening. Also was diagnosed with pneumonia and discharged on antibiotics and Taper steroids. Presents with altered mental status thought secondary to L4 using of his NX unremarkable. 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 MRI of the brain is negative for metastatic disease, EEG is not showing any epileptiform discharge. Neurologically looks stable Also has been treated for acute COPD exacerbation with some withdrawal 60 mg, doxycycline and normal saline Today patient is back to his basic mentation, family at bedside, he was eating his lunch with good appetite and he is mildly tachypneic at rest on the significant coughing, no chest pain. No abdominal pain and diarrhea organomegaly complaints. No fever. Workup showing hemoglobin A1c 8.6, glucose is elevated therefore will increase his NovoLog 8 units up to 11 units with meals. Potential stone in 0.10. Patient also with low TSH and normal T4. He has leukocytosis as well as on steroids. Hemoglobin 9.8. Was 11.5 last admission. Platelet count elevated. Creatinine back to normal. Patient is still tachycardic and EKG showing sinus tachycardia Patient currently kept on IV Solu-Medrol 60 mg, doxycycline and normal saline 75 mL/h Objective - Vital Signs Vital signs: Vital Signs Temp 97.5 F L 03/17/23 08:00 Pulse 114 H 03/17/23 09:19 Resp 20 03/17/23 08:00 BP 142/78 03/17/23 08:00 Pulse Ox 95 03/17/23 08:00 FiO2 Intake & Output 03/16/23 03/17/23 03/17/23 18:59 06:59 18:59 Intake Total 358 118 Output Total 1100 1200 Balance -742 -1200 118 Intake: Oral 358 118 Output: Urine 1100 1200 Other: Voiding Method External Catheter External Catheter - Exam -GENERAL: The patient is alert and oriented x3, not in any acute distress. Obese HEENT: Pupils are round and equally reacting to light. EOMI. No scleral icterus. No conjunctival pallor. Normocephalic, atraumatic. No pharyngeal erythema. No thyromegaly. CARDIOVASCULAR: S1 and S2 present. No murmurs, rubs, or gallops. -PULMONARY: Chest is clear to auscultation, scattered wheezing. no crackles. ABDOMEN: Soft, nontender, nondistended, normoactive bowel sounds. No palpable organomegaly. MUSCULOSKELETAL: No joint swelling or deformity. EXTREMITIES: No cyanosis, clubbing, or pedal edema. NEUROLOGICAL: Gross neurological examination did not reveal any focal deficits. SKIN: No rashes. no petechiae. - Labs CBC & Chem 7: 03/17/23 09:24 03/17/23 09:24 Labs: Abnormal Lab Results - Last 24 Hours (Table) 03/16/23 03/16/23 03/16/23 Range/Units 12:03 12:03 13:22 WBC (3.8-10.6) k/uL Hgb (13.0-17.5) gm/dL Hct (39.0-53.0) % MCV (80.0-100.0) fL MCH (25.0-35.0) pg MCHC (31.0-37.0) g/dL RDW (11.5-15.5) % Plt Count (150-450) k/uL Neutrophils # (1.3-7.7) k/uL Lymphocytes # (1.0-4.8) k/uL Carbon Dioxide (22-30) mmol/L BUN (9-20) mg/dL Glucose (74-99) mg/dL POC Glucose (mg/dL) (70-110) mg/dL Iron 28 L (65-175) ug/dL % Saturation 8.30 L (15.00-50.00) Alkaline Phosphatase (38-126) U/L Total Protein (6.3-8.2) g/dL Albumin (3.5-5.0) g/dL Vitamin B12 1526.0 H (200.0-944.0) pg/mL Procalcitonin 0.10 H (0.02-0.09) ng/mL TSH 0.292 L (0.350-5.500) uIU/mL 03/16/23 03/16/23 03/17/23 Range/Units 17:21 20:54 09:24 WBC 18.2 H (3.8-10.6) k/uL Hgb 9.8 L (13.0-17.5) gm/dL Hct 33.8 L (39.0-53.0) % MCV 77.2 L (80.0-100.0) fL MCH 22.4 L (25.0-35.0) pg MCHC 29.1 L (31.0-37.0) g/dL RDW 19.2 H (11.5-15.5) % Plt Count 471 H (150-450) k/uL Neutrophils # 16.5 H (1.3-7.7) k/uL Lymphocytes # 0.9 L (1.0-4.8) k/uL Carbon Dioxide (22-30) mmol/L BUN (9-20) mg/dL Glucose (74-99) mg/dL POC Glucose (mg/dL) 447 H 392 H (70-110) mg/dL Iron (65-175) ug/dL % Saturation (15.00-50.00) Alkaline Phosphatase (38-126) U/L Total Protein (6.3-8.2) g/dL Albumin (3.5-5.0) g/dL Vitamin B12 (200.0-944.0) pg/mL Procalcitonin (0.02-0.09) ng/mL TSH (0.350-5.500) uIU/mL 03/17/23 Range/Units 09:24 WBC (3.8-10.6) k/uL Hgb (13.0-17.5) gm/dL Hct (39.0-53.0) % MCV (80.0-100.0) fL MCH (25.0-35.0) pg MCHC (31.0-37.0) g/dL RDW (11.5-15.5) % Plt Count (150-450) k/uL Neutrophils # (1.3-7.7) k/uL Lymphocytes # (1.0-4.8) k/uL Carbon Dioxide 21 L (22-30) mmol/L BUN 32 H (9-20) mg/dL Glucose 151 H (74-99) mg/dL POC Glucose (mg/dL) (70-110) mg/dL Iron (65-175) ug/dL % Saturation (15.00-50.00) Alkaline Phosphatase 140 H (38-126) U/L Total Protein 5.6 L (6.3-8.2) g/dL Albumin 3.0 L (3.5-5.0) g/dL Vitamin B12 (200.0-944.0) pg/mL Procalcitonin (0.02-0.09) ng/mL TSH (0.350-5.500) uIU/mL Assessment and Plan Assessment: 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, and on this CAT scan 4.7 cm, suspicious for malignancy. 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 Resolved and patient is back to baseline Diabetes mellitus with hyperglycemia Coronary artery disease status post CABG Hypertension Dyslipidemia Plan: Continue with IV Solu-Medrol 60 mg and doxycycline Continue with normal saline 75 mm/h MRI and EEG of the brain were unremarkable for explanation for the patient's presentation. Case discussed with the neurology service. Patient is neurologically stable. Pulmonary team followed closely. Patient aware about his lung mass and the need for work up as an outpatient Labs and medication were reviewed.. Continue same treatment. Continue with symptomatic treatment. Resume home medication. Monitor labs and vitals. DVT and GI prophylaxis. Further recommendations as per clinical course of the patient GI Prophylaxis: Ppi Prognosis is guarded
[2023-03-18 06:13] LABS: Glucose,Whole Blood 98 mg/dL (70-110)
[2023-03-18] MEDS: INSULIN ASPART (NovoLOG) 100 UNIT/ML VIAL SQ SCH ×7 (06:16→21:13)
[2023-03-18] MEDS: methylPREDNISolone SOD SUCCI 125 MG/2 ML VIAL IV SCH ×3 (06:28→18:05)
[2023-03-18] MEDS: ATORVASTATIN 20 MG TAB PO SCH (07:38)
[2023-03-18] MEDS: ALPRAZolam 0.5 MG TAB PO SCH ×2 (07:38→21:13)
[2023-03-18] MEDS: DOXYCYCLINE 100 MG CAP PO SCH ×2 (07:38→21:14)
[2023-03-18] MEDS: MULTIVITAMINS, THERA 1 EACH TAB PO SCH (07:38)
[2023-03-18] MEDS: ACETAMINOPHEN TAB 325 MG TAB PO PRN (07:38)
[2023-03-18] MEDS: lisinopriL 5 MG TAB PO SCH (07:38)
[2023-03-18] MEDS: ISOSORBIDE MONONITRATE ER 30 MG TAB.ER.24H PO SCH (07:38)
[2023-03-18] MEDS: cilostazoL 100 MG TAB PO SCH ×2 (07:39→21:14)
[2023-03-18] MEDS: FUROSEMIDE 40 MG TAB PO SCH (07:39)
[2023-03-18] MEDS: PANTOPRAZOLE 40 MG TABLET PO SCH ×2 (07:39→18:06)
[2023-03-18] MEDS: ASPIRIN 81 MG PO SCH (07:39)
[2023-03-18] MEDS: INSULIN DETEMIR (LEVEMIR) 100 UNIT/ML SYR SQ SCH ×2 (08:40→21:13)
[2023-03-18] MEDS: DAPAGLIFLOZIN PROPANEDIOL 10 MG TABLET PO SCH (08:41)
[2023-03-18] MEDS: GLIMEPIRIDE 4 MG TAB PO SCH (08:41)
[2023-03-18] MEDS: SODIUM CHLORIDE 0.9% 1,000 ML IV SCH ×3 (08:42→21:49)
[2023-03-18] MEDS: IPRATROPIUM-ALBUTEROL 3 ML NEB INHALATION SCH ×4 (09:20→20:24)
[2023-03-18] MEDS: FORMOTEROL FUMARATE 20 MCG/2 ML NEBU INHALATION SCH ×2 (09:20→20:24)
[2023-03-18] MEDS: BUDESONIDE 1 MG/2 ML NEBU INHALATION SCH ×2 (09:20→20:24)
--- NOTE | 2023-03-18 10:27 | P.PN ---
Subjective Progress Note Date: 03/18/23 This is a very pleasant 83-year-old male patient with a known history of hyperlipidemia, diabetes mellitus, gastroesophageal reflux disease, hypertension, spinal stenosis, prostate cancer, chronic obstructive pulmonary disease, former smoker. He was also recently found to have a large 5 x 4 cm mass in the left upper lobe with mediastinal invasion. He is to be scheduled for a PET scan. He follows with Dr. Boyd in our office. He was seen earlier this week and treated for COPD exacerbation. He was brought into the emergency room yesterday with altered mental status, lethargy, poor appetite and in creasing confusion. His has stated he was sleeping quite a bit. He was recently started on Xanax and [place] during his previous hospitalization here earlier this month. He also had complaints of shortness of breath, cough and congestion. Chest x-ray reveals no acute pulmonary process. Carotid Dopplers revealed no hemodynamically significant stenosis bilaterally. White count 11.8. Hemoglobin 9.6. Platelets 491. D-dimer 3.29. Glucose 201. Sodium 135. Potassium 5.1. Bicarb 23. BUN 43. Creatinine 1.14. Urine drug screen was positive for opiates and benzodiazepines. He is seen today in consultation on the regular medical floor. He is sitting up in bed. Awake and alert. Oriented 3. Maintaining O2 saturations in the 90s on 5 L/m per nasal cannula. He is afebrile. Hemodynamically stable. He's been initiated on DuoNeb inhalations Pulmicort and Perforomist inhalations, IV Solu-Medrol. Normal saline at 75 ML's per hour. MRI of the brain and EEG are pending. The patient is seen today 03/17/2023 in follow-up on the regular medical floor. He is currently resting comfortably in bed. Requiring 5 L nasal cannula currently to maintain O2 saturations in the 90s. He is still somewhat bronchospastic and wheezing. CT angiogram ruled out pulmonary embolism. Again evidence of metastatic disease with the medial left upper lobe mass extending from the left suprahilar region measuring up to 4.7 cm. Left hilar adenopathy. 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 Suspect complicated. Hepatic ascites. Large lower right paraesophageal lymph nodes could be reactive or represent additional metastatic disease. There is lytic osseous metastasis posterior T6 vertebral body. Suspected splenic metastatic lesion as well. Moderate size hiatal hernia redemonstrated. EEG revealed mild encephalopathy possibly secondary to medication effect. No focal slowing, epileptiform discharge or seizure. MRI of the brain is pending. White count 18.2. Hemoglobin 9.8. Platelets 471. Sodium 137. Potassium 4.5. Bicarb 21. BUN 32. Creatinine 0.93. He is continued on DuoNeb inhalations, Pulmicort and Perforomist inhalations, IV Solu- Medrol. Normal saline at 75 ML's per hour. The patient is seen today 03/18/2023 in follow-up on the regular medical floor. He is currently sitting up in a chair at the bedside. More awake and alert today. Oriented. MRI of the brain revealed no evidence of metastasis. He is still dyspneic with conversation. Dyspneic with minimal exertion. Still is some bilateral wheezing. Blood culture pending. Blood sugar 98. He is continued on DuoNeb inhalations, Pulmicort and Perforomist inhalations, IV Solu- Medrol. Her antibiotics in the form of doxycycline. Normal saline at 75 ML's per hour. Objective - Vital Signs Vital signs: Vital Signs Temp 98.1 F 03/18/23 08:00 Pulse 108 H 03/18/23 09:37 Resp 16 03/18/23 08:00 BP 129/78 03/18/23 08:00 Pulse Ox 95 03/18/23 09:20 FiO2 Intake & Output 03/17/23 03/18/23 03/18/23 18:59 06:59 18:59 Intake Total 476 118 Output Total 1050 450 Balance -574 -332 Intake: Oral 476 118 Output: Urine 1050 450 Other: Voiding Method External Catheter External Catheter Urinal # Bowel Movements 1 - Exam GENERAL EXAM: Alert, pleasant 83-year-old gentleman, up in a chair, on 5 L nasal cannula, fairly comfortable in no apparent distress. HEAD: Normocephalic. EYES: Normal reaction of pupils, equal size. NOSE: Clear with pink turbinates. THROAT: No erythema or exudates. NECK: No masses, no JVD. CHEST: No chest wall deformity. LUNGS: Equal air entry with bilateral end expiratory wheeze, few scattered rhonchi. CVS: S1 and S2 normal with no audible murmur, regular rhythm. ABDOMEN: No hepatosplenomegaly, normal bowel sounds, no guarding or rigidity. SPINE: No scoliosis or deformity SKIN: No rashes CENTRAL NERVOUS SYSTEM: No focal deficits, tone is normal in all 4 extremities. EXTREMITIES: There is no peripheral edema. No clubbing, no cyanosis. Peripheral pulses are intact. - Labs CBC & Chem 7: 03/17/23 09:24 03/17/23 09:24 Labs: Abnormal Lab Results - Last 24 Hours (Table) 03/17/23 03/17/23 03/17/23 Range/Units 09:24 09:24 13:09 WBC 18.2 H (3.8-10.6) k/uL Hgb 9.8 L (13.0-17.5) gm/dL Hct 33.8 L (39.0-53.0) % MCV 77.2 L (80.0-100.0) fL MCH 22.4 L (25.0-35.0) pg MCHC 29.1 L (31.0-37.0) g/dL RDW 19.2 H (11.5-15.5) % Plt Count 471 H (150-450) k/uL Neutrophils # 16.5 H (1.3-7.7) k/uL Lymphocytes # 0.9 L (1.0-4.8) k/uL Carbon Dioxide 21 L (22-30) mmol/L BUN 32 H (9-20) mg/dL Glucose 151 H (74-99) mg/dL POC Glucose (mg/dL) 236 H (70-110) mg/dL Alkaline Phosphatase 140 H (38-126) U/L Total Protein 5.6 L (6.3-8.2) g/dL Albumin 3.0 L (3.5-5.0) g/dL 03/17/23 03/17/23 Range/Units 17:59 21:51 WBC (3.8-10.6) k/uL Hgb (13.0-17.5) gm/dL Hct (39.0-53.0) % MCV (80.0-100.0) fL MCH (25.0-35.0) pg MCHC (31.0-37.0) g/dL RDW (11.5-15.5) % Plt Count (150-450) k/uL Neutrophils # (1.3-7.7) k/uL Lymphocytes # (1.0-4.8) k/uL Carbon Dioxide (22-30) mmol/L BUN (9-20) mg/dL Glucose (74-99) mg/dL POC Glucose (mg/dL) 262 H 200 H (70-110) mg/dL Alkaline Phosphatase (38-126) U/L Total Protein (6.3-8.2) g/dL Albumin (3.5-5.0) g/dL Microbiology - Last 24 Hours (Table) 03/16/23 12:10 Blood Culture - Preliminary Blood Assessment and Plan Assessment: Altered mental status of unclear etiology. Possible opiate, benzodiazepine effect which were recently prescribed for the patient. MRI of the brain revealed no evidence of metastasis. EEG revealed mild encephalopathy possibly medication effect. No seizure activity. The patient is awake and alert today. Sitting up in a chair. Oriented Recent diagnosis with a large left upper lobe lung mass, measuring 5 x 4 cm, with mediastinal invasion. Scheduled for an outpatient PET scan 03/23/2023. CT angiogram ruled out pulmonary embolism. Again evidence of metastatic disease with the medial left upper lobe mass extending from the left suprahilar region measuring up to 4.7 cm. Left hilar adenopathy. 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 Suspect complicated perihepatic ascites. Large lower right paraesophageal lymph nodes could be reactive or represent additional metastatic disease. There is lytic osseous metastasis posterior T6 vertebral body. Suspected splenic metastatic lesion as well. Acute exacerbation of chronic obstructive pulmonary disease. FEV1 value 1.27 L which is 50% of predicted Moderate size hiatal hernia Former smoker Hypertension Gastroesophageal reflux disease Hyperlipidemia Diabetes mellitus, type II History of prostate cancer Plan: The patient was seen and evaluated MRI of the brain, labs and medications reviewed No brain metastasis CAT scan of the chest reveals significant metastatic disease Continue DuoNeb inhalations, Pulmicort and Perforomist inhalations Continue IV Solu-Medrol, doxycycline Titrate the FiO2 as tolerated Overall prognosis is guarded We'll decide if any biopsies this admission Scheduled for outpatient PET scan on 03/23/2023 We will continue to follow I have personally seen and examined the patient, performed the documentation and the assessment and plan as written. Number of minutes spent on the visit: 10.
--- NOTE | 2023-03-18 12:08 | P.PN ---
Subjective Progress Note Date: 03/18/23 The patient is seen as a follow-up and he was sitting in a recliner chair and he feels he is doing well. Denies of any new neurological issues. Objective - Vital Signs Vital signs: Vital Signs Temp 98.1 F 03/18/23 08:00 Pulse 108 H 03/18/23 09:37 Resp 16 03/18/23 08:00 BP 129/78 03/18/23 08:00 Pulse Ox 95 03/18/23 09:20 FiO2 Intake & Output 03/17/23 03/18/23 03/18/23 18:59 06:59 18:59 Intake Total 476 118 Output Total 1050 450 Balance -574 -332 Intake: Oral 476 118 Output: Urine 1050 450 Other: Voiding Method External Catheter External Catheter Urinal # Bowel Movements 1 - Exam GENERAL: The patient is sitting in a recliner chair and is not in acute distress. NEUROLOGICAL: Higher mental function: The patient is awake, alert, oriented to self, place and time. Patient is able to name objects (watch and pen). Patient is following simple commands. No aphasia and no neglect. Cranial nerves: The pupils are round, equal and reactive to light. Visual mckenna are full to confrontation throughout. Extraocular movement is intact no nystagmus is noted. Facial sensation is normal to touch throughout. The facial strength is normal throughout. Hearing is moderately decreased bilaterally to hand rub. Tongue is midline and moved [id number] without any difficulty. No dysarthria is noted. Shoulder shrug is normal bilaterally. Motor: The strength is 5 over 5 throughout uppers. Lowers limited since had chronic low back pain but was able to lift above gravity and appears 3-4. Normal tone and bulk. Cerebellum: Normal finger to nose bilaterally. Sensation: Sensation is normal to touch throughout. Reflexes (right/left): 2+ in uppers while lowers are 1+. Plantars are mute bilaterally. Some of the workup during his hospital visit consisted of: Patient's hemoglobin is 10.0 MCV is 75.3 platelets 519. Glucose is 333, sodium is 135 otherwise the calcium before meals ALTs within normal limits. Vitamin B 12: 1526 Serum folate is 23.80 TSH is 0.292 while the free T4 is 1.10 Hemoglobin A1c is 8.6 Urine drug screen is positive for benzo and opiates. Carotid duplex was reported as no hemodynamic significant stenosis in either internal carotid artery. MRI the brain is reported as no evidence of intracranial mass, acute/subacute infarct or abnormal enhancement. Nonspecific white matter changes likely related to small vessel ischemic disease. Generalized atrophy changes with proportional dilation of ventricle system. I personally reviewed the MRI and agree with the report. Routine EEGs abnormal. The back also suggestive of mild encephalopathy and one of the possibilities due to medication effect. Otherwise there is no focal slowing, epileptiform discharges or seizure on the EEG. - Labs CBC & Chem 7: 03/17/23 09:24 03/17/23 09:24 Labs: Abnormal Lab Results - Last 24 Hours (Table) 03/17/23 03/17/23 03/17/23 Range/Units 13:09 17:59 21:51 POC Glucose (mg/dL) 236 H 262 H 200 H (70-110) mg/dL Microbiology - Last 24 Hours (Table) 03/16/23 12:10 Blood Culture - Preliminary Blood Assessment and Plan Assessment: This is an 83-year-old gentleman with history of newly diagnosed left upper lobe mass who presented because of altered mental status, fatigue and generalized weakness. Seems that the patient was started on Xanax and [place] recently. Altered mental status seems due to multifactorial: Predominantly medication effect ([place] and Xanax (both started new and Baclofen especially in elderly patient), hypoxic encephalopathy, uncontrolled diabetes--mentation improved. MRI Brain is negative for mass or acute/subacute stroke. Newly Diagnosis left upper lung mass Diabetes mellitus. His latest hemoglobin A1c is 8.6 and that was on in 03/07/2023 Chronic hypoxic respiratory failure on home oxygen History of coronary artery disease with previous [place] Chronic lower back pain History of asbestos exposure History of skin cancer History of coronary artery disease status post bypass surgery History of COPD Remote ex-smoker Plan: Recommend if possible avoiding Xanax and opiates since there are both newly started and can be the culprit of patient's confusion. Pulmonary team is on board Oncology team is on board We'll defer the rest of the medical management to primary team The plan was discussed with the patient and his nurse. Neurology will sign off. Please reconsult, if any further concerns. Time with Patient: Less than 30
[2023-03-18 12:25] LABS: Glucose,Whole Blood 301 mg/dL (70-110)
[2023-03-18] MEDS: METOPROLOL TARTRATE 25 MG TAB PO SCH ×2 (13:54→21:14)
[2023-03-18 17:25] LABS: Glucose,Whole Blood 266 mg/dL (70-110)
[2023-03-18] MEDS: BENZONATATE 100 MG CAP PO PRN ×2 (18:06→21:15)
[2023-03-18 20:52] LABS: Glucose,Whole Blood 273 mg/dL (70-110)
[2023-03-18] MEDS: GLIMEPIRIDE 2 MG TAB PO SCH (21:14)
--- NOTE | 2023-03-18 21:33 | P.PN ---
Subjective This is a pleasant 82 years old male with multiple medical problems presents with chest pain, was recently discharged from is a known case of lung mass with bilateral adrenal gland thickening. Also was diagnosed with pneumonia and discharged on antibiotics and Taper steroids. Presents with altered mental status thought secondary to L4 using of his NX unremarkable. 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 MRI of the brain is negative for metastatic disease, EEG is not showing any epileptiform discharge. Neurologically looks stable Also has been treated for acute COPD exacerbation with some withdrawal 60 mg, doxycycline and normal saline Today patient is back to his basic mentation, family at bedside, he was eating his lunch with good appetite and he is mildly tachypneic at rest on the significant coughing, no chest pain. No abdominal pain and diarrhea organomegaly complaints. No fever. Workup showing hemoglobin A1c 8.6, glucose is elevated therefore will increase his NovoLog 8 units up to 11 units with meals. Potential stone in 0.10. Patient also with low TSH and normal T4. He has leukocytosis as well as on steroids. Hemoglobin 9.8. Was 11.5 last admission. Platelet count elevated. Creatinine back to normal. Patient is still tachycardic and EKG showing sinus tachycardia Patient currently kept on IV Solu-Medrol 60 mg, doxycycline and normal saline 75 mL/h 03/18/2023 patient overall clinically doing well, he has good appetite and eating well. No significant dyspnea at rest mildly tachypneic. No chest pain He is saturating 90-94% on room air but he is mildly tachycardic 105-120, EKG showing sinus tachycardia, telemetry show short run of nonsustained V. tach, metoprolol 25 mg at bedtime increased to twice a day and we consulted cardiology service as well Ketamine is on Solu-Medrol and doxycycline, normal saline 75 mL/h lower to 50 mL/h Plan for him to undergo PET scan as an outpatient and then possible bronchoscopy for diagnostic purposes. MRI of the brain is negative for metastatic disease. EEG is unremarkable for epileptiform discharge, neurology service signed off. Possible discharge in 24-48 hours Objective - Vital Signs Vital signs: Vital Signs Temp 98.1 F 03/18/23 08:00 Pulse 108 H 03/18/23 09:37 Resp 16 04/30/23 08:00 BP 129/78 03/18/23 08:00 Pulse Ox 95 03/18/23 09:20 FiO2 Intake & Output 03/17/23 03/18/23 03/18/23 18:59 06:59 18:59 Intake Total 476 118 Output Total 1050 450 Balance -574 -332 Intake: Oral 476 118 Output: Urine 1050 450 Other: Voiding Method External Catheter External Catheter Urinal # Bowel Movements 1 - Exam -GENERAL: The patient is alert and oriented x3, not in any acute distress. Obese HEENT: Pupils are round and equally reacting to light. EOMI. No scleral icterus. No conjunctival pallor. Normocephalic, atraumatic. No pharyngeal erythema. No thyromegaly. CARDIOVASCULAR: S1 and S2 present. No murmurs, rubs, or gallops. -PULMONARY: Chest is clear to auscultation, scattered wheezing. no crackles. ABDOMEN: Soft, nontender, nondistended, normoactive bowel sounds. No palpable organomegaly. MUSCULOSKELETAL: No joint swelling or deformity. EXTREMITIES: No cyanosis, clubbing, or pedal edema. NEUROLOGICAL: Gross neurological examination did not reveal any focal deficits. SKIN: No rashes. no petechiae. 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 Resolved and patient is back to baseline Diabetes mellitus with hyperglycemia Coronary artery disease status post CABG Hypertension Dyslipidemia Plan: Continue with IV Solu-Medrol 60 mg and doxycycline Continue with normal saline 50 mm/h Increase metoprolol 25 mg 2 twice a day. I'll consult cardiology MRI and EEG of the brain were unremarkable for explanation for the patient's presentation. Neurology service signed off Pulmonary team followed closely. Patient aware about his lung mass and the need for work up as an outpatient Labs and medication were reviewed.. Continue same treatment. Continue with symptomatic treatment. Resume home medication. Monitor labs and vitals. DVT and GI prophylaxis. Further recommendations as per clinical course of the patient GI Prophylaxis: Ppi Prognosis is guarded
[2023-03-19] MEDS: methylPREDNISolone SOD SUCCI 125 MG/2 ML VIAL IV SCH ×3 (00:26→12:22)
[2023-03-19] MEDS: PANTOPRAZOLE 40 MG TABLET PO SCH ×2 (06:37→17:53)
[2023-03-19 07:17] LABS: Glucose,Whole Blood 73 mg/dL (70-110)
[2023-03-19] MEDS: INSULIN ASPART (NovoLOG) 100 UNIT/ML VIAL SQ SCH ×7 (08:15→20:29)
[2023-03-19] MEDS: FORMOTEROL FUMARATE 20 MCG/2 ML NEBU INHALATION SCH ×2 (09:07→18:52)
[2023-03-19] MEDS: BUDESONIDE 1 MG/2 ML NEBU INHALATION SCH ×2 (09:07→18:53)
[2023-03-19] MEDS: IPRATROPIUM-ALBUTEROL 3 ML NEB INHALATION SCH ×4 (09:08→18:51)
[2023-03-19 09:22] LABS: Basophils # (A) 0.01 X 10*3/uL (0.00-0.10); Basophils % (A) 0.1 %; Eosinophils # (A) 0 X 10*3/uL (0.04-0.35); Eosinophils % (A) 0 %; HCT 31.2 % (39.6-50.0); HGB 9.4 g/dL (13.0-17.0); Immature Grans, Automated 0.8 %; Lymphocytes % (A) 6.3 %; MCH 22.9 pg (27.0-32.0); MCHC 30.1 g/dL (32.0-37.0); MCV 76.1 fL (80.0-97.0); Mean Platelet Volume 8.9 fL (9.5-12.2); Monocytes # (A) 0.72 X 10*3/uL (0.20-1.00); Monocytes % (A) 4.5 %; NRBC Per 100 WBC 0.3 /100 WBCS (0.0-0.0); Neutrophils # (A) 14.04 X 10*3/uL (1.80-7.70); Neutrophils % (A) 88.3 %; Platelet Count 453 X 10*3/uL (140-440); RDW 20.7 % (11.5-14.5)
[2023-03-19 09:28] LABS: Magnesium 2.2 mg/dL (1.5-2.4)
[2023-03-19] MEDS: GLIMEPIRIDE 4 MG TAB PO SCH (09:29)
[2023-03-19] MEDS: DOXYCYCLINE 100 MG CAP PO SCH ×2 (09:30→20:23)
[2023-03-19] MEDS: ASPIRIN 81 MG PO SCH (09:30)
[2023-03-19] MEDS: DAPAGLIFLOZIN PROPANEDIOL 10 MG TABLET PO SCH (09:30)
[2023-03-19] MEDS: FUROSEMIDE 40 MG TAB PO SCH (09:30)
[2023-03-19] MEDS: cilostazoL 100 MG TAB PO SCH ×2 (09:30→20:22)
[2023-03-19] MEDS: METOPROLOL TARTRATE 25 MG TAB PO SCH (09:30)
[2023-03-19] MEDS: ALPRAZolam 0.5 MG TAB PO SCH ×2 (09:30→20:23)
[2023-03-19] MEDS: MULTIVITAMINS, THERA 1 EACH TAB PO SCH (09:30)
[2023-03-19] MEDS: ATORVASTATIN 20 MG TAB PO SCH (09:30)
[2023-03-19 09:31] LABS: African American GFR (CKD) 89.9 (60.0-200.0); Anion Gap 8.5 mmol/L (10.00-18.00); BUN/Creat Ratio 40.22 Ratio (12.00-20.00); Blood Urea Nitrogen 36.2 mg/dL (9.0-27.0); Calcium 9.1 mg/dL (8.7-10.3); Carbon Dioxide 24.5 mmol/L (20.0-27.5); Non-African American GFR(CKD) 77.6 (60.0-200.0); Potassium 4.5 mmol/L (3.5-5.5)
[2023-03-19] MEDS: ISOSORBIDE MONONITRATE ER 30 MG TAB.ER.24H PO SCH (09:44)
--- NOTE | 2023-03-19 10:13 | P.CRDCN ---
History of Present Illness Consult date: 03/19/23 Requesting physician: Ron E Sheet Reason for Consult (text): nonsustained vtach Chief complaint: AMS History of present illness: This is a pleasant 83-year-old gentleman with a history of CAD, prior CABG, hypertension, prostate cancer in 2019 and history of skin cancer. Was recently admitted with complaints of chest discomfort. Workup found a new left upper lobe mass and there's plans for outpatient PET scan as well as possible navigational proctoscopy. He presented this admission with altered mental status felt to be related to narcotics and benzodiazepines he was discharged home on. We were asked to see the patient in consultation for nonsustained ventricular tachycardia. On 03/18/2023 at around 3:30 am he had a 12 beat run of NSVT. He denies any symptoms at the time and feels he was likely sleeping. Labs on 03/17/2023 showed a normal potassium. He complains of chest discomfort with coughing but otherwise feeling fairly well. He is anxious to be discharged. Primary has increased his metoprolol tartrate from 25 mg daily to 25 mg by mouth twice a day. Labs are pending. Past Medical History Past Medical History: Coronary Artery Disease (CAD), Cancer, Diabetes Mellitus, GERD/Reflux, Hypertension, Myocardial Infarction (SC) Additional Past Medical History / Comment(s): Prostate CA [address] Cabrera for it, Skin CA 1983. lung problems r/t asbestos and smoking wears Oxygen 2L NC @ hs. lower back pain Last Myocardial Infarction Date:: unknown History of Any Multi-Drug Resistant Organisms: None Reported Past Surgical History: Cholecystectomy, Coronary Bypass/CABG, Prostate Surgery Additional Past Surgical History / Comment(s): rt leg-tumor removed Past Anesthesia/Blood Transfusion Reactions: No Reported Reaction Past Psychological History: No Psychological Hx Reported Smoking Status: Former smoker Past Alcohol Use History: Occasional Additional Past Alcohol Use History / Comment(s): quit 1979 Past Drug Use History: None Reported - Past Family History Mother Family Medical History: No Reported History Medications and Allergies Home Medications Medication Instructions Recorded Confirmed Type Aspirin EC [Ecotrin Low Dose] 81 mg PO DAILY 12/03/18 03/15/23 History Metoprolol Tartrate [Lopressor] 25 mg PO HS 12/03/18 03/15/23 History lisinopriL [Prinivil] 5 mg PO DAILY 12/03/18 03/15/23 History Baclofen [Lioresal] 5 mg PO BID PRN 11/28/20 03/15/23 History Furosemide [Lasix] 40 mg PO DAILY 11/28/20 03/15/23 History Nitroglycerin Sl Tabs [Nitrostat] 0.4 mg SUBLINGUAL Q5M PRN 11/28/20 03/15/23 History Pantoprazole Sodium 40 mg PO BID 11/28/20 03/15/23 History Rosuvastatin Calcium [Crestor] 10 mg PO DAILY 11/28/20 03/15/23 History Umeclidinium Brm/Vilanterol Tr 1 puff INHALATION RT-DAILY 03/21/21 03/15/23 Hi story [Anoro Ellipta 62.5-25 Mcg INH] Glimepiride [Amaryl] 4 mg PO DAILY 08/02/21 03/15/23 History Albuterol Inhaler [Ventolin Hfa 1 - 2 puff INHALATION RT-Q6H PRN 03/05/23 03/15/23 History Inhaler] Dapagliflozin Propanediol [Farxiga] 10 mg PO DAILY 03/05/23 03/15/23 History Insulin Degludec [Tresiba 45 units SQ DAILY 03/05/23 03/15/23 History Flextouch U-200 Pen] Isosorbide Mononitrate ER [Imdur] 30 mg PO DAILY 03/05/23 03/15/23 History Loperamide [Imodium] 2 mg PO QID PRN 03/05/23 03/15/23 History Multivitamins, Thera [Multivitamin 1 tab PO DAILY 03/05/23 03/15/23 History (formulary)] cilostazoL [Pletal] 100 mg PO BID 03/05/23 03/15/23 History Acetaminophen Tab [Tylenol] 650 mg PO Q6HR PRN tab 03/07/23 03/15/23 Rx ALPRAZolam [Xanax] 0.5 mg PO BID 03/15/23 03/15/23 History Glimepiride [Amaryl] 2 mg PO HS 03/15/23 03/15/23 History HYDROcodone/APAP 7.5-325MG [[place] 1 tab PO Q6HR PRN 03/15/23 03/15/23 History 7.5-325] Naloxone HCl [Narcan] 4 mg NASAL DIRECTED PRN 03/15/23 03/15/23 History predniSONE See Taper PO DIRECTED 03/15/23 03/15/23 History Allergies Allergy/AdvReac Type Severity Reaction Status Date / Time No Known Allergies Allergy Verified 03/15/23 11:02 Physical Exam Vitals: Vital Signs Temp Pulse Pulse Pulse Resp BP BP 03/19/23 09:32 112 H 03/19/23 09:18 112 H 03/19/23 09:08 110 H 03/19/23 07:56 97.7 F 96 22 157/82 03/19/23 02:48 98.3 F 76 17 129/62 03/18/23 20:49 106 H 03/18/23 20:34 104 H 03/18/23 20:33 104 H 03/18/23 20:24 100 03/18/23 19:33 97.5 F L 75 18 113/73 03/18/23 16:25 104 H 03/18/23 16:14 108 H 03/18/23 14:00 97.4 F L 110 H 16 107/63 03/18/23 12:43 128 H 03/18/23 12:32 128 H Pulse Ox 03/19/23 09:32 03/19/23 09:18 03/19/23 09:08 94 L 03/19/23 07:56 98 03/19/23 02:48 96 03/18/23 20:49 03/18/23 20:34 03/18/23 20:33 03/18/23 20:24 03/18/23 19:33 95 03/18/23 16:25 03/18/23 16:14 03/18/23 14:00 96 03/18/23 12:43 03/18/23 12:32 Intake and Output 03/18/23 03/19/23 03/19/23 22:59 06:59 14:59 Intake Total 118 Output Total 300 Balance -182 Intake: Oral 118 Output: Urine 300 Other: Voiding Method Urinal # Voids 2 2 # Bowel Movements 1 PHYSICAL EXAMINATION: This is a 83-year-old woman in no apparent distress at the time of my examination. HEENT: Head is atraumatic, normocephalic. Pupils are equal, round. Sclerae anicteric. Conjunctivae are clear. Mucous membranes of the mouth are moist. Neck is supple. There is no elevated jugular venous pressure. No carotid bruit is heard. CHEST EXAMINATION: Lungs reveal expiratory wheezing throughout. No rales or rhonchi. Respirations even and nonlabored. HEART EXAMINATION: Heart regular, positive S1 and S2. No S3. No S4. No clicks, rubs or murmurs. ABDOMEN: Soft, nontender. Bowel sounds are heard. No organomegaly noted. EXTREMITIES: 2+ peripheral pulses with evidence of trace lower extremity edema and no calf tenderness noted. NEUROLOGIC EXAMINATION: Patient is awake, alert and oriented x3. Results 03/19/23 05:54 03/19/23 05:54 CBC 03/19/23 Range/Units 05:54 WBC 15.90 H (4.50-10.00) X 10*3/uL RBC 4.10 L (4.40-5.60) X 10*6/uL Hgb 9.4 L (13.0-17.0) g/dL Hct 31.2 L (39.6-50.0) % Plt Count 453 H (140-440) X 10*3/uL Comprehensive Metabolic Panel 03/19/23 Range/Units 05:54 Sodium 143 (135-145) mmol/L Potassium 4.5 (3.5-5.5) mmol/L Chloride 110 H (96-109) mmol/L Carbon Dioxide 24.5 (20.0-27.5) mmol/L BUN 36.2 H (9.0-27.0) mg/dL Creatinine 0.9 (0.6-1.5) mg/dL Glucose 60 L (70-110) mg/dL Calcium 9.1 (8.7-10.3) mg/dL Current Medications Generic Name Dose Route Start Last Admin Trade Name Freq PRN Reason Stop Dose Admin Acetaminophen 650 mg 03/15/23 13:02 03/18/23 07:38 Acetaminophen Tab 325 Mg Tab PO 650 mg Q6HR PRN Administration Mild Pain or Fever > 100.5 Hydrocodone Bitart/Acetaminophen 1 each 03/15/23 17:13 03/16/23 12:52 Hydrocodone/Apap 7.5-325mg 1 Each Tab PO 1 each Q6HR PRN Administration Pain Albuterol/Ipratropium 3 ml 03/15/23 20:00 03/19/23 09:08 Ipratropium-Albuterol 3 Ml Neb INHALATION 3 ml RT-QID BERTHA Administration Albuterol/Ipratropium 3 ml 03/15/23 17:15 Ipratropium-Albuterol 3 Ml Neb INHALATION RT-QID PRN Shortness Of Breath Or Wheezing Alprazolam 0.5 mg 03/15/23 21:00 03/19/23 09:30 Alprazolam 0.5 Mg Tab PO 0.5 mg BID BERTHA Administration Aspirin 81 mg 03/16/23 09:00 03/19/23 09:30 Aspirin 81 Mg PO 81 mg DAILY BERTHA Administration Atorvastatin Calcium 20 mg 03/16/23 09:00 03/19/23 09:30 Atorvastatin 20 Mg Tab PO 20 mg DAILY BERTHA Administration Baclofen 5 mg 03/15/23 17:13 Baclofen 10 Mg Tab PO BID PRN Muscle Pain Benzonatate 200 mg 03/18/23 15:30 03/18/23 21:15 Benzonatate 100 Mg Cap PO 200 mg TID PRN Administration Cough Budesonide 1 mg 03/16/23 20:00 03/19/23 09:07 Budesonide 1 Mg/2 Ml Nebu INHALATION 1 mg RT-BID BERTHA Administration Cilostazol 100 mg 03/15/23 21:00 03/19/23 09:30 Cilostazol 100 Mg Tab PO 100 mg BID BERTHA Administration Dapagliflozin 10 mg 03/16/23 09:00 03/19/23 09:30 Dapagliflozin Propanediol 10 Mg Tablet PO 10 mg DAILY BERTHA Administration Dextrose/Water 25 ml 03/16/23 18:05 Dextrose 50% Syringe 50 Ml IVP PER PROTOCOL PRN Hypoglycemia Protocol Dextrose/Water 50 ml 03/16/23 18:05 Dextrose 50% Syringe 50 Ml IVP PER PROTOCOL PRN Hypoglycemia Protocol Doxycycline Monohydrate 100 mg 03/17/23 21:00 03/19/23 09:30 Doxycycline 100 Mg Cap PO 100 mg BID BERTHA Administration Protocol Formoterol Fumarate 20 mcg 03/16/23 20:00 03/19/23 09:07 Formoterol Fumarate 20 Mcg/2 Ml Nebu INHALATION 20 mcg RT-BID BERTHA Administration Furosemide 40 mg 03/15/23 17:15 03/19/23 09:30 Furosemide 40 Mg Tab PO 40 mg DAILY BERTHA Administration Glimepiride 4 mg 03/16/23 07:30 03/19/23 09:29 Glimepiride 4 Mg Tab PO 4 mg [id number]-[id number] BERTHA Administration Glimepiride 2 mg 03/15/23 21:00 03/18/23 21:14 Glimepiride 2 Mg Tab PO 2 mg HS BERTHA Administration Sodium Chloride 1,000 mls @ 50 mls/hr 03/15/23 13:00 03/18/23 21:49 Saline 0.9% IV 50 mls/hr .Q20H BERTHA Administration Insulin Aspart 0 unit 03/15/23 17:30 03/19/23 08:15 Insulin Aspart (Novolog) 100 Unit/Ml Vial SQ Not Given ACHS [facility] Protocol Insulin Aspart 11 unit 03/18/23 07:30 03/19/23 09:28 Insulin Aspart (Novolog) 100 Unit/Ml Vial SQ Not Given AC-TID [facility] Insulin Detemir 45 unit 03/19/23 09:00 Insulin Detemir (Levemir) 100 Unit/Ml Syr SQ DAILY [facility] Isosorbide Mononitrate 30 mg 03/16/23 09:00 03/19/23 09:44 Isosorbide Mononitrate Er 30 Mg Tab.Er.24h PO 30 mg DAILY BERTHA Administration Lisinopril 2.5 mg 03/19/23 09:00 03/19/23 09:30 Lisinopril 2.5 Mg Tab PO 2.5 mg DAILY BERTHA Administration Loperamide HCl 2 mg 03/15/23 17:13 Loperamide 2 Mg Cap PO QID PRN Diarrhea Methylprednisolone Sodium Succinate 60 mg 03/15/23 18:00 03/19/23 06:37 Methylprednisolone Sod Succi 125 Mg/2 Ml Vial IV 60 mg Q6HR BERTHA Administration Metoprolol Tartrate 25 mg 03/18/23 14:00 03/19/23 09:30 Metoprolol Tartrate 25 Mg Tab PO 25 mg BID BERTHA Administration Multivitamins 1 each 03/16/23 09:00 03/19/23 09:30 Multivitamins, Thera 1 Each Tab PO 1 each DAILY BERTHA Administration Naloxone HCl 0.2 mg 03/15/23 13:02 Naloxone 0.4 Mg/Ml 1 Ml Vial IV Q2M PRN Opioid Reversal Nitroglycerin 0.4 mg 03/15/23 17:13 Nitroglycerin Sl Tabs 0.4 Mg Tab SUBLINGUAL Q5M PRN Chest Pain Pantoprazole Sodium 40 mg 03/15/23 17:30 03/19/23 06:37 Pantoprazole 40 Mg Tablet PO 40 mg AC-BID BERTHA Administration Intake and Output 03/18/23 03/19/23 03/19/23 22:59 06:59 14:59 Intake Total 118 Output Total 300 Balance -182 Intake: Oral 118 Output: Urine 300 Other: Voiding Method Urinal # Voids 2 2 # Bowel Movements 1 03/19/23 05:54 03/19/23 05:54 Assessment and Plan Assessment: #1 nonsustained ventricular tachycardia #2 altered mental status, possibly related to opiate and benzodiazepine, improved #3 recent diagnosis of large left upper lung mass and inked further workup #4 COPD exacerbation #5 CAD with prior CABG #6 retention Plan: From cardiology's perspective we will review labs when available including electrolytes, magnesium. No need to repeat echocardiogram as one done last admission showed low normal LV systolic function with an ejection fraction of 50-55% mild to moderate MR. We will increase metoprolol to 50 mg by mouth twice a day and decrease lisinopril. Continue to follow the patient provide further recommendations accordingly. [facility] [employer] note has been reviewed, I agree with a documented findings and plan of care. Patient was seen and examined.
[2023-03-19] MEDS: INSULIN DETEMIR (LEVEMIR) 100 UNIT/ML SYR SQ SCH (10:28)
[2023-03-19 10:55] LABS: Glucose,Whole Blood 245 mg/dL (70-110)
[2023-03-19] MEDS ORDERED: INSULIN DETEMIR (LEVEMIR) 100 UNIT/ML SYR SQ ONE (12:00)
[2023-03-19 12:18] LABS: Glucose,Whole Blood 206 mg/dL (70-110)
--- NOTE | 2023-03-19 14:42 | P.PN ---
Subjective Progress Note Date: 03/19/23 This is a very pleasant 83-year-old male patient with a known history of hyperlipidemia, diabetes mellitus, gastroesophageal reflux disease, hypertension, spinal stenosis, prostate cancer, chronic obstructive pulmonary disease, former smoker. He was also recently found to have a large 5 x 4 cm mass in the left upper lobe with mediastinal invasion. He is to be scheduled for a PET scan. He follows with Dr. Boyd in our office. He was seen earlier this week and treated for COPD exacerbation. He was brought into the emergency room yesterday with altered mental status, lethargy, poor appetite and in creasing confusion. His has stated he was sleeping quite a bit. He was recently started on Xanax and [place] during his previous hospitalization here earlier this month. He also had complaints of shortness of breath, cough and congestion. Chest x-ray reveals no acute pulmonary process. Carotid Dopplers revealed no hemodynamically significant stenosis bilaterally. White count 11.8. Hemoglobin 9.6. Platelets 491. D-dimer 3.29. Glucose 201. Sodium 135. Potassium 5.1. Bicarb 23. BUN 43. Creatinine 1.14. Urine drug screen was positive for opiates and benzodiazepines. He is seen today in consultation on the regular medical floor. He is sitting up in bed. Awake and alert. Oriented 3. Maintaining O2 saturations in the 90s on 5 L/m per nasal cannula. He is afebrile. Hemodynamically stable. He's been initiated on DuoNeb inhalations Pulmicort and Perforomist inhalations, IV Solu-Medrol. Normal saline at 75 ML's per hour. MRI of the brain and EEG are pending. The patient is seen today 03/17/2023 in follow-up on the regular medical floor. He is currently resting comfortably in bed. Requiring 5 L nasal cannula currently to maintain O2 saturations in the 90s. He is still somewhat bronchospastic and wheezing. CT angiogram ruled out pulmonary embolism. Again evidence of metastatic disease with the medial left upper lobe mass extending from the left suprahilar region measuring up to 4.7 cm. Left hilar adenopathy. 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 Suspect complicated. Hepatic ascites. Large lower right paraesophageal lymph nodes could be reactive or represent additional metastatic disease. There is lytic osseous metastasis posterior T6 vertebral body. Suspected splenic metastatic lesion as well. Moderate size hiatal hernia redemonstrated. EEG revealed mild encephalopathy possibly secondary to medication effect. No focal slowing, epileptiform discharge or seizure. MRI of the brain is pending. White count 18.2. Hemoglobin 9.8. Platelets 471. Sodium 137. Potassium 4.5. Bicarb 21. BUN 32. Creatinine 0.93. He is continued on DuoNeb inhalations, Pulmicort and Perforomist inhalations, IV Solu- Medrol. Normal saline at 75 ML's per hour. The patient is seen today 03/18/2023 in follow-up on the regular medical floor. He is currently sitting up in a chair at the bedside. More awake and alert today. Oriented. MRI of the brain revealed no evidence of metastasis. He is still dyspneic with conversation. Dyspneic with minimal exertion. Still is some bilateral wheezing. Blood culture pending. Blood sugar 98. He is continued on DuoNeb inhalations, Pulmicort and Perforomist inhalations, IV Solu- Medrol. Her antibiotics in the form of doxycycline. Normal saline at 75 ML's per hour. The patient is seen today 03/19/2023 in follow-up on the regular medical floor. He is resting comfortably in bed. Awake and alert in no acute distress. Still with a loose cough. Some scattered rhonchi. Sputum culture pending. Blood culture pending. White count 15.9. Hemoglobin 9.4. Platelets 453. Sodium 143. Potassium 4.5. Bicarb 25. BUN 36. Creatinine 0.9. He is continued on Pulmicort and Perforomist inhalations, DuoNeb inhalations, IV Solu-Medrol. E mpiric antibacterial form of doxycycline. Objective - Vital Signs Vital signs: Vital Signs Temp 97.7 F 03/19/23 07:56 Pulse 104 H 03/19/23 12:52 Resp 22 03/19/23 07:56 BP 157/82 03/19/23 07:56 Pulse Ox 94 L 03/19/23 09:08 FiO2 Intake & Output 03/18/23 03/19/23 03/19/23 18:59 06:59 18:59 Intake Total 476 Output Total 750 Balance -274 Intake: Oral 476 Output: Urine 750 Other: Voiding Method Urinal Urinal Urinal # Voids 2 2 # Bowel Movements 1 - Exam GENERAL EXAM: Alert, 83-year-old gentleman, up in a chair, on 5 L nasal cannula, fairly comfortable in no apparent distress. HEAD: Normocephalic. EYES: Normal reaction of pupils, equal size. NOSE: Clear with pink turbinates. THROAT: No erythema or exudates. NECK: No masses, no JVD. CHEST: No chest wall deformity. LUNGS: Equal air entry with bilateral end expiratory wheeze, few scattered rhonchi. CVS: S1 and S2 normal with no audible murmur, regular rhythm. ABDOMEN: No hepatosplenomegaly, normal bowel sounds, no guarding or rigidity. SPINE: No scoliosis or deformity SKIN: No rashes CENTRAL NERVOUS SYSTEM: No focal deficits, tone is normal in all 4 extremities. EXTREMITIES: There is no peripheral edema. No clubbing, no cyanosis. Peripheral pulses are intact. - Labs CBC & Chem 7: 03/19/23 05:54 03/19/23 05:54 Labs: Abnormal Lab Results - Last 24 Hours (Table) 03/18/23 03/18/23 03/19/23 Range/Units 17:23 20:51 05:54 WBC 15.90 H (4.50-10.00) X 10*3/uL RBC 4.10 L (4.40-5.60) X 10*6/uL Hgb 9.4 L (13.0-17.0) g/dL Hct 31.2 L (39.6-50.0) % MCV 76.1 L (80.0-97.0) fL MCH 22.9 L (27.0-32.0) pg MCHC 30.1 L (32.0-37.0) g/dL RDW 20.7 H (11.5-14.5) % Plt Count 453 H (140-440) X 10*3/uL MPV 8.9 L (9.5-12.2) fL Absolute Nucleated RBC 0.04 H (0.00-0.00) X 10*3/uL Immature Gran # 0.13 H (0.00-0.04) X 10*3/uL Neutrophils # 14.04 H (1.80-7.70) X 10*3/uL Eosinophils # 0 L (0.04-0.35) X 10*3/uL NRBC/100 WBC Diff 0.3 H (0.0-0.0) /100 WBCS Chloride (96-109) mmol/L Anion Gap (10.00-18.00) mmol/L BUN (9.0-27.0) mg/dL BUN/Creatinine Ratio (12.00-20.00) Ratio Glucose (70-110) mg/dL POC Glucose (mg/dL) 266 H 273 H (70-110) mg/dL 03/19/23 03/19/23 03/19/23 Range/Units 05:54 10:52 12:14 WBC (4.50-10.00) X 10*3/uL RBC (4.40-5.60) X 10*6/uL Hgb (13.0-17.0) g/dL Hct (39.6-50.0) % MCV (80.0-97.0) fL MCH (27.0-32.0) pg MCHC (32.0-37.0) g/dL RDW (11.5-14.5) % Plt Count (140-440) X 10*3/uL MPV (9.5-12.2) fL Absolute Nucleated RBC (0.00-0.00) X 10*3/uL Immature Gran # (0.00-0.04) X 10*3/uL Neutrophils # (1.80-7.70) X 10*3/uL Eosinophils # (0.04-0.35) X 10*3/uL NRBC/100 WBC Diff (0.0-0.0) /100 WBCS Chloride 110 H (96-109) mmol/L Anion Gap 8.50 L (10.00-18.00) mmol/L BUN 36.2 H (9.0-27.0) mg/dL BUN/Creatinine Ratio 40.22 H (12.00-20.00) Ratio Glucose 60 L (70-110) mg/dL POC Glucose (mg/dL) 245 H 206 H (70-110) mg/dL Microbiology - Last 24 Hours (Table) 03/18/23 13:00 Gram Stain - Preliminary Sputum Sputum Culture - Preliminary 03/16/23 12:10 Blood Culture - Preliminary Blood Assessment and Plan Assessment: Altered mental status of unclear etiology. Possible opiate, benzodiazepine e ffect which were recently prescribed for the patient. MRI of the brain revealed no evidence of metastasis. EEG revealed mild encephalopathy possibly medication effect. No seizure activity. The patient is awake and alert today. Oriented Recent diagnosis with a large left upper lobe lung mass, measuring 5 x 4 cm, with mediastinal invasion. Scheduled for an outpatient PET scan 03/23/2023. CT angiogram ruled out pulmonary embolism. Again evidence of metastatic disease with the medial left upper lobe mass extending from the left suprahilar region measuring up to 4.7 cm. Left hilar adenopathy. 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 Suspect complicated perihepatic ascites. Large lower right paraesophageal lymph nodes could be reactive or represent additional metastatic disease. There is lytic osseous metastasis posterior T6 vertebral body. Suspected splenic metastatic lesion as well. Acute exacerbation of chronic obstructive pulmonary disease. FEV1 value 1.27 L which is 50% of predicted Moderate size hiatal hernia Former smoker Hypertension Gastroesophageal reflux disease Hyperlipidemia Diabetes mellitus, type II History of prostate cancer Plan: The patient was seen and evaluated Labs and medications reviewed Continue DuoNeb inhalations, Pulmicort and Perforomist inhalations Continue IV Solu-Medrol, doxycycline Titrate the FiO2 as tolerated Overall prognosis is guarded No plans for biopsies this admission Will need outpatient PET scan May need subacute rehabilitation Prognosis is guarded We will continue to follow I have personally seen and examined the patient, performed the documentation and the assessment and plan as written. Number of minutes spent on the visit: 10.
[2023-03-19] MEDS ORDERED: METOPROLOL TARTRATE 25 MG TAB PO STA (14:51)
[2023-03-19 17:28] LABS: Glucose,Whole Blood 341 mg/dL (70-110)
[2023-03-19] MEDS: SODIUM CHLORIDE 0.9% 1,000 ML IV SCH (17:53)
[2023-03-19] MEDS: GLIMEPIRIDE 2 MG TAB PO SCH (20:23)
[2023-03-19] MEDS: METOPROLOL TARTRATE 50 MG TAB PO SCH (20:23)
[2023-03-19 20:27] LABS: Glucose,Whole Blood 290 mg/dL (70-110)
[2023-03-19] MEDS: BENZONATATE 100 MG CAP PO PRN (20:30)
--- NOTE | 2023-03-19 21:16 | P.PN ---
Subjective This is a pleasant 82 years old male with multiple medical problems presents with chest pain, was recently discharged from is a known case of lung mass with bilateral adrenal gland thickening. Also was diagnosed with pneumonia and discharged on antibiotics and Taper steroids. Presents with altered mental status thought secondary to L4 using of his NX unremarkable. 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 MRI of the brain is negative for metastatic disease, EEG is not showing any epileptiform discharge. Neurologically looks stable Also has been treated for acute COPD exacerbation with some withdrawal 60 mg, doxycycline and normal saline Today patient is back to his basic mentation, family at bedside, he was eating his lunch with good appetite and he is mildly tachypneic at rest on the significant coughing, no chest pain. No abdominal pain and diarrhea organomegaly complaints. No fever. Workup showing hemoglobin A1c 8.6, glucose is elevated therefore will increase his NovoLog 8 units up to 11 units with meals. Potential stone in 0.10. Patient also with low TSH and normal T4. He has leukocytosis as well as on steroids. Hemoglobin 9.8. Was 11.5 last admission. Platelet count elevated. Creatinine back to normal. Patient is still tachycardic and EKG showing sinus tachycardia Patient currently kept on IV Solu-Medrol 60 mg, doxycycline and normal saline 75 mL/h 03/18/2023 patient overall clinically doing well, he has good appetite and eating well. No significant dyspnea at rest mildly tachypneic. No chest pain He is saturating 90-94% on room air but he is mildly tachycardic 105-120, EKG showing sinus tachycardia, telemetry show short run of nonsustained V. tach, metoprolol 25 mg at bedtime increased to twice a day and we consulted cardiology service as well Ketamine is on Solu-Medrol and doxycycline, normal saline 75 mL/h lower to 50 mL/h Plan for him to undergo PET scan as an outpatient and then possible bronchoscopy for diagnostic purposes. MRI of the brain is negative for metastatic disease. EEG is unremarkable for epileptiform discharge, neurology service signed off. Possible discharge in 24-48 hours 03/19/2023 patient clinically overall is doing well, history of generally weak but his able to walk for short distance with little assistance. His been evaluated by physical therapy who recommended subacute rehab, however the patient and family declined rehab for patient's wants to pursue workup for his lung mass soon (PET scan and bronchoscopy) . However because his is unable to take him home today, tomorrow they will have more assistance at home and therefore they would like the patient to be discharged tomorrow instead. As per staff patient was cleared for discharge by pulmonary service. Therefore we switched his aneurysm withdrawal into prednisone 40 mg starting tomorrow. This concerns for uncontrolled diabetes. Hyperglycemia therefore we switched his regimen and to home dose of Levemir 45 units daily and increase the follow- up to 13 units with meals. Also patient has abdominal 4 units in the morning and 2 units at bedside. We held his ninth dose of Levemir given his prior anymore and relative hypoglycemia. Metoprolol increased to 50 mg twice a day by chip crusher operator team. Objective - Vital Signs Vital signs: Vital Signs Temp 97.7 F 03/19/23 07:56 Pulse 104 H 03/19/23 12:52 Resp 22 03/19/23 07:56 BP 157/82 03/19/23 07:56 Pulse Ox 94 L 03/19/23 09:08 FiO2 Intake & Output 03/18/23 03/19/23 03/19/23 18:59 06:59 18:59 Intake Total 476 Output Total 750 Balance -274 Intake: Oral 476 Output: Urine 750 Other: Voiding Method Urinal Urinal Urinal # Voids 2 2 # Bowel Movements 1 - Exam -GENERAL: The patient is alert and oriented x3, not in any acute distress. O bese HEENT: Pupils are round and equally reacting to light. EOMI. No scleral icterus. No conjunctival pallor. Normocephalic, atraumatic. No pharyngeal erythema. No thyromegaly. CARDIOVASCULAR: S1 and S2 present. No murmurs, rubs, or gallops. -PULMONARY: Chest is clear to auscultation, scattered wheezing. no crackles. ABDOMEN: Soft, nontender, nondistended, normoactive bowel sounds. No palpable organomegaly. MUSCULOSKELETAL: No joint swelling or deformity. EXTREMITIES: No cyanosis, clubbing, or pedal edema. NEUROLOGICAL: Gross neurological examination did not reveal any focal deficits. SKIN: No rashes. no petechiae. - Labs CBC & Chem 7: 03/19/23 05:54 03/19/23 05:54 Labs: Abnormal Lab Results - Last 24 Hours (Table) 03/18/23 03/18/23 03/19/23 Range/Units 17:23 20:51 05:54 WBC 15.90 H (4.50-10.00) X 10*3/uL RBC 4.10 L (4.40-5.60) X 10*6/uL Hgb 9.4 L (13.0-17.0) g/dL Hct 31.2 L (39.6-50.0) % MCV 76.1 L (80.0-97.0) fL MCH 22.9 L (27.0-32.0) pg MCHC 30.1 L (32.0-37.0) g/dL RDW 20.7 H (11.5-14.5) % Plt Count 453 H (140-440) X 10*3/uL MPV 8.9 L (9.5-12.2) fL Absolute Nucleated RBC 0.04 H (0.00-0.00) X 10*3/uL Immature Gran # 0.13 H (0.00-0.04) X 10*3/uL Neutrophils # 14.04 H (1.80-7.70) X 10*3/uL Eosinophils # 0 L (0.04-0.35) X 10*3/uL NRBC/100 WBC Diff 0.3 H (0.0-0.0) /100 WBCS Chloride (96-109) mmol/L Anion Gap (10.00-18.00) mmol/L BUN (9.0-27.0) mg/dL BUN/Creatinine Ratio (12.00-20.00) Ratio Glucose (70-110) mg/dL POC Glucose (mg/dL) 266 H 273 H (70-110) mg/dL 03/19/23 03/19/23 03/19/23 Range/Units 05:54 10:52 12:14 WBC (4.50-10.00) X 10*3/uL RBC (4.40-5.60) X 10*6/uL Hgb (13.0-17.0) g/dL Hct (39.6-50.0) % MCV (80.0-97.0) fL MCH (27.0-32.0) pg MCHC (32.0-37.0) g/dL RDW (11.5-14.5) % Plt Count (140-440) X 10*3/uL MPV (9.5-12.2) fL Absolute Nucleated RBC (0.00-0.00) X 10*3/uL Immature Gran # (0.00-0.04) X 10*3/uL Neutrophils # (1.80-7.70) X 10*3/uL Eosinophils # (0.04-0.35) X 10*3/uL NRBC/100 WBC Diff (0.0-0.0) /100 WBCS Chloride 110 H (96-109) mmol/L Anion Gap 8.50 L (10.00-18.00) mmol/L BUN 36.2 H (9.0-27.0) mg/dL BUN/Creatinine Ratio 40.22 H (12.00-20.00) Ratio Glucose 60 L (70-110) mg/dL POC Glucose (mg/dL) 245 H 206 H (70-110) mg/dL Microbiology - Last 24 Hours (Table) 03/18/23 13:00 Gram Stain - Preliminary Sputum Sputum Culture - Preliminary 03/16/23 12:10 Blood Culture - Preliminary Blood Assessment and Plan Assessment: 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, and on this CAT scan 4.7 cm, suspicious for malignancy. 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 Resolved and patient is back to baseline Diabetes mellitus with hyperglycemia Coronary artery disease status post CABG Hypertension Dyslipidemia Plan: Continue with prednisone 40 mg daily and doxycycline Continue with normal saline 50 mm/h Increase metoprolol 50 mg twice a day. Cardiology team on the case MRI and EEG of the brain were unremarkable for explanation for the patient's presentation. Neurology service signed off Pulmonary team followed closely. However they cleared him for discharge Patient aware about his lung mass and the need for work up as an outpatient. Because of this family does not want the patient to go to rehab and they like to be discharged home with home health care which is ordered. Labs and medication were reviewed.. Continue same treatment. Continue with symptomatic treatment. Resume home medication. Monitor labs and vitals. DVT and GI prophylaxis. Further recommendations as per clinical course of the patient GI Prophylaxis: Ppi Prognosis is guarded Possible discharge in 24-48 hours
[2023-03-20] MEDS: PANTOPRAZOLE 40 MG TABLET PO SCH (06:03)
[2023-03-20 06:05] LABS: Glucose,Whole Blood 62 mg/dL (70-110)
[2023-03-20] MEDS: INSULIN ASPART (NovoLOG) 100 UNIT/ML VIAL SQ SCH ×4 (06:16→13:18)
[2023-03-20 06:45] LABS: Glucose,Whole Blood 72 mg/dL (70-110)
[2023-03-20] MEDS ORDERED: INSULIN ASPART (NovoLOG) 100 UNIT/ML VIAL SQ SCH (07:30)
[2023-03-20] MEDS ORDERED: predniSONE 20 MG TAB PO SCH (09:00)
[2023-03-20] MEDS: IPRATROPIUM-ALBUTEROL 3 ML NEB INHALATION SCH ×3 (09:08→16:58)
[2023-03-20] MEDS: BUDESONIDE 1 MG/2 ML NEBU INHALATION SCH (09:08)
[2023-03-20] MEDS: FORMOTEROL FUMARATE 20 MCG/2 ML NEBU INHALATION SCH (09:08)
[2023-03-20] MEDS: cilostazoL 100 MG TAB PO SCH (09:10)
[2023-03-20] MEDS: DAPAGLIFLOZIN PROPANEDIOL 10 MG TABLET PO SCH (09:11)
[2023-03-20] MEDS: DOXYCYCLINE 100 MG CAP PO SCH (09:11)
[2023-03-20] MEDS: ISOSORBIDE MONONITRATE ER 30 MG TAB.ER.24H PO SCH (09:11)
[2023-03-20] MEDS: MULTIVITAMINS, THERA 1 EACH TAB PO SCH (09:11)
[2023-03-20] MEDS: METOPROLOL TARTRATE 50 MG TAB PO SCH (09:12)
[2023-03-20] MEDS: ATORVASTATIN 20 MG TAB PO SCH (09:12)
[2023-03-20] MEDS: FUROSEMIDE 40 MG TAB PO SCH (09:12)
[2023-03-20] MEDS: ASPIRIN 81 MG PO SCH (09:12)
[2023-03-20] MEDS: ALPRAZolam 0.5 MG TAB PO SCH (09:17)
[2023-03-20 09:59] LABS: African American GFR (CKD) >90 (>60 ml/min/1.73 sqM); Anion Gap 13 mmol/L; Blood Urea Nitrogen 36 mg/dL (9-20); Calcium 9.1 mg/dL (8.4-10.2); Carbon Dioxide 18 mmol/L (22-30); Chloride 108 mmol/L (98-107); Glucose 159 mg/dL (74-99); Magnesium 2.2 mg/dL (1.6-2.3); Non-African American GFR(CKD) 80 (>60 ml/min/1.73 sqM); Potassium 4.1 mmol/L (3.5-5.1); Sodium 139 mmol/L (137-145)
--- NOTE | 2023-03-20 10:30 | P.PN ---
Subjective Progress Note Date: 03/20/23 History of present illness: This is a pleasant 83-year-old gentleman with a history of CAD, prior CABG, h ypertension, prostate cancer in 2019 and history of skin cancer. Was recently admitted with complaints of chest discomfort. Workup found a new left upper lobe mass and there's plans for outpatient PET scan as well as possible navigational proctoscopy. He presented this admission with altered mental status felt to be related to narcotics and benzodiazepines he was discharged home on. We were asked to see the patient in consultation for nonsustained ventricular tachycardia. On 03/18/2023 at around 3:30 am he had a 12 beat run of NSVT. He denies any symptoms at the time and feels he was likely sleeping. Labs on 03/17/2023 showed a normal potassium. He complains of chest discomfort with coughing but otherwise feeling fairly well. He is anxious to be discharged. Primary has increased his metoprolol tartrate from 25 mg daily to 25 mg by mouth twice a day. Labs are pending. 03/20 Patient is seen today in follow-up. Patient has been in a sinus rhythm, no episodes of V. tach overnight. Yesterday metoprolol was increased to 50 mg twice daily. Heart rate is running in the low 100s, blood pressure 144/76. Repeat blood work revealed potassium 4.1. Magnesium 2.2. Patient is anticipa ting discharge home today. Physical examination: Gen: This is an 83-year-old male, appears to be in no acute distress, no respiratory distress. VS: reviewed HEENT: Head is atraumatic, normocephalic. Pupils equal, round. Sclerae is anicteric. NECK: Supple. No JVD. . LUNGS: Clear to auscultation. No wheezes or rhonchi. No intercostal retractions. HEART: Regular rate and rhythm. No murmur. ABDOMEN: Soft No tenderness. EXTREMITIES: No pedal edema. No calf tenderness. NEUROLOGICAL: Patient is awake, alert and oriented x3. Assessment: #1 nonsustained ventricular tachycardia #2 altered mental status, possibly related to opiate and benzodiazepine, improved #3 recent diagnosis of large left upper lung mass and inked further workup #4 COPD exacerbation #5 CAD with prior CABG Plan: Patient to continue current medications including increased dose of Lopressor at 50 mg twice daily. Patient is cleared from cardiology for discharge home and may follow-up in the office in one to 2 weeks. Nurse practitioner note has been reviewed, I agree with documented findings and plan of care. Patient was seen and examined. Objective - Vital Signs Vital signs: Vital Signs Temp 97.6 F 03/20/23 08:00 Pulse 103 H 03/20/23 08:00 Resp 22 03/20/23 08:00 BP 144/76 03/20/23 08:00 Pulse Ox 97 03/20/23 08:00 FiO2 Intake & Output 03/19/23 03/20/23 03/20/23 18:59 06:59 18:59 Intake Total 500 Output Total 300 Balance -300 500 Intake: Oral 500 Output: Urine 300 Other: Voiding Method Urinal Bedside Commode Diaper # Voids 2 2 - Labs CBC & Chem 7: 03/19/23 05:54 03/20/23 09:03 Labs: Abnormal Lab Results - Last 24 Hours (Table) 03/19/23 03/19/23 03/19/23 Range/Units 05:54 05:54 10:52 WBC 15.90 H (4.50-10.00) X 10*3/uL RBC 4.10 L (4.40-5.60) X 10*6/uL Hgb 9.4 L (13.0-17.0) g/dL Hct 31.2 L (39.6-50.0) % MCV 76.1 L (80.0-97.0) fL MCH 22.9 L (27.0-32.0) pg MCHC 30.1 L (32.0-37.0) g/dL RDW 20.7 H (11.5-14.5) % Plt Count 453 H (140-440) X 10*3/uL MPV 8.9 L (9.5-12.2) fL Absolute Nucleated RBC 0.04 H (0.00-0.00) X 10*3/uL Immature Gran # 0.13 H (0.00-0.04) X 10*3/uL Neutrophils # 14.04 H (1.80-7.70) X 10*3/uL Eosinophils # 0 L (0.04-0.35) X 10*3/uL NRBC/100 WBC Diff 0.3 H (0.0-0.0) /100 WBCS Chloride 110 H (96-109) mmol/L Anion Gap 8.50 L (10.00-18.00) mmol/L BUN 36.2 H (9.0-27.0) mg/dL BUN/Creatinine Ratio 40.22 H (12.00-20.00) Ratio Glucose 60 L (70-110) mg/dL POC Glucose (mg/dL) 245 H (70-110) mg/dL 03/19/23 03/19/23 03/19/23 Range/Units 12:14 17:26 20:26 WBC (4.50-10.00) X 10*3/uL RBC (4.40-5.60) X 10*6/uL Hgb (13.0-17.0) g/dL Hct (39.6-50.0) % MCV (80.0-97.0) fL MCH (27.0-32.0) pg MCHC (32.0-37.0) g/dL RDW (11.5-14.5) % Plt Count (140-440) X 10*3/uL MPV (9.5-12.2) fL Absolute Nucleated RBC (0.00-0.00) X 10*3/uL Immature Gran # (0.00-0.04) X 10*3/uL Neutrophils # (1.80-7.70) X 10*3/uL Eosinophils # (0.04-0.35) X 10*3/uL NRBC/100 WBC Diff (0.0-0.0) /100 WBCS Chloride (96-109) mmol/L Anion Gap (10.00-18.00) mmol/L BUN (9.0-27.0) mg/dL BUN/Creatinine Ratio (12.00-20.00) Ratio Glucose (70-110) mg/dL POC Glucose (mg/dL) 206 H 341 H 290 H (70-110) mg/dL 03/20/23 Range/Units 06:04 WBC (4.50-10.00) X 10*3/uL RBC (4.40-5.60) X 10*6/uL Hgb (13.0-17.0) g/dL Hct (39.6-50.0) % MCV (80.0-97.0) fL MCH (27.0-32.0) pg MCHC (32.0-37.0) g/dL RDW (11.5-14.5) % Plt Count (140-440) X 10*3/uL MPV (9.5-12.2) fL Absolute Nucleated RBC (0.00-0.00) X 10*3/uL Immature Gran # (0.00-0.04) X 10*3/uL Neutrophils # (1.80-7.70) X 10*3/uL Eosinophils # (0.04-0.35) X 10*3/uL NRBC/100 WBC Diff (0.0-0.0) /100 WBCS Chloride (96-109) mmol/L Anion Gap (10.00-18.00) mmol/L BUN (9.0-27.0) mg/dL BUN/Creatinine Ratio (12.00-20.00) Ratio Glucose (70-110) mg/dL POC Glucose (mg/dL) 62 L (70-110) mg/dL Microbiology - Last 24 Hours (Table) 03/18/23 13:00 Gram Stain - Preliminary Sputum Sputum Culture - Preliminary 03/16/23 12:10 Blood Culture - Preliminary Blood
--- NOTE | 2023-03-20 11:46 | P.PN ---
Subjective Progress Note Date: 03/20/23 This is a very pleasant 83-year-old male patient with a known history of hyperlipidemia, diabetes mellitus, gastroesophageal reflux disease, hypertension, spinal stenosis, prostate cancer, chronic obstructive pulmonary disease, former smoker. He was also recently found to have a large 5 x 4 cm mass in the left upper lobe with mediastinal invasion. He is to be scheduled for a PET scan. He follows with Dr. Boyd in our office. He was seen earlier this week and treated for COPD exacerbation. He was brought into the emergency room yesterday with altered mental status, lethargy, poor appetite and in creasing confusion. His has stated he was sleeping quite a bit. He was recently started on Xanax and [place] during his previous hospitalization here earlier this month. He also had complaints of shortness of breath, cough and congestion. Chest x-ray reveals no acute pulmonary process. Carotid Dopplers revealed no hemodynamically significant stenosis bilaterally. White count 11.8. Hemoglobin 9.6. Platelets 491. D-dimer 3.29. Glucose 201. Sodium 135. Potassium 5.1. Bicarb 23. BUN 43. Creatinine 1.14. Urine drug screen was positive for opiates and benzodiazepines. He is seen today in consultation on the regular medical floor. He is sitting up in bed. Awake and alert. Oriented 3. Maintaining O2 saturations in the 90s on 5 L/m per nasal cannula. He is afebrile. Hemodynamically stable. He's been initiated on DuoNeb inhalations Pulmicort and Perforomist inhalations, IV Solu-Medrol. Normal saline at 75 ML's per hour. MRI of the brain and EEG are pending. The patient is seen today 03/17/2023 in follow-up on the regular medical floor. He is currently resting comfortably in bed. Requiring 5 L nasal cannula currently to maintain O2 saturations in the 90s. He is still somewhat bronchospastic and wheezing. CT angiogram ruled out pulmonary embolism. Again evidence of metastatic disease with the medial left upper lobe mass extending from the left suprahilar region measuring up to 4.7 cm. Left hilar adenopathy. 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 Suspect complicated. Hepatic ascites. Large lower right paraesophageal lymph nodes could be reactive or represent additional metastatic disease. There is lytic osseous metastasis posterior T6 vertebral body. Suspected splenic metastatic lesion as well. Moderate size hiatal hernia redemonstrated. EEG revealed mild encephalopathy possibly secondary to medication effect. No focal slowing, epileptiform discharge or seizure. MRI of the brain is pending. White count 18.2. Hemoglobin 9.8. Platelets 471. Sodium 137. Potassium 4.5. Bicarb 21. BUN 32. Creatinine 0.93. He is continued on DuoNeb inhalations, Pulmicort and Perforomist inhalations, IV Solu- Medrol. Normal saline at 75 ML's per hour. The patient is seen today 03/18/2023 in follow-up on the regular medical floor. He is currently sitting up in a chair at the bedside. More awake and alert today. Oriented. MRI of the brain revealed no evidence of metastasis. He is still dyspneic with conversation. Dyspneic with minimal exertion. Still is some bilateral wheezing. Blood culture pending. Blood sugar 98. He is continued on DuoNeb inhalations, Pulmicort and Perforomist inhalations, IV Solu- Medrol. Her antibiotics in the form of doxycycline. Normal saline at 75 ML's per hour. The patient is seen today 03/19/2023 in follow-up on the regular medical floor. He is resting comfortably in bed. Awake and alert in no acute distress. Still with a loose cough. Some scattered rhonchi. Sputum culture pending. Blood culture pending. White count 15.9. Hemoglobin 9.4. Platelets 453. Sodium 143. Potassium 4.5. Bicarb 25. BUN 36. Creatinine 0.9. He is continued on Pulmicort and Perforomist inhalations, DuoNeb inhalations, IV Solu-Medrol. E mpiric antibacterial form of doxycycline. The patient is seen today 03/20/2023 in follow-up on the regular medical floor. He is currently sitting up in a chair. Awake and alert in no acute distress. Continue in good O2 saturations in the 90s on 4 L/m per nasal cannula. He is continued on DuoNeb inhalations, Pulmicort and Perforomist inhalations, prednisone taper. Antibiotics in the form of doxycycline. Remains on Tessalon Perles. Blood and sputum cultures revealed no growth. Sodium 139. Potassium 4.1. Bicarb 18. BUN 36. Creatinine 0.83. Glucose 159. Objective - Vital Signs Vital signs: Vital Signs Temp 97.6 F 03/20/23 08:00 Pulse 86 03/20/23 10:59 Resp 22 03/20/23 08:00 BP 144/76 03/20/23 08:00 Pulse Ox 96 03/20/23 10:59 FiO2 Intake & Output 03/19/23 03/20/23 03/20/23 18:59 06:59 18:59 Intake Total 500 118 Output Total 300 200 Balance -300 500 -82 Intake: Oral 500 118 Output: Urine 300 200 Other: Voiding Method Urinal Bedside Commode Diaper # Voids 2 2 # Bowel Movements 1 - Exam GENERAL EXAM: Alert, 83-year-old gentleman, on 4 L nasal cannula, fairly comfortable in no apparent distress. HEAD: Normocephalic. EYES: Normal reaction of pupils, equal size. NOSE: Clear with pink turbinates. THROAT: No erythema or exudates. NECK: No masses, no JVD. CHEST: No chest wall deformity. LUNGS: Equal air entry with bilateral end expiratory wheeze, few scattered rhonchi. CVS: S1 and S2 normal with no audible murmur, regular rhythm. ABDOMEN: No hepatosplenomegaly, normal bowel sounds, no guarding or rigidity. SPINE: No scoliosis or deformity SKIN: No rashes CENTRAL NERVOUS SYSTEM: No focal deficits, tone is normal in all 4 extremities. EXTREMITIES: There is no peripheral edema. No clubbing, no cyanosis. Peripheral pulses are intact. - Labs CBC & Chem 7: 03/19/23 05:54 03/20/23 09:03 Labs: Abnormal Lab Results - Last 24 Hours (Table) 03/19/23 03/19/23 03/19/23 Range/Units 12:14 17:26 20:26 Chloride (98-107) mmol/L Carbon Dioxide (22-30) mmol/L BUN (9-20) mg/dL Glucose (74-99) mg/dL POC Glucose (mg/dL) 206 H 341 H 290 H (70-110) mg/dL 03/20/23 03/20/23 Range/Units 06:04 09:03 Chloride 108 H (98-107) mmol/L Carbon Dioxide 18 L (22-30) mmol/L BUN 36 H (9-20) mg/dL Glucose 159 H (74-99) mg/dL POC Glucose (mg/dL) 62 L (70-110) mg/dL Microbiology - Last 24 Hours (Table) 03/16/23 12:10 Blood Culture - Preliminary Blood 03/18/23 13:00 Gram Stain - Preliminary Sputum Sputum Culture - Preliminary Assessment and Plan Assessment: Altered mental status of unclear etiology. Possible opiate, benzodiazepine effect which were recently prescribed for the patient. MRI of the brain revealed no evidence of metastasis. EEG revealed mild encephalopathy possibly medication effect. No seizure activity. The patient is awake and alert today. Oriented x 3. Recent diagnosis with a large left upper lobe lung mass, measuring 5 x 4 cm, with mediastinal invasion. Scheduled for an outpatient PET scan 03/24/2023. CT angiogram ruled out pulmonary embolism. Again evidence of metastatic disease with the medial left upper lobe mass extending from the left suprahilar region measuring up to 4.7 cm. Left hilar adenopathy. 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 Suspect complicated perihepatic ascites. Large lower right paraesophageal lymph nodes could be reactive or represent additional metastatic disease. There is lytic osseous metastasis posterior T6 vertebral body. Suspected splenic metastatic lesion as well. Acute exacerbation of chronic obstructive pulmonary disease. FEV1 value 1.27 L which is 50% of predicted Moderate size hiatal hernia Former smoker Hypertension Gastroesophageal reflux disease Hyperlipidemia Diabetes mellitus, type II History of prostate cancer Plan: The patient was seen and evaluated Labs and medications reviewed Cleared for discharge from the pulmonary standpoint Evaluate for possible home oxygen The plan is for home with home care Continue his home pulmonary medications Complete a prednisone taper Keep his PET scan appointment for 03/24/[address] Boyd in 1 week I have personally seen and examined the patient, performed the documentation and the assessment and plan as written. Number of minutes spent on the visit: 10.
[2023-03-20 12:25] LABS: Glucose,Whole Blood 160 mg/dL (70-110)
[2023-03-20] MEDS: GLIMEPIRIDE 4 MG TAB PO SCH (14:12)
[2023-03-20] MEDS: SODIUM CHLORIDE 0.9% 1,000 ML IV SCH (15:26)
--- NOTE | 2023-03-20 15:32 | P.PN ---
Subjective Progress Note Date: 03/20/23 Principal diagnosis: Altered mental status. Lung mass, lymphadenopathy In follow-up today patient ambulated in the hallway with the wheeled walker, he is going to go home instead of to rehabilitation, there is plenty of family assistance. He denies any acute physical complaints, breathing is stable on oxygen, no acute pain. Objective - Vital Signs Vital signs: Vital Signs Temp 97.6 F 03/20/23 08:00 Pulse 100 03/20/23 12:41 Resp 22 03/20/23 08:00 BP 144/76 03/20/23 08:00 Pulse Ox 96 03/20/23 10:59 FiO2 Intake & Output 03/19/23 03/20/23 03/20/23 18:59 06:59 18:59 Intake Total 500 118 Output Total 300 200 Balance -300 500 -82 Intake: Oral 500 118 Output: Urine 300 200 Other: Voiding Method Urinal Bedside Commode Diaper # Voids 2 2 # Bowel Movements 1 - Constitutional General appearance: Present: cooperative, no acute distress, obese - EENT Eyes: Present: anicteric sclerae, EOMI ENT: Present: hearing grossly normal - Respiratory Details: O2 dependent, respirations unlabored at rest - Neurologic Neurologic: Present: CNII-XII intact (Grossly) - Musculoskeletal Musculoskeletal: Present: generalized weakness, strength equal bilaterally - Psychiatric Psychiatric: Present: A&O x's 3, appropriate affect, intact judgment & insight - Labs CBC & Chem 7: 03/19/23 05:54 03/20/23 09:03 Labs: Abnormal Lab Results - Last 24 Hours (Table) 03/19/23 03/19/23 03/20/23 Range/Units 17:26 20:26 06:04 Chloride (98-107) mmol/L Carbon Dioxide (22-30) mmol/L BUN (9-20) mg/dL Glucose (74-99) mg/dL POC Glucose (mg/dL) 341 H 290 H 62 L (70-110) mg/dL 03/20/23 03/20/23 Range/Units 09:03 12:24 Chloride 108 H (98-107) mmol/L Carbon Dioxide 18 L (22-30) mmol/L BUN 36 H (9-20) mg/dL Glucose 159 H (74-99) mg/dL POC Glucose (mg/dL) 160 H (70-110) mg/dL Microbiology - Last 24 Hours (Table) 03/16/23 12:10 Blood Culture - Preliminary Blood 03/18/23 13:00 Gram Stain - Preliminary Sputum Sputum Culture - Preliminary Assessment and Plan (1) Mass of left lung Current Visit: Yes Status: Acute Priority: High Code(s): R91.8 - OTHER NONSPECIFIC ABNORMAL FINDING OF LUNG FIELD SNOMED Code(s): 219975984 (2) Lymphadenopathy Current Visit: Yes Status: Acute Priority: High Code(s): R59.1 - GENERALIZED ENLARGED LYMPH NODES SNOMED Code(s): 78756176 (3) Left adrenal mass Current Visit: Yes Status: Acute Priority: High Code(s): E27.8 - OTHER SPECIFIED DISORDERS OF ADRENAL GLAND SNOMED Code(s): 490226573 Plan: Patient admitted with altered mental status -MRI of the brain negative for metastasis -Neurology has seen the patient, EEG performed. Possibly related to medication effects -This has resolved CT chest Showing left upper lobe mass up to 4.7 cm, left hilar adenopathy, enlarging bilateral adrenal nodules, right paraesophageal lymphadenopathy, lytic T6 vertebral body lesion, Splenic lesion. -PET scan is planned for 03/24/23 at 10:30 AM at [facility]. and daughter at the bedside are aware of appointment date and time -Patient has a follow-up with Pulmonary on 03/24/23. Anticipate review of PET scan and plan for biopsy. -Appointment with Medical Oncologist Dr. Turner 04/02/23 at 4:15 PM for biopsy results, diagnosis, prognosis and options for care. -Patient, and daughter agree with the plan.
[2023-03-20 15:42] VITALS: BP 106/60; PULSE 109; RESP 16; TEMP 98.2
[2023-03-20] MEDS: INSULIN DETEMIR (LEVEMIR) 100 UNIT/ML SYR SQ SCH (15:49)
[2023-03-20] MEDS: BENZONATATE 100 MG CAP PO PRN (15:51)
[2023-03-20] MEDS ORDERED: GLIMEPIRIDE 1 MG TAB PO SCH (21:00)
--- NOTE | 2023-03-21 00:21 | P.DS ---
Providers Date of admission: 03/16/23 10:46 Attending physician: Ron Stone MD Consults: 03/15/23 17:14 Consult Physician Routine Consulting Provider: Ghazala Henderson Consult Reason/Comments: copd Do you want consulting provider notified?: Yes 03/15/23 17:15 Consult Physician Routine Consulting Provider: Luca Turner Consult Reason/Comments: malignancy Do you want consulting provider notified?: Yes 03/15/23 17:17 Consult Physician Routine Consulting Provider: Raymond Boyd Consult Reason/Comments: change in mentation Do you want consulting provider notified?: Yes 03/18/23 09:30 Consult Physician Urgent Consulting Provider: Rory Terry Consult Reason/Comments: Non sustained vtack Do you want consulting provider notified?: Yes Primary care physician: [facility] Course: Diagnoses: 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, and on this CAT scan 4.7 cm, suspicious for malignancy. With metastatic disease of fall and V6 vertebra and the splenic Bilateral adrenal thickening 2.3 cm on the right and 2.2 cm on the left acute COPD exacerbation Iron deficiency anemia Altered mental status, secondary to metabolic encephalopathy. Resolved and patient is back to baseline Diabetes mellitus with hyperglycemia Coronary artery disease status post CABG Hypertension Dyslipidemia Hospital course: This is a pleasant 82 years old male with multiple medical problems presents with chest pain, was recently discharged from is a known case of lung mass with bilateral adrenal gland thickening. Also was diagnosed with pneumonia and discharged on antibiotics and Taper steroids. Presents with altered mental status thought secondary to use of alcohol and Xanax at bed patient had extensive evaluation and his been followed by several consultants including pulmonary, neurology service and cardiology as well as hematology oncology team. Patient was treated with limitation of sedative medications ,IV Solu-Medrol, doxycyclinec and normal saline At 50 mL per hour. Also he was placed on insulin and farxiga . And amryl Patient showed interval improvement day patient feels ready to go home, and he was adamant to be discharged today. However patient was found to be medically stable for discharge, his breathing is quiet, his heart rate was controlled. Significantly improved and patient is back to baseline. Patient was found to qualify for home oxygen and it affect at bedside Patient was fluctuation of the glucose secondary to many factors. I offered to monitor his glucose for 1 more day patient declines and preferred to be monitored at home. Extensive discussion and explanation was provided for the patient with multiple female family members at bedside including the mother and daughter. Also I had extensive discussion with the patient and family about medication, indication and side effects with recommendation treatment of Xanax on [place] and he agrees. Also patient aware of his common appointment with PET scan Patient was cleared for discharge by all consultants broiler manager, sail finisher machine and wool classer oncologist. Neurologist or the side of the case Patient agrees with the appointments made for him upon discharge Problems and management plan were discussed with the patient and he verbalized understanding and acceptance Patient was found stable and can be discharged home in guarded prognosis however he needs follow-up as an outpatient. Patient was instructed to follow up with PCP Dr. Alston within one week and patient agrees with the appointments made for him in 2 days on 03/22 Patient also agrees with the appointments made for him with Dr. Breaux on 03/[address] Jean on 03/[address] mcfadden 04/02 and states with family that he will follow-up Patient also declined don't for rehab. Patient is high-risk for hospitalization and complication Physical exam Gen: patient is a AAOx3, no distress CVS: S1-S2, RRR, no murmur -Lungs: B/L CTA, no wheezing. Oxygen via nasal cannula Abdomen: soft, no distention, no tenderness, positive bowel sounds Extremity: no leg edema or induration Time spent more than 35 minutes Patient Condition at Discharge: Stable Plan - Discharge Summary New Discharge Prescriptions: New Glimepiride [Amaryl] 1 mg PO HS #30 tab Metoprolol Tartrate [Lopressor] 50 mg PO BID #60 tab Doxycycline [Vibramycin] 100 mg PO BID 2 Days #4 cap lisinopriL [Zestril] 2.5 mg PO DAILY #30 tab predniSONE 10 mg PO DIRECTED #40 tab Continue Aspirin EC [Ecotrin Low Dose] 81 mg PO DAILY Baclofen [Lioresal] 5 mg PO BID PRN PRN Reason: Muscle Pain Nitroglycerin Sl Tabs [Nitrostat] 0.4 mg SUBLINGUAL Q5M PRN PRN Reason: Chest Pain Pantoprazole Sodium 40 mg PO BID Rosuvastatin Calcium [Crestor] 10 mg PO DAILY cilostazoL [Pletal] 100 mg PO BID Isosorbide Mononitrate ER [Imdur] 30 mg PO DAILY Loperamide [Imodium] 2 mg PO QID PRN PRN Reason: Diarrhea Acetaminophen Tab [Tylenol] 650 mg PO Q6HR PRN tab PRN Reason: Mild Pain Or Fever > 100.5 Glimepiride [Amaryl] 4 mg PO DAILY #30 tab Furosemide [Lasix] 40 mg PO DAILY #30 tab Insulin Degludec [Tresiba Flextouch U-200 Pen] 45 units SQ DAILY #4 pen Umeclidinium Brm/Vilanterol Tr [Anoro Ellipta 62.5-25 Mcg INH] 1 puff INHALATION RT-DAILY Multivitamins, Thera [Multivitamin (formulary)] 1 tab PO DAILY Naloxone HCl [Narcan] 4 mg NASAL DIRECTED PRN PRN Reason: OVERDOSE Albuterol Inhaler [Ventolin Hfa Inhaler] 1 - 2 puff INHALATION RT-Q6H PRN #1 each PRN Reason: Shortness Of Breath Dapagliflozin Propanediol [Farxiga] 10 mg PO DAILY #30 tab Changed ALPRAZolam [Xanax] 0.5 mg PO HS #0 HYDROcodone/APAP 7.5-325MG [Driver 7.5-325] 1 tab PO Q12HR PRN #0 PRN Reason: Pain Discontinued Metoprolol Tartrate [Lopressor] 25 mg PO HS lisinopriL [Prinivil] 5 mg PO DAILY predniSONE See Taper PO DIRECTED Glimepiride [Amaryl] 2 mg PO HS Discharge Medication List Aspirin EC [Ecotrin Low Dose] 81 mg PO DAILY 12/03/18 [History] Baclofen [Lioresal] 5 mg PO BID PRN 11/28/20 [History] Nitroglycerin Sl Tabs [Nitrostat] 0.4 mg SUBLINGUAL Q5M PRN 11/28/20 [History] Pantoprazole Sodium 40 mg PO BID 11/28/20 [History] Rosuvastatin Calcium [Crestor] 10 mg PO DAILY 11/28/20 [History] Umeclidinium Brm/Vilanterol Tr [Anoro Ellipta 62.5-25 Mcg INH] 1 puff INHALATION RT-DAILY 03/21/21 [History] Isosorbide Mononitrate ER [Imdur] 30 mg PO DAILY 03/05/23 [History] Loperamide [Imodium] 2 mg PO QID PRN 03/05/23 [History] Multivitamins, Thera [Multivitamin (formulary)] 1 tab PO DAILY 03/05/23 [History] cilostazoL [Pletal] 100 mg PO BID 03/05/23 [History] Acetaminophen Tab [Tylenol] 650 mg PO Q6HR PRN tab 03/07/23 [Rx] Naloxone HCl [Narcan] 4 mg NASAL DIRECTED PRN 03/15/23 [History] ALPRAZolam [Xanax] 0.5 mg PO HS #0 03/20/23 [Rx] Albuterol Inhaler [Ventolin Hfa Inhaler] 1 - 2 puff INHALATION RT-Q6H PRN #1 each 03/20/23 [Rx] Dapagliflozin Propanediol [Farxiga] 10 mg PO DAILY #30 tab 03/20/23 [Rx] Doxycycline [Vibramycin] 100 mg PO BID 2 Days #4 cap 03/20/23 [Rx] Furosemide [Lasix] 40 mg PO DAILY #30 tab 03/20/23 [Rx] Glimepiride [Amaryl] 1 mg PO HS #30 tab 03/20/23 [Rx] Glimepiride [Amaryl] 4 mg PO DAILY #30 tab 03/20/23 [Rx] HYDROcodone/APAP 7.5-325MG [Driver 7.5-325] 1 tab PO Q12HR PRN #0 03/20/23 [Rx] Insulin Degludec [Tresiba Flextouch U-200 Pen] 45 units SQ DAILY #4 pen 03/20/23 [Rx] Metoprolol Tartrate [Lopressor] 50 mg PO BID #60 tab 03/20/23 [Rx] lisinopriL [Zestril] 2.5 mg PO DAILY #30 tab 03/20/23 [Rx] predniSONE 10 mg PO DIRECTED #40 tab 03/20/23 [Rx] Follow up Appointment(s)/Referral(s): Luca Turner MD [STAFF PHYSICIAN] - 04/02/23 4:15 pm (This appointment is at the office located at [address] [place] [address]. Phone numbers [phone]) Mila Jimenez MD [STAFF PHYSICIAN] - 03/27/23 10:00 am Levi Nunez MD [Primary Care Provider] - 03/22/23 10:00 am Sudeep Boyd DO [Doctor of Osteopathic Medicine] - 03/26/23 3:30 pm [facility] Visiting Nurse, [NON-STAFF] - 1 Week Activity/Diet/Wound Care/Special Instructions: Heart healthy diet, low carbohydrate diet activity is restricted till you see your doctor Check your glucose 4 times a day before each meal and at bedtime, keep the results in a log book and bring it to your doctor on your appointment date If you have glucose less than 70 or more than 400 and call 911 and come to emergency room PET scan is at [facility] 03/24/23 at 10:30 Discharge Disposition: HOME WITH HOME HEALTH SERVICES
== END 2023-03-20 16:57 | disposition home health service (06) | DRG 180 ==
LOC: EC 10:33 → 5NMEDONC 13:02 → 6NMEDSUR 14:39 → OBSVTOIN 03-16 10:46
PROVIDERS: ADMIT Internal Medicine; ATTEND Internal Medicine
DX: C34.12 Malignant neoplasm of upper lobe, left bronchus or lung (principal); G92.8 Other toxic encephalopathy; J96.01 Acute respiratory failure with hypoxia; C78.89 Secondary malignant neoplasm of other digestive organs; C79.51 Secondary malignant neoplasm of bone; I47.20 Ventricular tachycardia, unspecified; J44.1 Chronic obstructive pulmonary disease with (acute) exacerbation; R18.8 Other ascites; M54.50 Low back pain, unspecified; D35.00 Benign neoplasm of unspecified adrenal gland; D50.9 Iron deficiency anemia, unspecified; E11.65 Type 2 diabetes mellitus with hyperglycemia; E78.5 Hyperlipidemia, unspecified; T42.4X5A Adverse effect of benzodiazepines, initial encounter; I10 Essential (primary) hypertension; G89.29 Other chronic pain; I25.10 Atherosclerotic heart disease of native coronary artery without angina pectoris; I25.2 Old myocardial infarction; Z87.01 Personal history of pneumonia (recurrent); Z99.81 Dependence on supplemental oxygen; K21.9 Gastro-esophageal reflux disease without esophagitis; K44.9 Diaphragmatic hernia without obstruction or gangrene; T40.605A Adverse effect of unspecified narcotics, initial encounter; Z79.02 Long term (current) use of antithrombotics/antiplatelets; Z79.4 Long term (current) use of insulin; Z79.82 Long term (current) use of aspirin; Z79.84 Long term (current) use of oral hypoglycemic drugs; Z79.899 Other long term (current) drug therapy; Z85.46 Personal history of malignant neoplasm of prostate; Z85.828 Personal history of other malignant neoplasm of skin; Z87.891 Personal history of nicotine dependence; Z95.1 Presence of aortocoronary bypass graft; Z77.090 Contact with and (suspected) exposure to asbestos; Z28.310 Unvaccinated for COVID-19
CPT/HCPCS: 36415; 70553; 71046; 71275; 80048; 80053; 80306; 81003; 82525; 82607; 82728; 82746; 82803; 83036; 83540; 83550; 83735; 83921; 84145; 84439; 84443; 85025; 85379; 85610; 85730; 87070; 87077; 87186; 87205; 93005; 93880; 94640; 94760; 95816; 96361; 96374; 99285